=== PATIENT | female | born 1940 | race Native Hawaiian/Other Pacific Islander ===

== ENCOUNTER 2016-08-19 14:01 | Emergency (ER) | payer MEDICARE ==
[2016-08-19 14:02] VITALS: BMI 19.8
[2016-08-19 14:42] VITALS: TEMP 97.8; O2SAT 96
--- NOTE | 2016-08-19 14:57 | ED PDOC ---
Arrival/HPI - General Chief Complaint: Trauma Time Seen by Provider: 08/19/16 14:10 Historian: Patient - History of Present Illness Narrative History of Present Illness (Text): 08/19/16 14:50 Michelle Myles is a 75 year old female who presents to the emergency department complaining of possible head injury and injury to left wrist and right ankle s/ p fall yesterday morning. Patient miscalculated location of bed before laying down and fell, hitting her head and using her arms and legs to break fall. Patient denies any loss of consciousness from fall, however experiences dizziness presently. Patient indicates pain to bilateral wrists, knees and ankles. Patient waited to go to Urgent Care center until this morning, and was directed to emergency department out of concern for possible injury from trauma to the head, for a Head CT, and further evaluation. Patient took Aspirin for her pain to little relief. Patient denies any fever, chills, chest pain, shortness of breath, nausea, vomiting, diarrhea, urinary symptoms, or any other complaints. Time/Duration: < week Symptom Onset: Sudden Symptom Course: Unchanged Activities at Onset: Rest Modifying Factors (Text): Pain worsens with movement Context: Home Past Medical History - Provider Review Nursing Documentation Reviewed: Yes - Infectious Disease Hx of Infectious Diseases: None - Tetanus Immunization Tetanus Immunization: Allergy to Tetanus Vaccine - Reproductive Menopause: Yes - Cardiac Hx Pacemaker: Yes - Pulmonary Hx Chronic Obstructive Pulmonary Disease (COPD): Yes Hx Pneumonia: Yes - Neurological Hx Paralysis: No - HEENT Hx HEENT Disorder: Yes Other/Comment: LEFT EYE CATARACT SURGERY 06/2015 - Renal Hx Renal Disorder: No - Endocrine/Metabolic Hx Hypothyroidism: Yes - Hematological/Oncological Hx Blood Transfusions: No Hx Blood Transfusion Reaction: No - Integumentary Hx Dermatological Disorder: No - Musculoskeletal/Rheumatological Hx Musculoskeletal Disorders: Yes (PINCHED NERVES UPPER & LOWER SPINE) - Gastrointestinal Hx Gastrointestinal Disorders: No - Genitourinary/Gynecological Hx Genitourinary Disorders: No - Psychiatric Hx Emotional Abuse: No Hx Physical Abuse: No Hx Substance Use: No - Surgical History Hx Tonsillectomy: Yes - Anesthesia Hx Anesthesia: Yes Hx Anesthesia Reactions: No Hx Malignant Hyperthermia: No - Suicidal Assessment Feels Threatened In Home Enviroment: No Family/Social History - Physician Review Nursing Documentation Reviewed: Yes Family/Social History: No Known Family HX Smoking Status: Heavy Smoker > 10 Cigarettes Daily Hx Alcohol Use: No Hx Substance Use: No Allergies/Home Meds Allergies/Adverse Reactions: Allergies Sulfa (Sulfonamide Antibiotics) Allergy (Verified 08/19/16 14:42) ANAPHYLAXIS Tetanus Vaccines and Toxoid [Tetanus Vaccines & Toxoid] Allergy (Verified 14:42) RASH tetracycline Allergy (Verified 08/19/16 14:42) RASH Home Medications: Home Meds Medication Instructions Recorded Confirmed Dexlansoprazole [Dexilant] 60 mg PO DAILY 08/16/15 02/03/16 Gabapentin 300 mg PO BID 08/16/15 02/03/16 MetFORMIN [glucoPHAGE] 1,000 mg PO BID 08/16/15 02/03/16 Metoprolol Succinate 50 mg PO QPM 08/16/15 02/03/16 Valsartan [Diovan] 160 mg PO QAM 08/16/15 02/03/16 Glimepiride 1 mg PO DAILY PRN 02/01/16 02/03/16 Latanoprost 0.005% Opht [XALATAN 1 drp EACHEYE HS 02/01/16 02/03/16 2.5 Ml] Levothyroxine [Synthroid] 75 mcg PO DAILY 02/01/16 02/03/16 Meclizine [Meclizine*] 25 mg PO TID PRN 02/01/16 02/03/16 Review of Systems - Physician Review All systems were reviewed & negative as marked: Yes - Review of Systems Constitutional: absent: Fevers, Night Sweats Eyes: absent: Vision Changes ENT: absent: Hearing Changes Respiratory: absent: SOB Cardiovascular: absent: Chest Pain Gastrointestinal: absent: Abdominal Pain Genitourinary Female: absent: Urine Output Changes Musculoskeletal: Other (injury to left wrist and right ankle) Skin: absent: Rash Neurological: Dizziness (hit head s/p fall) Endocrine: absent: Diaphoresis Hemo/Lymphatic: absent: Adenopathy Psychiatric: absent: Depression Physical Exam Vital Signs Reviewed: Yes Vital Signs Temp Pulse Resp BP Pulse Ox 08/19/16 14:42 97.8 F 79 19 135/84 96 08/19/16 14:37 97.8 F 79 19 135/84 96 Temperature: Afebrile Blood Pressure: Normal Pulse: Regular Respiratory Rate: Normal Appearance: Positive for: Well-Appearing, Non-Toxic, Comfortable Pain Distress: None Mental Status: Positive for: Alert and Oriented X 3 - Systems Exam Head: Present: Atraumatic, Normocephalic. No: Tenderness, Contusion, Swelling Pupils: Present: PERRL Extroacular Muscles: Present: EOMI Conjunctiva: Present: Normal Mouth: Present: Moist Mucous Membranes Nose (External): Present: Atraumatic Nose (Internal): Present: Normal Inspection. No: No Active Bleeding, Epistaxis Neck: Present: Normal Range of Motion. No: MIDLINE TENDERNESS Respiratory/Chest: Present: Clear to Auscultation, Good Air Exchange. No: Respiratory Distress, Accessory Muscle Use Cardiovascular: Present: Regular Rate and Rhythm, Normal S1, S2. No: Murmurs Abdomen: Present: Normal Bowel Sounds. No: Tenderness, Distention, Peritoneal Signs Back: Present: Normal Inspection. No: Midline Tenderness Upper Extremity: Present: Tenderness (to left lateral wrist) Lower Extremity: Present: Tenderness (to right medial ankle with some swelling) Neurological: Present: GCS=15, CN II-XII Intact, Speech Normal, Motor Func Grossly Intact, Normal Sensory Function, Normal Cerebellar Funct, Gait Normal, Normal 2Pt Descrimination Skin: Present: Warm, Dry, Normal Color. No: Rashes Psychiatric: Present: Alert, Oriented x 3, Normal Insight, Normal Concentration Medical Decision Making ED Course and Treatment: 08/19/16 14:56 Impression: 75 year old female complaining of possible head injurt and injury to left wrist and right ankle s/p fall yesterday morning. Differential Diagnosis included but are not limited to: Head injury r/o ICH; Wrist and Ankle Contusion r/o Fracture Plan: -- Head CT w/o contrast -- Right Ankle X-ray -- Left Wrist X-ray -- Tylenol -- Reassess and disposition Prior Visits: Notes and results from previous visits were reviewed. Patient last seen in the ED on 10/30/15 for productive cough with yellow phlegn for 3 days. Patient was discharged home. Progress Notes: 08/19/16 16:58 I discussed this case with Dr. Dietz, Radiologist, who states that the old infarct is an incidental finding and recommends an MRI in the future but not urgent. I discussed this with family and they will make sure to follow up with their primary care doctor in 1-2 days. - RAD Interpretation Radiology Orders: 08/19/16 14:53 HEAD W/O CONTRAST [CT] Stat ANKLE RIGHT 3 VIEWS ROUTINE [RAD] Stat WRIST, LEFT 3 VIEWS [RAD] Stat Exam Date : 08/19/2016 16:14:28 ( Approved ) Study Comment : Sex / Age : F / 75Y Creator : KAREN DIETZ MD Dictator : KAREN DIETZ MD Campus Supervisor : [employer] : KAREN DIETZ MD Approver2 : Report Date : 08/19/2016 16:28:28 My Comment : PROCEDURE: CT HEAD WITHOUT CONTRAST. IMPRESSION: No acute intracranial abnormality. 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 WRIST and ANKLE Xray negative for fx. 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 No Sleep Is patient sleeping during reassessment? No Presence of Pain Presence of Pain Yes Pain Scale Used Pain Scale Used Numeric - Scribe Statement The provider has reviewed the documentation as recorded by the Scribe Letty Tobin Provider Scribe Attestation: All medical record entries made by the Scribe were at my direction and personally dictated by me. I have reviewed the chart and agree that the record accurately reflects my personal performance of the history, physical exam, medical decision making, and the department course for this patient. I have also personally directed, reviewed, and agree with the discharge instructions and disposition. Disposition/Present on Arrival - Present on Arrival Any Indicators Present on Arrival: No History of DVT/PE: No History of Uncontrolled Diabetes: No Urinary Catheter: No History of Decub. Ulcer: No History Surgical Site Infection Following: None - Disposition Have Diagnosis and Disposition been Completed?: Yes Diagnosis: Fall, Wrist contusion, Ankle contusion Disposition: HOME/ ROUTINE Disposition Time: 16:58 Patient Plan: Discharge Patient Problems: Current Active Problems Problem Status Diagnosed Ankle contusion Acute Fall Acute Wrist contusion Acute Condition: IMPROVED Discharge Instructions (ExitCare): Ankle Sprain (ED), Concussion (ED), Wrist Sprain (ED), Ischemic Stroke (DC) Additional Instructions: Ms Myles, thank you for letting us take care of you today. Your provider was Dr. Guerrero. You were treated for Head Injury, Left Wrist Injury, Right Ankle sprain. The emergency medical care you received today was directed at your acute symptoms. If you were prescribed any medication, please fill it and take as directed. It may take several days for your symptoms to resolve. Return to the Emergency Department if your symptoms worsen, do not improve, or if you have any other problems. Please contact your doctor or call one of the physicians/clinics you have been referred to that are listed on the Patient Visit Information form that is included in your discharge packet. Bring any paperwork you were given at discharge with you along with any medications you are taking to your follow up visit. Our treatment cannot replace ongoing medical care by a primary care provider (PCP) outside of the emergency department. Thank you for allowing the [facility] team to be part of your care today. If you had an X-Ray or CT scan: A Radiologist will review the ED reading if any change in treatment is needed we will contact you. If you had a blood, urine, or wound culture: It will take several days for the results, if any change in treatment is needed we will contact you. If you had an STI test: It will take 48 hours for the results. Please call after 1 week if you have not heard back. Referrals: Ronaldo Mukherjee MD [Primary Care Provider] - Follow up with primary
--- NOTE | 2016-08-19 16:30 | CT ---
PROCEDURE: CT HEAD WITHOUT CONTRAST. HISTORY: Head injury r/o ICH COMPARISON: None available. TECHNIQUE: Axial computed tomography images were obtained through the head/brain without intravenous contrast. Radiation dose: Total exam DLP = 774.23 mGy-cm. FINDINGS: HEMORRHAGE: No intracranial hemorrhage. BRAIN: There is a focal low-attenuation area in the right anterior hirsch radiata. There are mild chronic microangiopathic changes. There is no mass, mass effect or abnormal extra-axial fluid collection. VENTRICLES: There is mild age-related global parenchymal volume loss and proportionate enlargement of the ventricles and cortical sulci. CALVARIUM: There is no calvarial fracture or extracranial soft tissue swelling. PARANASAL SINUSES: Predominantly clear. MASTOID AIR CELLS: Predominantly clear. OTHER FINDINGS: None. IMPRESSION: No acute intracranial abnormality. 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
--- NOTE | 2016-08-19 16:55 | RAD ---
PROCEDURE: Right Ankle Radiographs. HISTORY: fall r/o fx COMPARISON: None FINDINGS: BONES: Bone alignment and mineralization are normal. There is no acute fracture, dislocation or bone destruction. JOINTS: Normal. No osteoarthritis. Ankle mortise maintained. Talar dome intact SOFT TISSUES: Normal. OTHER FINDINGS: None. IMPRESSION: No acute fracture or dislocation.
--- NOTE | 2016-08-19 16:55 | RAD ---
PROCEDURE: Left Wrist Radiographs. R vaginal bio Yo falx on Femara HISTORY: fall r/o fx COMPARISON: None. FINDINGS: BONES: The proximal and distal carpal rows are maintained. There is no acute fracture or bone destruction. JOINTS: The joint spaces are preserved. SOFT TISSUES: Normal. OTHER FINDINGS: None. IMPRESSION: No acute fracture or dislocation.
[2016-08-19 17:21] VITALS: BP 134/98; PULSE 80; RESP 16
== END 2016-08-19 18:10 | disposition home or self-care (01) ==
LOC: ED 14:01
DX: S60.212A Contusion of left wrist, initial encounter (principal); S90.01XA Contusion of right ankle, initial encounter; W18.39XA Other fall on same level, initial encounter; Y93.89 Activity, other specified; Y92.003 Bedroom of unspecified non-institutional (private) residence as the place of occurrence of the external cause

== ENCOUNTER 2016-08-30 07:52 | Emergency (ER) | payer MEDICARE ==
[2016-08-30 07:53] VITALS: BMI 19.8
[2016-08-30] MEDS ORDERED: Sodium Chloride 0.9% 500 ML IV STA (08:31)
--- NOTE | 2016-08-30 09:24 | ED PDOC ---
Arrival/HPI - General Chief Complaint: Dizziness/Lightheaded Time Seen by Provider: 08/30/16 08:18 Historian: Patient - History of Present Illness Narrative History of Present Illness (Text): 08/30/16 09:13 Michelle Canales is a 76 year old female, with a history of diabetes, bursitis and hypertension, presents to the emergency department for evaluation of lightheadedness associated with mild nausea which began today morning while she was waiting for an [place] study [place] [facility] [place] was sent to emergency department from further evaluation. Patient currently complains of mild lightheadedness which is worsened while standing up. She states that she is due for Valsartan and Metformin today morning, but has not taken it. Notes she ate crackers, but has not eaten breakfast yet. Patient also complains of left should pain, chronic due to bursitis. Denies any fever, chills, headache, chest pain, shortness of breath, vomiting, urinary symptoms, or any other complaints at this time. Time/Duration: 1/2 hour Symptom Onset: Gradual Symptom Course: Unchanged Severity Level: Mild Activities at Onset: Light Past Medical History - Provider Review Nursing Documentation Reviewed: Yes - Infectious Disease Hx of Infectious Diseases: None - Tetanus Immunization Tetanus Immunization: Allergy to Tetanus Vaccine - Cardiac Hx Hypertension: Yes - Pulmonary Hx Chronic Obstructive Pulmonary Disease (COPD): Yes Hx Pneumonia: Yes - Neurological Hx Paralysis: No - HEENT Hx HEENT Disorder: Yes Other/Comment: LEFT EYE CATARACT SURGERY 06/2015 - Renal Hx Renal Disorder: No - Endocrine/Metabolic Hx Diabetes Mellitus Type 2: Yes Hx Hypothyroidism: Yes - Hematological/Oncological Hx Blood Transfusions: No Hx Blood Transfusion Reaction: No - Integumentary Hx Dermatological Disorder: No - Musculoskeletal/Rheumatological Hx Musculoskeletal Disorders: Yes (PINCHED NERVES UPPER & LOWER SPINE) - Gastrointestinal Hx Gastrointestinal Disorders: No - Genitourinary/Gynecological Hx Genitourinary Disorders: No - Psychiatric Hx Emotional Abuse: No Hx Physical Abuse: No Hx Substance Use: No - Surgical History Hx Section: Yes (x4) Hx Hysterectomy: Yes Hx Musculoskeletal Surgery: Yes (Hand, Toes) Hx Tonsillectomy: Yes - Anesthesia Hx Anesthesia: Yes Hx Anesthesia Reactions: No Hx Malignant Hyperthermia: No - Suicidal Assessment Feels Threatened In Home Enviroment: No Family/Social History - Physician Review Nursing Documentation Reviewed: Yes Family/Social History: No Known Family HX Smoking Status: Heavy Smoker > 10 Cigarettes Daily Hx Alcohol Use: No Hx Substance Use: No Allergies/Home Meds Allergies/Adverse Reactions: Allergies Sulfa (Sulfonamide Antibiotics) Allergy (Verified 08/30/16 08:05) ANAPHYLAXIS Tetanus Vaccines and Toxoid [Tetanus Vaccines & Toxoid] Allergy (Verified 08:05) RASH tetracycline Allergy (Verified 08/30/16 08:05) RASH Home Medications: Home Meds Medication Instructions Recorded Confirmed Dexlansoprazole [Dexilant] 60 mg PO DAILY 08/16/15 02/03/16 Gabapentin 300 mg PO BID 08/16/15 02/03/16 MetFORMIN [glucoPHAGE] 1,000 mg PO BID 08/16/15 02/03/16 Metoprolol Succinate 50 mg PO QPM 08/16/15 02/03/16 Valsartan [Diovan] 160 mg PO QAM 08/16/15 02/03/16 Glimepiride 1 mg PO DAILY PRN 02/01/16 02/03/16 Latanoprost 0.005% Opht [XALATAN 1 drp EACHEYE HS 02/01/16 02/03/16 2.5 Ml] Levothyroxine [Synthroid] 75 mcg PO DAILY 02/01/16 02/03/16 Meclizine [Meclizine*] 25 mg PO TID PRN 02/01/16 02/03/16 Review of Systems - Physician Review All systems were reviewed & negative as marked: Yes - Review of Systems Constitutional: Normal. absent: Fatigue, Fevers Respiratory: absent: SOB, Cough Cardiovascular: absent: Chest Pain Gastrointestinal: Nausea. absent: Vomiting Genitourinary Female: Normal. absent: Dysuria, Frequency Musculoskeletal: Other (left shoulder pain ) Neurological: Dizziness (lightheadedness ) Psychiatric: Normal Physical Exam Vital Signs Reviewed: Yes Vital Signs Temp Pulse Resp BP Pulse Ox 08/30/16 12:25 98 F 78 16 165/95 H 99 08/30/16 10:40 72 16 136/91 H 98 08/30/16 07:59 98.4 F 90 18 137/85 95 Temperature: Afebrile Blood Pressure: Normal Pulse: Regular Respiratory Rate: Normal Appearance: Positive for: Well-Appearing, Non-Toxic, Comfortable Pain Distress: None Mental Status: Positive for: Alert and Oriented X 3 - Systems Exam Head: Present: Atraumatic, Normocephalic Pupils: Present: PERRL Extroacular Muscles: Present: EOMI Conjunctiva: Present: Normal Mouth: Present: Moist Mucous Membranes Pharnyx: Present: Normal. No: ERYTHEMA, EXUDATE Neck: Present: Normal Range of Motion. No: Paraspinal Tenderness, Bruit Respiratory/Chest: Present: Clear to Auscultation, Good Air Exchange. No: Respiratory Distress, Accessory Muscle Use Cardiovascular: Present: Regular Rate and Rhythm, Normal S1, S2. No: Murmurs Abdomen: Present: Normal Bowel Sounds. No: Tenderness, Distention, Peritoneal Signs Upper Extremity: Present: Normal Inspection, Normal ROM, NORMAL PULSES, Neurovascularly Intact. No: Cyanosis, Edema Lower Extremity: Present: Normal Inspection. No: Edema Neurological: Present: GCS=15, CN II-XII Intact, Speech Normal, Motor Func Grossly Intact, Normal Sensory Function, Other (good head shipper strenth. ) Skin: Present: Warm, Dry, Normal Color. No: Rashes Psychiatric: Present: Alert, Oriented x 3, Normal Insight, Normal Concentration Medical Decision Making ED Course and Treatment: 08/30/16 09:26 Impression: A 76 year old female who presents to the emergency department complaining of lightheadedness and nausea since earlier today morning. DDx: Near Syncope/Lightheadedness secondary decreased food and hydration this AM and not taking her medication; will consider cardiac and neuro causes. Plan: -- EKG -- Labs, cardiac enzymes -- Chest X-ray -- MRI brain -- MRA head -- MRA neck -- IV fluids -- Urinalysis -- Reassess and disposition Progress Notes: 08/30/16 09:27 EKG interpreted by me: NSR @ 84 bpm. Normal axis. Normal interval. No ST elevations. 08/30/16 12:19 Patient blood work was negative including cardiac enzymes. Her EKG was normal. CXR was normal. She also had scheduled MRI/MRA studies she was supposed to get today as per Dr. Rocha. We were able to complete those studies today and they were all negative. Patient states that she feels much better now and is in no acute distress. She no longer feels ligtheaded. She was able to stand up without dizziness or ataxia or lightheadedness. No headache. Neuro exam repeated and she has no neuro deficits. CN2-12 intact. Will discharge patient home and advised to f/u with Dr. Rocha. - Lab Interpretations Lab Results: 08/30/16 09:00 08/30/16 09:00 Lab Results 08/30/16 09:00: WBC 10.9, RBC 5.16, Hgb 14.9, Hct 43.0, MCV 83.3, MCH 28.9, MCHC 34.7, RDW 12.6, Plt Count 252, MPV 11.9 H, Gran % 71.2 H, Lymph % (Auto) 22.3, Bethel % (Auto) 4.4, Eos % (Auto) 1.7, Baso % (Auto) 0.4, Gran # 7.75 H, Lymph # 2.4, Bethel # 0.5, Eos # 0.2, Baso # 0.04, PT 10.7, INR 0.99, APTT 27.7, Sodium 137, Potassium 4.0, Chloride 101, Carbon Dioxide 25, Anion Gap 15, BUN 12 , Creatinine 0.7, Est GFR ( Amer) > 60, Est GFR (Non-Af Amer) > 60, Random Glucose 232 H, Calcium 9.2, Magnesium 1.6 L, Total Bilirubin 0.6, AST 30 , ALT 36, Alkaline Phosphatase 70, Lactate Dehydrogenase 397, Total Creatine Kinase 55, Troponin I < 0.01, Total Protein 7.2, Albumin 4.2, Globulin 3.0, Albumin/Globulin Ratio 1.4, Urine Color Yellow, Urine Appearance Clear, Urine pH 6.0, Ur Specific Hodgen 1.025, Urine Protein Trace H, Urine Glucose (UA) Negative, Urine Ketones Negative, Urine Blood Negative, Urine Nitrate Negative, Urine Bilirubin Negative, Urine Urobilinogen 0.2, Ur Leukocyte Esterase Negative , Urine RBC Negative, Urine WBC Negative 08/30/16 08:15: POC Glucose (mg/dL) 170 H I have reviewed the lab results: Yes Interpretation: Abnormal lab values (hyperglycemia and pt took her DM meds in ED.) - RAD Interpretation Narrative RAD Interpretations (Text): PROCEDURE: MR Angiography of the neck without contrast FINDINGS: RIGHT CAROTID ARTERIES: Common Carotid Artery: Normal. Carotid Bifurcation: Normal. Internal Carotid Artery:Normal. External Carotid Artery (proximal branches): Normal. LEFT CAROTID ARTERIES: Common Carotid Artery: Normal. Carotid Bifurcation: Normal. Internal Carotid Artery:Normal. External Carotid Artery (proximal branches): Normal. VERTEBRAL ARTERIES: Right Vertebral Artery: Normal. Left Vertebral Artery: Normal. OTHER FINDINGS: None. IMPRESSION: Normal MR Angiography of the neck. PROCEDURE: Magnetic Resonance Angiography Brain FINDINGS: INTERNAL CEREBRAL ARTERIES: Unremarkable. The skull base, petrous, cavernous and supraclinoid segments are bilaterally widely patient. ANTERIOR CEREBRAL ARTERIES: Unremarkable. A1 and A2 segments are widely patent. Smaller distal branches unremarkable, as visualized. MIDDLE CEREBRAL ARTERIES: Unremarkable. M1 and M2 segments are widely patent. Perisylvian branches grossly symmetric. POSTERIOR CIRCULATION: Basilar Artery: Unremarkable. Distal Vertebral Arteries: Unremarkable. Posterior Cerebral Arteries: Unremarkable. Posterior Inferior Cerebellar Arteries: Unremarkable. ANEURYSM/ VASCULAR MALFORMATIONS: None. OTHER FINDINGS: None. IMPRESSION: Unremarkable MR angiography of the brain. PROCEDURE: MRI BRAIN WITHOUT CONTRAST FINDINGS: HEMORRHAGE: None DWI: No evidence of an acute or early subacute infarction. BRAIN PARENCHYMA: No mass effect or edema. Chronic microvascular changes are seen in the periventricular white matter right greater than left. There is a small discrete white matter infarct that is chronic. VENTRICLES: Unremarkable. No hydrocephalus. CRANIUM: Unremarkable. ORBITS: Grossly unremarkable. PARANASAL SINUSES/MASTOIDS: Clear VASCULAR SYSTEM: Skull base flow voids intact. OTHER FINDINGS: None. IMPRESSION: Chronic microvascular changes. No acute findings. Normal medial temporal lobes. 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 - EKG Interpretation Interpreted by ED Physician: Yes Type: 12 lead EKG - Medication Orders Current Medication Orders: Discontinued Medications Sodium Chloride (Sodium Chloride 0.9%) 500 mls @ 999 mls/hr IV .Q31M STA Stop: 08/30/16 09:01 Last Admin: 08/30/16 09:16 Dose: 999 MLS/HR eMAR Start Stop Document 08/30/16 09:16 SS (Rec: 08/30/16 09:16 SS [id number]) Intravenous Solution Start Date 08/30/16 Start Time 09:16 End Date 08/30/16 End time 09:48 Total Infusion Time 32 - Scribe Statement The provider has reviewed the documentation as recorded by the Mattie Barrientos Provider Attestation: All medical record entries made by the Mattie were at my direction and personally dictated by me. I have reviewed the chart and agree that the record accurately reflects my personal performance of the history, physical exam, medical decision making, and the department course for this patient. I have also personally directed, reviewed, and agree with the discharge instructions and disposition. Disposition/Present on Arrival - Present on Arrival Any Indicators Present on Arrival: No History of DVT/PE: No History of Uncontrolled Diabetes: No Urinary Catheter: No History of Decub. Ulcer: No History Surgical Site Infection Following: None - Disposition Have Diagnosis and Disposition been Completed?: Yes Diagnosis: Near syncope Disposition: HOME/ ROUTINE Disposition Time: 12:30 Patient Plan: Discharge Condition: IMPROVED Discharge Instructions (ExitCare): Near Syncope (ED) Additional Instructions: Ms Myles, thank you for letting us take care of you today. Your provider was Dr. Guerrero. You were treated for Near Syncope. The emergency medical care you received today was directed at your acute symptoms. If you were prescribed any medication, please fill it and take as directed. It may take several days for your symptoms to resolve. Return to the Emergency Department if your symptoms worsen, do not improve, or if you have any other problems. Please contact your doctor or call one of the physicians/clinics you have been referred to that are listed on the Patient Visit Information form that is included in your discharge packet. Bring any paperwork you were given at discharge with you along with any medications you are taking to your follow up visit. Our treatment cannot replace ongoing medical care by a primary care provider (PCP) outside of the emergency department. Thank you for allowing the [facility] team to be part of your care today. If you had an X-Ray or CT scan: A Radiologist will review the ED reading if any change in treatment is needed we will contact you. If you had a blood, urine, or wound culture: It will take several days for the results, if any change in treatment is needed we will contact you. If you had an STI test: It will take 48 hours for the results. Please call after 1 week if you have not heard back. Referrals: Ronaldo Mukherjee MD [Primary Care Provider] - Follow up with primary Forms: WORK NOTE
[2016-08-30 09:26] LABS: ADD MANUAL DIFF? NO
[2016-08-30 09:29] LABS: URINE BILIRUBIN NEGATIVE (NEGATIVE); URINE BLOOD NEGATIVE (NEGATIVE); URINE GLUCOSE (UA) NEGATIVE (NEGATIVE); URINE KETONE NEGATIVE (NEGATIVE); URINE LEUKOCYTE ESTERASE NEGATIVE Leu/uL (NEGATIVE); URINE PROTEIN TRACE mg/dL (<30 mg/dL); URINE UROBILINOGEN 0.2 E.U./dL (<1 E.U./dL)
[2016-08-30 09:30] LABS: BASO # 0.04 K/mm3 (0.0-2.0); BASO % 0.4 % (0.0-3.0); EOS # 0.2 (0.0-0.7); EOS % 1.7 % (1.5-5.0); GRAN # 7.75 (1.4-6.5); GRAN % 71.2 % (50.0-68.0); LYMPH # 2.4 (1.2-3.4); LYMPH % 22.3 % (22.0-35.0); MEAN CELL VOLUME 83.3 fL (80.0-105.0); MEAN CORPUSCULAR HEMOGLOBIN 28.9 pg (25.0-35.0); MEAN CORPUSCULAR HGB CONC 34.7 g/dl (31.0-37.0); MEAN PLATELET VOLUME 11.9 fl (7.0-11.0); MONO # 0.5 (0.1-0.6); MONO % 4.4 % (1.0-6.0); PLATELET COUNT 252 10^3/uL (120.0-450.0); RED CELL DISTRIBUTION WIDTH 12.6 % (11.5-14.5); URINE APPEARANCE CLEAR (CLEAR); URINE COLOR YELLOW (YELLOW); WHITE BLOOD COUNT 10.9 10^3/ul (4.5-11.0)
[2016-08-30 09:37] LABS: URINE RBC NEGATIVE /hpf (0-2); URINE WBC NEGATIVE /hpf (0-6)
[2016-08-30 09:42] LABS: ALB/GLOB RATIO 1.4 (1.1-1.8); ALKALINE PHOSPHATASE 70 U/L (38-133); ALT/SGPT 36 U/L (7-56); AST/SGOT 30 U/L (15-39); BILIRUBIN,TOTAL 0.6 mg/dL (0.2-1.3); BLOOD UREA NITROGEN 12 mg/dL (7-21); CALCIUM 9.2 mg/dL (8.4-10.5); CARBON DIOXIDE 25 mmol/L (21-33); CHLORIDE 101 mmol/L (98-107); GFR AFRICAN-AMERICAN > 60; GLUCOSE,RANDOM 232 mg/dL (70-110); INR 0.99 (0.93-1.08); MAGNESIUM 1.6 mg/dL (1.7-2.2); PARTIAL THROMBOPLASTIN TIME 27.7 Seconds (23.7-30.8); SODIUM 137 mmol/L (132-148); TOTAL PROTEIN 7.2 g/dL (5.8-8.3)
[2016-08-30 09:53] LABS: TROPONIN I < 0.01 ng/mL
--- NOTE | 2016-08-30 10:02 | RAD ---
HISTORY: near syncope COMPARISON: 05/11/2015 chest x-ray PA and lateral FINDINGS: LUNGS: No consolidation. Minimal right infrahilar peribronchial thickening is suggested probably a chronic finding . Prior studies obtained in more shallow inspiration. PLEURA: No significant pleural effusion identified, no pneumothorax apparent. CARDIOVASCULAR: Normal. Atherosclerotic vascular calcification -aortic knob OSSEOUS STRUCTURES: Scoliosis as before. Bilateral acromioclavicular joint arthrosis. Generalized osteopenia VISUALIZED UPPER ABDOMEN: Normal. OTHER FINDINGS: None. IMPRESSION: No active disease.
[2016-08-30 10:41] VITALS: RESP 16
--- NOTE | 2016-08-30 11:27 | MRI ---
PROCEDURE: MRI BRAIN WITHOUT CONTRAST HISTORY: with temporal lobe cuts COMPARISON: None. TECHNIQUE: Multiplanar, multisequence MR images of the brain were obtained without intravenous contrast enhancement. Additional thin section imaging was performed through the temporal lobes. FINDINGS: HEMORRHAGE: None DWI: No evidence of an acute or early subacute infarction. BRAIN PARENCHYMA: No mass effect or edema. Chronic microvascular changes are seen in the periventricular white matter right greater than left. There is a small discrete white matter infarct that is chronic. VENTRICLES: Unremarkable. No hydrocephalus. CRANIUM: Unremarkable. ORBITS: Grossly unremarkable. PARANASAL SINUSES/MASTOIDS: Clear VASCULAR SYSTEM: Skull base flow voids intact. OTHER FINDINGS: None. IMPRESSION: Chronic microvascular changes. No acute findings. Normal medial temporal lobes.
--- NOTE | 2016-08-30 11:30 | MRI ---
PROCEDURE: Magnetic Resonance Angiography Brain HISTORY: pt with focal attenuation, near syncope COMPARISON: None available. TECHNIQUE: 3D time of flight MR angiography of the intracranial arteries was performed. Rotating maximum intensity projection images were generated. FINDINGS: INTERNAL CEREBRAL ARTERIES: Unremarkable. The skull base, petrous, cavernous and supraclinoid segments are bilaterally widely patient. ANTERIOR CEREBRAL ARTERIES: Unremarkable. A1 and A2 segments are widely patent. Smaller distal branches unremarkable, as visualized. MIDDLE CEREBRAL ARTERIES: Unremarkable. M1 and M2 segments are widely patent. Perisylvian branches grossly symmetric. POSTERIOR CIRCULATION: Basilar Artery: Unremarkable. Distal Vertebral Arteries: Unremarkable. Posterior Cerebral Arteries: Unremarkable. Posterior Inferior Cerebellar Arteries: Unremarkable. ANEURYSM/ VASCULAR MALFORMATIONS: None. OTHER FINDINGS: None. IMPRESSION: Unremarkable MR angiography of the brain.
--- NOTE | 2016-08-30 11:31 | MRI ---
PROCEDURE: MR Angiography of the neck without contrast HISTORY: pt with focal attenuation, near syncope COMPARISON: None available. TECHNIQUE: 3D [id number] angiography of the neck was performed. Rotating maximum intensity projection images of the cervical carotid and vertebral arteries were generated. The origins of the common carotid arteries were not visualized, which is a limitation inherent to the non-contrast time of flight technique. FINDINGS: RIGHT CAROTID ARTERIES: Common Carotid Artery: Normal. Carotid Bifurcation: Normal. Internal Carotid Artery:Normal. External Carotid Artery (proximal branches): Normal. LEFT CAROTID ARTERIES: Common Carotid Artery: Normal. Carotid Bifurcation: Normal. Internal Carotid Artery:Normal. External Carotid Artery (proximal branches): Normal. VERTEBRAL ARTERIES: Right Vertebral Artery: Normal. Left Vertebral Artery: Normal. OTHER FINDINGS: None. IMPRESSION: Normal MR Angiography of the neck.
[2016-08-30 12:39] VITALS: BP 165/95; PULSE 78; TEMP 98; O2SAT 99
--- NOTE | 2016-08-30 16:46 | CARD ---
APPROVED REPORT EKG Measurement Heart [id number] <Conclusion> Normal sinus rhythm Normal ECG
== END 2016-08-30 12:30 | disposition home or self-care (01) ==
LOC: ED 07:52
DX: R55 Syncope and collapse (principal); F17.210 Nicotine dependence, cigarettes, uncomplicated; E03.9 Hypothyroidism, unspecified; E11.9 Type 2 diabetes mellitus without complications; I10 Essential (primary) hypertension
CPT/HCPCS: 70544; 70547; 70551; 71010; 80053; 81001; 82550; 82948; 83615; 83735; 84484; 85025; 85610; 85730; 93005; 96360; 99285; J7040

== ENCOUNTER 2016-12-25 22:03 | Observation (INO) | payer MEDICARE ==
[2016-12-25 22:07] VITALS: BMI 20.9
--- NOTE | 2016-12-25 22:30 | ED PDOC ---
Arrival/HPI - General Time Seen by Provider: 12/25/16 22:08 Historian: Patient - History of Present Illness Narrative History of Present Illness (Text): 12/25/16 22:27 Michelle Myles is a 76 year old female, whose past medical history includes hypertension, diabetes and TIA, presents to the emergency department complaining of dizziness and near-syncope. Patient states she felt like she was "going to pass out." Reports that she took an extra hypertension medication tablet today evening because her systolic pressure is the 200s. Denies any chest pain, shortness of breath, focal weakness, slurred speech, vision changes , headache, nausea, vomiting, diarrhea, back pain, urinary symptoms, or any other complaints at this time. Time/Duration: 1-3 hours Symptom Onset: Gradual Severity Level: Mild Activities at Onset: Light Context: Home Past Medical History - Provider Review Nursing Documentation Reviewed: Yes - Infectious Disease Hx of Infectious Diseases: None - Tetanus Immunization Tetanus Immunization: Allergy to Tetanus Vaccine - Cardiac Hx Hypertension: Yes - Pulmonary Hx Chronic Obstructive Pulmonary Disease (COPD): Yes Hx Pneumonia: Yes - Neurological Hx Paralysis: No - HEENT Hx HEENT Disorder: Yes Other/Comment: LEFT EYE CATARACT SURGERY 06/2015 - Renal Hx Renal Disorder: No - Endocrine/Metabolic Hx Diabetes Mellitus Type 2: Yes Hx Hypothyroidism: Yes - Hematological/Oncological Hx Blood Transfusions: No Hx Blood Transfusion Reaction: No - Integumentary Hx Dermatological Disorder: No - Musculoskeletal/Rheumatological Hx Musculoskeletal Disorders: Yes (PINCHED NERVES UPPER & LOWER SPINE) - Gastrointestinal Hx Gastrointestinal Disorders: No - Genitourinary/Gynecological Hx Genitourinary Disorders: No - Psychiatric Hx Emotional Abuse: No Hx Physical Abuse: No Hx Substance Use: No - Surgical History Hx Section: Yes (x4) Hx Hysterectomy: Yes Hx Musculoskeletal Surgery: Yes (Hand, Toes) Hx Tonsillectomy: Yes - Anesthesia Hx Anesthesia: Yes Hx Anesthesia Reactions: No Hx Malignant Hyperthermia: No - Suicidal Assessment Feels Threatened In Home Enviroment: No Family/Social History - Physician Review Nursing Documentation Reviewed: Yes Family/Social History: No Known Family HX Smoking Status: Heavy Smoker > 10 Cigarettes Daily Hx Alcohol Use: No Hx Substance Use: No Allergies/Home Meds Allergies/Adverse Reactions: Allergies Sulfa (Sulfonamide Antibiotics) Allergy (Verified 08/30/16 08:05) ANAPHYLAXIS Tetanus Vaccines and Toxoid [Tetanus Vaccines & Toxoid] Allergy (Verified 08:05) RASH tetracycline Allergy (Verified 08/30/16 08:05) RASH Home Medications: Home Meds Medication Instructions Recorded Confirmed Dexlansoprazole [Dexilant] 60 mg PO DAILY 08/16/15 12/26/16 Gabapentin 300 mg PO BID 08/16/15 12/26/16 MetFORMIN [glucoPHAGE] 1,000 mg PO BID 08/16/15 12/26/16 Metoprolol Succinate 50 mg PO QPM 08/16/15 12/26/16 Valsartan [Diovan] 160 mg PO QAM 08/16/15 12/26/16 Glimepiride 1 mg PO DAILY PRN 02/01/16 12/26/16 Latanoprost 0.005% Opht [XALATAN 1 drp EACHEYE HS 02/01/16 12/26/16 2.5 Ml] Levothyroxine [Synthroid] 75 mcg PO DAILY 02/01/16 12/26/16 Meclizine [Meclizine*] 25 mg PO TID PRN 02/01/16 12/26/16 Review of Systems - Physician Review All systems were reviewed & negative as marked: Yes - Review of Systems Constitutional: Normal. absent: Fatigue, Fevers Respiratory: Normal. absent: SOB, Cough, Sputum Cardiovascular: Normal. absent: Chest Pain, Palpitations Gastrointestinal: Normal. absent: Diarrhea, Nausea, Vomiting Genitourinary Female: Normal. absent: Dysuria Neurological: Dizziness, Other (near syncope ). absent: Headache, Focal Weakness, Speech Changes, Facial Droop Psychiatric: Normal Physical Exam Vital Signs Reviewed: Yes Vital Signs Temp Pulse Resp BP Pulse Ox 12/26/16 01:04 80 16 159/93 H 99 12/25/16 22:36 98.3 F 88 24 172/104 H 98 Temperature: Afebrile Blood Pressure: Hypertensive Pulse: Regular Respiratory Rate: Normal Appearance: Positive for: Well-Appearing, Non-Toxic, Comfortable Pain Distress: None Mental Status: Positive for: Alert and Oriented X 3 - Systems Exam Head: Present: Atraumatic, Normocephalic Pupils: Present: PERRL Extroacular Muscles: Present: EOMI Conjunctiva: Present: Normal Mouth: Present: Moist Mucous Membranes Neck: Present: Normal Range of Motion. No: MIDLINE TENDERNESS, Paraspinal Tenderness Respiratory/Chest: Present: Clear to Auscultation, Good Air Exchange. No: Respiratory Distress, Accessory Muscle Use Cardiovascular: Present: Regular Rate and Rhythm, Normal S1, S2. No: Murmurs Abdomen: Present: Normal Bowel Sounds. No: Tenderness, Distention, Peritoneal Signs, Rebound, Guarding Upper Extremity: Present: Normal Inspection. No: Cyanosis, Edema Lower Extremity: Present: Normal Inspection. No: Edema Neurological: Present: GCS=15, CN II-XII Intact, Speech Normal, Motor Func Grossly Intact, Normal Sensory Function Skin: Present: Warm, Dry, Normal Color. No: Rashes Psychiatric: Present: Alert, Oriented x 3, Normal Insight, Normal Concentration Medical Decision Making ED Course and Treatment: 12/25/16 22:31 Impression: A 76 year old female who presents to the emergency department complaining of dizziness and near syncope. Plan: -- CT Head -- EKG -- Labs, cardiac enzymes -- Chest X-ray -- Reassess and disposition Progress Notes: 12/26/16 00:37 CT Head reviewed: IMPRESSION: 1. No acute intracranial hemorrhage or acute territorial type infarct. 2. There are scattered foci of hypodensity within the cerebral white matter, likely representing small vessel ischemic disease in a patient this age. Hypodense foci are visualized within the right basal ganglia, similar in etiology. 3. There is a hypodense stable chronic lacunar infarct within the right frontal white matter. 4. Stable atrophy. 5. If further evaluation is clinically indicated, an MRI of the brain is recommended. 12/26/16 02:30 Chest X-ray reviewed: IMPRESSION: 1. The cardiac silhouette appears enlarged. 2. Patch opacification is visualized within the right lower lung zone, suggestive of atelectatic change or infiltrate. This is new compared to the prior study. 3. Within the lateral aspect of the right lower lung zone, there is a 1.3 cm nodule. A nonemergent chest CT is recommended. 12/26/16 02:42 Case discussed with who is aware and agrees with the plan to observe patient at telemetry for near-syncope. Accepts patient under his service. - Lab Interpretations Lab Results: 12/25/16 22:55 12/25/16 22:55 Lab Results 12/26/16 02:00: Urine Color Yellow, Urine Appearance Clear, Urine pH 6.5, Ur Specific [place] 1.010, Urine Protein Negative, Urine Glucose (UA) Negative, Urine Ketones Negative, Urine Blood Negative, Urine Nitrate Negative, Urine Bilirubin Negative, Urine Urobilinogen 0.2, Ur Leukocyte Esterase Negative 12/25/16 22:55: WBC 10.5, RBC 4.70, Hgb 13.1, Hct 39.2, MCV 83.4, MCH 27.9, MCHC 33.4, RDW 12.7, Plt Count 210, MPV 11.9 H 12/25/16 22:55: Sodium 140, Potassium 3.7, Chloride 100, Carbon Dioxide 25, Anion Gap 19, BUN 12, Creatinine 0.7, Est GFR ( Amer) > 60, Est GFR (Non- Af Amer) > 60, Random Glucose 198 H, Calcium 9.0, Total Bilirubin 0.3, AST 22, ALT 27, Alkaline Phosphatase 87, Lactate Dehydrogenase 397, Total Creatine Kinase 67, Troponin I < 0.01, Total Protein 6.5, Albumin 3.8, Globulin 2.7, Albumin/Globulin Ratio 1.4 12/25/16 22:55: PT 10.4, INR 0.96, APTT 27.9 I have reviewed the lab results: Yes - RAD Interpretation Narrative RAD Interpretations (Text): EXAM: CT Head Without Intravenous Contrast COMPARISON: CT - HEAD W/O CONTRAST 08/19/2016 4:14:28 PM FINDINGS: Brain: There are scattered foci of hypodensity within the cerebral white matter , likely representing small vessel ischemic disease in a patient this age. Hypodense foci are visualized within the right basal ganglia, similar in etiology. There is a hypodense stable chronic lacunar infarct within the right frontal white matter. The acuity of the white matter disease is indeterminate. The white-hair differentiation is preserved demonstrating no acute territorial type infarct. There is stable prominence of the ventricles and sulci, compatible with atrophy. No acute intracranial hemorrhage is seen. Midline shift: There is no midline shift. Ventricles: See above. Bones/joints: The calvarium demonstrates no evidence for a depressed fracture. Soft tissues: No acute abnormality. Vasculature: There is atherosclerotic calcification of the cavernous internal carotid arteries. Sinuses: Unremarkable as visualized. No acute sinusitis. Mastoid air cells: No mastoid effusion. IMPRESSION: 1. No acute intracranial hemorrhage or acute territorial type infarct. 2. There are scattered foci of hypodensity within the cerebral white matter, likely representing small vessel ischemic disease in a patient this age. Hypodense foci are visualized within the right basal ganglia, similar in etiology. 3. There is a hypodense stable chronic lacunar infarct within the right frontal white matter. 4. Stable atrophy. 5. If further evaluation is clinically indicated, an MRI of the brain is recommended. Dictated and Authenticated by: Benjamin Adan MD 12/26/16 02:29 EXAM: XR Chest, 1 View Dictated and Authenticated by: Benjamin Adan MD FINDINGS: Lungs: Patch opacification is visualized within the right lower lung zone, suggestive of atelectatic change or infiltrate. This is new compared to the prior study. Within the lateral aspect of the right lower lung zone, there is a 1.3 cm nodule. Pleural space: No pleural effusions. No pneumothorax. Heart: The cardiac silhouette appears enlarged. Mediastinum: There is atherosclerotic calcification of the aortic arch. Bones/joints: There is mild dextroscoliosis of the thoracic spine. Osteopenia. Hypertrophic degenerative changes are noted within the spine. There is mild right acromioclavicular arthropathy. Degenerative spurring is visualized of the right greater tuberosity. Upper abdomen: There is elevation of the right hemidiaphragm. IMPRESSION: 1. The cardiac silhouette appears enlarged. 2. Patch opacification is visualized within the right lower lung zone, suggestive of atelectatic change or infiltrate. This is new compared to the prior study. 3. Within the lateral aspect of the right lower lung zone, there is a 1.3 cm nodule. A nonemergent chest CT is recommended. Radiology Orders: 12/25/16 22:26 HEAD W/O CONTRAST [CT] Stat CHEST PORTABLE [RAD] Stat Instrument Repair Specialist: Radiologist - Medication Orders Current Medication Orders: Ceftriaxone Sodium (Rocephin 1 Gram Ivpb) 1 gm in 100 mls @ 200 mls/hr IV ONCE STA PRN Reason: Protocol Stop: 12/26/16 02:59 Azithromycin (Zithromax 500mg In Ns) 500 mg in 250 mls @ 166.667 mls/hr IV STAT STA PRN Reason: Protocol Stop: 12/26/16 03:59 - Scribe Statement The provider has reviewed the documentation as recorded by the Scribe Elsa Barrientos Provider Attestation: Provider Scribe Attestation: All medical record entries made by the Scribe were at my direction and personally dictated by me. I have reviewed the chart and agree that the record accurately reflects my personal performance of the history, physical exam, medical decision making, and the department course for this patient. I have also personally directed, reviewed, and agree with the discharge instructions and disposition. Disposition/Present on Arrival - Present on Arrival Any Indicators Present on Arrival: No History of DVT/PE: No History of Uncontrolled Diabetes: No Urinary Catheter: No History Surgical Site Infection Following: None - Disposition Have Diagnosis and Disposition been Completed?: Yes Diagnosis: Community acquired pneumonia, Near syncope Disposition: HOSPITALIZED Disposition Time: 02:40 Patient Problems: Current Active Problems Problem Status Onset Community acquired pneumonia Acute Near syncope Acute Condition: STABLE Referrals: Ronaldo Mukherjee MD [Primary Care Provider] - Follow up with primary
[2016-12-25 23:13] LABS: ALB/GLOB RATIO 1.4 (1.1-1.8); ALBUMIN 3.8 g/dL (3.0-4.8); ALT/SGPT 27 U/L (7-56); AST/SGOT 22 U/L (15-39); BLOOD UREA NITROGEN 12 mg/dL (7-21); GFR AFRICAN-AMERICAN > 60; GFR NON-AFRICAN AMERICAN > 60
[2016-12-25 23:20] LABS: INR 0.96 (0.93-1.08); PARTIAL THROMBOPLASTIN TIME 27.9 Seconds (23.7-30.8); PROTHROMBIN TIME 10.4 Seconds (9.9-11.8)
[2016-12-25 23:22] LABS: HEMOGLOBIN 13.1 gm/dL (12.0-16.0); MEAN CELL VOLUME 83.4 fL (80.0-105.0); MEAN CORPUSCULAR HEMOGLOBIN 27.9 pg (25.0-35.0); MEAN CORPUSCULAR HGB CONC 33.4 g/dl (31.0-37.0); MEAN PLATELET VOLUME 11.9 fl (7.0-11.0); RBC 4.7 10^6/uL (3.5-6.1); RED CELL DISTRIBUTION WIDTH 12.7 % (11.5-14.5); WHITE BLOOD COUNT 10.5 10^3/ul (4.5-11.0)
[2016-12-25 23:26] LABS: TROPONIN I < 0.01 ng/mL
--- NOTE | 2016-12-26 00:34 | CT ---
EXAM: CT Head Without Intravenous Contrast CLINICAL HISTORY: The patient age is 76 years old and is female; Signs and symptoms; Syncope and collapse; Additional info: Near syncope Facility exam id and description: Ct heads head w/o contrast TECHNIQUE: Axial computed tomography images of the head/brain without intravenous contrast. This CT exam was performed using one or more of the following dose reduction techniques: automated exposure control, adjustment of the mA and/or kV according to patient size, and/or use of iterative reconstruction technique. EXAM DATE/TIME: 12/25/2016 10:26 PM COMPARISON: CT - HEAD W/O CONTRAST 08/19/2016 4:14:28 PM FINDINGS: Brain: There are scattered foci of hypodensity within the cerebral white matter, likely representing small vessel ischemic disease in a patient this age. Hypodense foci are visualized within the right basal ganglia, similar in etiology. There is a hypodense stable chronic lacunar infarct within the right frontal white matter. The acuity of the white matter disease is indeterminate. The white-hair differentiation is preserved demonstrating no acute territorial type infarct. There is stable prominence of the ventricles and sulci, compatible with atrophy. No acute intracranial hemorrhage is seen. Midline shift: There is no midline shift. Ventricles: See above. Bones/joints: The calvarium demonstrates no evidence for a depressed fracture. Soft tissues: No acute abnormality. Vasculature: There is atherosclerotic calcification of the cavernous internal carotid arteries. Sinuses: Unremarkable as visualized. No acute sinusitis. Mastoid air cells: No mastoid effusion. IMPRESSION: 1. No acute intracranial hemorrhage or acute territorial type infarct. 2. There are scattered foci of hypodensity within the cerebral white matter, likely representing small vessel ischemic disease in a patient this age. Hypodense foci are visualized within the right basal ganglia, similar in etiology. 3. There is a hypodense stable chronic lacunar infarct within the right frontal white matter. 4. Stable atrophy. 5. If further evaluation is clinically indicated, an MRI of the brain is recommended.
--- NOTE | 2016-12-26 02:28 | RAD ---
EXAM: XR Chest, 1 View CLINICAL HISTORY: The patient age is 76 years old and is female; Signs and symptoms; Other: Syncope; Additional info: Near syncope Facility exam id and description: Rad chest p chest portable TECHNIQUE: Frontal view of the chest. EXAM DATE/TIME: 12/25/2016 10:26 PM COMPARISON: CR - CHEST PORTABLE 08/30/2016 8:43:43 AM FINDINGS: Lungs: Patch opacification is visualized within the right lower lung zone, suggestive of atelectatic change or infiltrate. This is new compared to the prior study. Within the lateral aspect of the right lower lung zone, there is a 1.3 cm nodule. Pleural space: No pleural effusions. No pneumothorax. Heart: The cardiac silhouette appears enlarged. Mediastinum: There is atherosclerotic calcification of the aortic arch. Bones/joints: There is mild dextroscoliosis of the thoracic spine. Osteopenia. Hypertrophic degenerative changes are noted within the spine. There is mild right acromioclavicular arthropathy. Degenerative spurring is visualized of the right greater tuberosity. Upper abdomen: There is elevation of the right hemidiaphragm. IMPRESSION: 1. The cardiac silhouette appears enlarged. 2. Patch opacification is visualized within the right lower lung zone, suggestive of atelectatic change or infiltrate. This is new compared to the prior study. 3. Within the lateral aspect of the right lower lung zone, there is a 1.3 cm nodule. A nonemergent chest CT is recommended.
[2016-12-26] MEDS ORDERED: Azithromycin 500MG/NS 250ml 500 MG/250 ML BAG IV STA (02:30)
[2016-12-26] MEDS ORDERED: cefTRIAXone 1 gm 1 GM/100 ML BAG IV STA (02:30)
[2016-12-26 02:31] LABS: PH,URINE 6.5 (4.7-8.0); URINE BILIRUBIN NEGATIVE (NEGATIVE); URINE BLOOD NEGATIVE (NEGATIVE); URINE GLUCOSE (UA) NEGATIVE (NEGATIVE); URINE LEUKOCYTE ESTERASE NEGATIVE Leu/uL (NEGATIVE); URINE NITRATE NEGATIVE (NEGATIVE); URINE PROTEIN NEGATIVE mg/dL (<30 mg/dL); URINE UROBILINOGEN 0.2 E.U./dL (<1 E.U./dL)
[2016-12-26 02:37] LABS: URINE APPEARANCE CLEAR (CLEAR); URINE COLOR YELLOW (YELLOW)
--- NOTE | 2016-12-26 04:13 | CP.PCM.HP ---
History of Present Illness - History of Present Illness History of Present Illness: Internal Medicine H&P for Dr. Mariscal's Service CC: Dizziness, Near Syncope, Cough HPI: This is a 76 yo F with PMH of HTN, DM, hypothyroidism on Synthroid, prior Vertigo, prior TIA, COPD, and active tobacco abuse who presented to the ED with complaint of dizziness to the point that she felt like she was going to pass out. Patient reports that she didn't actually pass out, and she never has previously, but despite having similar episodes in the past, it was never as bad as this most recent episode. She also reports having a non-productive cough x5-6 days. Patient reports recent course of antibiotics for ~10 days for UTI, claims to have finished her antibiotic course, but cannot remember when she finished the course. Denies chest pain, acute shortness of breath, focal weakness, dysuria/hematuria, emesis, diarrhea/constipation, acute vision changes. Very anxious during exam. All remaining ROS in 12-point system review negative. PMH: As above PSH: thyroidectomy (1992), x4, hysterectomy, unspecified hand and toe surgeries, laser surgery for glaucoma, cataract surgery SHx: active tobacco user (~1ppd), denies EtOH, denies illicits PMD: Dr. Jim Mukherjee Present on Admission - Present on Admission Any Indicators Present on Admission: No History of DVT/PE: No History of Uncontrolled Diabetes: No Urinary Catheter: No Review of Systems - Review of Systems All systems: reviewed and no additional remarkable complaints except (as in HPI) Past Patient History - Infectious Disease Hx of Infectious Diseases: None - Tetanus Immunizations Tetanus Immunization: Allergy to Tetanus Vaccine - Past Medical History & Family History Past Medical History?: Yes - Past Social History Smoking Status: Heavy Smoker > 10 Cigarettes Daily - CARDIAC Hx Hypertension: Yes - PULMONARY Hx Chronic Obstructive Pulmonary Disease (COPD): Yes Hx Pneumonia: Yes - NEUROLOGICAL Hx Paralysis: No - HEENT Hx HEENT Problems: Yes Other/Comment: LEFT EYE CATARACT SURGERY 06/2015 - RENAL Hx Chronic Kidney Disease: No - ENDOCRINE/METABOLIC Hx Diabetes Mellitus Type 2: Yes Hx Hypothyroidism: Yes - HEMATOLOGICAL/ONCOLOGICAL Hx Blood Transfusions: No Hx Blood Transfusion Reaction: No - INTEGUMENTARY Hx Dermatological Problems: No - MUSCULOSKELETAL/RHEUMATOLOGICAL Hx Musculoskeletal Disorders: Yes (PINCHED NERVES UPPER & LOWER SPINE) - GASTROINTESTINAL Hx Gastrointestinal Disorders: No - GENITOURINARY/GYNECOLOGICAL Hx Genitourinary Disorders: No - PSYCHIATRIC Hx Emotional Abuse: No Hx Physical Abuse: No Hx Substance Use: No - SURGICAL HISTORY Hx Section: Yes (x4) Hx Hysterectomy: Yes Hx Musculoskeletal Surgery: Yes (Hand, Toes) Hx Tonsillectomy: Yes - ANESTHESIA Hx Anesthesia: Yes Hx Anesthesia Reactions: No Hx Malignant Hyperthermia: No Meds Allergies/Adverse Reactions: Allergies Allergy/AdvReac Type Severity Reaction Status Date / Time Sulfa (Sulfonamide Allergy ANAPHYLAXIS Verified 08/30/16 08:05 Antibiotics) Tetanus Vaccines and Toxoid Allergy RASH Verified 08/30/16 08:05 [Tetanus Vaccines & Toxoid] tetracycline Allergy RASH Verified 08/30/16 08:05 Physical Exam - Constitutional Appears: Non-toxic, No Acute Distress, Other (Sleeping comfortably in bed) - Head Exam Head Exam: ATRAUMATIC, NORMAL INSPECTION, NORMOCEPHALIC - Eye Exam Eye Exam: EOMI, Normal appearance, PERRL. absent: Conjunctival injection, Scleral icterus Pupil Exam: NORMAL ACCOMODATION, PERRL. absent: Fixed, Irregular, Unequal Additional comments: no dizziness or nystagmus elicited by EOMI testing - ENT Exam ENT Exam: Mucous Membranes Moist. absent: Mucous Membranes Dry - Neck Exam Neck exam: Negative for: Lymphadenopathy, Thyromegaly Additional comments: No palpable thyroid - Respiratory Exam Respiratory Exam: Decreased Breath Sounds (diffusely decreased in all taveras), Rales (faint rales in R base), NORMAL BREATHING PATTERN. absent: Accessory Muscle Use, Chest Wall Tenderness, Clear to Auscultation Bilateral, Wheezes, Respiratory Distress - Cardiovascular Exam Cardiovascular Exam: REGULAR RHYTHM, RRR, +S1, +S2. absent: Bradycardia, Tachycardia, Irregular Rhythm, +S4 - GI/Abdominal Exam GI & Abdominal Exam: Normal Bowel Sounds, Soft. absent: Diminished Bowel Sounds , Hyperactive Bowel Sounds, Hypoactive Bowel Sounds, Tenderness - Extremities Exam Extremities exam: Positive for: normal capillary refill, pedal pulses present. Negative for: calf tenderness, pedal edema, tenderness - Back Exam Back exam: absent: CVA tenderness (L), CVA tenderness (R) - Neurological Exam Neurological exam: Alert, Oriented x3 - Psychiatric Exam Psychiatric exam: Anxious, Normal Affect - Skin Skin Exam: Dry, Intact, Normal Color, Warm Results - Vital Signs Recent Vital Signs: Last Vital Signs Temp 97.9 F 12/26/16 03:00 Pulse 80 12/26/16 03:00 Resp 16 12/26/16 03:00 BP 154/90 H 12/26/16 03:00 Pulse Ox 97 12/26/16 03:00 - Labs Result Diagrams: 12/25/16 22:55 12/25/16 22:55 Assessment & Plan - Assessment and Plan (Free Text) Assessment: This is a 76 yo F with PMH of HTN, DM, hypothyroidism on Synthroid, prior Vertigo, prior TIA, COPD, and active tobacco abuse who presented to the ED with complaint of dizziness to the point that she felt like she was going to pass out. She is being worked up for cardiogenic vs neurogenic near-syncope and hypertensive urgency. Plan: 1) Dizziness with near-syncope -HTN urgency vs TIA vs CVA vs Hypoglcemia vs 2/2 Pneumonia vs hyperthyroid -Reports SBPs 180's - 200's at home, 150's-170's in ED without receiving any anti-hypertensives -anxious throughout exam -Cardio and neuro consulted, appreciate their recs -Blood glucose 200 in ED, sliding scale insulin, hold oral hypoglycemics -MRI brain with contrast, MRA head without contrast, B/L carotid duplex -Trop x1 negative, trending 2 more q8 -AM EKG ordered, f/u -Echo ordered -CXR in ED suspicious for RLL infiltrate vs atelectasis; covering with Rocephin and Zithromax, Chest CT ordered -PT consulted -TSH/T4/Free T4 ordered -PRN Xanax for anxiety -Lovenox for DVT ppx 2) DM -Lispro Med-ISS -Fingersticks ACHS -A1c ordered, f/u -Continue home gabapentin for neuropathy 3) HTN -Continue home Losartan -clonidine 0.1mg q4 prn for SBP > 170 -Cardio consulted, appreciate their input 4) COPD -stable on room air -Nebs q6 -smoking cessation strongly encouraged Dispo: Telemetry obs, pending Neuro and Cardio input, pending diagnostic scans FEN: Heart-healthy consistent carb Access: Peripheral IV Consults: Cardio, Neuro Ppx: Protonix for GI, Lovenox for DVT Patient discussed and reviewed with attending, Dr. Mariscal. - Date & Time Date: 12/26/16 Time: 03:00 Decision To Admit - Pt Status Changed To: Hospital Disposition Of: Observation - . Bed Request Type: Telemetry
[2016-12-26] MEDS: Pantoprazole 40 mg EC Tab PO SCH (05:09)
[2016-12-26 07:16] LABS: BASO # 0.03 K/mm3 (0.0-2.0); BASO % 0.3 % (0.0-3.0); EOS # 0.3 (0.0-0.7); EOS % 2.9 % (1.5-5.0); GRAN # 7.41 (1.4-6.5); GRAN % 71.6 % (50.0-68.0); HEMOGLOBIN 12.7 gm/dL (12.0-16.0); LYMPH % 18.9 % (22.0-35.0); MEAN CELL VOLUME 82.2 fL (80.0-105.0); MEAN CORPUSCULAR HEMOGLOBIN 27.9 pg (25.0-35.0); MEAN CORPUSCULAR HGB CONC 33.9 g/dl (31.0-37.0); MEAN PLATELET VOLUME 11.7 fl (7.0-11.0); MONO # 0.7 (0.1-0.6); MONO % 6.3 % (1.0-6.0); PLATELET COUNT 205 10^3/uL (120.0-450.0); RBC 4.56 10^6/uL (3.5-6.1); RED CELL DISTRIBUTION WIDTH 12.7 % (11.5-14.5); WHITE BLOOD COUNT 10.3 10^3/ul (4.5-11.0)
[2016-12-26] MEDS: Insulin Lispro (humaLOG) MEDIUM Coverage SC SCH ×4 (07:32→21:59)
[2016-12-26 08:01] LABS: ALB/GLOB RATIO 1.5 (1.1-1.8); ALBUMIN 3.5 g/dL (3.0-4.8); ALT/SGPT 21 U/L (7-56); AST/SGOT 21 U/L (15-39); BLOOD UREA NITROGEN 11 mg/dL (7-21); CALCIUM 8.5 mg/dL (8.4-10.5); GFR AFRICAN-AMERICAN > 60; GFR NON-AFRICAN AMERICAN > 60; HDL CHOLESTEROL 37 mg/dL (29-60); LDL CHOLESTEROL 97 mg/dL (0-129); MAGNESIUM 1.3 mg/dL (1.7-2.2)
[2016-12-26] MEDS: Potassium Chloride 40 mEq/30 ml LIQ UD PO SCH ×2 (08:41→12:21)
[2016-12-26] MEDS: Magnesium Sulfate 2 GM in Sodium Chloride 0.9% 100 ML IVPB SCH ×2 (08:52→12:23)
[2016-12-26] MEDS: Enoxaparin 40 mg Syringe SC SCH (09:01)
[2016-12-26] MEDS: Levothyroxine 75 MCG TAB PO SCH (09:02)
--- NOTE | 2016-12-26 09:22 | CT ---
PROCEDURE: CT Chest without contrast HISTORY: cough, pneumonia COMPARISON: None. TECHNIQUE: Contiguous axial images were obtained through the chest without intravenous contrast enhancement. Sagittal and coronal reconstructions were performed. Radiation dose (DLP): 209 mGy-cm. This CT exam was performed using one or more of the following dose reduction techniques: Automated exposure control, adjustment of the mA and/or kV according to patient size, and/or use of iterative reconstruction technique. FINDINGS: LUNGS: Clear lungs. Visualized airway clear. MEDIASTINUM: Unremarkable thoracic aorta. No aneurysm. Normal sized heart. Main pulmonary artery unremarkable. No vascular congestion. No lymphadenopathy. PLEURA: No pleural fluid. No pneumothorax. BONES: No fracture. No destructive lesion. UPPER ABDOMEN: Grossly unremarkable. OTHER FINDINGS: None. IMPRESSION: No evidence of pneumonia. No acute finding
[2016-12-26 09:24] LABS: FREE T4 1.51 ng/dL (0.78-2.19)
[2016-12-26 09:59] LABS: T4 10.3 ug/dL (5.5-11.0)
[2016-12-26] MEDS ORDERED: cefTRIAXone 1 gm 1 GM/100 ML BAG IVPB SCH (10:00)
--- NOTE | 2016-12-26 10:03 | CARD ---
APPROVED REPORT EKG Measurement Heart [id number] <Conclusion> Normal sinus rhythm Mildly prolonged QTc No change
--- NOTE | 2016-12-26 10:13 | CARD ---
APPROVED REPORT EKG Measurement Heart [id number] <Conclusion> Sinus rhythm with 1st degree AV block LVH by voltage Prolonged QTC No change
--- NOTE | 2016-12-26 10:36 | CP.PCM.PN ---
Subjective - Date & Time of Evaluation Date of Evaluation: 12/26/16 Time of Evaluation: 10:33 - Subjective Subjective: Medicine Progress Note for Dr. Mariscal Patient seen and examined at bedside. There were no acute events. Patient reports feeling light headed. She denies having any spinning sensation and does not know what makes it better or worse. She denies CP, SOB, n/v/d, numbness/ tingling. She does have a chronic cough and admits to recently completing a course of antibiotics yesterday for UTI for 1 week. Objective - Vital Signs/Intake and Output Vital Signs (last 24 hours): Temp Pulse Resp BP Pulse Ox 98.1 F 79 18 146/86 98 12/26/16 05:34 12/26/16 05:34 12/26/16 05:34 12/26/16 06:50 12/26/16 05:38 - Medications Medications: Current Medications Albuterol/Ipratropium (Duoneb 3 Mg/0.5 Mg (3 Ml) Ud) 3 ml IH [id number] MATEO Alprazolam (Xanax) 0.25 mg PO TID PRN; Protocol PRN Reason: Anxiety Atorvastatin Calcium (Lipitor) 40 mg PO DIN MATEO Clonidine HCl (Catapres) 0.1 mg PO Q4 PRN PRN Reason: SBP > 170 Last Admin: 12/26/16 05:09 Dose: 0.1 mg Enoxaparin Sodium (Lovenox) 40 mg SC DAILY MATEO PRN Reason: Protocol Last Admin: 12/26/16 09:01 Dose: 40 mg Gabapentin (Neurontin) 300 mg PO BID MATEO PRN Reason: Protocol Last Admin: 12/26/16 09:02 Dose: 300 mg Magnesium Sulfate 2 gm/ Sodium (Chloride) 104 mls @ 102 mls/hr IVPB Q3H MATEO Stop: 12/26/16 12:17 Last Admin: 12/26/16 08:52 Dose: 102 mls/hr Insulin Human Lispro (Humalog Med) 0 units SC ACHS MATEO PRN Reason: Protocol Last Admin: 12/26/16 07:32 Dose: Not Given Latanoprost (Xalatan Opht) 0 ml OU HS MATEO Levothyroxine Sodium (Synthroid) 75 mcg PO DAILY MATEO Last Admin: 12/26/16 09:02 Dose: 75 mcg Losartan Potassium (Cozaar) 100 mg PO QAM [facility] Last Admin: 12/26/16 09:03 Dose: 100 mg Meclizine HCl (Antivert) 25 mg PO TID [facility] Last Admin: 12/26/16 08:41 Dose: 25 mg Metoprolol Succinate (Toprol Xl) 50 mg PO QPM [facility] Nicotine (Nicoderm Cq) 1 patch TD DAILY [facility] Pantoprazole Sodium (Protonix Ec Tab) 40 mg PO 0600 [facility] Last Admin: 12/26/16 05:09 Dose: 40 mg - Labs Labs: 12/26/16 06:00 12/26/16 06:00 PT 10.4 Seconds (9.9-11.8) 12/25/16 22:55 INR 0.96 (0.93-1.08) 12/25/16 22:55 APTT 27.9 Seconds (23.7-30.8) 12/25/16 22:55 - Constitutional Appears: No Acute Distress - Head Exam Head Exam: ATRAUMATIC, NORMAL INSPECTION, NORMOCEPHALIC - Eye Exam Eye Exam: Normal appearance, PERRL Pupil Exam: NORMAL ACCOMODATION, PERRL - ENT Exam ENT Exam: Mucous Membranes Moist - Neck Exam Neck Exam: Full ROM - Respiratory Exam Respiratory Exam: Rhonchi, NORMAL BREATHING PATTERN. absent: Clear to Ausculation Bilateral, Rales, Wheezes, Respiratory Distress, Stridor - Cardiovascular Exam Cardiovascular Exam: REGULAR RHYTHM, +S1, +S2. absent: Gallop, Rubs, Murmur - GI/Abdominal Exam GI & Abdominal Exam: Soft, Normal Bowel Sounds. absent: Rigid, Tenderness, Mass , Rebound - Extremities Exam Extremities Exam: Full ROM, Normal Inspection. absent: Calf Tenderness, Pedal Edema - Neurological Exam Neurological Exam: Alert, Awake, CN II-XII Intact, Oriented x3. absent: Normal Gait - Psychiatric Exam Psychiatric exam: Normal Affect, Normal Mood - Skin Skin Exam: Dry, Intact, Normal Color, Warm Assessment and Plan - Assessment and Plan (Free Text) Assessment: This is a 76Y F with PMH HTN, NIDDM, hypothryoid, vertigo, TIA, COPD ( active smoker) admitted for pre-syncope with hypertensive urgency. 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 Plan: 1) Pre-Syncope - r/o Cardiac etiology, Hx of vertigo - EKG showed SR with 1st degree AV block - Cardio consulted as well as EP consulted - Neuro consulted - Troponin neg x 2 - Echo pending - Carotid doppler, MRI brain, MRA head pending - Thyroid panel normal - EEG ordered - U/A negative - Continue meclizine 2. Possible Pneumonia seen on CXR - Chest CT Neg - Afebrile, no leukocytosis - D/C anitbiotics 3. HTN - Continue Losartan and Toprol - Clonidine prn - Cardio consulted 4. Dyslipidemia - Continue Lipitor - Tri, Chol: 147, LDL: 97, HDL: 37 5. NIDDM with peripheral neuropathy - Continue BGM ACHS - HgbA1c pending - Continue ISS - Gabapentin 6. COPD - Continue Duoneb 7. Current tobacco use - Nicotine patch - Counseled on smoking cessation 8. Hx of Hypothyroidism - Continue Synthroid 9. Hypokalemia and Hypomagnesia - Replaced K and Mg - Will recheck in AM 10. Anxiety - Xanax prn GI ppx: Protonix DVT ppx: Lovenox Dispo: Will await Cardio, EP and neuro recommendations as well as physical therapy. Patient seen, discussed and reviewed with Dr. Mariscal. Umer Valladares PGY2
[2016-12-26 12:30] LABS: TROPONIN I < 0.01 ng/mL
[2016-12-26] MEDS: Albuterol-Ipratrop 3 mg / 0.5 (3 ml) UD IH SCH (14:09)
--- NOTE | 2016-12-26 14:47 | CON ---
NEUROLOGY CONSULTATION DATE: 12/26/2016 REASON FOR CONSULTATION: Episode of almost passing out and dizziness. HISTORY OF PRESENTING ILLNESS: The patient is a 76-year-old female who has been asked for evaluation of episode of dizziness and almost passing out. The patient is experiencing dizziness yesterday and felt like she was going to pass out. She had episodes of dizziness in the past, but never had a feeling that she was going to pass out. The patient has been complaining of cough for the last 5 to 6 days and has also had antibiotics over the last 10 days for urinary tract infection. She denied any focal weakness or numbness in the arms or legs, however, felt weak all over. Denies any chest pain or palpitation prior to feeling that she was going to pass out. REVIEW OF SYSTEMS: Denies any headache. Positive for dizziness. Denies any chest pain or shortness of breath. Positive of cough, but denies any sputum production. Denies any abdominal pain, constipation, diarrhea, dysuria, hallucination, or skin rash. PAST MEDICAL HISTORY: Includes hypertension, diabetes mellitus, hypothyroidism, TIA, and COPD. PAST SURGICAL HISTORY: Thyroidectomy, section, and hysterectomy. MEDICATIONS: At home included Diovan, metoprolol, metformin, meclizine, levothyroxine, glimepiride, gabapentin and Dexilant. ALLERGIES: SULFA, TETANUS VACCINE AND TETRACYCLINE. SOCIAL HISTORY: She does smoke cigarettes about 1 pack per day. Denies use of alcohol or illicit drugs. FAMILY HISTORY: Reviewed and noncontributory to the case. PHYSICAL EXAMINATION GENERAL: The patient is an elderly pleasant female, lying on the bed in no acute distress. VITAL SIGNS: Her blood pressure is 146/86, heart rate is 79 per minute, breathing at the rate of 16 per minute, and temperature is 98.1 degree Fahrenheit. HEENT: Head is normocephalic and atraumatic. NECK: Supple. There are no carotid bruits.. LUNGS: Clear. CARDIOPULMONARY SYSTEM: S1 and S2 audible. No murmurs. ABDOMEN: Soft and nontender. Bowel sounds are present. NEUROLOGIC: Mental Status: The patient is awake, alert and oriented to time, place, and person. Speech is fluent. Naming normal. Memory and cognition are intact. Cranial nerve exam: Pupils are 3 mm, minimally reactive to light. Visual taveras are full. Extraocular movements are intact. There is no facial asymmetry. Palate is upgoing bilaterally and tongue is midline. Motor examination: Tone is normal. Power is 5/5 bilaterally in all extremities. Reflexes are +1 and symmetrical with absent ankles and knee jerk. Plantar is downgoing bilaterally. Cerebellar examination: Finger to nose shows no dysmetria. Gait is deferred at the moment. Sensory examination: There is decreased and feet. LABORATORY DATA: Reviewed and shows WBC of 10.3, hemoglobin of 12.7, hematocrit of 37.5, and platelet of 205. Sodium is 140, potassium is 3.5, chloride is 103, carbon dioxide is 28, BUN is 11, creatinine is 0.6 and glucose of 127. She had a CT scan of the head done, which shows no acute intracranial pathology. IMPRESSION: 1. New syncopal episode with dizziness. 2. Diabetic neuropathy. RECOMMENDATIONS: 1. The patient to have cardiac monitoring to rule out any cardiac arrhythmias responsible for the patient's episode of near syncope. 2. The patient also to have an electroencephalogram. 3. I agree with the MRI of the brain without contrast. 4. The patient had carotid Doppler study done, we will follow up the results. 5. The patient to be continued on Neurontin for underlying diabetic neuropathy. 6. Please continue other treatment and supportive care. Thank you for the opportunity to participate in the care of this patient. Guillermina Jarrett MD
--- NOTE | 2016-12-26 14:55 | HP ---
HISTORY OF PRESENT ILLNESS: The patient is a 76-year-old [place]ien female presented to the emergency room. According to the triage note, the patient came to the emergency room as a walk-in, complaining of passing out since 07:45 p.m., complaining of heaviness in the head. The patient's ER physician evaluation note also mentioned that the patient came to the emergency room complaining of dizziness and near syncope. The patient stated that she felt like going to pass out. The patient took an extra blood pressure medicine because of her systolic blood pressure was in 200s. REVIEW OF SYSTEMS: Thirteen-system review was done, pertinent positives and negatives dictated above. The patient does have a history of syncope. The patient is also complaining of some nonproductive cough. The patient is an active smoker. The patient recently was treated for a UTI by her primary care physician, possibly Macrodantin. CODE STATUS: FULL CODE. HEIGHT: Height is 5 feet 1. WEIGHT: Weight is 111. BMI: 21. ALLERGIES: SULFA, TETANUS, TOXOID AND TETRACYCLINE. HOME MEDICATIONS: 1. Diovan 160 mg daily. 2. Metoprolol 50 mg daily. 3. Metformin 1000 mg twice day. 4. Meclizine 25 mg 3 times a day. 5. Synthroid 75 mcg. 6. Xalatan eye drops. 7. Glimepiride 1 mg as needed. 8. Neurontin 300 mg twice a day. 9. Dexilant 60 mg daily. SOCIAL HISTORY: Positive for active smoker for 50 years. Denies alcohol. Denies communicable transmissible disease. MENSTRUAL HISTORY: Postmenopausal. OCCUPATIONAL HISTORY: Patient is a retired female. Occupational history not available at present. PSYCHIATRIC HISTORY: Negative. 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 The patient's past medical history is significant for non-insulin requiring diabetes mellitus, history of dyslipidemia, history of microalbuminuria. The patient's past medical history is significant for history of questionable syncope, near syncope with couple at hospitalizations to [facility]. 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 Past medical history is significant for ultrasound-guided left thyroid nodule biopsy. The patient's past medical history is significant for BI-RADS 1 mammogram with dense breast, history of cervical spine disc disease, history of active nicotine dependence. The patient's past medical history is significant for history of solid left thyroid lobe nodule. Past medical history is also significant for osteopenia, osteoporosis, history of endoscopy done in 02/[address] Solano showing gastritis, history of colonoscopy done in 02/2015 showing tubular adenoma of the descending colon polyps, history of thyroid biopsy done in 01/2016 showing benign follicular adenomatoid nodule of the left thyroid. Past medical history is also significant for history of near syncope, history of vertigo. Past medical history is also significant for history of pneumonia, history of chronic obstructive pulmonary disease, history of hypothyroidism. Past medical history is also significant for history of community-required pneumonia. Past medical history is also significant for history of vertigo, history of chronic obstructive pulmonary disease, history of osteoporosis. PHYSICAL EXAMINATION GENERAL: The patient is seen in room 269, bed 1 with medical manager. The patient is seen lying and sitting up in the bed. VITAL SIGNS: T-max 98.3. Telemetry shows sinus rhythm, heart rate in 70s and 80s, blood pressure initially in the emergency room 172/104, 159/93, 154/90, 174/103, 146/86, respirations 18, O2 sat 98%. HEAD: Normocephalic and atraumatic. HEENT: Shows pink conjunctivae, anicteric sclerae. No oropharyngeal lesion. No neck rigidity. CHEST: Kyphosis. LUNGS: Shows no rales, crackles, or wheezing. Occasional rhonchi. CARDIOVASCULAR: S1 and S2, regular rhythm. No audible, murmur, gallop, or rub. ABDOMEN: Soft. Positive bowel sounds. GENITALIA: Female. RECTAL: Deferred. EXTREMITIES: Shows no pitting edema, no calf tenderness and no Homans' sign. MUSCULOSKELETAL: Shows a body mass index of 21. VASCULAR: Palpable pulses, questionable positive Romberg sign noted. The patient has difficulty performing heel-toe gait. PSYCHIATRIC: Negative. LABORATORY DATA: CBC reviewed from 12/25 and 12/26, granulocytes 71. PT and PTT normal. D-Dimer 0.26. Chemistry significant for potassium 3.5, glucose 198 and 127, magnesium 1.3, troponin first set negative. Cholesterol 147, LDL is elevated at 97, HDL is low normal at 37, triglycerides 189, TSH is 1.0, T4 is 10.3. Urinalysis is negative. The patient had a chest x-ray done in the emergency room, which shows right lower lobe opacification, atelectasis versus pneumonia, new compared to the prior study with right lower lobe 1.3 cm nodule. Osteopenia noted. Dextroscoliosis noted. Hypertrophic degenerative joints of the spine noted and degenerative spurring noted of the right greater tuberosity. Elevated right hemidiaphragm noted on the chest x-ray. The patient had a CAT scan of the head done. CT head was done by ER physician, which shows small vessel ischemic disease of the brain with hyperdense focus of the right basal ganglia and chronic lacunar infarct of the right frontal white matter noted. Severe cortical atrophy noted. The patient also had a CAT scan of the chest done for abnormal chest x-ray for pneumonia and pulmonary nodule, which shows clear taveras. No evidence of pneumonia. No acute finding. EKG done in the emergency room shows sinus rhythm, questionable first degree AV block. Repeat EKG done from today show sinus rhythm, first degree AV block, left ventricular hypertrophy. The patient was seen and evaluated in the emergency room by the ER physician and by the medical manager. IMPRESSION AND PLAN: 1. Questionable syncope versus near syncope, etiology undetermined with second or third episode. 2. Uncontrolled accelerated systolic and diastolic hypertension. 3. Active nicotine addiction and dependence. 4. Chronic obstructive pulmonary disease. 5. Mild granulocytosis. 6. Hypokalemia. 7. Hypomagnesemia. 8. Dyslipidemia with hypercholesteremia, hypertriglyceridemia. 9. Diabetes mellitus with hyperglycemia. 10. Abnormal chest x-ray with right lower lobe atelectasis versus pneumonia and right lower lobe 1.3 cm nodule on chest x-ray with negative CAT scan of the chest. 11. Dextroscoliosis of the thoracic spine. 12. Osteopenia. 13. Hypertrophic degenerative joint disease of the spine with right acromioclavicular arthropathy. 14. Elevated right hemidiaphragm with degenerative spurring of the right greater tuberosity. 15. Small vessel ischemic disease of the brain with hyperdense focus in the right basal ganglia. 16. Right frontal white matter hyperdense stable chronic lacunar infarct. 17. Cerebral cortical atrophy with questionable ventriculomegaly. 18. Hypertensive cardiovascular disease with left ventricular hypertrophy and questionable first degree atrioventricular block and mildly prolonged QTC. PLAN: At this time, the patient has been placed on telemetry. The patient has been ordered serial cardiac enzymes, repeat lab works. The patient has been requested electrophysiology, neurology, cardiology consultation. The patient is resumed on meclizine 25 mg three times a day, clonidine 0.1 q. 4 hours p.r.n., Cozaar 100 mg daily, DuoNeb nebulizer every 6 hours around the clock. The patient is also started on sliding scale insulin coverage, Lipitor 40 mg daily, Lovenox 40 mg subQ daily for DVT prophylaxis. The patient is given magnesium sulphate rider, Neurontin 300 twice a day, nicotine patch 40 mg daily, Protonix 40 mg daily has been ordered. The patient was started initially in the emergency room. Rocephin and Zithromax, which will be discontinued if the CT of the chest is negative. The patient was started on GI prophylaxis with Protonix daily, Synthroid 75 mcg daily, Toprol XL 50 mg daily, Xalatan eye drops. The patient is also ordered Xanax 0.25 mg t.i.d. The patient's carotid Doppler, MRI and MRA of the brain is pending. Echo with Doppler EEG pending. The patient is on heart healthy diet. The patient has been ordered out bed. Physical therapy and occupational therapy ordered. At present, the patient was seen with the medical manager. The patient has been advised about need for further diagnostic therapeutic interventions and once the patient is cleared by all subspecialty and if the patient's all the diagnostic therapeutic interventions are negative, the patient will be considered for discharge. All of the above was explained to the patient in layman's language, all questions and concerns answered. Dictated and electronically signed, not read. Signing off. Magdaleno Mariscal MD
[2016-12-26] MEDS ORDERED: Azithromycin 500MG/NS 250ml 500 MG/250 ML BAG IVPB SCH (16:00)
[2016-12-26] MEDS ORDERED: Gadodiamide 287 MG/ML VIAL (15ML) IV ONE (17:09)
[2016-12-26] MEDS ORDERED: Metoprolol Succinate 50 mg XL Tab PO SCH (18:00)
--- NOTE | 2016-12-26 18:34 | US ---
PROCEDURE: Bilateral carotid artery duplex ultrasound HISTORY: Carotid stenosis syncope PHYSICIAN(S): Jitendra Jonas MD. TECHNIQUE: Duplex sonography and color-flow Doppler were used to evaluate the carotid bifurcations and limited segments of the vertebral arteries bilaterally. The exam is somewhat limited by tortuous vessels. FINDINGS: There is mild smooth hypo echoic plaque noted at the carotid bifurcations bilaterally. The peak systolic velocity in the proximal right internal carotid artery is 71 cm/sec. This corresponds to a 20 to 39% proximal right ICA stenosis. Normal systolic velocities are noted in the proximal right external carotid artery. There is antegrade flow in the right vertebral artery. The peak systolic velocity in the proximal left internal carotid artery is 73 cm/sec. This corresponds to a 20 to 39% proximal left ICA stenosis. Normal systolic velocities are noted in the proximal left external carotid artery. There is antegrade flow in the left vertebral artery. IMPRESSION: 1. Bilateral 20-39% proximal ICA stenoses. 2. Antegrade flow in both vertebral arteries.
--- NOTE | 2016-12-26 20:11 | CON ---
DATE: 12/26/2016 HISTORY: The patient is a 76-year-old woman who presents with a near syncopal episode. The patient has had recurrent symptoms like this in the past. The patient's past medical history is notable for diabetes mellitus, hypertension, and COPD. The patient is an active smoker. No previous cardiac history. Her last stress test which was several years ago by Dr. Mukherjee was said to be unremarkable. SOCIAL HISTORY: Still an active smoker. REVIEW OF SYSTEMS: Reviewed. The patient has intermittent chest pain. Negative dyspnea. Negative edema in lower extremities. She does have recurrent syncopal episodes. PHYSICAL EXAMINATION: VITAL SIGNS: Blood pressure 146/86, heart rate in the 70s. NECK: Negative JVD. LUNGS: Without rales. HEART: With S1 and S2. EXTREMITIES: Without edema. LABORATORY DATA: The hemoglobin is 12.7. Chemistries: Glucose is 127. Troponins are negative x2. IMPRESSION 1. Syncope. 2. Diabetes mellitus. 3. Hypertension. 4. Hypercholesterolemia. 5. Chronic obstructive pulmonary disease. PLAN: Given these findings, I will order an echocardiogram to evaluate LV outflow obstruction. Her previous MRA of the carotid arteries show normal carotid angiogram. We will monitor on telemetry for 24 hours. Jitendra Chavez MD
[2016-12-26] MEDS ORDERED: Latanoprost 2.5 ml Opht Soln OU SCH (22:00)
[2016-12-27] MEDS: Pantoprazole 40 mg EC Tab PO SCH (04:59)
[2016-12-27 05:42] VITALS: O2SAT 97
[2016-12-27 07:04] LABS: BASO # 0.05 K/mm3 (0.0-2.0); BASO % 0.5 % (0.0-3.0); EOS # 0.3 (0.0-0.7); EOS % 3.4 % (1.5-5.0); GRAN # 6.75 (1.4-6.5); GRAN % 66.7 % (50.0-68.0); HEMOGLOBIN 13.1 gm/dL (12.0-16.0); LYMPH # 2.3 (1.2-3.4); LYMPH % 22.4 % (22.0-35.0); MEAN CELL VOLUME 83.1 fL (80.0-105.0); MEAN CORPUSCULAR HGB CONC 33.7 g/dl (31.0-37.0); MEAN PLATELET VOLUME 11.8 fl (7.0-11.0); MONO # 0.7 (0.1-0.6); PLATELET COUNT 200 10^3/uL (120.0-450.0); RBC 4.68 10^6/uL (3.5-6.1); RED CELL DISTRIBUTION WIDTH 12.8 % (11.5-14.5); WHITE BLOOD COUNT 10.1 10^3/ul (4.5-11.0)
[2016-12-27 07:06] LABS: ALB/GLOB RATIO 1.3 (1.1-1.8); ALBUMIN 3.6 g/dL (3.0-4.8); ALT/SGPT 26 U/L (7-56); AST/SGOT 20 U/L (15-39); BLOOD UREA NITROGEN 10 mg/dL (7-21); CALCIUM 8.8 mg/dL (8.4-10.5); GFR AFRICAN-AMERICAN > 60; GFR NON-AFRICAN AMERICAN > 60
[2016-12-27] MEDS: Insulin Lispro (humaLOG) MEDIUM Coverage SC SCH ×2 (08:16→12:07)
--- NOTE | 2016-12-27 09:04 | MRI ---
PROCEDURE: MRI BRAIN WITH AND WITHOUT CONTRAST HISTORY: dizziness/near-syncope, htn urgency COMPARISON: None. TECHNIQUE: Multiplanar, multisequence MR images of the brain were obtained with and without intravenous contrast enhancement. 15 cc of Omniscan FINDINGS: HEMORRHAGE: None DWI: No evidence of an acute or early subacute infarction. BRAIN PARENCHYMA: No mass,mass effect or edema. Chronic microvascular changes are seen in the periventricular white matter. There is a discrete chronic white matter infarct on the right. There are no acute findings ENHANCEMENT: No abnormal intracranial enhancement. VENTRICLES: Unremarkable. No hydrocephalus. CRANIUM: Unremarkable. ORBITS: Grossly unremarkable. PARANASAL SINUSES/MASTOIDS: Clear VASCULAR SYSTEM: Skull base flow voids intact. OTHER FINDINGS: None . IMPRESSION: No acute intracranial findings
--- NOTE | 2016-12-27 09:10 | MRI ---
PROCEDURE: Magnetic Resonance Angiography Brain HISTORY: dizziness/near-syncope, htn urgency COMPARISON: 08/30/2016 TECHNIQUE: 3D time of flight MR angiography of the intracranial arteries was performed. Rotating maximum intensity projection images were generated. FINDINGS: INTERNAL CEREBRAL ARTERIES: Unremarkable. The skull base, petrous, cavernous and supraclinoid segments are bilaterally widely patient. ANTERIOR CEREBRAL ARTERIES: Unremarkable. A1 and A2 segments are widely patent. Smaller distal branches unremarkable, as visualized. MIDDLE CEREBRAL ARTERIES: Unremarkable. M1 and M2 segments are widely patent. Perisylvian branches grossly symmetric. POSTERIOR CIRCULATION: Basilar Artery: Unremarkable. Distal Vertebral Arteries: Unremarkable. Posterior Cerebral Arteries: Unremarkable. Posterior Inferior Cerebellar Arteries: Unremarkable. ANEURYSM/ VASCULAR MALFORMATIONS: None. OTHER FINDINGS: None. IMPRESSION: Unremarkable MR angiography of the brain.
[2016-12-27] MEDS: Enoxaparin 40 mg Syringe SC SCH (09:12)
[2016-12-27] MEDS: Levothyroxine 75 MCG TAB PO SCH (09:12)
--- NOTE | 2016-12-27 09:38 | CP.PCM.PN ---
Subjective - Date & Time of Evaluation Date of Evaluation: 12/27/16 Time of Evaluation: 09:31 - Subjective Subjective: Medicine Progress Note for Dr. Mariscal Patient seen and examined at bedside. There were no acute overnight events. Patient reports having an episode of the "room spinning" yesterday, but only lasted a few minutes and resolved on its own. She denies having any dizziness/ lightheadedness now, CP, SOB, n/v/d, numbness/tingling. Objective - Vital Signs/Intake and Output Vital Signs (last 24 hours): Temp Pulse Resp BP Pulse Ox 98.2 F 60 18 153/91 H 97 12/27/16 05:42 12/27/16 05:42 12/27/16 05:42 12/27/16 05:42 12/27/16 05:42 Intake and Output: 12/27/16 12/27/16 06:59 18:59 Intake Total 300 Output Total 301 Balance -1 - Medications Medications: Current Medications Alprazolam (Xanax) 0.25 mg PO TID PRN; Protocol PRN Reason: Anxiety Atorvastatin Calcium (Lipitor) 40 mg PO DIN [facility] Last Admin: 12/26/16 17:56 Dose: 40 mg Clonidine HCl (Catapres) 0.1 mg PO Q4 PRN PRN Reason: SBP > 170 Last Admin: 12/26/16 23:07 Dose: 0.1 mg Enoxaparin Sodium (Lovenox) 40 mg SC DAILY [facility] PRN Reason: Protocol Last Admin: 12/27/16 09:12 Dose: 40 mg Gabapentin (Neurontin) 300 mg PO BID [facility] PRN Reason: Protocol Last Admin: 12/27/16 09:12 Dose: 300 mg Insulin Human Lispro (Humalog Med) 0 units SC ACHS [facility] PRN Reason: Protocol Last Admin: 12/27/16 08:16 Dose: Not Given Latanoprost (Xalatan Opht) 0 ml OU HS [facility] Last Admin: 12/26/16 21:59 Dose: 2.5 ml Levothyroxine Sodium (Synthroid) 75 mcg PO DAILY [facility] Last Admin: 12/27/16 09:12 Dose: 75 mcg Losartan Potassium (Cozaar) 100 mg PO QAM [facility] Last Admin: 12/27/16 09:12 Dose: 100 mg Meclizine HCl (Antivert) 25 mg PO TID [facility] Last Admin: 12/27/16 09:12 Dose: 25 mg Metoprolol Succinate (Toprol Xl) 50 mg PO QPM [facility] Last Admin: 12/26/16 17:57 Dose: 50 mg Nicotine (Nicoderm Cq) 1 patch TD DAILY [facility] Last Admin: 12/27/16 09:14 Dose: Not Given Pantoprazole Sodium (Protonix Ec Tab) 40 mg PO 0600 [facility] Last Admin: 12/27/16 04:59 Dose: 40 mg - Labs Labs: 12/27/16 05:50 12/27/16 05:50 PT 10.4 Seconds (9.9-11.8) 12/25/16 22:55 INR 0.96 (0.93-1.08) 12/25/16 22:55 APTT 27.9 Seconds (23.7-30.8) 12/25/16 22:55 - Constitutional Appears: No Acute Distress - Head Exam Head Exam: ATRAUMATIC, NORMAL INSPECTION, NORMOCEPHALIC - Eye Exam Eye Exam: Normal appearance, PERRL Pupil Exam: NORMAL ACCOMODATION, PERRL - ENT Exam ENT Exam: Mucous Membranes Moist - Neck Exam Neck Exam: Full ROM - Respiratory Exam Respiratory Exam: Clear to Ausculation Bilateral, NORMAL BREATHING PATTERN. absent: Rales, Rhonchi, Wheezes - Cardiovascular Exam Cardiovascular Exam: REGULAR RHYTHM, +S1, +S2. absent: Gallop, Rubs, Murmur - GI/Abdominal Exam GI & Abdominal Exam: Soft, Normal Bowel Sounds. absent: Rigid, Tenderness, Mass , Rebound - Extremities Exam Extremities Exam: Normal Inspection. absent: Calf Tenderness, Pedal Edema - Neurological Exam Neurological Exam: Alert, Awake, CN II-XII Intact, Oriented x3 - Psychiatric Exam Psychiatric exam: Normal Affect, Normal Mood - Skin Skin Exam: Dry, Intact, Normal Color, Warm Assessment and Plan - Assessment and Plan (Free Text) Assessment: This is a 76Y F with PMH HTN, NIDDM, hypothryoid, vertigo, TIA, COPD ( active smoker) admitted for pre-syncope with hypertensive urgency. Pt does have a sas architect, Dr. Johnson who she sees regularly. Plan: 1. Pre-Syncope - r/o Cardiac etiology, Hx of vertigo - EKG showed SR with 1st degree AV block - Troponin neg x 3 - Cardio consulted - recs appreciated - EP consulted - Neuro consulted- recs appreciated - EEG pending - MRI brain and MRA head were unremarkable - Carotid Doppler showed 20-39% stenosis bilaterally - Echo final read pending - Continue meclizine 2. HTN - Continue Losartan and Toprol - Clonidine prn - Cardio consulted - recs appreciated 3. Dyslipidemia - Continue Lipitor 4. NIDDM with peripheral neuropathy - HgbA1c 7.4 - Continue ISS, BGM - Gabapentin 5. COPD - Continue Duoneb 6. Current tobacco use - Continue Nicotine patch - Counseled on smoking cessation 7. Hx of Hypothyroidism - Continue Synthroid 8. Anxiety - Xanax prn GI ppx: Protonix DVT ppx: Lovenox Dispo: PT recommended home with services. Patient seen, discussed and reviewed with Dr. Mariscal. Umer Valladares PGY2
[2016-12-27 12:12] VITALS: BP 164/92; PULSE 61; RESP 19; TEMP 97.5
--- NOTE | 2016-12-27 12:13 | PN ---
DATE OF FOLLOWUP: 12/27/2016. SUBJECTIVE: The patient's dizzy episodes are much improved. She does still complain of symptoms consistent with vertigo. PHYSICAL EXAMINATION: VITAL SIGNS: Blood pressure is 153/91 and heart rate in the 60s. NECK: Negative JVD. LUNGS: Without rales. HEART: Reveals S1 and S2. EXTREMITIES: Without edema. site monitor shows no arrhythmias. LABORATORY DATA: Hemoglobin is 13.1. Chemistries; glucose is 144. DIAGNOSTIC DATA: Preliminary echocardiogram reveals good LV function with no LV outflow obstruction. IMPRESSION 1. Vertigo. 2. Syncope likely due to dizziness episode. 3. Diabetes mellitus. 4. Hypertension. PLAN: Given these findings, there is no cardiac causes of her syncope. No dizziness noted. We will DC telemetry today. Because of her cardiac risk factors, we will arrange for an outpatient stress test. Jitendra Chavez MD
--- NOTE | 2016-12-27 12:47 | CP.PCM.DIS ---
Provider - Provider Date of Admission: 12/26/16 02:37 Attending physician: Magdaleno Mariscal MD Primary care physician: Ronaldo Mukherjee MD Consults: Cardiology: Dr. Chavez EP: Dr. Crane Neuro: Dr. Kel Jarrett Time Spent in preparation of Discharge (in minutes): 35 Hospital Course - Lab Results Lab Results: Micro Results 12/26/16 03:25 Blood Blood Culture - Preliminary NO GROWTH AFTER 24 HOURS 12/26/16 02:55 Blood Blood Culture - Preliminary NO GROWTH AFTER 24 HOURS Most Recent Lab Values WBC 10.1 10^3/ul (4.5-11.0) 12/27/16 05:50 RBC 4.68 10^6/uL (3.5-6.1) 12/27/16 05:50 Hgb 13.1 gm/dL (12.0-16.0) 12/27/16 05:50 Hct 38.9 % (36.0-48.0) 12/27/16 05:50 MCV 83.1 fL (80.0-105.0) 12/27/16 05:50 MCH 28.0 pg (25.0-35.0) 12/27/16 05:50 MCHC 33.7 g/dl (31.0-37.0) 12/27/16 05:50 RDW 12.8 % (11.5-14.5) 12/27/16 05:50 Plt Count 200 10^3/uL (120.0-450.0) 12/27/16 05:50 MPV 11.8 fl (7.0-11.0) H 12/27/16 05:50 Gran % 66.7 % (50.0-68.0) 12/27/16 05:50 Lymph % (Auto) 22.4 % (22.0-35.0) 12/27/16 05:50 Angelina % (Auto) 7.0 % (1.0-6.0) H 12/27/16 05:50 Eos % (Auto) 3.4 % (1.5-5.0) 12/27/16 05:50 Baso % (Auto) 0.5 % (0.0-3.0) 12/27/16 05:50 Gran # 6.75 (1.4-6.5) H 12/27/16 05:50 Lymph # 2.3 (1.2-3.4) 12/27/16 05:50 Angelina # 0.7 (0.1-0.6) H 12/27/16 05:50 Eos # 0.3 (0.0-0.7) 12/27/16 05:50 Baso # 0.05 K/mm3 (0.0-2.0) 12/27/16 05:50 PT 10.4 Seconds (9.9-11.8) 12/25/16 22:55 INR 0.96 (0.93-1.08) 12/25/16 22:55 APTT 27.9 Seconds (23.7-30.8) 12/25/16 22:55 D-Dimer, Quantitative 0.26 mg/L FEU (0-0.50) 12/26/16 08:30 Sodium 137 mmol/L (132-148) 12/27/16 05:50 Potassium 4.5 mmol/L (3.6-5.0) 12/27/16 05:50 Chloride 103 mmol/L (98-107) 12/27/16 05:50 Carbon Dioxide 25 mmol/L (21-33) 12/27/16 05:50 Anion Gap 14 (10-20) 12/27/16 05:50 BUN 10 mg/dL (7-21) 12/27/16 05:50 Creatinine 0.6 mg/dL (0.5-1.4) 12/27/16 05:50 Est GFR ( Amer) > 60 12/27/16 05:50 Est GFR (Non-Af Amer) > 60 12/27/16 05:50 POC Glucose (mg/dL) 128 mg/dL (65-110) H 12/27/16 11:28 Random Glucose 144 mg/dL (70-110) H 12/27/16 05:50 Hemoglobin A1c 7.4 % (4.2-6.5) H 12/26/16 06:00 Calcium 8.8 mg/dL (8.4-10.5) 12/27/16 05:50 Phosphorus 3.6 mg/dL (2.5-4.5) 12/27/16 05:50 Magnesium 2.0 mg/dL (1.7-2.2) 12/27/16 05:50 Total Bilirubin 0.5 mg/dL (0.2-1.3) 12/27/16 05:50 AST 20 U/L (15-39) 12/27/16 05:50 ALT 26 U/L (7-56) 12/27/16 05:50 Alkaline Phosphatase 76 U/L (38-133) 12/27/16 05:50 Lactate Dehydrogenase 397 U/L (333-699) 12/25/16 22:55 Total Creatine Kinase 62 U/L (35-230) 12/26/16 06:00 Troponin I < 0.01 ng/mL 12/26/16 06:00 Total Protein 6.4 g/dL (5.8-8.3) 12/27/16 05:50 Albumin 3.6 g/dL (3.0-4.8) 12/27/16 05:50 Globulin 2.8 gm/dL 12/27/16 05:50 Albumin/Globulin Ratio 1.3 (1.1-1.8) 12/27/16 05:50 Triglycerides 189 mg/dL (35-160) H 12/26/16 06:00 Cholesterol 147 mg/dL (130-200) 12/26/16 06:00 LDL Cholesterol Direct 97 mg/dL (0-129) 12/26/16 06:00 HDL Cholesterol 37 mg/dL (29-60) 12/26/16 06:00 Free T4 1.51 ng/dL (0.78-2.19) 12/26/16 06:00 Thyroxine (T4) 10.3 ug/dL (5.5-11.0) 12/26/16 06:00 TSH 3rd Generation 1.0 MIU/ml (0.46-4.68) 12/26/16 06:00 Urine Color Yellow (YELLOW) 12/26/16 02:00 Urine Appearance Clear (CLEAR) 12/26/16 02:00 Urine pH 6.5 (4.7-8.0) 12/26/16 02:00 Ur Specific [place] 1.010 (1.005-1.035) 12/26/16 02:00 Urine Protein Negative mg/dL (<30 mg/dL) 12/26/16 02:00 Urine Glucose (UA) Negative mg/dL (NEGATIVE) 12/26/16 02:00 Urine Ketones Negative mg/dL (NEGATIVE) 12/26/16 02:00 Urine Blood Negative (NEGATIVE) 12/26/16 02:00 Urine Nitrate Negative (NEGATIVE) 12/26/16 02:00 Urine Bilirubin Negative (NEGATIVE) 12/26/16 02:00 Urine Urobilinogen 0.2 E.U./dL (<1 E.U./dL) 12/26/16 02:00 Ur Leukocyte Esterase Negative Jax/uL (NEGATIVE) 12/26/16 02:00 - Hospital Course Hospital Course: This is a 76Y F with PMH HTN, NIDDM, hypothryoidism, vertigo, TIA, COPD ( active smoker) admitted for pre-syncope. Patient found to be lightheaded, but did not fall or hit head. CXR was done which showed possible pneumonia. CT chest was done which showed no evidence of pneumonia. Infectious etiology of pre -syncope was ruled out at this time. She was also noted to recently finish a course of abx for a UTI one day prior to admission. Head CT was negative. Showed chronic microvascular changes. MRI brain and MRA of head were ordered which were unremarkable. Carotid U/S showed 20-39% stenosis bilaterally. Echo was done which showed preliminary EF of 55%. Cardiology was consulted and reports patient is ok to be d.c. She will have an outpatient stress test on Jan 04 2017. She does follow up with Dr. Mukherjee, vocational services specialist regularly as well. Neurology was consulted who reports patient is stable to be discharged home. She was also seen by EP, Dr. Crane who reports patient is able to be discharged. She does not need a tilt table test at this time. She will continue the same medications at home. In addition to those medications, she will take lipitor 40mg PO daily and ASA 81mg daily. It is also recommended that she follow up with ENT as outpatient for vertigo. Discussed plan with patient, she agrees with plan. - Date & Time of H&P Date of H&P: 12/26/16 Time of H&P: 04:40 Discharge Exam - Head Exam Head Exam: ATRAUMATIC, NORMAL INSPECTION, NORMOCEPHALIC - Eye Exam Eye Exam: EOMI, Normal appearance, PERRL Pupil Exam: NORMAL ACCOMODATION, PERRL - ENT Exam ENT Exam: Mucous Membranes Moist - Respiratory Exam Respiratory Exam: Clear to PA & Lateral, NORMAL BREATHING PATTERN, UNREMARKABLE. absent: Rales, Rhonchi, Wheezes - Cardiovascular Exam Cardiovascular Exam: REGULAR RHYTHM, +S1, +S2. absent: Gallop, Rubs, Systolic Murmur - GI/Abdominal Exam GI & Abdominal Exam: Normal Bowel Sounds, Soft, Unremarkable. absent: Mass, Rebound, Rigid, Tenderness - Extremities Exam Extremities exam: normal inspection - Neurological Exam Neurological exam: Alert, CN II-XII Intact, Oriented x3 - Psychiatric Exam Psychiatric exam: Normal Affect, Normal Mood - Skin Skin Exam: Dry, Intact, Normal Color, Warm Discharge Plan - Discharge Medications Prescriptions: Aspirin [Ecotrin] 81 mg PO DAILY #30 tabec Atorvastatin [Lipitor] 40 mg PO DIN #30 tab Dexlansoprazole [Dexilant] 60 mg PO DAILY #30 Gabapentin [Neurontin] 300 mg PO BID #60 cap Glimepiride 1 mg PO DAILY PRN #30 PRN Reason: Serum Glucose Levothyroxine [Synthroid] 75 mcg PO DAILY #30 Meclizine [Meclizine*] 25 mg PO TID PRN #90 PRN Reason: Dizziness MetFORMIN [glucoPHAGE] 1,000 mg PO BID #60 Metoprolol Succinate 50 mg PO QPM #30 Nicotine 14 mg/24 hr [Nicoderm CQ] 1 patch TD DAILY #30 patch Valsartan [Diovan] 160 mg PO QAM #30 - Follow Up Plan Condition: STABLE Disposition: HOME/ ROUTINE Additional Instructions: DISCHARGE HOME FOLLOW UP PMD WITHIN 1 WEEK PATIENT TO RELEASE ALL RECORDS FORM THIS ADMISSION TO PMD. NO ALCOHOL, NO SMOKING DISCHARGE MEDS PER UPDATED AMBULATORY FOLLOW UP CARDIOLOGY FOR OUTPATIENT STRESS TEST FOLLOW UP OUTPATIENT WITH ENT Referrals: Ronaldo Mukherjee MD [Primary Care Provider] - 1 Week (DISCHARGE HOME FOLLOW UP PMD WITHIN 1 WEEK PATIENT TO RELEASE ALL RECORDS FORM THIS ADMISSION TO PMD. NO ALCOHOL, NO SMOKING DISCHARGE MEDS PER UPDATED AMBULATORY FOLLOW UP CARDIOLOGY FOR OUTPATIENT STRESS TEST FOLLOW UP OUTPATIENT WITH ENT )
--- NOTE | 2016-12-27 14:00 | CON ---
DATE: 12/27/2016 REASON FOR EVALUATION: 1. Presyncope. 2. Chest pain. 3. Hypertension. HISTORY OF PRESENT ILLNESS: Ms. Michelle Myles is a very 76-year-old [place] female with past medical history significant for hypertension, chronic vertigo, hypothyroidism, diabetes with secondary neuropathy who presents to [facility] with near syncopal episode. The patient has refractory hypertension and has been taking medications for the treatment of blood pressure. At times, the patient does double up her angiotensin receptor william. In addition, the patient complains of worsening cough, which she attributes to pneumonia with a worsening cough, progressive weakness, decrease appetite, and again nearly passing out. She denies any complete syncope or bodily harm. She does have intermittent left-sided check pain, which is not clearly exertional described as a heaviness that comes and goes sometimes varies with respiration. From an activity standpoint, she is able to walk around her house climb stairs and is able to ambulate on a limited basis, is reduced to some degree secondary to arthritic changes. She lives with her family who does restrict some of her activities as well. 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 Prior MRIs does show microvascular ischemic changes. 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 REVIEW OF SYSTEMS: On 12-point review of systems pertinent positives as mentioned in the history of present illness. She does have a history of presyncope. In the electronic medical records, there is some note of syncope, which she denies at this point. As mentioned previously, does have a nonproductive cough, is an active smoker and had been recently diagnosed and treated for urinary tract infection. MEDICATIONS: At the time of admission include Diovan 160 mg p.o. daily, metoprolol 50 mg XL once daily, metformin 100 mg p.o. b.i.d., meclizine 25 mg p.o. daily, Synthroid 75 mg p.o. daily, Xalatan drops, glimepiride 1 mg as needed, Neurontin 300 mg twice a day, Dexilant 60 mg once a day. PHYSICAL EXAMINATION: GENERAL: She is a very pleasant soft spoken [place] female in no acute distress, able to speak in complete sentences. HEENT: Head is normocephalic atraumatic. There is no ocular dysmetria. There is evidence of mild arcus senilis. Mucous membranes appear moist. NECK: Supple. No jugular venous distention. No carotid bruit. CHEST: Clear to auscultation bilaterally in the upper zones, occasional coarse breath sounds in the lower zones. CARDIOVASCULAR: Regular rate and rhythm. S1 and S2. No S3 or S4. ABDOMEN: Soft, nontender, nondistended. Positive for bowel sounds. EXTREMITIES: No cyanosis, clubbing, or edema. Peripheral pulses are 2+ and symmetric in bilateral in upper and lower extremities. LABORATORY DATA: On review of prior cardiac workup, the patient has had nuclear stress test, there had been some years since she has had stress test. An echocardiogram is pending to rule out outflow obstruction. Outpatient nuclear stress test has also been suggested and written for. Echocardiogram has used to be read. Electrocardiogram, which is dated 12/26/2016 shows normal sinus rhythm, normal P wave morphology. There is a first-degree AV block. Normal axis across the . There is normal R wave progress, nonspecific ST-T wave changes. Of note, telemetry has been discontinued, available strip showed normal sinus rhythm without any significant tachy or bradyarrhythmia. On review of relevant lab work, the patient has a white count of 10.3, H&H showed 12.7 and 37.5, platelets of 205. D-dimer was negative at 0.26, potassium is 3.5, BUN and creatinine is within normal limits 11 and 0.6. Hemoglobin A1c is 7.4, ALT and AST is within normal limits. Initial troponin was also negative. Triglycerides are elevated at 189. LDL cholesterol is 97. TSH is 1.0, free T4 at 1.51, thyroxine and T4 is 10.3. ASSESSMENT AND PLAN: 1. Presyncopal episode in the setting of possible upper respiratory tract infection versus urinary tract infection. At this point, the patient appears to be stable from a cardiovascular standpoint. Telemetry is unremarkable. Blood pressure does not reveal any degree of hypotension as fact is hypertension. The patient does occasionally change her medications under the direction of either her family or herself, increasing Diovan dosage from 161 today to 160 twice a day. The patient may have transient hypotension resulting in some of her symptoms. At this point, we will continue neurologic workup and medical workup. The patient is scheduled for an ischemic workup in the form of a nuclear stress test. Echocardiogram has also to be read to rule out any significant obstruction. At this point, certainly if she has issues with coronary artery disease or obstruction, these will have to be addressed as the clinical case develops. In addition, the patient also has history of vertigo and does take meclizine chronically and therefore this may cloud her situation. She may be a candidate for an outpatient tilt table test once she returns to baseline, she also may benefit from long-term outpatient monitoring as well. The patient is to follow up with Dr. Chavez and follow up as needed from electrophysiologic standpoint. 2. Chest pain, again undergoing outpatient nuclear stress test. Chest pain is atypical, but the patient has significant risk factors for coronary artery disease. 3. Hypertension, which is in the process of being treated. 4. First degree AV block,which is present on her EKG. No signs of heart block when the patient was on telemetry. Thank you for allowing me to participate in the case of this patient. Please do not hesitate to call for any questions in regards to her care. Rashaad Nails MD cc: Magdaleno Mariscal MD and Jitendra Chavez MD.
--- NOTE | 2016-12-27 14:32 | PN ---
NEUROLOGY PROGRESS NOTE SUBJECTIVE: The patient is lying on the bed, in no acute distress. Denies having any headache. Her dizziness is lot better. PHYSICAL EXAMINATION VITAL SIGNS: Blood pressure is 153/91, heart rate is 60 per minute, breathing at a rate of 16 per minute, and temperature is 98.2 degrees Fahrenheit. HEENT: Head is normocephalic and atraumatic. NECK: Supple. There are no carotid bruits. LUNGS: Clear. CARDIOVASCULAR SYSTEM: S1 and S2 audible. No murmurs. ABDOMEN: Soft and nontender with bowel sounds present. NEUROLOGICAL: Mental status. The patient is awake, alert and oriented to time, place, and person. Speech is fluent. Naming normal. Memory and cognition are intact. Cranial nerve exam; pupils are 3 mm bilaterally, reactive to light. Visual taveras are full. Extraocular movements are intact. There is no facial asymmetry. Palate is upgoing bilaterally and tongue is midline. Motor examination; tone is normal. Power is 5/5 bilaterally in all extremities. Reflexes are +1 and symmetrical with absent ankle jerk and knee jerk. Gait is deferred at the movement. The patient usually walks with a help of a cane. LABORATORY DATA: Reviewed. MRI of the brain, no abnormal intracranial enhancement. The patient had MRA of the brain, which is unremarkable. The patient also had carotid Doppler study, which shows 20% to 39% proximal ICA stenosis. The patient also had an electroencephalogram, which is normal. IMPRESSION: 1. Status post near syncope with dizziness. 2. Diabetic neuropathy. RECOMMENDATIONS: 1. The patient's neurologic workup did not reveal any significant abnormality responsible for near syncopal episode. 2. The patient had cardiac monitoring was done that did not reveal any significant cardiac arrhythmias. 3. The patient had an electroencephalogram, which is normal. 4. The patient is neurologically stable for discharge on meclizine. 5. The patient to be followup with her neurologist as an outpatient. Thank you for the opportunity to participate in the care of this patient. Guillermina Jarrett MD
--- NOTE | 2016-12-28 08:49 | EEG ---
DATE: 12/26/2016 INTRODUCTION: This is a digitally recorded EEG monitoring using standard EEG montages. BACKGROUND RHYTHM: The EEG shows a background activity of 8 to 9 Hertz alpha activity in parieto-occipital region. The EEG activity is bilaterally symmetrical and synchronous. There is attenuation of the background activity on eye opening. No sleep recording was noted. ABNORMAL POTENTIALS: No spike, sharp waves or focal slowing was seen. Photic stimulation and hyperventilation. Photic stimulation did not reveal any abnormality. Hyperventilation was not performed. IMPRESSION: Normal EEG. No epileptiform activity seen in this EEG recording. Guillermina Jarrett MD
--- NOTE | 2016-12-28 10:44 | DS ---
SUBJECTIVE: The patient is seen in Room 269, Bed 1. The patient is sitting about to bed to chair. The patient is alert, awake, responsive. No adverse event documented by the nurses. PHYSICAL EXAMINATION: VITAL SIGNS: T-max is 98.2, heart rate is 61 to 65 to 73, telemetry shows sinus rhythm, blood pressure 164/92, 153/91, 163/89, 174/84, 134/79, respirations 19, and O2 saturation 97%. GENERAL: Bilaterally unchanged. The patient denies any syncope or near syncope. The patient is seen by cardiology and neurology. DIAGNOSTIC: On 12/27/2016, WBC 10.1, hemoglobin/hematocrit 13.1 and 38.9, platelets 200. Sodium 137, potassium 4.5, chloride 103, CO2 of 25, anion gap 14, BUN 10, creatinine 0.6, GFR greater than 60, glucose 128, 119, 144, 224, 195, 139, calcium 8.8, phosphorous 3.6, magnesium 2.0. LFTs are normal. Urinalysis is negative. Blood and urine cultures were done through the emergency room which is negative. CT chest, MRI/MRA brain, carotid ultrasound all reviewed. Echo official report pending. FINAL IMPRESSION, PLAN, AND DISCHARGE DIAGNOSES: 1. Questionable syncope versus near syncope with vertigo and dizziness. 2. Diabetic neuropathy. 3. Transient uncontrolled hypertension. 4. Granulocytosis. 5. Non-insulin requiring diabetes mellitus. 6. Non-type 2 diabetes mellitus with hyperglycemia and hemoglobin A1c is 7.4. 7. Hypokalemia. 8. Hypertriglyceridemia and hypercholesteremia with elevated low-density lipoprotein. 9. Positional vertigo. 10. 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 11. Hypertensive cardiovascular disease. PLAN: At present, the patient is also seen by electrophysiology who has cleared the patient for discharge. The patient was seen by cardiology and neurology. Electroencephalogram was reported to be negative as per neurology. The patient is to be discharged home. The patient's echocardiogram result official report pending. The patient is cleared by cardiology and neurology for discharge. The patient is scheduled outpatient stress test with Dr. Chavez. DISCHARGE MEDICATIONS: 1. The patient's Diovan will be increased to 320 mg from 160 mg. 2. Aspirin 81 mg daily. 3. Lipitor 40 mg daily. 4. Dexilant 60 mg daily. 5. Neurontin 300 mg twice a day. 6. Amaryl. 7. Glimepiride 1 mg. 8. Xalatan eye drops. 9. Synthroid 75 mcg daily. 10. Meclizine 25 mg 3 times a day. 11. Metformin 1000 mg twice day. 12. Metoprolol succinate 50 mg with night. 13. Nicotine patch 14 mg daily. 14. Diovan increased to 320 mg daily. The patient is discharged home with discharge followup with Ronaldo Mukherjee. The patient is advised to follow up with Dr. Mukherjee within one week. The patient is advised to release all records from this admission to rehab. The patient was counseled about cessation of smoking and alcohol. The patient was advised to follow up with cardiology for outpatient stress test. The patient was advised outpatient ENT followup. During this hospitalization, the patient was extensively explained about the details of her medical condition, diagnostic test results and the recommendations by all physicians involved in the care of the patient, which she acknowledged. Time spent in the entire discharge process and talking about patient's management and discussing the case and discharge planning with the sub-speciality, more than 45 minutes. Dictated and electronically signed, not read. Signing off Magdaleno Mariscal MD Magdaleno Mariscal MD
== END 2016-12-27 14:58 | disposition home or self-care (01) ==
LOC: ED 22:03 → ERH 12-26 02:37 → 2RNO 12-26 04:14
PROVIDERS: ADMIT Internal Medicine; ATTEND Internal Medicine
DX: R55 Syncope and collapse (principal); R42 Dizziness and giddiness; E11.65 Type 2 diabetes mellitus with hyperglycemia; Z79.4 Long term (current) use of insulin; E87.6 Hypokalemia; E78.1 Pure hyperglyceridemia; E11.42 Type 2 diabetes mellitus with diabetic polyneuropathy; E78.00 Pure hypercholesterolemia, unspecified; I11.9 Hypertensive heart disease without heart failure; E89.0 Postprocedural hypothyroidism; J44.9 Chronic obstructive pulmonary disease, unspecified; M41.9 Scoliosis, unspecified; M81.0 Age-related osteoporosis without current pathological fracture; F17.210 Nicotine dependence, cigarettes, uncomplicated; E83.42 Hypomagnesemia; E78.5 Hyperlipidemia, unspecified; M47.9 Spondylosis, unspecified; I44.0 Atrioventricular block, first degree; F41.9 Anxiety disorder, unspecified; Z86.73 Personal history of transient ischemic attack (TIA), and cerebral infarction without residual deficits; Z87.01 Personal history of pneumonia (recurrent); Z90.710 Acquired absence of both cervix and uterus
CPT/HCPCS: 36415; 70450; 70544; 70553; 71010; 71250; 80053; 80061; 81003; 82550; 82948; 83036; 83615; 83735; 84100; 84439; 84443; 84484; 85025; 85027; 85378; 85610; 85730; 87040; 87086; 93005; 93306; 93880; 94640; 95812; 96360; 97116; 97161; 99285; A9579; G0378; G8978; G8979; G8980; J0456; J0696; J1650; J3475; J3480

== ENCOUNTER 2017-02-15 11:52 | Inpatient (IN) | payer MEDICARE, OTHER ==
[2017-02-15 11:58] VITALS: BMI 19.5
--- NOTE | 2017-02-15 12:24 | ED PDOC ---
Arrival/HPI - General Chief Complaint: Abdominal Pain Time Seen by Provider: 02/15/17 12:20 - History of Present Illness Narrative History of Present Illness (Text): 02/15/17 12:36 76yo female with 5-6 day duration diffuse abd pain, lack of appetite, generalized weakness. No relieving or exacerbating factors. Denies cp/sob/llamas. States she has body aches which are chronic, for which she takes neurontin, and reports this is not the reason for her visit today. Past Medical History - Provider Review Nursing Documentation Reviewed: Yes - Infectious Disease Hx of Infectious Diseases: None - Tetanus Immunization Tetanus Immunization: Allergy to Tetanus Vaccine - Cardiac Hx Hypertension: Yes - Pulmonary Hx Chronic Obstructive Pulmonary Disease (COPD): Yes - Neurological Hx Paralysis: No Hx Transient Ischemic Attacks (TIA): Yes - HEENT Hx HEENT Disorder: Yes Other/Comment: LEFT EYE CATARACT SURGERY 06/2015 - Renal Hx Renal Disorder: No - Endocrine/Metabolic Hx Diabetes Mellitus Type 2: Yes Hx Hypothyroidism: Yes - Hematological/Oncological Hx Blood Transfusions: No Hx Blood Transfusion Reaction: No - Integumentary Hx Dermatological Disorder: No - Musculoskeletal/Rheumatological Hx Musculoskeletal Disorders: Yes (PINCHED NERVES UPPER & LOWER SPINE) - Gastrointestinal Hx Gastrointestinal Disorders: No - Genitourinary/Gynecological Hx Genitourinary Disorders: No - Psychiatric Hx Emotional Abuse: No Hx Physical Abuse: No Hx Substance Use: No - Surgical History Hx Section: Yes (x4) Hx Hysterectomy: Yes Hx Musculoskeletal Surgery: Yes (Hand, Toes) Hx Tonsillectomy: Yes - Anesthesia Hx Anesthesia: Yes Hx Anesthesia Reactions: No Hx Malignant Hyperthermia: No - Suicidal Assessment Feels Threatened In Home Enviroment: No Family/Social History Family/Social History: Unknown Family HX Smoking Status: Heavy Smoker > 10 Cigarettes Daily Hx Alcohol Use: No Hx Substance Use: No Allergies/Home Meds Allergies/Adverse Reactions: Allergies Sulfa (Sulfonamide Antibiotics) Allergy (Verified 08/30/16 08:05) ANAPHYLAXIS Tetanus Vaccines and Toxoid [Tetanus Vaccines & Toxoid] Allergy (Verified 08:05) RASH tetracycline Allergy (Verified 08/30/16 08:05) RASH Home Medications: Home Meds Medication Instructions Recorded Confirmed Gabapentin 300 mg PO BID 08/16/15 02/15/17 Latanoprost 0.005% Opht [Xalatan 1 drp EACHEYE HS 02/01/16 02/15/17 Opht] Physical Exam - Physical Exam Narrative Physical Exam (Text): 02/15/17 12:39 - Review of Systems Constitutional: weakness. absent: Weight Change, Fevers Eyes: Normal ENT: denies sore throat, denies tristhmus Respiratory: Normal. absent: SOB, Cough, Sputum Cardiovascular: absent: Chest Pain, Palpitations, Syncope Gastrointestinal: abd pain, decreased appetite. absent: Diarrhea, Nausea, Vomiting Genitourinary: Normal. absent: Dysuria, Frequency, Hematuria, vaginal bleeding Musculoskeletal: chronic body aches. absent: Back Pain, Neck Pain Skin: no rashes, no erythema Neurological: absent: Focal Weakness Endocrine: Normal Hemo/Lymphatic: Normal Psychiatric: No suicidal or homicidal ideations Physical exam Patient appears age appropriate in no distress, speaking full sentences without difficulty - Systems Exam Head: Present: Atraumatic, Normocephalic Pupils: Present: PERRL Extroacular Muscles: Present: EOMI Conjunctiva: Present: Normal Mouth: Present: Moist Mucous Membranes Neck: Present: Normal Range of Motion. No: MIDLINE TENDERNESS, Paraspinal Tenderness Respiratory/Chest: Present: Clear to Auscultation, Good Air Exchange. No: Respiratory Distress, Accessory Muscle Use, Tachypneic Cardiovascular: Present: Regular Rate and Rhythm, Normal S1, S2, Peripheal Pulses Present. No: Murmurs Abdomen: Present: Normal Bowel Sounds. No: Tenderness, Distention, Peritoneal Signs, Rebound, Guarding Back: Present: Normal Inspection. No: Midline Tenderness, Paraspinal Tenderness Upper Extremity: Present: Normal Inspection. No: Cyanosis, Edema Lower Extremity: Present: Normal Inspection. No: Edema Neurological: Present: GCS=15, Speech Normal, cranial nerves II through XII fully intact with no cerebellar abnormality, neurosensory fully intact. No focal neurological deficits. Skin: Present: Warm, Dry, Normal Color. No: Rashes Lymphatic: Present: OX3, NI, NC Psychiatric: Present: Alert, Oriented x 3, Normal Insight, Normal Concentration Vital Signs Reviewed: Yes Vital Signs Temp Pulse Resp BP Pulse Ox 02/15/17 16:43 101.3 F H 94 H 18 117/65 98 02/15/17 15:53 99 H 18 119/63 98 02/15/17 14:19 79 18 113/69 98 02/15/17 13:28 88 18 115/75 98 02/15/17 12:03 98.8 F 90 18 117/78 98 Temperature: Afebrile Blood Pressure: Normal Pulse: Regular Respiratory Rate: Normal Appearance: Positive for: Well-Appearing Pain Distress: None Mental Status: Positive for: Alert and Oriented X 3 Medical Decision Making ED Course and Treatment: Elderly female with lack of appetite and abd pain. No acute findings on physical examination. Previous records reviewed, patient was admitted on 12/26/16 for a syncopal/near syncopal episode. Patient's CAT scan of the head was negative. Patient's MRI and MRA of brain/head unremarkable. Carotid ultrasound showed 20-39% bilateral stenosis. Patient's echo showed ejection fraction of 55%. Differential includes but not limited to: infection, dehydration labs, imaging, fluids ordered EKG shows NSR at 88 BPM with no intervals, no ST-elevations with no prior for comparison. Interpreted by me. 02/15/2017 13:[address] IMPRESSION: No acute intracranial hemorrhage. Mild-moderate chronic white matter and basal nuclei ischemic changes. Moderate generalized volume loss. Dictator: Ac Deal DO 02/15/2017 14:10 Abd/Pelvis CT IMPRESSION: 1. No radiodense urolithiasis or obstructive uropathy is identified bilaterally. 2. Diffuse fatty infiltration liver suggested. 3. Lack of contrast agents limits full evaluation of the abdominal and pelvic viscera with no definitive additional pathological finidings appreciated this time. 4. Prior hysterectomy suggested. 5. Reveresed S-shape scoliosis of the visulaized thorcolumbar spine. Dictator: Ronaldo Kiser MD 02/15/17 16:46 CXR IMPRESSION: Dr. Deal Findings suggest mild central pulmonary vascular congestive changes with mild on early confluent alveolar-type infiltrates in the mid to lower lung taveras. Cardiomegaly. Blood cultures and abx ordered Dr. Loida bro for admission 02/15/17 17:[address] Mariscal in detail, accepted admission to his service pt and family aware of and agree with plan - Lab Interpretations Lab Results: 02/15/17 13:03 02/15/17 13:03 Lab Results 02/15/17 13:03: Free T4 1.61, TSH 3rd Generation 0.88 02/15/17 13:03: Sodium 136, Potassium 3.7, Chloride 97 L, Carbon Dioxide 27, Anion Gap 16, BUN 18, Creatinine 0.7, Est GFR ( Amer) > 60, Est GFR (Non- Af Amer) > 60, Random Glucose 167 H, Calcium 9.0, Total Bilirubin 0.6, AST 72 H , ALT 90 H, Alkaline Phosphatase 82, Lactate Dehydrogenase 902 H, Total Creatine Kinase 80, Troponin I < 0.01, Total Protein 7.3, Albumin 4.2, Globulin 3.1, Albumin/Globulin Ratio 1.4, Lipase 99 02/15/17 13:03: PT 10.8, INR 1.00, APTT 26.1 02/15/17 13:03: WBC 7.7 D, RBC 5.25, Hgb 15.2, Hct 43.3, MCV 82.5, MCH 29.0, MCHC 35.1, RDW 12.7, Plt Count 170, MPV 12.0 H, Gran % 79.0 H, Lymph % (Auto) 12.2 L, [place] % (Auto) 7.3 H, Eos % (Auto) 1.2 L, Baso % (Auto) 0.3, Gran # 6.11 , Lymph # 0.9 L, [place] # 0.6, Eos # 0.1, Baso # 0.02 02/15/17 12:40: Urine Color Yellow, Urine Appearance Clear, Urine pH 6.0, Ur Specific [place] >= 1.030, Urine Protein 100 H, Urine Glucose (UA) 500 H, Urine Ketones Negative, Urine Blood Trace-intact H, Urine Nitrate Negative, Urine Bilirubin Negative, Urine Urobilinogen 0.2, Ur Leukocyte Esterase Negative, Urine RBC 0 - 2, Urine WBC 0 - 2 - RAD Interpretation Radiology Orders: 02/15/17 12:33 ABD & PELVIS W/O PO OR IV CONT [CT] Stat HEAD W/O CONTRAST [CT] Stat 02/15/17 12:34 CHEST PORTABLE [RAD] Stat - Medication Orders Current Medication Orders: Aspirin (Ecotrin) 81 mg PO DAILY MATEO Atorvastatin Calcium (Lipitor) 40 mg PO DIN MATEO Gabapentin (Neurontin) 300 mg PO BID MATEO PRN Reason: Protocol Azithromycin (Zithromax 500mg In Ns) 500 mg in 250 mls @ 166.667 mls/hr IV STAT STA PRN Reason: Protocol Stop: 02/15/17 18:12 Levothyroxine Sodium (Synthroid) 75 mcg PO ACB MATEO Meclizine HCl (Antivert) 25 mg PO TID PRN PRN Reason: Dizziness Metoprolol Succinate (Toprol Xl) 50 mg PO QPM MATEO Valsartan (Diovan) 320 mg PO DAILY MATEO Discontinued Medications Acetaminophen (Tylenol 325mg Tab) 975 mg PO STAT STA Stop: 02/15/17 16:44 Sodium Chloride (Sodium Chloride 0.9%) 1,000 mls @ 1,000 mls/hr IV .Q1H STA Stop: 02/15/17 13:34 Last Admin: 02/15/17 12:56 Dose: 1,000 mls/hr eMAR Start Stop Document 02/15/17 12:56 SF (Rec: 02/15/17 12:56 SF [id number]) Intravenous Solution Start Date 02/15/17 Start Time 12:56 End Date 02/15/17 End time 13:56 Total Infusion Time 60 Ceftriaxone Sodium (Rocephin 1 Gram Ivpb) 1 gm in 100 mls @ 200 mls/hr IV STAT STA PRN Reason: Protocol Stop: 02/15/17 17:12 Disposition/Present on Arrival - Present on Arrival Any Indicators Present on Arrival: No History of DVT/PE: No History of Uncontrolled Diabetes: No Urinary Catheter: No History of Decub. Ulcer: No History Surgical Site Infection Following: None - Disposition Have Diagnosis and Disposition been Completed?: Yes Diagnosis: Community acquired pneumonia, Abdominal pain Disposition: HOSPITALIZED Disposition Time: 17:21 Patient Plan: Admission Condition: FAIR Referrals: Ronaldo Mukherjee MD [Primary Care Provider] - Follow up with primary Forms: [email or web address] ([place])
[2017-02-15] MEDS ORDERED: Sodium Chloride 0.9% 1,000 ML IV STA (12:35)
[2017-02-15 12:54] LABS: URINE BILIRUBIN NEGATIVE (NEGATIVE); URINE BLOOD TRACE-INTACT (NEGATIVE); URINE GLUCOSE (UA) 500 mg/dL (NEGATIVE); URINE KETONE NEGATIVE (NEGATIVE); URINE LEUKOCYTE ESTERASE NEGATIVE Leu/uL (NEGATIVE); URINE PROTEIN 100 mg/dL (<30 mg/dL); URINE UROBILINOGEN 0.2 E.U./dL (<1 E.U./dL)
[2017-02-15 12:55] LABS: URINE APPEARANCE CLEAR (CLEAR); URINE COLOR YELLOW (YELLOW)
[2017-02-15 13:03] LABS: URINE RBC 0 - 2 /hpf (0-2); URINE WBC 0 - 2 /hpf (0-6)
[2017-02-15 13:10] LABS: BASO # 0.02 K/mm3 (0.0-2.0); BASO % 0.3 % (0.0-3.0); EOS # 0.1 (0.0-0.7); EOS % 1.2 % (1.5-5.0); GRAN # 6.11 (1.4-6.5); HEMATOCRIT 43.3 % (36.0-48.0); LYMPH # 0.9 (1.2-3.4); LYMPH % 12.2 % (22.0-35.0); MEAN CELL VOLUME 82.5 fl (80.0-105.0); MEAN CORPUSCULAR HGB CONC 35.1 g/dl (31.0-37.0); MONO # 0.6 (0.1-0.6); MONO % 7.3 % (1.0-6.0); RED CELL DISTRIBUTION WIDTH 12.7 % (11.5-14.5); WHITE BLOOD COUNT 7.7 10^3/ul (4.5-11.0)
[2017-02-15 13:20] LABS: PARTIAL THROMBOPLASTIN TIME 26.1 Seconds (23.7-30.8)
[2017-02-15 13:22] LABS: ALB/GLOB RATIO 1.4 (1.1-1.8); ALKALINE PHOSPHATASE 82 U/L (38-126); ALT/SGPT 90 U/L (7-56); AST/SGOT 72 U/L (14-36); BILIRUBIN,TOTAL 0.6 mg/dL (0.2-1.3); BLOOD UREA NITROGEN 18 mg/dL (7-21); CARBON DIOXIDE 27 mmol/L (21-33); CHLORIDE 97 mmol/L (98-107); GFR AFRICAN-AMERICAN > 60; GLUCOSE,RANDOM 167 mg/dL (70-110); LIPASE 99 U/L (23-300); SODIUM 136 mmol/L (132-148); TOTAL PROTEIN 7.3 g/dL (5.8-8.3)
[2017-02-15 13:23] LABS: POTASSIUM 3.7 mmol/L (3.6-5.0)
[2017-02-15 13:36] LABS: TROPONIN I < 0.01 ng/mL
[2017-02-15 13:38] LABS: FREE T4 1.61 ng/dL (0.78-2.19)
[2017-02-15 13:52] LABS: THYROID STIMULATING HORMONE 0.88 mIU/mL (0.46-4.68)
--- NOTE | 2017-02-15 13:59 | CT ---
PROCEDURE: CT scan brain dated 02/15/2017 HISTORY: Weakness. COMPARISON: Comparison made with prior MRI brain dated 12/26/2016 TECHNIQUE: Axial computed tomography images were obtained through the head/brain without intravenous contrast. Radiation dose: Total exam DLP = 712.70 mGy-cm. This CT exam was performed using one or more of the following dose reduction techniques: Automated exposure control, adjustment of the mA and/or kV according to patient size, and/or use of iterative reconstruction technique. FINDINGS: HEMORRHAGE: No acute parenchymal, subarachnoid nor extra-axial hemorrhage. BRAIN: Mild -moderate chronic periventricular white matter ischemic changes seen extending peripherally into the deep and subcortical white matter both cerebral hemispheres. There is also some extension of these changes into the white matter tract of right basal nuclei and another slightly more superiorly located in the hirsch radiata. Multiple more discrete chronic appearing lacunar type infarcts scattered about the deep and subcortical white matter as well. . Moderate generalized volume loss. Minor vascular calcifications. VENTRICLES: Unremarkable. No hydrocephalus. CALVARIUM: No acute calvarial fractures. PARANASAL SINUSES: Minimal mucosal thickening seen within a few ethmoid air cells MASTOID AIR CELLS: Unremarkable as visualized. No inflammatory changes. OTHER FINDINGS: Changes of bilateral cataract surgery. IMPRESSION: No acute intracranial hemorrhage. Mild -moderate chronic white matter and basal nuclei ischemic changes. Moderate generalized volume loss.
--- NOTE | 2017-02-15 14:12 | CT ---
PROCEDURE: CT Abdomen and Pelvis without intravenous contrast HISTORY: abd pain COMPARISON: None. TECHNIQUE: Helical CT of the abdomen pelvis was performed without oral or intravenous contrast as requested. Physical history of abdominal pain. No prior abdomen pelvis CT available comparison. Contrast Dose: None Radiation dose: Total exam DLP = 29.64 mGy-cm. This CT exam was performed using one or more of the following dose reduction techniques: Automated exposure control, adjustment of the mA and/or kV according to patient size, and/or use of iterative reconstruction technique. FINDINGS: LOWER THORAX: Cardiomegaly is noted but there is no pleural or pericardial effusion. Respiratory motion degrades the visualized lung bases with limited bilateral basilar dependent atelectasis elite that evident. LIVER: Liver appears diffusely lucent which indicates diffuse fatty infiltration. No definitive mass is appreciated. GALLBLADDER AND BILE DUCTS: Unremarkable. PANCREAS: Unremarkable. No gross lesion or ductal dilatation. SPLEEN: Unremarkable. ADRENALS: Unremarkable. No mass. KIDNEYS AND URETERS: Unremarkable. No hydronephrosis or radiodense urolithiasis bilaterally. No suspicious parenchymal density changes. VASCULATURE: Unremarkable. No aortic aneurysm. BOWEL: Unremarkable. No obstruction. No gross mural thickening. APPENDIX: Unremarkable. Normal appendix. PERITONEUM: Unremarkable. No free fluid. No free air. LYMPH NODES: Unremarkable. No enlarged lymph nodes. BLADDER: Unremarkable. REPRODUCTIVE: Prior hysterectomy suggested. BONES: Reversed S-shaped scoliosis of the thoracolumbar spine is identified. OTHER FINDINGS: None. IMPRESSION: 1. No radiodense urolithiasis or obstructive uropathy is identified bilaterally. 2. Diffuse fatty infiltration liver suggested. 3. Lack of contrast agents limits full evaluation of the abdominal and pelvic viscera with no definitive additional pathological findings appreciated this time. 4. Prior hysterectomy suggested. 5. Reversed S-shaped scoliosis of the visualized thoracolumbar spine.
--- NOTE | 2017-02-15 15:51 | RAD ---
HISTORY: cough COMPARISON: Comparison made with prior chest radiograph 12/25/2016 FINDINGS: LUNGS: There appears to be mild central pulmonary vascular congestion of with more confluent alveolar-type infiltrates within the mid to lower lung taveras. PLEURA: Tiny effusions not completely excluded. No pneumothorax apparent. CARDIOVASCULAR: Heart appears enlarged. OSSEOUS STRUCTURES: No significant abnormalities. VISUALIZED UPPER ABDOMEN: Mild multilevel degenerative spondylosis of the thoracic spine. Degenerative changes both shoulder girdles. OTHER FINDINGS: None. IMPRESSION: Findings suggest mild central pulmonary vascular congestive changes with mild on early confluent alveolar-type infiltrates in the mid to lower lung taveras. Cardiomegaly.
[2017-02-15] MEDS ORDERED: cefTRIAXone 1 gm 1 GM/100 ML BAG IV STA (16:43)
[2017-02-15] MEDS ORDERED: Azithromycin 500MG/NS 250ml 500 MG/250 ML BAG IV STA (16:43)
[2017-02-15] MEDS: Sodium Chloride 0.9% 1,000 ML IV SCH (17:50)
[2017-02-15] MEDS: Levothyroxine 75 MCG TAB PO SCH (18:16)
--- NOTE | 2017-02-15 18:42 | CARD ---
APPROVED REPORT EKG Measurement Heart [id number] <Conclusion> Poor data quality, interpretation may be adversely affected Normal sinus rhythm Normal ECG
[2017-02-15 19:09] LABS: TROPONIN I < 0.01 ng/mL
[2017-02-15] MEDS ORDERED: Megestrol Acetate 40 mg/ml Cup PO ONE (19:45)
[2017-02-15] MEDS: Levalbuterol 0.63 MG/3 ML Inhal Soln UD IH SCH (20:15)
--- NOTE | 2017-02-15 21:31 | CT ---
EXAM: CT Chest Without Intravenous Contrast EXAM DATE/TIME: 02/15/2017 5:31 PM CLINICAL HISTORY: 76 years old, female; Signs and symptoms; Other: ? ? Pneumonia; Additional info: ? ? Pneumonia TECHNIQUE: Axial computed tomography images of the chest without intravenous contrast. All CT scans at this facility use one or more dose reduction techniques, viz.: automated exposure control; ma/kV adjustment per patient size (including targeted exams where dose is matched to indication; i.e. head); or iterative reconstruction technique. MIP reconstructed images were created and reviewed. Coronal and sagittal reformatted images were created and reviewed. COMPARISON: CT - CHEST W/O CONTRAST 12/26/2016 7:55:23 AM FINDINGS: Artifacts: Motion artifact degrades image quality. Lungs and pleural spaces: Trachea and main bronchi are patent. There is a small right upper lobe granuloma There is minimal atelectasis and scarring at the right base. There is mild interstitial and airspace disease at the left base. There is subsegmental left retrocardiac atelectasis. There are no effusions. Heart and vasculature: The heart is mildly enlarged. There are coronary artery calcifications. There is trace fluid in pericardial recesses. Aorta and main pulmonary artery are normal in caliber. There are vascular calcifications. Mediastinum: There are multiple small shotty mediastinal nodes.Maddy are not optimally evaluated without contrast material. The esophagus is unremarkable. 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 There is a calcification in the left lobe. Bones/joints: Bony structures are osteopenic.There are degenerative changes in the osseus structures. There is a mild convex right thoracic curve. Soft tissues: unremarkable Upper abdomen: There are no acute abnormalities in the visualized portion of the abdomen. IMPRESSION: Mild cardiomegaly and atherosclerotic disease; interstitial and airspace disease at the left base atelectasis and/or infiltrate; minimal atelectasis/scarring at the right base Additional findings as described above.
[2017-02-15] MEDS ORDERED: Cefepime 1gm in NS 100ml 1 GM/100 ML BAG IVPB SCH (22:00)
--- NOTE | 2017-02-15 23:11 | HP ---
HISTORY OF PRESENT ILLNESS: The patient is a 76-year-old [place] female who presented to the emergency room today for 4- to 5-day duration of complaints of diffuse abdominal pain, poor appetite, generalized weakness, diffuse body aches.. Unable to perform activities of daily living. According to the patient's daughter, Lacey, the patient was in her usual state of health until last Sunday, which was 02/10/2017, and the patient after returning from [facility] on Sunday evening, the patient developed symptoms of generalized weakness, poor appetite, abdominal pain, and also difficulty walking. The patient's 13-system review was done, pertinent positive/negative dictated above. The patient denies chest pain. Denies any nausea or diarrhea. Denies constipation. Denies hemoptysis, hematemesis, or melena. Denies hematochezia. The patient's code status is FULL CODE. Living will advance directive none. ALLERGIES: SULFA, TETANUS VACCINE TOXOID, AND TETRACYCLINE. Height is 5 feet 3 inches. Weight is 110 pounds, BMI is 19. MEDICATIONS: The patient's home medications are valsartan/Diovan 320 mg daily, metoprolol succinate 50 mg in the evening, metformin 1000 mg twice a day, meclizine 25 mg three times a day p.r.n., Synthroid 75 mcg daily, Xalatan eye drops, Amaryl or glimepiride 1 mg p.r.n., Neurontin 300 mg twice a day, Dexilant 60 mg daily, Lipitor 40 mg daily, and aspirin 81 mg daily. FAMILY HISTORY: Positive for diabetes and hypertension. SOCIAL HISTORY: Positive for active smoker for more than 50 years. Denies alcohol. Denies communicable or transmissible disease. MENSTRUAL HISTORY: Postmenopausal. The patient. OCCUPATIONAL HISTORY: Retired female. PSYCHIATRIC HISTORY: Negative. The patient was admitted in 12/2016 for passing out or syncopal episode and heaviness in the head, and the patient states that her blood pressure was elevated, so she took extra dose of her blood pressure medicine. A 13-system review was also positive for some cough because of active smoking. PAST MEDICAL AND SURGICAL HISTORY: History of hypertension, history of diabetes mellitus, history of diabetic neuropathy, history of nicotine addiction, history of possible emphysema, history of questionable syncope versus near syncope, history of diabetic neuropathy, history of transient uncontrolled hypertension, history of granulocytosis, history of type 2 [id number] diabetes mellitus with hemoglobin A1c of 7.4. History of hypokalemia, history of hypertriglyceridemia, dyslipidemia, history of positional vertigo, history of chronic microvascular ischemic disease of the brain, history of hypertensive cardiovascular disease, history of questionable syncope, history of uncontrolled accelerated systolic/diastolic hypertension, history of active nicotine addiction and dependence, history of granulocytosis, history of abnormal chest x-ray with right lower lobe atelectasis versus pneumonia, history of right lower lobe pulmonary nodule with negative CT scan of the chest, history of dextroscoliosis, history of osteopenia, 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 The patient's past medical history is significant for active smoking, history of hypertension, history of diabetic neuropathy, history of questionable syncope, history of partial thyroidectomy, history of glaucoma, history of cataract, history of tonsillectomy, history of degenerative joint disease, history of lumbar spine degenerative joint disease, history of osteoporosis, history of questionable transient ischemic infarct, history of active smoker, history of , history of questionable COPD, history of non-insulin requiring diabetes mellitus, history of microalbuminuria, history of near syncope, admitted to [facility], history of thyroid biopsy, history of follicular adenomatoid benign thyroid nodule, history of microvascular ischemic disease of the brain, history of osteopenia, history of acromioclavicular joint arthrosis, history of chronic ischemic microangiopathic disease of the brain, history of left thyroid nodule biopsy, history of dense breast, history of cervical spine disk disease, history of solid thyroid nodule, history of osteopenia and osteoporosis, history of gastritis, history of tubular adenoma of the descending colon, history of community-acquired pneumonia, and history of vertigo. PHYSICAL EXAMINATION: GENERAL: The patient was seen on stretcher #17 in the emergency room with the patient's , Jarrett; the patient's daughter, Lacey; and the family at bedside. The patient was examined in stretcher #17. VITAL SIGNS: T-max is 101.3, heart rate is 79-94, respiration 18, blood pressure ranging from 117/65 to 119/63. The patient's initial vital signs were 98.8. Later on, while the patient was in the ER, the patient felt warm and the temperature was rechecked and the patient was found to be 101.3 and the patient's O2 sat stayed within normal limits at 98. The patient is seen lying in the stretcher. HEENT: Head examination normocephalic, atraumatic. HEENT examination shows pinkish pale conjunctivae. Dry oral mucosa. No neck rigidity. Flat jugular veins. CHEST: Examination shows kyphosis. LUNGS: Examination shows questionable rhonchi at bases, right more than the left. CARDIOVASCULAR: S1, S2; regular rhythm. No audible murmur, gallop or rub. ABDOMEN: Soft. Positive bowel sounds. No real abdominal tenderness or rebound tenderness or costovertebral angle tenderness was elicited. GENITALIA: Female. RECTAL: Examination is deferred. EXTREMITIES: Show no swelling, no edema, no calf tenderness, no America's signs. No clubbing, no cyanosis. MUSCULOSKELETAL: Examination shows a body mass index of 19.5, which is low. VASCULAR: Palpable pulses. NEUROLOGIC: The patient is awake, responsive but appears lethargic and tired. The patient is able to move upper and lower extremities without assistance, but the patient appears to be very weak, though the patient is awake and responsive. PSYCHIATRIC: Examination was negative. Gait examination could not be tested. As mentioned, the patient spiked a fever of 101.3 in the emergency room. DIAGNOSTICS: The patient's CBC shows WBC of 7.7, hemoglobin/hematocrit 15.2 and 43.3, platelet 170. Granulocytes, 79% segs. PT/PTT 10.8/26.1. Sodium 136, potassium 3.7, chloride 97, CO2 of 27, anion gap 16, BUN 18, creatinine 0.7, GFR greater than 60, glucose 167. AST 72, ALT 90, LDH 908 which is high, CPK 80. Troponin negative at 0.1. TSH 0.88, T4 of 1.61. Urinalysis; pH 6.0, specific gravity greater than , urine protein 100, glucose 500, negative bacteria, negative leukocyte. EKG shows sinus rhythm of baseline artifact. No ST elevation noted. Chest x-ray was done which shows some questionable increased vascular marking and degenerative joint disease of the thoracic spine and both shoulder girdles. Chest x-ray also suggested that there may be an early alveolar infiltrate in bilateral lung taveras with cardiomegaly. The patient had a CT scan of the head done without contrast, which shows chronic periventricular white matter ischemic changes of the brain, extending periphery into the deep and subcortical white matter of both cerebral hemispheres and extending into the right basal nuclei with chronic-appearing lacunar infarcts noted and cerebral cortical atrophy noted. The patient also had a CT scan of the abdomen and pelvis done without p.o. or IV contrast for evaluation of abdominal pain and poor appetite, which shows cardiomegaly. CT scan also shows fatty infiltration of the liver. The patient also showed hysterectomy and scoliosis of the thoracolumbar spine. The patient was seen in the emergency room by . The patient was started on IV fluid hydration. Due to the fever spike, the patient was cultured. The patient was given IV antibiotic, Rocephin. The patient was given Tylenol for the fever. At that point, a decision was made that the patient will be admitted for management of the patient's condition. IMPRESSION: A 76-year-old female with history of hypertension, diabetes, and chronic lacunar infarct, came in with 4- to 5-day complaints of weakness, poor appetite, difficulty walking, recurrent falls, and nonspecific abdominal pain. 1. Questionable sepsis with bibasilar bilateral community-acquired pneumonia. 2. High-grade fever. 3. Abdominal pain, etiology undetermined. 4. Anorexia. 5. Generalized weakness and fatigue. 6. My allergy and diffuse body aches, etiology undetermined. 7. Gait dysfunction. 8. Recurrent fall. 9. Hypovolemia with dehydration. 10. Granulocytosis. 11. Hyperglycemia. 12. Transaminitis. 13. Proteinuria, glycosuria and microscopic hematuria. 14. Bilateral multilobar alveolar-type pneumonia. 15. Cardiomegaly. 16. Multilevel degenerative spondylosis of the thoracic spine and degenerative joint disease of the shoulder girdles. 17. Chronic periventricular white matter ischemic disease of the brain extending into the deep and subcortical white matter of both cerebral hemispheres with extension of the small vessel ischemic disease of the brain changes into the right basal nuclei and in the hirsch radiata with multiple discrete chronic lacunar infarcts, scattered in both deep and subcortical white matter. 18. Generalized cerebral cortical atrophy of the brain. 19. Status post bilateral cataract surgery. 20. Hepatic steatosis with fatty hepatic infiltration. 21. Status post hysterectomy. 22. Thoracolumbar spine reversed scoliosis. 23. Diffuse fatty infiltration. 24. Deconditioning. 25. Gait dysfunction. PLAN: At this time, the patient will be admitted to the hospital. The patient's antihypertensive will be held at this time because of hypotension. The patient has been started on IV fluid hydration. The patient had blood and urine cultures done. The patient will be ordered repeat labs for the morning. The patient has been ordered lactic acid, procalcitonin level. Blood cultures, urine cultures ordered. The patient is started on IV fluid 0.9 at 100 mL an hour. The patient has been started on both GI and DVT prophylaxis. The patient has been started on Zofran 4 IV q.4. The patient is started on cefepime 1 g IV q.8-12 hours. The patient is started on doxycycline 100 mg IV q.12. The patient is also started on Xopenex nebulizer treatment 0.63 mg every 6 hours. The patient is started on fingerstick blood sugar a.c. and at bedtime sliding scale with Humalog, low dose. The patient's oral hypoglycemic will be held at this time. The patient's Synthroid will be resumed at 75 mcg. The patient will be resumed on her Neurontin 300 twice a day. The patient will be resumed on her aspirin 81 daily. The patient's Lipitor will be held at this time because of myalgias. The patient has been ordered ultrasound of the abdomen for evaluation of transaminitis. CAT scan of the chest has been ordered for evaluation of bilateral pneumonia. The patient has been ordered procalcitonin and lactic acid level. The patient has been ordered GI prophylaxis. At present, she is also consulted with infectious disease, neurology and gastroenterology. The above consultation and subspecialty are personally requested by the patient's daughter, to request the above consults with Dr. Rocha for neurology and Dr. Solano for gastroenterology, which has been ordered. The patient has been ordered repeat labs for the morning. The patient has been started on consistent carbohydrate diet.. At present, the patient was seen in the emergency room, bed #17. At present, the patient's further management will be dependent upon the patient's clinical condition, hemodynamic status and as per the patient's clinical condition and the patient's response with diagnostic therapeutic intervention and as per recommendation by infectious disease, gastroenterology and neurology. The patient's condition, diagnosis, need for hospitalization, need for further diagnostic therapeutic intervention, need for further evaluation by all subspecialty was discussed and explained to the patient and the patient's daughter, Lacey, who was present in the emergency room and all questions and concerned answered to their satisfaction. Dictated and electronically signed, not read. Signing off; Magdaleno Mariscal MD
[2017-02-16] MEDS: Insulin Lispro (humaLOG) LOW Coverage SC SCH ×5 (01:02→22:50)
[2017-02-16] MEDS: Vancomycin 1gm in NS 250ml 1 GM/250 ML BAG IVPB SCH ×2 (01:05→10:53)
[2017-02-16] MEDS: Levalbuterol 0.63 MG/3 ML Inhal Soln UD IH SCH ×4 (01:06→19:20)
[2017-02-16] MEDS: Cefepime IV 2 gm in NS 2 GM/100 ML BAG IVPB SCH ×3 (06:07→22:58)
[2017-02-16 07:46] LABS: EOS # 0.1 (0.0-0.7); EOS % 1.2 % (1.5-5.0); GRAN # 5.75 (1.4-6.5); GRAN % 86.8 % (50.0-68.0); HEMATOCRIT 36.8 % (36.0-48.0); LYMPH # 0.6 (1.2-3.4); MEAN CELL VOLUME 80.7 fl (80.0-105.0); MEAN CORPUSCULAR HEMOGLOBIN 27.4 pg (25.0-35.0); MEAN PLATELET VOLUME 11.8 fl (7.0-11.0); MONO # 0.2 (0.1-0.6); RED CELL DISTRIBUTION WIDTH 12.5 % (11.5-14.5); WHITE BLOOD COUNT 6.6 10^3/ul (4.5-11.0)
[2017-02-16] MEDS: Sodium Chloride 0.9% 1,000 ML IV SCH (08:13)
--- NOTE | 2017-02-16 08:13 | US ---
HISTORY: TRANSAMINITIS COMPARISON: None. TECHNIQUE: Sonographic evaluation of the abdomen. FINDINGS: LIVER: Measures 14.4 cm. Hepatopedal blood flow. Fatty infiltration manifest ultrasonographically as increased echogenicity of the liver parenchyma. No mass. No intrahepatic bile duct dilatation. GALLBLADDER: Unremarkable. No gallstones. COMMON BILE DUCT: Measures 2.1 mm. No stones. No dilatation. PANCREAS: Unremarkable as visualized. No mass. No ductal dilatation. RIGHT KIDNEY: Measures 3.6 x 10.0cm. Normal echogenicity. No calculus, mass, or hydronephrosis. LEFT KIDNEY: Measures 4.7 x 11.4cm. Normal echogenicity. No calculus, mass, or hydronephrosis. SPLEEN: Normal in size and contour. No mass. AORTA: No aneurysmal dilatation. IVC: Unremarkable. OTHER FINDINGS: None. IMPRESSION: Hepatic steatosis. No focal masses. No intrahepatic bile duct dilatation or perihepatic ascites. No mass lesions identified.
[2017-02-16 08:19] LABS: ALB/GLOB RATIO 1.2 (1.1-1.8); ALKALINE PHOSPHATASE 70 U/L (38-126); ALT/SGPT 66 U/L (7-56); AST/SGOT 61 U/L (14-36); BILIRUBIN,DIRECT 0.3 mg/dL (0.0-0.4); BILIRUBIN,TOTAL 0.4 mg/dL (0.2-1.3); BLOOD UREA NITROGEN 10 mg/dL (7-21); CALCIUM 7.8 mg/dL (8.4-10.5); CARBON DIOXIDE 24 mmol/L (21-33); CHLORIDE 102 mmol/L (98-107); GFR AFRICAN-AMERICAN > 60; GLUCOSE,RANDOM 122 mg/dL (70-110); MAGNESIUM 1.3 mg/dL (1.7-2.2); SODIUM 136 mmol/L (132-148); TOTAL PROTEIN 5.8 g/dL (5.8-8.3)
[2017-02-16] MEDS: Levothyroxine 75 MCG TAB PO SCH (08:19)
[2017-02-16 08:30] LABS: POTASSIUM 2.9 mmol/L (3.6-5.0)
[2017-02-16 08:32] LABS: TROPONIN I < 0.01 ng/mL
[2017-02-16] MEDS ORDERED: Magnesium Sulfate 1 gm in D5W 1 GM/100 ML BAG IVPB ONE (08:36)
--- NOTE | 2017-02-16 08:44 | CP.PCM.PN ---
Subjective - Date & Time of Evaluation Date of Evaluation: 02/16/17 Time of Evaluation: 07:45 - Subjective Subjective: (covering for Dr. Mariscal) Patient is seen this morning. She is confused. She complains of abdominal pain in the lower abdomen. She says she has not had a bowel movement since Sunday. Objective - Vital Signs/Intake and Output Vital Signs (last 24 hours): Temp Pulse Resp BP Pulse Ox 100.4 F H 89 20 165/90 H 100 02/16/17 07:30 02/16/17 07:30 02/16/17 07:30 02/16/17 07:30 02/16/17 07:30 Intake and Output: 02/16/17 02/16/17 06:59 18:59 Intake Total 0 Output Total 150 Balance 0 -150 - Medications Medications: Current Medications Acetaminophen (Tylenol 325 Mg Supp) 325 mg RC Q6H PRN PRN Reason: TEMP>=99.5F Acetaminophen (Tylenol 325mg Tab) 650 mg PO Q6H PRN PRN Reason: TEMP>=99.5F Last Admin: 02/16/17 06:25 Dose: 650 mg Aspirin (Ecotrin) 81 mg PO DAILY [facility] Last Admin: 02/15/17 18:16 Dose: 81 mg Gabapentin (Neurontin) 300 mg PO BID [facility] PRN Reason: Protocol Last Admin: 02/15/17 22:34 Dose: 300 mg Heparin Sodium (Porcine) (Heparin) 5,000 units SC Q8H [facility] PRN Reason: Protocol Last Admin: 02/16/17 06:08 Dose: 5,000 units Doxycycline Hyclate 100 mg/ (Sodium Chloride) 100 mls @ 100 mls/hr IVPB Q12 [facility] PRN Reason: Protocol Last Admin: 02/15/17 22:15 Dose: 100 mls/hr Sodium Chloride (Sodium Chloride 0.9%) 1,000 mls @ 100 mls/hr IV .Q10H [facility] Stop: 02/19/17 21:29 Last Admin: 02/16/17 08:13 Dose: 100 mls/hr Cefepime HCl (Maxipime 2gm) 2 gm in 100 mls @ 100 mls/hr IVPB Q8 [facility] PRN Reason: Protocol Stop: 02/21/17 06:01 Last Admin: 02/16/17 06:07 Dose: 100 mls/hr Vancomycin HCl (Vancomycin 1gm) 1 gm in 250 mls @ 167 mls/hr IVPB Q12H [facility] PRN Reason: Protocol Last Admin: 02/16/17 01:05 Dose: 167 mls/hr Magnesium Sulfate/Dextrose (Magnesium Sulfate 1 Gm/100 Ml D5w) 1 gm in 100 mls @ 100 mls/hr IVPB ONCE ONE Stop: 02/16/17 09:35 Potassium Chloride (Potassium Chloride 20 Meq/100 Ml) 20 meq in 100 mls @ 50 mls/hr IVPB Q2H [facility] Stop: 02/16/17 12:44 Insulin Human Lispro (Humalog Low) 0 units SC ACHS [facility] PRN Reason: Protocol Last Admin: 02/16/17 08:12 Dose: Not Given Levalbuterol HCl (Xopenex) 0.63 mg IH [id number] [facility] Last Admin: 02/16/17 08:28 Dose: 0.63 mg Levothyroxine Sodium (Synthroid) 75 mcg PO ACB [facility] Last Admin: 02/16/17 08:19 Dose: 75 mcg Meclizine HCl (Antivert) 25 mg PO TID PRN PRN Reason: Dizziness Megestrol Acetate (Megace) 400 mg PO DAILY [facility] Metoprolol Succinate (Toprol Xl) 50 mg PO QPM [facility] Ondansetron HCl (Zofran Inj) 4 mg IVP Q4H PRN PRN Reason: Nausea/Vomiting Pantoprazole Sodium (Protonix Inj) 40 mg IVP Q12H [facility] Last Admin: 02/15/17 18:16 Dose: 40 mg Valsartan (Diovan) 320 mg PO DAILY [facility] - Labs Labs: 02/16/17 07:39 02/16/17 07:39 PT 10.8 Seconds (9.9-11.8) 02/15/17 13:03 INR 1.00 (0.93-1.08) 02/15/17 13:03 APTT 26.1 Seconds (23.7-30.8) 02/15/17 13:03 - Constitutional Appears: No Acute Distress - Head Exam Head Exam: ATRAUMATIC, NORMOCEPHALIC - Respiratory Exam Respiratory Exam: Clear to Ausculation Bilateral, NORMAL BREATHING PATTERN - Cardiovascular Exam Cardiovascular Exam: +S1, +S2 - GI/Abdominal Exam GI & Abdominal Exam: Soft, Tenderness. absent: Rebound Additional comments: mild tenderness lower quadrants - Neurological Exam Neurological Exam: Alert, Awake Assessment and Plan - Assessment and Plan (Free Text) Assessment: Abdominal pain Pneumonia?? HTN DMII Hyperlipidemia Fever Hypokalemia Hypomagnesemia Plan: Potassium and magnesium riders have been ordered for low potassium and magnesium. Patient complains of abdominal pain. Awaiting Gastroenterology evaluation. Blood pressure elevated this morning. Will re- start Valsartan 320 mg daily. continue Metoprolol. continue IV antibiotics as per infectious disease for possible sepsis, pneumonia.
[2017-02-16] MEDS: POLYETHYLENE GLYCOL 3350 17 GM/Dose PACKET PO SCH (09:07)
[2017-02-16] MEDS ORDERED: Potassium Chloride 40 mEq/30 ml LIQ UD PO ONE (09:33)
[2017-02-16] MEDS: Megestrol Acetate 40 mg/ml Cup PO SCH (10:05)
[2017-02-16] MEDS ORDERED: Magnesium Sulfate 2 GM in Sodium Chloride 0.9% 100 ML IVPB ONE (10:30)
--- NOTE | 2017-02-16 13:31 | CP.PCM.CON ---
History of Present Illness - History of Present Illness History of Present Illness: 76 year old female with PMH of COPD, history of TIA, S/P left eye cataract surgery, DM, hypothyroidism, S/P , S/P hysterectomy, S/P tonsillectomy , HTN, significant smoking history came in complaining of abdominal pain associated with anorexia and generalized weakness for the past 5 days. She states that she has cough which is mostly dry in nature. She denies sore throat , has some chills, has chronic body aches which has not changed, no diarrhea, no dysuria, no nausea or vomiting, no headache or dizziness. [place] [facility] for near syncope and possible pneumonia. In the ED, she was noted to have fever of 101.3 F. Infectious diseases consult is requested to further evaluate and manage. Review of Systems - Review of Systems All systems: reviewed and no additional remarkable complaints except (as per HPI ) Past Patient History - Infectious Disease Hx of Infectious Diseases: None - Tetanus Immunizations Tetanus Immunization: Allergy to Tetanus Vaccine - Past Medical History & Family History Past Medical History?: Yes - Past Social History Smoking Status: Heavy Smoker > 10 Cigarettes Daily - CARDIAC Hx Hypertension: Yes - PULMONARY Hx Chronic Obstructive Pulmonary Disease (COPD): Yes - NEUROLOGICAL Hx Paralysis: No Hx Transient Ischemic Attacks (TIA): Yes - HEENT Hx HEENT Problems: Yes Other/Comment: LEFT EYE CATARACT SURGERY 06/2015 - RENAL Hx Chronic Kidney Disease: No - ENDOCRINE/METABOLIC Hx Diabetes Mellitus Type 2: Yes Hx Hypothyroidism: Yes - HEMATOLOGICAL/ONCOLOGICAL Hx Blood Transfusions: No Hx Blood Transfusion Reaction: No - INTEGUMENTARY Hx Dermatological Problems: No - MUSCULOSKELETAL/RHEUMATOLOGICAL Hx Musculoskeletal Disorders: Yes (PINCHED NERVES UPPER & LOWER SPINE) - GASTROINTESTINAL Hx Gastrointestinal Disorders: No - GENITOURINARY/GYNECOLOGICAL Hx Genitourinary Disorders: No - PSYCHIATRIC Hx Emotional Abuse: No Hx Physical Abuse: No Hx Substance Use: No - SURGICAL HISTORY Hx Section: Yes (x4) Hx Hysterectomy: Yes Hx Musculoskeletal Surgery: Yes (Hand, Toes) Hx Tonsillectomy: Yes - ANESTHESIA Hx Anesthesia: Yes Hx Anesthesia Reactions: No Hx Malignant Hyperthermia: No Meds Allergies/Adverse Reactions: Allergies Allergy/AdvReac Type Severity Reaction Status Date / Time Sulfa (Sulfonamide Allergy ANAPHYLAXIS Verified 08/30/16 08:05 Antibiotics) Tetanus Vaccines and Toxoid Allergy RASH Verified 08/30/16 08:05 [Tetanus Vaccines & Toxoid] tetracycline Allergy RASH Verified 08/30/16 08:05 - Medications Medications: Current Medications Acetaminophen (Tylenol 325 Mg Supp) 325 mg RC Q6H PRN PRN Reason: TEMP>=99.5F Acetaminophen (Tylenol 325mg Tab) 650 mg PO Q6H PRN PRN Reason: TEMP>=99.5F Aspirin (Ecotrin) 81 mg PO DAILY [facility] Last Admin: 02/15/17 18:16 Dose: 81 mg Gabapentin (Neurontin) 300 mg PO BID [facility] PRN Reason: Protocol Heparin Sodium (Porcine) (Heparin) 5,000 units SC Q8H [facility] PRN Reason: Protocol Doxycycline Hyclate 100 mg/ (Sodium Chloride) 100 mls @ 100 mls/hr IVPB Q12 [facility] PRN Reason: Protocol Cefepime HCl (Maxipime 1gm) 1 gm in 100 mls @ 100 mls/hr IVPB Q12 [facility] PRN Reason: Protocol Last Admin: 02/15/17 21:09 Dose: 100 mls/hr Sodium Chloride (Sodium Chloride 0.9%) 1,000 mls @ 100 mls/hr IV .Q10H [facility] Stop: 02/19/17 21:29 Last Admin: 02/15/17 17:50 Dose: 100 mls/hr Insulin Human Lispro (Humalog Low) 0 units SC ACHS [facility] PRN Reason: Protocol Levalbuterol HCl (Xopenex) 0.63 mg IH [id number] [facility] Last Admin: 02/15/17 20:15 Dose: 0.63 mg Levothyroxine Sodium (Synthroid) 75 mcg PO ACB [facility] Last Admin: 02/15/17 18:16 Dose: 75 mcg Meclizine HCl (Antivert) 25 mg PO TID PRN PRN Reason: Dizziness Megestrol Acetate (Megace) 400 mg PO DAILY [facility] Metoprolol Succinate (Toprol Xl) 50 mg PO QPM [facility] Ondansetron HCl (Zofran Inj) 4 mg IVP Q4H PRN PRN Reason: Nausea/Vomiting Pantoprazole Sodium (Protonix Inj) 40 mg IVP Q12H [facility] Last Admin: 02/15/17 18:16 Dose: 40 mg Physical Exam - Constitutional Appears: Non-toxic, No Acute Distress - Head Exam Head Exam: NORMAL INSPECTION - ENT Exam ENT Exam: Mucous Membranes Moist - Neck Exam Neck exam: Negative for: Lymphadenopathy, Meningismus - Respiratory Exam Respiratory Exam: Decreased Breath Sounds - Cardiovascular Exam Cardiovascular Exam: +S1, +S2 - GI/Abdominal Exam GI & Abdominal Exam: Soft. absent: Tenderness Results - Vital Signs Recent Vital Signs: Last Vital Signs Temp 101.3 F H 02/15/17 16:43 Pulse 94 H 02/15/17 16:43 Resp 18 02/15/17 16:43 BP 117/65 02/15/17 16:43 Pulse Ox 98 02/15/17 16:43 - Labs Result Diagrams: 02/16/17 07:39 02/16/17 07:39 Labs: Laboratory Results - last 24 hr 02/15/17 02/15/17 18:43 18:43 Lactic Acid 1.4 Total Creatine Kinase 87 Troponin I < 0.01 Assessment & Plan - Assessment and Plan (Free Text) Plan: Assessment Systemic Inflammatory Response Syndrome, R/O sepsis due to left lower lobe healthcare-associated pneumonia (R/O atelectasis) COPD history of TIA S/P left eye cataract surgery DM hypothyroidism S/P S/P hysterectomy S/P tonsillectomy HTN significant smoking history Plan Started patient on Vancomycin, Cefepime and Zithromax pending blood, sputum cx, urine Legionella Ag, PCT; reviewed CT chest which showed left lower lobe atelectasis or infiltrate will repeat CXR tomorrow will trend fever curve and monitor clinically
--- NOTE | 2017-02-16 17:44 | CP.PCM.CON ---
<Karlee Sun - Last Filed: 02/16/17 17:58> History of Present Illness - History of Present Illness History of Present Illness: GI CONSULT NOTE FOR DR. HUNTER (covering for Dr. Solano) 76yo F with PMHx of COPD, DM, HTN, TIA who presented to the ED with diffuse abdominal pain, loss of appetite, generalized weakness for the past 5 or 6 days. The pain was worse in the epigastric area. She denies CP, SOB but did have mild dry cough. No diarrhea, no nausea or vomiting. No headache or dizziness. She was found to be febrile in the ED with a temp of 101.3. She was admitted for pneumonia, SIRS, and abdominal pain. ID was consulted and she was started on vancomycin, cefepime, zithromax. Blood, sputum, and urine cx were done as well as Legionella. Currently, patient reports that her appetite has improved, she is hungry and ate most of her breakfast. She was previously admitted on 12/26/16 for syncope or near syncope. CT head was negative. Carotid US showed 20-39% bilateral stenosis and her ECHO showed EF of 55%. PMHx: HTN, COPD, TIA, DM, hypothyroidism Surgeries: left eye cataract surgery, C section x 4, hysterectomy, tonsillectomy , hand & toe surgery Social history: smokes tobacco for 50 years Allergies: sulfa, tetanus vaccine, tetracycline Review of Systems - Review of Systems All systems: reviewed and no additional remarkable complaints except (as per HPI ) Past Patient History - Infectious Disease Hx of Infectious Diseases: None - Tetanus Immunizations Tetanus Immunization: Allergy to Tetanus Vaccine - Past Medical History & Family History Past Medical History?: Yes - Past Social History Smoking Status: Current Some Days Smoker - CARDIAC Hx Hypertension: Yes - PULMONARY Hx Chronic Obstructive Pulmonary Disease (COPD): Yes - NEUROLOGICAL Hx Paralysis: No Hx Transient Ischemic Attacks (TIA): Yes - HEENT Hx HEENT Problems: Yes Other/Comment: LEFT EYE CATARACT SURGERY 06/2015 - RENAL Hx Chronic Kidney Disease: No - ENDOCRINE/METABOLIC Hx Diabetes Mellitus Type 2: Yes Hx Hypothyroidism: Yes - HEMATOLOGICAL/ONCOLOGICAL Hx Blood Transfusions: No Hx Blood Transfusion Reaction: No - INTEGUMENTARY Hx Dermatological Problems: No - MUSCULOSKELETAL/RHEUMATOLOGICAL Hx Musculoskeletal Disorders: Yes (PINCHED NERVES UPPER & LOWER SPINE) - GASTROINTESTINAL Hx Gastrointestinal Disorders: No - GENITOURINARY/GYNECOLOGICAL Hx Genitourinary Disorders: No - PSYCHIATRIC Hx Emotional Abuse: No Hx Physical Abuse: No Hx Substance Use: No - SURGICAL HISTORY Hx Section: Yes (x4) Hx Hysterectomy: Yes Hx Musculoskeletal Surgery: Yes (Hand, Toes) Hx Tonsillectomy: Yes - ANESTHESIA Hx Anesthesia: Yes Hx Anesthesia Reactions: No Hx Malignant Hyperthermia: No Meds Allergies/Adverse Reactions: Allergies Allergy/AdvReac Type Severity Reaction Status Date / Time Sulfa (Sulfonamide Allergy ANAPHYLAXIS Verified 08/30/16 08:05 Antibiotics) Tetanus Vaccines and Toxoid Allergy RASH Verified 08/30/16 08:05 [Tetanus Vaccines & Toxoid] tetracycline Allergy RASH Verified 08/30/16 08:05 - Medications Medications: Current Medications Acetaminophen (Tylenol 325 Mg Supp) 325 mg RC Q6H PRN PRN Reason: TEMP>=99.5F Acetaminophen (Tylenol 325mg Tab) 650 mg PO Q6H PRN PRN Reason: TEMP>=99.5F Last Admin: 02/16/17 06:25 Dose: 650 mg Aspirin (Ecotrin) 81 mg PO DAILY [facility] Last Admin: 02/16/17 09:06 Dose: 81 mg Docusate Sodium (Colace) 100 mg PO BID [facility] Last Admin: 02/16/17 09:06 Dose: 100 mg Gabapentin (Neurontin) 300 mg PO BID [facility] PRN Reason: Protocol Last Admin: 02/16/17 09:07 Dose: 300 mg Heparin Sodium (Porcine) (Heparin) 5,000 units SC Q8H [facility] PRN Reason: Protocol Last Admin: 02/16/17 10:05 Dose: 5,000 units Cefepime HCl (Maxipime 2gm) 2 gm in 100 mls @ 100 mls/hr IVPB Q8 [facility] PRN Reason: Protocol Stop: 02/21/17 06:01 Last Admin: 02/16/17 13:37 Dose: 100 mls/hr Vancomycin HCl (Vancomycin 1gm) 1 gm in 250 mls @ 167 mls/hr IVPB Q12H [facility] PRN Reason: Protocol Last Admin: 02/16/17 10:53 Dose: 167 mls/hr Azithromycin 250 mg/ Sodium (Chloride) 250 mls @ 167 mls/hr IVPB DAILY [facility] PRN Reason: Protocol Insulin Human Lispro (Humalog Low) 0 units SC ACHS [facility] PRN Reason: Protocol Last Admin: 02/16/17 12:49 Dose: Not Given Levalbuterol HCl (Xopenex) 0.63 mg IH [id number] [facility] Last Admin: 02/16/17 13:54 Dose: 0.63 mg Levothyroxine Sodium (Synthroid) 75 mcg PO ACB [facility] Last Admin: 02/16/17 08:19 Dose: 75 mcg Meclizine HCl (Antivert) 25 mg PO TID PRN PRN Reason: Dizziness Megestrol Acetate (Megace) 400 mg PO DAILY [facility] Last Admin: 02/16/17 10:05 Dose: 400 mg Metoprolol Succinate (Toprol Xl) 50 mg PO QPM [facility] Nicotine (Nicoderm Cq) 1 patch TD DAILY [facility] Last Admin: 02/16/17 14:45 Dose: Not Given Ondansetron HCl (Zofran Inj) 4 mg IVP Q4H PRN PRN Reason: Nausea/Vomiting Pantoprazole Sodium (Protonix Inj) 40 mg IVP Q12H [facility] Last Admin: 02/15/17 18:16 Dose: 40 mg Polyethylene Glycol (Miralax) 17 gm PO DAILY [facility] Last Admin: 02/16/17 09:07 Dose: 17 gm Valsartan (Diovan) 320 mg PO DAILY [facility] Last Admin: 02/16/17 09:06 Dose: 320 mg Physical Exam - Constitutional Appears: Non-toxic, No Acute Distress - Head Exam Head Exam: ATRAUMATIC, NORMAL INSPECTION - Eye Exam Eye Exam: EOMI, Normal appearance - Respiratory Exam Respiratory Exam: NORMAL BREATHING PATTERN. absent: Respiratory Distress - Cardiovascular Exam Cardiovascular Exam: +S1, +S2 - GI/Abdominal Exam GI & Abdominal Exam: Soft, Tenderness (mild epigastric tenderness). absent: Distended, Firm, Guarding, Rigid - Neurological Exam Neurological exam: Alert, CN II-XII Intact - Psychiatric Exam Psychiatric exam: Normal Affect, Normal Mood - Skin Skin Exam: Dry, Normal Color Results - Vital Signs Recent Vital Signs: Last Vital Signs Temp 98.2 F 02/16/17 16:17 Pulse 96 H 02/16/17 16:17 Resp 20 02/16/17 16:17 BP 132/86 02/16/17 16:17 Pulse Ox 97 02/16/17 16:17 - Labs Result Diagrams: 02/16/17 07:39 02/16/17 07:39 Labs: Laboratory Results - last 24 hr 02/15/17 02/15/17 02/15/17 18:43 18:43 21:22 WBC RBC Hgb Hct MCV MCH MCHC RDW Plt Count MPV Gran % Lymph % (Auto) Chambers % (Auto) Eos % (Auto) Baso % (Auto) Gran # Lymph # Chambers # Eos # Baso # Sodium Potassium Chloride Carbon Dioxide Anion Gap BUN Creatinine Est GFR ( Amer) Est GFR (Non-Af Amer) POC Glucose (mg/dL) 125 H Random Glucose Lactic Acid 1.4 Calcium Magnesium Total Bilirubin Direct Bilirubin AST ALT Alkaline Phosphatase Total Creatine Kinase 87 Troponin I < 0.01 Total Protein Albumin Globulin Albumin/Globulin Ratio Procalcitonin 02/15/17 02/15/17 02/16/17 23:15 23:15 07:25 WBC RBC Hgb Hct MCV MCH MCHC RDW Plt Count MPV Gran % Lymph % (Auto) Chambers % (Auto) Eos % (Auto) Baso % (Auto) Gran # Lymph # Chambers # Eos # Baso # Sodium Potassium Chloride Carbon Dioxide Anion Gap BUN Creatinine Est GFR ( Amer) Est GFR (Non-Af Amer) POC Glucose (mg/dL) 139 H Random Glucose Lactic Acid Calcium Magnesium Total Bilirubin Direct Bilirubin AST ALT Alkaline Phosphatase Total Creatine Kinase Troponin I < 0.01 Total Protein Albumin Globulin Albumin/Globulin Ratio Procalcitonin 0.27 02/16/17 02/16/17 02/16/17 07:39 07:39 11:18 WBC 6.6 RBC 4.56 Hgb 12.5 D Hct 36.8 MCV 80.7 MCH 27.4 MCHC 34.0 RDW 12.5 Plt Count 144 MPV 11.8 H Gran % 86.8 H Lymph % (Auto) 9.0 L Chambers % (Auto) 3.0 Eos % (Auto) 1.2 L Baso % (Auto) 0.0 Gran # 5.75 Lymph # 0.6 L Chambers # 0.2 Eos # 0.1 Baso # 0.00 Sodium 136 Potassium 2.9 L* D Chloride 102 Carbon Dioxide 24 Anion Gap 13 BUN 10 Creatinine 0.6 Est GFR ( Amer) > 60 Est GFR (Non-Af Amer) > 60 POC Glucose (mg/dL) 206 H Random Glucose 122 H Lactic Acid Calcium 7.8 L Magnesium 1.3 L Total Bilirubin 0.4 Direct Bilirubin 0.3 AST 61 H ALT 66 H Alkaline Phosphatase 70 Total Creatine Kinase 73 Troponin I < 0.01 Total Protein 5.8 Albumin 3.2 Globulin 2.7 Albumin/Globulin Ratio 1.2 Procalcitonin 02/16/17 16:00 WBC RBC Hgb Hct MCV MCH MCHC RDW Plt Count MPV Gran % Lymph % (Auto) Chambers % (Auto) Eos % (Auto) Baso % (Auto) Gran # Lymph # Chambers # Eos # Baso # Sodium Potassium Chloride Carbon Dioxide Anion Gap BUN Creatinine Est GFR ( Amer) Est GFR (Non-Af Amer) POC Glucose (mg/dL) 221 H Random Glucose Lactic Acid Calcium Magnesium Total Bilirubin Direct Bilirubin AST ALT Alkaline Phosphatase Total Creatine Kinase Troponin I Total Protein Albumin Globulin Albumin/Globulin Ratio Procalcitonin Assessment & Plan - Assessment and Plan (Free Text) Assessment: 76yo F with PMHx of COPD, DM, HTN, TIA who presented with diffuse abdominal pain , loss of appetite, generalized weakness and was admitted for fever, pneumonia and nonspecific abdominal pain, differential diagnoses include: PUD vs gastroparesis - Febrile, tmax 101.3, Tylenol PRN - No leukocytosis - Hypokalemia and hypomagnesia - being replaced - CT head: no hemorrhage, mild-moderate chronic white matter and basal nuclei ischemic changes - CT chest: mild cardiomegaly & atherosclerotic disease; interstitial & airspace disease at left base atelectasis and/or infiltrate; minimal atelectasis /scarring at right base - CT Abd/Pelvis w/o contrast: diffuse fatty liver, no kidney stones - Abd US: heptatic steatosis, no focal masses, no bile duct dilation - LFTs mildly elevated, Bilirubin WNL - Fever likely due to pneumonia and GI source unlikely - Abdominal pain with differential diagnoses including peptic ulcer disease or gastroparesis - Continue protonix - Continue Abx - Will follow - Discussed plan with Dr. Elsa Sun PGY-3 <Zainab Hunter V - Last Filed: 02/16/17 23:01> Meds - Medications Medications: Current Medications Acetaminophen (Tylenol 325 Mg Supp) 325 mg RC Q6H PRN PRN Reason: TEMP>=99.5F Acetaminophen (Tylenol 325mg Tab) 650 mg PO Q6H PRN PRN Reason: TEMP>=99.5F Last Admin: 02/16/17 06:25 Dose: 650 mg Aspirin (Ecotrin) 81 mg PO DAILY [facility] Last Admin: 02/16/17 09:06 Dose: 81 mg Docusate Sodium (Colace) 100 mg PO BID [facility] Last Admin: 02/16/17 18:28 Dose: 100 mg Gabapentin (Neurontin) 300 mg PO BID [facility] PRN Reason: Protocol Last Admin: 02/16/17 18:29 Dose: 300 mg Heparin Sodium (Porcine) (Heparin) 5,000 units SC Q8H [facility] PRN Reason: Protocol Last Admin: 02/16/17 18:29 Dose: 5,000 units Cefepime HCl (Maxipime 2gm) 2 gm in 100 mls @ 100 mls/hr IVPB Q8 [facility] PRN Reason: Protocol Stop: 02/21/17 06:01 Last Admin: 02/16/17 13:37 Dose: 100 mls/hr Vancomycin HCl (Vancomycin 1gm) 1 gm in 250 mls @ 167 mls/hr IVPB Q12H [facility] PRN Reason: Protocol Last Admin: 02/16/17 10:53 Dose: 167 mls/hr Azithromycin 250 mg/ Sodium (Chloride) 250 mls @ 167 mls/hr IVPB DAILY [facility] PRN Reason: Protocol Insulin Human Lispro (Humalog Low) 0 units SC ACHS [facility] PRN Reason: Protocol Last Admin: 02/16/17 22:50 Dose: Not Given Levalbuterol HCl (Xopenex) 0.63 mg IH O2LQNHS [facility] Last Admin: 02/16/17 19:20 Dose: 0.63 mg Levothyroxine Sodium (Synthroid) 75 mcg PO ACB [facility] Last Admin: 02/16/17 08:19 Dose: 75 mcg Meclizine HCl (Antivert) 25 mg PO TID PRN PRN Reason: Dizziness Megestrol Acetate (Megace) 400 mg PO DAILY [facility] Last Admin: 02/16/17 10:05 Dose: 400 mg Metoprolol Succinate (Toprol Xl) 50 mg PO QPM [facility] Last Admin: 02/16/17 18:29 Dose: 50 mg Nicotine (Nicoderm Cq) 1 patch TD DAILY [facility] Last Admin: 02/16/17 14:45 Dose: Not Given Ondansetron HCl (Zofran Inj) 4 mg IVP Q4H PRN PRN Reason: Nausea/Vomiting Pantoprazole Sodium (Protonix Inj) 40 mg IVP Q12H [facility] Last Admin: 02/16/17 18:30 Dose: 40 mg Polyethylene Glycol (Miralax) 17 gm PO DAILY [facility] Last Admin: 02/16/17 09:07 Dose: 17 gm Valsartan (Diovan) 320 mg PO DAILY [facility] Last Admin: 02/16/17 09:06 Dose: 320 mg Results - Vital Signs Recent Vital Signs: Last Vital Signs Temp 98.2 F 02/16/17 16:17 Pulse 96 H 02/16/17 18:29 Resp 20 02/16/17 16:17 BP 132/86 02/16/17 18:29 Pulse Ox 97 02/16/17 16:17 - Labs Result Diagrams: 02/16/17 07:39 02/16/17 07:39 Labs: Laboratory Results - last 24 hr 02/15/17 02/15/17 02/15/17 21:22 23:15 23:15 WBC RBC Hgb Hct MCV MCH MCHC RDW Plt Count MPV Gran % Lymph % (Auto) Chambers % (Auto) Eos % (Auto) Baso % (Auto) Gran # Lymph # Chambers # Eos # Baso # Sodium Potassium Chloride Carbon Dioxide Anion Gap BUN Creatinine Est GFR ( Amer) Est GFR (Non-Af Amer) POC Glucose (mg/dL) 125 H Random Glucose Calcium Magnesium Total Bilirubin Direct Bilirubin AST ALT Alkaline Phosphatase Total Creatine Kinase Troponin I < 0.01 Total Protein Albumin Globulin Albumin/Globulin Ratio Procalcitonin 0.27 Influenza Typ A,B (EIA) 02/16/17 02/16/17 02/16/17 07:25 07:39 07:39 WBC 6.6 RBC 4.56 Hgb 12.5 D Hct 36.8 MCV 80.7 MCH 27.4 MCHC 34.0 RDW 12.5 Plt Count 144 MPV 11.8 H Gran % 86.8 H Lymph % (Auto) 9.0 L Chambers % (Auto) 3.0 Eos % (Auto) 1.2 L Baso % (Auto) 0.0 Gran # 5.75 Lymph # 0.6 L Chambers # 0.2 Eos # 0.1 Baso # 0.00 Sodium 136 Potassium 2.9 L* D Chloride 102 Carbon Dioxide 24 Anion Gap 13 BUN 10 Creatinine 0.6 Est GFR ( Amer) > 60 Est GFR (Non-Af Amer) > 60 POC Glucose (mg/dL) 139 H Random Glucose 122 H Calcium 7.8 L Magnesium 1.3 L Total Bilirubin 0.4 Direct Bilirubin 0.3 AST 61 H ALT 66 H Alkaline Phosphatase 70 Total Creatine Kinase 73 Troponin I < 0.01 Total Protein 5.8 Albumin 3.2 Globulin 2.7 Albumin/Globulin Ratio 1.2 Procalcitonin Influenza Typ A,B (EIA) 02/16/17 02/16/17 02/16/17 11:18 16:00 20:30 WBC RBC Hgb Hct MCV MCH MCHC RDW Plt Count MPV Gran % Lymph % (Auto) Chambers % (Auto) Eos % (Auto) Baso % (Auto) Gran # Lymph # Chambers # Eos # Baso # Sodium Potassium Chloride Carbon Dioxide Anion Gap BUN Creatinine Est GFR ( Amer) Est GFR (Non-Af Amer) POC Glucose (mg/dL) 206 H 221 H Random Glucose Calcium Magnesium Total Bilirubin Direct Bilirubin AST ALT Alkaline Phosphatase Total Creatine Kinase Troponin I Total Protein Albumin Globulin Albumin/Globulin Ratio Procalcitonin Influenza Typ A,B (EIA) Negative for flu a/b 02/16/17 21:27 WBC RBC Hgb Hct MCV MCH MCHC RDW Plt Count MPV Gran % Lymph % (Auto) Chambers % (Auto) Eos % (Auto) Baso % (Auto) Gran # Lymph # Chambers # Eos # Baso # Sodium Potassium Chloride Carbon Dioxide Anion Gap BUN Creatinine Est GFR ( Amer) Est GFR (Non-Af Amer) POC Glucose (mg/dL) 186 H Random Glucose Calcium Magnesium Total Bilirubin Direct Bilirubin AST ALT Alkaline Phosphatase Total Creatine Kinase Troponin I Total Protein Albumin Globulin Albumin/Globulin Ratio Procalcitonin Influenza Typ A,B (EIA) Attending/Attestation - Attestation I have fully participated in the care of the patient.: Yes I have reviewed all pertinent clinical information: Yes Notes (Text): This is an addendum to GI progress report dictated by Cheryl Johnson APN.The patient was seen and examined earlier. Medical records, lab studies, imagings were reviewed. Last 24 hours events reviewed. Agreed with the above treatment plan as outlined in Cheryl Johnson,CORRECTIONAL MAINTENANCE TECHNICIAN's notes the with the addition of the following patient is tolerating the diet now .. On examination has some minimal tenderness in the epigastric area and deep palpation otherwise unremarkable Discussed with the patient's daughter at length CT reviewed Possible pneumonia On IV antibiotics. Dr. Linder covering for Dr. Car Solano 02/16/17 17:59
[2017-02-16] MEDS: Metoprolol Succinate 50 mg XL Tab PO SCH (18:29)
[2017-02-17] MEDS: Levalbuterol 0.63 MG/3 ML Inhal Soln UD IH SCH ×4 (01:48→19:25)
[2017-02-17] MEDS: Cefepime IV 2 gm in NS 2 GM/100 ML BAG IVPB SCH (05:42)
[2017-02-17] MEDS: Levothyroxine 75 MCG TAB PO SCH (06:30)
[2017-02-17 07:14] LABS: BASO # 0.01 K/mm3 (0.0-2.0); BASO % 0.1 % (0.0-3.0); EOS # 0.2 (0.0-0.7); EOS % 1.9 % (1.5-5.0); GRAN # 6.87 (1.4-6.5); GRAN % 78.7 % (50.0-68.0); HEMATOCRIT 37.9 % (36.0-48.0); LYMPH # 1.3 (1.2-3.4); LYMPH % 14.5 % (22.0-35.0); MEAN CORPUSCULAR HEMOGLOBIN 27.2 pg (25.0-35.0); MEAN PLATELET VOLUME 11.9 fl (7.0-11.0); MONO # 0.4 (0.1-0.6); MONO % 4.8 % (1.0-6.0); RED CELL DISTRIBUTION WIDTH 12.5 % (11.5-14.5); WHITE BLOOD COUNT 8.7 10^3/ul (4.5-11.0)
[2017-02-17 07:43] LABS: ALB/GLOB RATIO 1.2 (1.1-1.8); ALKALINE PHOSPHATASE 72 U/L (38-126); ALT/SGPT 66 U/L (7-56); AST/SGOT 54 U/L (14-36); BILIRUBIN,DIRECT 0.3 mg/dL (0.0-0.4); BILIRUBIN,TOTAL 0.4 mg/dL (0.2-1.3); BLOOD UREA NITROGEN 9 mg/dL (7-21); CARBON DIOXIDE 22 mmol/L (21-33); CHLORIDE 103 mmol/L (98-107); GFR AFRICAN-AMERICAN > 60; GLUCOSE,RANDOM 96 mg/dL (70-110); MAGNESIUM 1.9 mg/dL (1.7-2.2); POTASSIUM 3.1 mmol/L (3.6-5.0); SODIUM 137 mmol/L (132-148); TOTAL PROTEIN 5.8 g/dL (5.8-8.3)
--- NOTE | 2017-02-17 08:49 | RAD ---
HISTORY: rule out left sided pneumonia COMPARISON: 09/15/2016 FINDINGS: LUNGS: The lungs are well inflated. There is improved aeration in the left lower lobe. No focal consolidation. There is pulmonary venous congestion and atelectasis/ scarring in the lower lobes. PLEURA: No significant pleural effusion identified, no pneumothorax apparent. CARDIOVASCULAR: The heart is normal in size. Atherosclerotic aortic arch calcifications are present. OSSEOUS STRUCTURES: No significant abnormalities. VISUALIZED UPPER ABDOMEN: Normal. OTHER FINDINGS: None. IMPRESSION: No acute findings.
[2017-02-17] MEDS: Insulin Lispro (humaLOG) LOW Coverage SC SCH ×4 (08:55→21:23)
[2017-02-17] MEDS ORDERED: Azithromycin 250 MG in Sodium Chloride 0.9% 250 ML IVPB SCH (10:00)
[2017-02-17] MEDS: Megestrol Acetate 40 mg/ml Cup PO SCH (10:21)
[2017-02-17] MEDS: POLYETHYLENE GLYCOL 3350 17 GM/Dose PACKET PO SCH (10:22)
[2017-02-17] MEDS: Vancomycin 1gm in NS 250ml 1 GM/250 ML BAG IVPB SCH ×3 (10:23→22:04)
--- NOTE | 2017-02-17 11:36 | PN ---
DATE: 02/17/2017 SUBJECTIVE: The patient is seen earlier today in 567. The patient did have low-grade fevers yesterday. No chills. No abdominal pain. PHYSICAL EXAMINATION: VITAL SIGNS: Temperature is 99.7, T-max is 100, blood pressure is 140/90, respiratory rate of 18. HEENT: Unremarkable. NECK: Supple. LUNGS: Decreased breath sounds. HEART: Normal S1 and S2. ABDOMEN: Soft and nontender. LABORATORY DATA: Reveals the patient to have white count of 8.7, hemoglobin of 12, and platelets of 149. Chemistry reveals a BUN of 9 and creatinine of 0.5. Urinalysis is noted and serology is noted. Chest x-ray, the lungs are well inflated. ASSESSMENT AND PLAN: This is a 76-year-old female with chronic obstructive lung disease, history of transient ischemic attack, history of left eye cataract surgery, diabetes, hypothyroidism, hysterectomy, tonsillectomy, hypertension, and smoking, who was admitted with systemic inflammatory response syndrome with influenza negative and procalcitonin of 0.27. Negative blood cultures, negative urine cultures, and a CAT scan of the chest with interstitial airspace disease, left base atelectasis and/or infiltrate and healthcare-associated left lower lobe, healthcare-associated pneumonia with chronic obstructive pulmonary disease, history of transient ischemic attack on vancomycin, cefepime, and Zithromax. Workup in progress. We will follow the fever curve, which appears to be on a downward trend. Narayan Perez MD
[2017-02-17] MEDS: Meropenem 1g/NS 100mL IVPB 1 GM/100 ML PIGGYBACK IVPB SCH ×3 (13:22→22:04)
--- NOTE | 2017-02-17 13:33 | PN ---
DATE: SUBJECTIVE: The patient is in the [facility] in [place], room 567, bed 1. The patient was admitted through the emergency room with abdominal pain, lethargy, weakness of sudden onset. The patient had one day illness. Her daughter brought to the emergency room. She was admitted for further management evaluation. The patient has history of ALLERGY TO SULFA, TETANUS VACCINE and the patient has history of ALLERGY TO TETRACYCLINE. The patient had poor appetite at the time of presentation. The patient also had fever. PAST MEDICAL HISTORY: Significant that she had history of cerebrovascular disease, hypertension, hypothyroidism, chronic lung disease due to longstanding smoking for more than 50 years. The patient has history of nicotine dependence, chronic lung disease as mentioned. The patient also has history of abdominal pain in the past, but no history of any past surgical treatment. PHYSICAL EXAMINATION: GENERAL: On examination, the patient is seen this morning. She seem to be withdrawn, apparently answers questions very minimally, so she states she is feeling better, but not well enough. VITAL SIGNS: The pulse is 82, blood pressure 120/68, the patient's temperature is 98.2, and O2 sat is 97% on room air. HEAD: The head is normocephalic. NECK: The thyroid is not clinically enlarged. No lymphadenopathy in the neck. LUNGS: Trachea is central. Breath sounds are vesicular. The rhonchi heard bilaterally. HEART: Normal sinus rhythm. S1 and S2 present. The patient has no murmurs. No pericardial rub. ABDOMEN: Soft. Diffuse tenderness. No localizing signs. CENTRAL NERVOUS SYSTEM: The patient is conscious, rational, and oriented. The patient has general weakness, inability to get moving, but she is able to move all four limbs while lying in bed and answer all questions. LABORATORY DATA: The patient's blood work shows hemoglobin of 12.9, white count 8700. There is a shift to the left consistent with infection. Chest x-ray shows an infiltrate in the right side of the lung. The patient's EKG shows chronic ischemic changes consistent with hypertension. The patient had examination of the chest, abdomen by CAT scan. MEDICATIONS: She is being treating currently with Maxipime, vancomycin, and Zithromax. The patient is also getting medications for blood pressure, Diovan 320 mg daily. The patient gets aspirin 81 mg daily. The patient is on nicotine patch for nicotine withdrawal. The patient is on Neurontin 300 mg b.i.d. 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 The patient is on Synthroid 75 mcg daily, pantoprazole 40 mg daily, and metoprolol 50 mg once a day. The patient is on vancomycin, which is 1 g q.12 hours. Respiratory treatment with *------* for bronchodilatation. The patient's condition seems to be clinically stable. Right now, she will continue current management and we will follow up. Hayden Johnson MD
--- NOTE | 2017-02-17 15:15 | CON ---
DATE: 02/17/2017 GASTROENTEROLOGY CONSULTATION REQUESTING PHYSICIAN: Dr. Mariscal. REASON FOR CONSULTATION: I have been asked to see this 76-year-old female who was admitted to the hospital with several weeks of abdominal pain associated with generalized weakness, poor appetite. She denies any fevers, chills, nausea, vomiting, rectal bleeding or melena. She did have an upper endoscopy and colonoscopy back in February 2015, which revealed a Schatzki ring, hiatal hernia, gastroparesis and a benign colon polyp. She also complains of generalized weakness and a dry, nonproductive cough. In the emergency room, she was noted to have a fever of 101. PAST MEDICAL HISTORY: Notable for COPD, TIA, diabetes mellitus type 2, hypothyroidism. PAST SURGICAL HISTORY: Notable for cataract surgery, , hand surgery, hysterectomy, tonsillectomy. SOCIAL HISTORY: The patient has smoked half a pack of cigarettes per day for many years. She denies alcohol use. FAMILY HISTORY: Noncontributory. REVIEW OF SYSTEMS: A 14-point review of systems is notable for abdominal pain, nonproductive cough, generalized weakness, lack of appetite and abdominal pain. PHYSICAL EXAMINATION: GENERAL: Thin female lying in bed, in no acute distress. VITAL SIGNS: Reveal temperature of 99.7, blood pressure 145/95, heart rate of 88. HEENT: Reveal sclerae to be white. Conjunctivae pink. NECK: Supple. CHEST: Reveals lungs to be clear. HEART: Exam reveals regular rate and rhythm. ABDOMEN: Soft. Mild, diffuse tenderness. No rebound. No guarding. EXTREMITIES: Show no edema. LABORATORY DATA: Revealed white blood cell count 8.7; hemoglobin 12.9; platelet count of 149,000. Potassium 3.1, AST 54, ALT 66. Influenza serology is negative. Blood cultures are negative. CT of the abdomen and pelvis shows fatty liver without any masses or fluid collections. Ultrasound of the liver also shows a fatty liver. IMPRESSION: A 76-year-old female with several weeks of abdominal pain, lack of appetite, generalized weakness and now, fever for the last several days. Etiology of the abdominal pain is unclear as the ultrasound and CT scan did not reveal any acute findings. She did have an upper endoscopy less than years ago, which revealed gastroparesis. Cultures are negative. RECOMMENDATIONS: 1: Continue IV antibiotics as per infectious disease. 2. No invasive GI workup is planned at this time. 3. Continue PPI. Car Solano MD
[2017-02-17] MEDS: Metoprolol Succinate 50 mg XL Tab PO SCH (17:28)
[2017-02-18] MEDS: Levalbuterol 0.63 MG/3 ML Inhal Soln UD IH SCH ×4 (01:21→20:08)
[2017-02-18] MEDS: Meropenem 1g/NS 100mL IVPB 1 GM/100 ML PIGGYBACK IVPB SCH ×2 (05:45→20:11)
[2017-02-18 06:31] LABS: EOS # 0.2 (0.0-0.7); EOS % 2.2 % (1.5-5.0); GRAN # 5.52 (1.4-6.5); GRAN % 82.1 % (50.0-68.0); HEMATOCRIT 35.6 % (36.0-48.0); LYMPH # 0.8 (1.2-3.4); LYMPH % 11.1 % (22.0-35.0); MEAN CELL VOLUME 79.3 fl (80.0-105.0); MEAN CORPUSCULAR HEMOGLOBIN 27.4 pg (25.0-35.0); MEAN CORPUSCULAR HGB CONC 34.6 g/dl (31.0-37.0); MEAN PLATELET VOLUME 11.8 fl (7.0-11.0); MONO # 0.3 (0.1-0.6); MONO % 4.6 % (1.0-6.0); RED CELL DISTRIBUTION WIDTH 12.6 % (11.5-14.5); WHITE BLOOD COUNT 6.7 10^3/ul (4.5-11.0)
[2017-02-18 06:36] LABS: ALB/GLOB RATIO 1.2 (1.1-1.8); ALKALINE PHOSPHATASE 72 U/L (38-126); ALT/SGPT 69 U/L (7-56); AST/SGOT 86 U/L (14-36); BILIRUBIN,DIRECT 0.3 mg/dL (0.0-0.4); BILIRUBIN,TOTAL 0.4 mg/dL (0.2-1.3); BLOOD UREA NITROGEN 11 mg/dL (7-21); CALCIUM 8.2 mg/dL (8.4-10.5); CARBON DIOXIDE 23 mmol/L (21-33); CHLORIDE 103 mmol/L (98-107); GFR AFRICAN-AMERICAN > 60; GLUCOSE,RANDOM 125 mg/dL (70-110); MAGNESIUM 1.8 mg/dL (1.7-2.2); SODIUM 136 mmol/L (132-148); TOTAL PROTEIN 5.6 g/dL (5.8-8.3)
[2017-02-18 06:49] LABS: POTASSIUM 2.8 mmol/L (3.6-5.0)
[2017-02-18] MEDS: Insulin Lispro (humaLOG) LOW Coverage SC SCH ×4 (08:27→22:48)
[2017-02-18] MEDS: Levothyroxine 75 MCG TAB PO SCH (08:46)
[2017-02-18] MEDS: Potassium Chloride 20 mEq ER Tab PO SCH ×3 (09:51→17:40)
[2017-02-18] MEDS: Megestrol Acetate 40 mg/ml Cup PO SCH (09:51)
[2017-02-18] MEDS: POLYETHYLENE GLYCOL 3350 17 GM/Dose PACKET PO SCH (09:52)
--- NOTE | 2017-02-18 11:08 | PN ---
DATE: 02/15/2017 SUBJECTIVE: The patient is feeling better with less abdominal pain. She is tolerating solid food. She denies any nausea or vomiting. She denies any cough. PHYSICAL EXAMINATION: VITAL SIGNS: Reveal temperature of 98.7, blood pressure of 115/69, and heart rate of 83. HEENT: Reveals sclerae to be white. Conjunctivae pink. NECK: Supple. CHEST: Reveal lungs to have scattered rhonchi at the left base. HEART: Exam reveals regular rate and rhythm. ABDOMEN: Soft. Minimal upper abdominal tenderness without any rebound or guarding. EXTREMITIES: Show no edema. LABORATORY DATA: Revealed white blood cell count of 6.7, hemoglobin of 12.3, and potassium of 2.8. AST and ALT are 86 and 69. IMPRESSION: This is a 76-year-old female with left lower lobe pneumonia and abdominal pain. Her abdominal pain has improved, I suspect that it may be related to her left lower lobe pneumonia. RECOMMENDATIONS: Continue IV antibiotics. I have discussed this case with Dr. Perez. She is currently on meropenem and azithromycin which will be continued. Car Solano MD
--- NOTE | 2017-02-18 15:38 | CP.PCM.PN ---
Subjective - Date & Time of Evaluation Date of Evaluation: 02/18/17 Time of Evaluation: 11:35 - Subjective Subjective: Patient was seen and examined at bedside. The patient reports pain in the mid epigastrium of her abdomen. She describes the pain as mild and denies any radiation. She also reports a productive cough today as well. She reports a decrease in appetite today. She denies shortness of breath, nausea, vomiting, changes in vision, headache, dizziness, syncope, dysuria or any other complaints. Objective - Vital Signs/Intake and Output Vital Signs (last 24 hours): Temp Pulse Resp BP Pulse Ox 98.7 F 83 20 115/69 97 02/18/17 07:00 02/18/17 07:00 02/18/17 07:00 02/18/17 07:00 02/18/17 07:00 Intake and Output: 02/18/17 02/18/17 06:59 18:59 Intake Total 540 120 Balance 540 120 - Medications Medications: Current Medications Acetaminophen (Tylenol 325 Mg Supp) 325 mg RC Q6H PRN PRN Reason: TEMP>=99.5F Acetaminophen (Tylenol 325mg Tab) 650 mg PO Q6H PRN PRN Reason: TEMP>=99.5F Last Admin: 02/18/17 03:40 Dose: 650 mg Aspirin (Ecotrin) 81 mg PO DAILY [facility] Last Admin: 02/18/17 09:52 Dose: 81 mg Azithromycin (Zithromax) 500 mg PO DAILY [facility] PRN Reason: Protocol Stop: 02/25/17 10:01 Last Admin: 02/18/17 09:51 Dose: 500 mg Docusate Sodium (Colace) 100 mg PO BID [facility] Last Admin: 02/18/17 09:51 Dose: 100 mg Gabapentin (Neurontin) 300 mg PO BID [facility] PRN Reason: Protocol Last Admin: 02/18/17 09:53 Dose: 300 mg Heparin Sodium (Porcine) (Heparin) 5,000 units SC Q8H [facility] PRN Reason: Protocol Last Admin: 02/18/17 05:44 Dose: 5,000 units Meropenem 1g/NS 100mL IVPB (Meropenem 1g/Ns 100ml Ivpb) 1 gm in 100 mls @ 100 mls/hr IVPB Q8 [facility] PRN Reason: Protocol Stop: 02/26/17 12:46 Last Admin: 02/18/17 05:45 Dose: 100 mls/hr Potassium Chloride (Potassium Chloride 10 Meq/100 Ml) 10 meq in 100 mls @ 100 mls/hr IVPB Q2H [facility] Stop: 02/18/17 16:29 Last Admin: 02/18/17 14:47 Dose: 100 mls/hr Insulin Human Lispro (Humalog Low) 0 units SC ACHS [facility] PRN Reason: Protocol Last Admin: 02/18/17 11:41 Dose: 2 units Levalbuterol HCl (Xopenex) 0.63 mg IH [id number] [facility] Last Admin: 02/18/17 13:20 Dose: 0.63 mg Levothyroxine Sodium (Synthroid) 75 mcg PO ACB [facility] Last Admin: 02/18/17 08:46 Dose: 75 mcg Meclizine HCl (Antivert) 25 mg PO TID PRN PRN Reason: Dizziness Megestrol Acetate (Megace) 400 mg PO DAILY [facility] Last Admin: 02/18/17 09:51 Dose: 400 mg Metoprolol Succinate (Toprol Xl) 50 mg PO QPM [facility] Last Admin: 02/17/17 17:28 Dose: 50 mg Mupirocin (Bactroban Ointment) 0 gm TOP TID [facility] Nicotine (Nicoderm Cq) 1 patch TD DAILY [facility] Last Admin: 02/18/17 09:52 Dose: 1 patch Ondansetron HCl (Zofran Inj) 4 mg IVP Q4H PRN PRN Reason: Nausea/Vomiting Pantoprazole Sodium (Protonix Inj) 40 mg IVP BID [facility] Last Admin: 02/18/17 05:45 Dose: 40 mg Polyethylene Glycol (Miralax) 17 gm PO DAILY [facility] Last Admin: 02/18/17 09:52 Dose: 17 gm Potassium Chloride (K-Dur 20 Meq Er Tab) 20 meq PO TID [facility] Last Admin: 02/18/17 09:51 Dose: 20 meq Valsartan (Diovan) 320 mg PO DAILY [facility] Last Admin: 02/18/17 09:57 Dose: 320 mg - Labs Labs: 02/18/17 06:00 02/18/17 06:00 PT 10.8 Seconds (9.9-11.8) 02/15/17 13:03 INR 1.00 (0.93-1.08) 02/15/17 13:03 APTT 26.1 Seconds (23.7-30.8) 02/15/17 13:03 - Head Exam Head Exam: ATRAUMATIC, NORMAL INSPECTION, NORMOCEPHALIC - Eye Exam Eye Exam: EOMI, Normal appearance, PERRL. absent: Periorbital tenderness Pupil Exam: NORMAL ACCOMODATION, PERRL. absent: Irregular, Unequal - ENT Exam ENT Exam: Mucous Membranes Moist - Neck Exam Neck Exam: Normal Inspection. absent: Lymphadenopathy, Thyromegaly - Respiratory Exam Respiratory Exam: Clear to Ausculation Bilateral, Rhonchi, NORMAL BREATHING PATTERN. absent: Accessory Muscle Use, Chest Wall Tenderness, Respiratory Distress - Cardiovascular Exam Cardiovascular Exam: REGULAR RHYTHM, RRR, +S1, +S2. absent: Gallop, Rubs - GI/Abdominal Exam GI & Abdominal Exam: Soft, Normal Bowel Sounds. absent: Guarding, Rigid, Tenderness - Extremities Exam Extremities Exam: absent: Joint Swelling, Tenderness - Back Exam Back Exam: NORMAL INSPECTION. absent: paraspinal tenderness - Neurological Exam Neurological Exam: Alert, Awake, CN II-XII Intact - Psychiatric Exam Psychiatric exam: Normal Affect, Normal Mood - Skin Skin Exam: Dry, Intact Assessment and Plan - Assessment and Plan (Free Text) Assessment: This is a 76 year old female with past medical history of hypertension, DM, Diabetic neuropathy, nicotine addiction, Emphysema, and syncope who was admitted for diffuse abdominal pain and altered mental status 2/2 to pneumonia. Plan: 1.Pneumonia -Patient examined at bedside clinically improving. Patient remains afebrile with no signs of leukocytosis. - CT chest: mild cardiomegaly & atherosclerotic disease; interstitial & airspace disease at left base atelectasis and/or infiltrate; minimal atelectasis /scarring at right base -Cultures are negative so far. ID rec's appreciated. -Continue Merropenem and Azithromycin. -Will closely monitor. 2.Abdominal pain -Patient had some discomfort in the midepigastrium area. PE: Slightly tender in ruq. - CT Abd/Pelvis w/o contrast: diffuse fatty liver, no kidney stones - Abd US: heptatic steatosis, no focal masses, no bile duct dilation -Mild transaminitis present. Etiology unclear at this time. -GI consult. Will f/u with rec's tomorrow. 3.Hypokalemia -K 2.8 today. Magnesium was normal. -Will replete as necessary. Consider Magnesium and Phosphorous on next cmp. -Will monitor with serial cmp's. 4. Altered mental status -Likely 2/2 to Pneumonia infection. -Patient returning to baseline per granddaughter. - CT head: no hemorrhage, mild-moderate chronic white matter and basal nuclei ischemic changes. -Neuro rec's appreciated. 5. Hypothyrodism -Continue home meds. 6. Hypertension -BP stable 115/69. -Continue home meds. 7.Type 2 Diabetes Mellitus -Started on ISS-Low. Will monitor with accu-checks Q6H. GI PPX -Continue Protonix DVT ppx -Continue Heparin. -
[2017-02-18] MEDS ORDERED: Potassium Chloride 20 mEq ER Tab PO ONE (16:08)
--- NOTE | 2017-02-18 17:50 | PN ---
DATE: 02/18/2017 SUBJECTIVE: The patient seen earlier today in 567, bed 1. The patient's daughter is at the bedside. The patient's is at the bedside. They state the patient's mental status is back to normal. She is back to baseline. She did have a fever earlier this morning of 102, her IV had infiltrated in the left arm, and the IV was removed, and her temperature has improved. She no longer has abdominal pain. She states she wants to go home. PHYSICAL EXAMINATION: VITAL SIGNS: Temperature is 98, blood pressure is 115/60, respiratory rate of 20, heart rate of 83. HEENT: Unremarkable. NECK: Supple. LUNGS: Decreased breath sounds. HEART: Normal S1 and S2. ABDOMINAL: Soft, nontender. No rebound or guarding. EXTREMITIES: Examination of left arm, AID side appears to have resolved. LABORATORY EXAMINATION: Reveals a white count of 6.7; hemoglobin of 12, MCV is 79, and platelets of 158. BUN of 11, creatinine of 0.6. Mild LFT elevation is noted. Urinalysis is noted. The patient's procalcitonin is 0.2. Urinalysis is unremarkable. Blood cultures from are negative. Urine culture from are negative. The patient had a chest x-ray done yesterday, which revealed no focal consolidation. Dr. Solano's consultation is reviewed. ASSESSMENT AND PLAN: This is a 74-year-old female with chronic obstructive lung disease, who continues to smoke according to the daughter with a history of transient ischemic attack, history of left cataract surgery, diabetes, hypothyroidism, hysterectomy, tonsillectomy, hypertension, who is a long-time smoker, admitted with what appears to be systemic inflammatory response syndrome with CAT finding with pneumonia, with sepsis and health-care associated pneumonia since the patient was recently hospitalized. The discontinuity of IV Zithromax may have been a contributory factor to the IV infiltration of the left arm. *------* vancomycin, treat with p.o. Zithromax and IV meropenem, would treat 4 to 7 days for sepsis, healthcare-associated pneumonia. We will repeat procalcitonin. We will repeat pancultures because of the new fever. The patient's last travel outside the [place] was in 2005. She was in [place]. She is encouraged to stop smoking. The daughter's questions have been answered in detail as well as the patient's questions. Case reviewed in detail with Dr. Car Solano and the patient's daughter. All questions have been ordered. We will follow closely with you. The patient is allergic to sulfa and tetracyclines. Narayan Perez MD
[2017-02-18 19:49] LABS: ALB/GLOB RATIO 1.1 (1.1-1.8); ALKALINE PHOSPHATASE 84 U/L (38-126); ALT/SGPT 87 U/L (7-56); AST/SGOT 110 U/L (14-36); BILIRUBIN,TOTAL 0.5 mg/dL (0.2-1.3); BLOOD UREA NITROGEN 12 mg/dL (7-21); CALCIUM 8.2 mg/dL (8.4-10.5); CARBON DIOXIDE 24 mmol/L (21-33); CHLORIDE 101 mmol/L (98-107); GFR AFRICAN-AMERICAN > 60; GLUCOSE,RANDOM 125 mg/dL (70-110); POTASSIUM 3.4 mmol/L (3.6-5.0); SODIUM 134 mmol/L (132-148); TOTAL PROTEIN 5.7 g/dL (5.8-8.3)
[2017-02-18] MEDS: Metoprolol Succinate 50 mg XL Tab PO SCH (20:00)
[2017-02-19] MEDS: Levalbuterol 0.63 MG/3 ML Inhal Soln UD IH SCH ×4 (01:51→19:43)
[2017-02-19] MEDS: Meropenem 1g/NS 100mL IVPB 1 GM/100 ML PIGGYBACK IVPB SCH ×4 (01:51→21:33)
[2017-02-19 06:53] LABS: BASO # 0.01 K/mm3 (0.0-2.0); BASO % 0.1 % (0.0-3.0); EOS # 0.2 (0.0-0.7); EOS % 3.1 % (1.5-5.0); GRAN # 5.94 (1.4-6.5); GRAN % 80.1 % (50.0-68.0); HEMATOCRIT 36.7 % (36.0-48.0); LYMPH # 0.8 (1.2-3.4); LYMPH % 10.9 % (22.0-35.0); MEAN CELL VOLUME 79.6 fl (80.0-105.0); MEAN CORPUSCULAR HEMOGLOBIN 27.1 pg (25.0-35.0); MEAN CORPUSCULAR HGB CONC 34.1 g/dl (31.0-37.0); MEAN PLATELET VOLUME 11.7 fl (7.0-11.0); MONO # 0.4 (0.1-0.6); MONO % 5.8 % (1.0-6.0); RED CELL DISTRIBUTION WIDTH 12.9 % (11.5-14.5); WHITE BLOOD COUNT 7.4 10^3/ul (4.5-11.0)
[2017-02-19 07:08] LABS: ALB/GLOB RATIO 1.2 (1.1-1.8); ALKALINE PHOSPHATASE 86 U/L (38-126); ALT/SGPT 98 U/L (7-56); AST/SGOT 120 U/L (14-36); BILIRUBIN,DIRECT 0.4 mg/dL (0.0-0.4); BILIRUBIN,TOTAL 0.5 mg/dL (0.2-1.3); BLOOD UREA NITROGEN 9 mg/dL (7-21); CALCIUM 8.4 mg/dL (8.4-10.5); CARBON DIOXIDE 28 mmol/L (21-33); CHLORIDE 102 mmol/L (98-107); GFR AFRICAN-AMERICAN > 60; GLUCOSE,RANDOM 97 mg/dL (70-110); MAGNESIUM 1.7 mg/dL (1.7-2.2); POTASSIUM 3.5 mmol/L (3.6-5.0); SODIUM 139 mmol/L (132-148); TOTAL PROTEIN 5.7 g/dL (5.8-8.3)
[2017-02-19 07:25] LABS: URINE BILIRUBIN NEGATIVE (NEGATIVE); URINE BLOOD NEGATIVE (NEGATIVE); URINE GLUCOSE (UA) NEGATIVE (NEGATIVE); URINE KETONE 15 mg/dL (NEGATIVE); URINE LEUKOCYTE ESTERASE NEGATIVE Leu/uL (NEGATIVE); URINE PROTEIN 30 mg/dL (<30 mg/dL); URINE UROBILINOGEN 0.2 E.U./dL (<1 E.U./dL)
[2017-02-19 07:27] LABS: URINE APPEARANCE SL CLOUDY (CLEAR); URINE COLOR YELLOW (YELLOW)
[2017-02-19 07:30] LABS: URINE RBC NEGATIVE /hpf (0-2)
[2017-02-19 07:31] LABS: URINE WBC NEGATIVE /hpf (0-6)
[2017-02-19] MEDS: Insulin Lispro (humaLOG) LOW Coverage SC SCH ×4 (08:10→21:23)
[2017-02-19] MEDS: Levothyroxine 75 MCG TAB PO SCH (08:12)
[2017-02-19] MEDS ORDERED: Potassium Chloride 20 mEq ER Tab PO ONE (08:45)
--- NOTE | 2017-02-19 09:16 | PN ---
DATE: 02/18/2017 SUBJECTIVE: The patient was admitted on 02/15/2017. The patient was seen on coverage from 02/16/2017 and 02/17/[address] Johnson. The patient was also seen by infectious disease and gastroenterology and the patient was also seen on consult of gastroenterology, infectious disease, and the patient also requested consult with neurology. When I came to visit the patient today on 567, bed 1 after I was discussing the patient's condition with the patient and the patient's daughter and the and the other family member, I noticed that the patient's granddaughter has started the video recording of my conversation with the patient and the examination with the patient. At that time, I have advised the patient's family to stop the video recording as it is against the policy of the hospital and it is a pure HIPAA violation and as the patient and the patient's family has not obtained prior consents and have not followed proper procedures regarding video recording or audio recording of the patient's care and management with the presence of physician and the nurses. During this interaction, the patient's nurseRachel was present during discussion. The patient's daughter and the patient's was advised due to the situation, which is discussed above, I will have to transfer the patient care to the hospital service, which they are agreeable too, but in addition, I have discussed and explained to the patient's family about the recommendation and preliminary present diagnosis of the patient. IMPRESSION: 1. High-grade fever. 2. Possible community-acquired pneumonia. 3. Questionable sepsis with bibasilar bilateral community-acquired pneumonia. 4. Abdominal pain. 5. History of hypertension and diabetes. 6. Hypokalemia. 7. Hyperglycemia. 8. Transaminitis, etiology undetermined. 9. Proteinuria, glycosuria, and microscopic hematuria. 10. Cardiomegaly. 11. Hepatic steatosis. 12. Thoracolumbar scoliosis. 13. Status post hysterectomy. 14. Chronic microvascular ischemic disease of the brain with extension into the deep and subcortical white matter of both cerebral hemisphere with extension into the white matter cracked of the right basal nuclei and hirsch radiata with chronic lacunar infarct scattered into the deep and subcortical white matter. 15. Cerebral cortical atrophy of the brain. 16. Status post bilateral cataract surgery. 17. Right lower lobe granuloma with right basilar atelectasis and left lower lobe pneumonia with interstitial airspace disease and subsegmental atelectasis. 18. Multiple small shotty mediastinal lymphadenopathy. 19. Osteopenia. 20. Transient anorexia. 21. Abdominal pain with weakness and anorexia (resolved and resolving). 22. Generalized weakness and fatigue, etiology undetermined. 23. History of diabetic gastroparesis. 24. History of chronic obstructive pulmonary disease. 25. Systemic inflammatory response syndrome. PLAN: At this time, the patient will be transferred over to the hospital service for further management and care. The patient's entire case discussed and explained with Dr. Stanton. The patient transferred and accepted to the hospital service. Dictated and electronically signed, not read. Magdaleno Mariscal MD
[2017-02-19] MEDS: POLYETHYLENE GLYCOL 3350 17 GM/Dose PACKET PO SCH (09:28)
[2017-02-19] MEDS: Potassium Chloride 20 mEq ER Tab PO SCH ×3 (09:29→17:10)
[2017-02-19] MEDS: Megestrol Acetate 40 mg/ml Cup PO SCH (09:30)
--- NOTE | 2017-02-19 14:40 | CP.PCM.PN ---
<JohnPrescott - Last Filed: 02/19/17 16:08> Subjective - Date & Time of Evaluation Date of Evaluation: 02/19/17 Time of Evaluation: 10:36 - Subjective Subjective: Patient was seen and examined at bedside. The patient reports feeling better today. The patient does report feeling wobbly when walking to the restroom. The patient reports having one bowel movement today that was normal and denies any blood being present. The patient denies any shortness of breath, chest pain , nausea, vomiting, headache or any other complaints. Objective - Vital Signs/Intake and Output Vital Signs (last 24 hours): Temp Pulse Resp BP Pulse Ox 100.1 F H 95 H 20 160/93 H 96 02/19/17 07:30 02/19/17 07:30 02/19/17 07:30 02/19/17 07:30 02/19/17 07:30 Intake and Output: 02/19/17 02/19/17 06:59 18:59 Intake Total 220 620 Balance 220 620 - Medications Medications: Current Medications Acetaminophen (Tylenol 325 Mg Supp) 325 mg RC Q6H PRN PRN Reason: TEMP>=99.5F Acetaminophen (Tylenol 325mg Tab) 650 mg PO Q6H PRN PRN Reason: TEMP>=99.5F Last Admin: 02/19/17 06:19 Dose: 650 mg Aspirin (Ecotrin) 81 mg PO DAILY [facility] Last Admin: 02/19/17 09:30 Dose: 81 mg Azithromycin (Zithromax) 500 mg PO DAILY [facility] PRN Reason: Protocol Stop: 02/25/17 10:01 Last Admin: 02/19/17 09:29 Dose: 500 mg Docusate Sodium (Colace) 100 mg PO BID [facility] Last Admin: 02/19/17 09:29 Dose: 100 mg Gabapentin (Neurontin) 300 mg PO BID [facility] PRN Reason: Protocol Last Admin: 02/19/17 09:29 Dose: 300 mg Heparin Sodium (Porcine) (Heparin) 5,000 units SC Q8H [facility] PRN Reason: Protocol Last Admin: 02/19/17 13:19 Dose: 5,000 units Meropenem 1g/NS 100mL IVPB (Meropenem 1g/Ns 100ml Ivpb) 1 gm in 100 mls @ 100 mls/hr IVPB Q8 [facility] PRN Reason: Protocol Stop: 02/26/17 12:46 Last Admin: 02/19/17 13:19 Dose: 100 mls/hr Insulin Human Lispro (Humalog Low) 0 units SC ACHS [facility] PRN Reason: Protocol Last Admin: 02/19/17 12:03 Dose: Not Given Levalbuterol HCl (Xopenex) 0.63 mg IH [id number] [facility] Last Admin: 02/19/17 13:36 Dose: 0.63 mg Levothyroxine Sodium (Synthroid) 75 mcg PO ACB [facility] Last Admin: 02/19/17 08:12 Dose: 75 mcg Meclizine HCl (Antivert) 25 mg PO TID PRN PRN Reason: Dizziness Megestrol Acetate (Megace) 400 mg PO DAILY [facility] Last Admin: 02/19/17 09:30 Dose: 400 mg Metoprolol Succinate (Toprol Xl) 50 mg PO QPM [facility] Last Admin: 02/18/17 20:00 Dose: 50 mg Mupirocin (Bactroban Ointment) 0 gm TOP TID [facility] Last Admin: 02/19/17 13:19 Dose: 1 applic Nicotine (Nicoderm Cq) 1 patch TD DAILY [facility] Last Admin: 02/19/17 09:45 Dose: Not Given Ondansetron HCl (Zofran Inj) 4 mg IVP Q4H PRN PRN Reason: Nausea/Vomiting Pantoprazole Sodium (Protonix Inj) 40 mg IVP BID [facility] Last Admin: 02/19/17 09:28 Dose: 40 mg Polyethylene Glycol (Miralax) 17 gm PO DAILY [facility] Last Admin: 02/19/17 09:28 Dose: 17 gm Potassium Chloride (K-Dur 20 Meq Er Tab) 20 meq PO TID [facility] Last Admin: 02/19/17 13:19 Dose: 20 meq Valsartan (Diovan) 320 mg PO DAILY [facility] Last Admin: 02/19/17 09:29 Dose: 320 mg - Labs Labs: 02/19/17 06:39 02/19/17 06:39 PT 10.8 Seconds (9.9-11.8) 02/15/17 13:03 INR 1.00 (0.93-1.08) 02/15/17 13:03 APTT 26.1 Seconds (23.7-30.8) 02/15/17 13:03 - Head Exam Head Exam: ATRAUMATIC, NORMAL INSPECTION, NORMOCEPHALIC - Eye Exam Eye Exam: EOMI, Normal appearance, PERRL. absent: Scleral icterus Pupil Exam: NORMAL ACCOMODATION, PERRL - ENT Exam ENT Exam: Mucous Membranes Moist, Normal Exam - Neck Exam Neck Exam: Normal Inspection. absent: Tenderness - Respiratory Exam Respiratory Exam: Rhonchi, NORMAL BREATHING PATTERN. absent: Accessory Muscle Use Additional comments: Crackles in posterior basilar lung taveras. - Cardiovascular Exam Cardiovascular Exam: REGULAR RHYTHM, RRR, +S1, +S2. absent: Clicks, Gallop - GI/Abdominal Exam GI & Abdominal Exam: Soft, Normal Bowel Sounds. absent: Tenderness, Mass - Extremities Exam Extremities Exam: Full ROM - Back Exam Back Exam: NORMAL INSPECTION. absent: CVA tenderness (R), paraspinal tenderness - Neurological Exam Neurological Exam: Alert, Awake, CN II-XII Intact - Psychiatric Exam Psychiatric exam: Normal Mood - Skin Skin Exam: Dry, Intact Assessment and Plan - Assessment and Plan (Free Text) Assessment: This is a 76 year old female with past medical history of hypertension, DM, Diabetic neuropathy, nicotine addiction, Emphysema, and syncope who was admitted for diffuse abdominal pain and altered mental status 2/2 to pneumonia. Plan: 1.Pneumonia -Patient examined at bedside clinically improving. Patient remains afebrile with no signs of leukocytosis. - CT chest: mild cardiomegaly & atherosclerotic disease; interstitial & airspace disease at left base atelectasis and/or infiltrate; minimal atelectasis /scarring at right base -Cultures are negative so far. ID rec's appreciated. -Continue Merropenem and Azithromycin. -Will closely monitor. Patient accepted to TCU. Will monitor clinical status for another 24 hours before moving her to TCU. 2.Abdominal pain -Patient had some discomfort in the midepigastrium area. PE: Slightly tender in ruq. - CT Abd/Pelvis w/o contrast: diffuse fatty liver, no kidney stones - Abd US: heptatic steatosis, no focal masses, no bile duct dilation -Mild transaminitis present. Etiology unclear at this time. -GI consult. Will f/u with rec's tomorrow. 3.Hypokalemia -K 3.5 today. Will replete. Magnesium was normal. -Will replete as necessary. Consider Magnesium and Phosphorous on next cmp. -Will monitor with serial cmp's. 4. Altered mental status -Likely 2/2 to Pneumonia infection. -Patient returning to baseline per granddaughter. - CT head: no hemorrhage, mild-moderate chronic white matter and basal nuclei ischemic changes. -Neuro rec's appreciated. 5. Hypothyrodism -Continue home meds. 6. Hypertension -BP stable 148/90. Continue to monitor closely. -Continue home meds. 7.Type 2 Diabetes Mellitus -Started on ISS-Low. Will monitor with accu-checks Q6H. GI PPX -Continue Protonix DVT ppx -Continue Heparin. <Efra Figueroa - Last Filed: 02/20/17 07:30> Objective - Vital Signs/Intake and Output Vital Signs (last 24 hours): Temp Pulse Resp BP Pulse Ox 98.9 F 98 H 20 125/72 96 02/19/17 19:57 02/19/17 16:00 02/19/17 16:00 02/19/17 16:00 02/19/17 16:00 Intake and Output: 02/20/17 02/20/17 06:59 18:59 Intake Total 540 Balance 540 - Medications Medications: Current Medications Acetaminophen (Tylenol 325 Mg Supp) 325 mg RC Q6H PRN PRN Reason: TEMP>=99.5F Acetaminophen (Tylenol 325mg Tab) 650 mg PO Q6H PRN PRN Reason: TEMP>=99.5F Last Admin: 02/19/17 18:57 Dose: 650 mg Aspirin (Ecotrin) 81 mg PO DAILY [facility] Last Admin: 02/19/17 09:30 Dose: 81 mg Azithromycin (Zithromax) 500 mg PO DAILY [facility] PRN Reason: Protocol Stop: 02/25/17 10:01 Last Admin: 02/19/17 09:29 Dose: 500 mg Docusate Sodium (Colace) 100 mg PO BID [facility] Last Admin: 02/19/17 17:09 Dose: Not Given Gabapentin (Neurontin) 300 mg PO BID [facility] PRN Reason: Protocol Last Admin: 02/19/17 17:10 Dose: Not Given Heparin Sodium (Porcine) (Heparin) 5,000 units SC Q8H [facility] PRN Reason: Protocol Last Admin: 02/20/17 05:57 Dose: 5,000 units Meropenem 1g/NS 100mL IVPB (Meropenem 1g/Ns 100ml Ivpb) 1 gm in 100 mls @ 100 mls/hr IVPB Q8 [facility] PRN Reason: Protocol Stop: 02/26/17 12:46 Last Admin: 02/20/17 05:56 Dose: 100 mls/hr Insulin Human Lispro (Humalog Low) 0 units SC ACHS [facility] PRN Reason: Protocol Last Admin: 02/19/17 21:23 Dose: Not Given Levalbuterol HCl (Xopenex) 0.63 mg IH [id number] [facility] Last Admin: 02/20/17 02:47 Dose: 0.63 mg Levothyroxine Sodium (Synthroid) 75 mcg PO ACB [facility] Last Admin: 02/19/17 08:12 Dose: 75 mcg Meclizine HCl (Antivert) 25 mg PO TID PRN PRN Reason: Dizziness Megestrol Acetate (Megace) 400 mg PO DAILY [facility] Last Admin: 02/19/17 09:30 Dose: 400 mg Metoprolol Succinate (Toprol Xl) 50 mg PO QPM [facility] Last Admin: 02/19/17 17:11 Dose: Not Given Mupirocin (Bactroban Ointment) 0 gm TOP TID [facility] Last Admin: 02/19/17 17:09 Dose: 1 applic Nicotine (Nicoderm Cq) 1 patch TD DAILY [facility] Last Admin: 02/19/17 09:45 Dose: Not Given Ondansetron HCl (Zofran Inj) 4 mg IVP Q4H PRN PRN Reason: Nausea/Vomiting Pantoprazole Sodium (Protonix Inj) 40 mg IVP BID [facility] Last Admin: 02/19/17 17:10 Dose: 40 mg Polyethylene Glycol (Miralax) 17 gm PO DAILY [facility] Last Admin: 02/19/17 09:28 Dose: 17 gm Potassium Chloride (K-Dur 20 Meq Er Tab) 20 meq PO TID [facility] Last Admin: 02/19/17 17:10 Dose: Not Given Valsartan (Diovan) 320 mg PO DAILY [facility] Last Admin: 02/19/17 09:29 Dose: 320 mg - Labs Labs: 02/20/17 06:51 02/19/17 06:39 PT 10.8 Seconds (9.9-11.8) 02/15/17 13:03 INR 1.00 (0.93-1.08) 02/15/17 13:03 APTT 26.1 Seconds (23.7-30.8) 02/15/17 13:03 Attending/Attestation - Attestation I have personally seen and examined this patient.: Yes I have fully participated in the care of the patient.: Yes I have reviewed all pertinent clinical information, including history, physical exam and plan: Yes Notes (Text): 02/19/17 76 year old female with past medical history of hypertension and diabetes who presented with altered mental status and abdominal pain. She was started on iv antibiotics for pneumonia. ID is following. CT chest and CXRs were reviewed. She also has some elevation of LFTs and mild abdominal pain for which GI is following. Will follow up with recommendations. Her mental status has improved to baseline. CT head was reviewed as above. Continue with physical therapy; currently recommending TCU. Will discuss with CMx/Sw and family. Efra Figueroa MD Hospitalist.
--- NOTE | 2017-02-19 16:07 | CP.PCM.PN ---
Subjective - Date & Time of Evaluation Date of Evaluation: 02/19/17 Time of Evaluation: 12:10 - Subjective Subjective: Comfortable, not in distress, afebrile but with low grade temperatures, still feels weak but is a little better. Objective - Vital Signs/Intake and Output Vital Signs (last 24 hours): Temp Pulse Resp BP Pulse Ox 100.1 F H 95 H 20 160/93 H 96 02/19/17 07:30 02/19/17 07:30 02/19/17 07:30 02/19/17 07:30 02/19/17 07:30 Intake and Output: 02/19/17 02/19/17 06:59 18:59 Intake Total 220 Balance 220 - Medications Medications: Current Medications Acetaminophen (Tylenol 325 Mg Supp) 325 mg RC Q6H PRN PRN Reason: TEMP>=99.5F Acetaminophen (Tylenol 325mg Tab) 650 mg PO Q6H PRN PRN Reason: TEMP>=99.5F Last Admin: 02/19/17 06:19 Dose: 650 mg Aspirin (Ecotrin) 81 mg PO DAILY [facility] Last Admin: 02/19/17 09:30 Dose: 81 mg Azithromycin (Zithromax) 500 mg PO DAILY [facility] PRN Reason: Protocol Stop: 02/25/17 10:01 Last Admin: 02/19/17 09:29 Dose: 500 mg Docusate Sodium (Colace) 100 mg PO BID [facility] Last Admin: 02/19/17 09:29 Dose: 100 mg Gabapentin (Neurontin) 300 mg PO BID [facility] PRN Reason: Protocol Last Admin: 02/19/17 09:29 Dose: 300 mg Heparin Sodium (Porcine) (Heparin) 5,000 units SC Q8H [facility] PRN Reason: Protocol Last Admin: 02/19/17 07:47 Dose: 5,000 units Meropenem 1g/NS 100mL IVPB (Meropenem 1g/Ns 100ml Ivpb) 1 gm in 100 mls @ 100 mls/hr IVPB Q8 [facility] PRN Reason: Protocol Stop: 02/26/17 12:46 Last Admin: 02/19/17 07:47 Dose: 100 mls/hr Insulin Human Lispro (Humalog Low) 0 units SC ACHS [facility] PRN Reason: Protocol Last Admin: 02/19/17 08:10 Dose: Not Given Levalbuterol HCl (Xopenex) 0.63 mg IH [id number] [facility] Last Admin: 02/19/17 08:43 Dose: 0.63 mg Levothyroxine Sodium (Synthroid) 75 mcg PO ACB [facility] Last Admin: 02/19/17 08:12 Dose: 75 mcg Meclizine HCl (Antivert) 25 mg PO TID PRN PRN Reason: Dizziness Megestrol Acetate (Megace) 400 mg PO DAILY [facility] Last Admin: 02/19/17 09:30 Dose: 400 mg Metoprolol Succinate (Toprol Xl) 50 mg PO QPM [facility] Last Admin: 02/18/17 20:00 Dose: 50 mg Mupirocin (Bactroban Ointment) 0 gm TOP TID [facility] Last Admin: 02/18/17 17:45 Dose: 1 oin Nicotine (Nicoderm Cq) 1 patch TD DAILY [facility] Last Admin: 02/19/17 09:45 Dose: Not Given Ondansetron HCl (Zofran Inj) 4 mg IVP Q4H PRN PRN Reason: Nausea/Vomiting Pantoprazole Sodium (Protonix Inj) 40 mg IVP BID [facility] Last Admin: 02/19/17 09:28 Dose: 40 mg Polyethylene Glycol (Miralax) 17 gm PO DAILY [facility] Last Admin: 02/19/17 09:28 Dose: 17 gm Potassium Chloride (K-Dur 20 Meq Er Tab) 20 meq PO TID [facility] Last Admin: 02/19/17 09:29 Dose: 20 meq Valsartan (Diovan) 320 mg PO DAILY [facility] Last Admin: 02/19/17 09:29 Dose: 320 mg - Labs Labs: 02/19/17 06:39 02/19/17 06:39 PT 10.8 Seconds (9.9-11.8) 02/15/17 13:03 INR 1.00 (0.93-1.08) 02/15/17 13:03 APTT 26.1 Seconds (23.7-30.8) 02/15/17 13:03 - Constitutional Appears: Non-toxic, No Acute Distress - Head Exam Head Exam: NORMAL INSPECTION - ENT Exam ENT Exam: Mucous Membranes Moist - Neck Exam Neck Exam: absent: Lymphadenopathy, Meningismus - Respiratory Exam Respiratory Exam: Decreased Breath Sounds - Cardiovascular Exam Cardiovascular Exam: +S1, +S2 - GI/Abdominal Exam GI & Abdominal Exam: Soft. absent: Tenderness Assessment and Plan - Assessment and Plan (Free Text) Plan: Assessment R/O sepsis due to left lower lobe healthcare-associated pneumonia COPD history of TIA S/P left eye cataract surgery DM hypothyroidism S/P S/P hysterectomy S/P tonsillectomy HTN significant smoking history Plan continue Zithromax and Merrem (Day 4), to complete 4-7 days of therapy; reviewed CT chest which showed left lower lobe atelectasis or infiltrate will continue to trend fever curve and monitor clinically
[2017-02-19] MEDS: Metoprolol Succinate 50 mg XL Tab PO SCH (17:11)
--- NOTE | 2017-02-19 21:10 | PN ---
DATE: 02/19/2017 SUBJECTIVE: The patient is lying in bed, comfortable. She denies any further abdominal pain. She is tolerating solid foods. PHYSICAL EXAMINATION: VITAL SIGNS: Reveal temperature of 100.1, blood pressure 160/93 and heart rate 95. ABDOMEN: Soft and nontender. LABORATORY DATA: Reveal white blood cell count 7.4 and hemoglobin 12.5. Chemistries reveal potassium 3.5, blood sugar 184, AST 120 and ALT 98. IMPRESSION: A 76-year-old female with left lower lobe pneumonia, abdominal pain, which has resolved. She continues to have low-grade temperatures. RECOMMENDATIONS: Continue Zithromax and meropenem as per infectious disease. Continue PPI. Car Solano MD
[2017-02-20] MEDS: Levalbuterol 0.63 MG/3 ML Inhal Soln UD IH SCH ×3 (02:47→13:33)
[2017-02-20] MEDS: Meropenem 1g/NS 100mL IVPB 1 GM/100 ML PIGGYBACK IVPB SCH (05:56)
[2017-02-20 07:08] LABS: BASO # 0.01 K/mm3 (0.0-2.0); BASO % 0.1 % (0.0-3.0); EOS # 0.2 (0.0-0.7); GRAN # 6.34 (1.4-6.5); GRAN % 83.1 % (50.0-68.0); HEMATOCRIT 35.5 % (36.0-48.0); LYMPH # 0.6 (1.2-3.4); LYMPH % 8.3 % (22.0-35.0); MEAN CELL VOLUME 79.4 fl (80.0-105.0); MEAN CORPUSCULAR HEMOGLOBIN 27.3 pg (25.0-35.0); MEAN CORPUSCULAR HGB CONC 34.4 g/dl (31.0-37.0); MEAN PLATELET VOLUME 11.5 fl (7.0-11.0); MONO # 0.4 (0.1-0.6); MONO % 5.5 % (1.0-6.0); RED CELL DISTRIBUTION WIDTH 12.9 % (11.5-14.5); WHITE BLOOD COUNT 7.6 10^3/ul (4.5-11.0)
[2017-02-20 07:36] LABS: ALB/GLOB RATIO 1.2 (1.1-1.8); ALKALINE PHOSPHATASE 120 U/L (38-126); ALT/SGPT 119 U/L (7-56); AST/SGOT 134 U/L (14-36); BILIRUBIN,DIRECT 0.4 mg/dL (0.0-0.4); BILIRUBIN,TOTAL 0.5 mg/dL (0.2-1.3); BLOOD UREA NITROGEN 11 mg/dL (7-21); CALCIUM 8.4 mg/dL (8.4-10.5); CARBON DIOXIDE 26 mmol/L (21-33); CHLORIDE 102 mmol/L (98-107); GFR AFRICAN-AMERICAN > 60; GLUCOSE,RANDOM 110 mg/dL (70-110); MAGNESIUM 1.8 mg/dL (1.7-2.2); POTASSIUM 3.1 mmol/L (3.6-5.0); SODIUM 138 mmol/L (132-148); TOTAL PROTEIN 5.9 g/dL (5.8-8.3)
[2017-02-20 07:44] VITALS: BP 170/99; PULSE 108; RESP 22; TEMP 99.8; O2SAT 95
[2017-02-20] MEDS: Insulin Lispro (humaLOG) LOW Coverage SC SCH ×2 (08:33→12:52)
[2017-02-20] MEDS: Levothyroxine 75 MCG TAB PO SCH (08:42)
[2017-02-20] MEDS: POLYETHYLENE GLYCOL 3350 17 GM/Dose PACKET PO SCH (10:11)
[2017-02-20] MEDS: Potassium Chloride 20 mEq ER Tab PO SCH ×2 (10:23→13:06)
[2017-02-20] MEDS: Megestrol Acetate 40 mg/ml Cup PO SCH (10:25)
--- NOTE | 2017-02-20 12:37 | CP.PCM.PN ---
Subjective - Date & Time of Evaluation Date of Evaluation: 02/20/17 Time of Evaluation: 10:55 - Subjective Subjective: Comfortable, not in distress, no fevers. Objective - Vital Signs/Intake and Output Vital Signs (last 24 hours): Temp Pulse Resp BP Pulse Ox 99.8 F H 108 H 22 170/99 H 95 02/20/17 07:43 02/20/17 07:43 02/20/17 07:43 02/20/17 07:43 02/20/17 07:43 Intake and Output: 02/20/17 02/20/17 06:59 18:59 Intake Total 540 Balance 540 - Medications Medications: Current Medications Acetaminophen (Tylenol 325 Mg Supp) 325 mg RC Q6H PRN PRN Reason: TEMP>=99.5F Acetaminophen (Tylenol 325mg Tab) 650 mg PO Q6H PRN PRN Reason: TEMP>=99.5F Last Admin: 02/19/17 18:57 Dose: 650 mg Aspirin (Ecotrin) 81 mg PO DAILY [facility] Last Admin: 02/19/17 09:30 Dose: 81 mg Azithromycin (Zithromax) 500 mg PO DAILY [facility] PRN Reason: Protocol Stop: 02/25/17 10:01 Last Admin: 02/19/17 09:29 Dose: 500 mg Docusate Sodium (Colace) 100 mg PO BID [facility] Last Admin: 02/19/17 17:09 Dose: Not Given Gabapentin (Neurontin) 300 mg PO BID [facility] PRN Reason: Protocol Last Admin: 02/19/17 17:10 Dose: Not Given Heparin Sodium (Porcine) (Heparin) 5,000 units SC Q8H [facility] PRN Reason: Protocol Last Admin: 02/20/17 05:57 Dose: 5,000 units Meropenem 1g/NS 100mL IVPB (Meropenem 1g/Ns 100ml Ivpb) 1 gm in 100 mls @ 100 mls/hr IVPB Q8 [facility] PRN Reason: Protocol Stop: 02/26/17 12:46 Last Admin: 02/20/17 05:56 Dose: 100 mls/hr Potassium Chloride (Potassium Chloride 20 Meq/100 Ml) 20 meq in 100 mls @ 50 mls/hr IVPB ONCE ONE Stop: 02/20/17 10:52 Insulin Human Lispro (Humalog Low) 0 units SC ACHS [facility] PRN Reason: Protocol Last Admin: 02/20/17 08:33 Dose: Not Given Levalbuterol HCl (Xopenex) 0.63 mg IH [id number] [facility] Last Admin: 02/20/17 07:25 Dose: 0.63 mg Levothyroxine Sodium (Synthroid) 75 mcg PO ACB [facility] Last Admin: 02/20/17 08:42 Dose: 75 mcg Meclizine HCl (Antivert) 25 mg PO TID PRN PRN Reason: Dizziness Megestrol Acetate (Megace) 400 mg PO DAILY [facility] Last Admin: 02/19/17 09:30 Dose: 400 mg Metoprolol Succinate (Toprol Xl) 50 mg PO QPM [facility] Last Admin: 02/19/17 17:11 Dose: Not Given Mupirocin (Bactroban Ointment) 0 gm TOP TID [facility] Last Admin: 02/19/17 17:09 Dose: 1 applic Nicotine (Nicoderm Cq) 1 patch TD DAILY [facility] Last Admin: 02/19/17 09:45 Dose: Not Given Ondansetron HCl (Zofran Inj) 4 mg IVP Q4H PRN PRN Reason: Nausea/Vomiting Pantoprazole Sodium (Protonix Inj) 40 mg IVP BID [facility] Last Admin: 02/19/17 17:10 Dose: 40 mg Polyethylene Glycol (Miralax) 17 gm PO DAILY [facility] Last Admin: 02/19/17 09:28 Dose: 17 gm Potassium Chloride (K-Dur 20 Meq Er Tab) 20 meq PO TID [facility] Last Admin: 02/19/17 17:10 Dose: Not Given Valsartan (Diovan) 320 mg PO DAILY [facility] Last Admin: 02/19/17 09:29 Dose: 320 mg - Labs Labs: 02/20/17 06:51 02/20/17 06:51 PT 10.8 Seconds (9.9-11.8) 02/15/17 13:03 INR 1.00 (0.93-1.08) 02/15/17 13:03 APTT 26.1 Seconds (23.7-30.8) 02/15/17 13:03 - Constitutional Appears: Non-toxic, No Acute Distress - Head Exam Head Exam: NORMAL INSPECTION - Neck Exam Neck Exam: absent: Meningismus - Respiratory Exam Respiratory Exam: Decreased Breath Sounds - Cardiovascular Exam Cardiovascular Exam: +S1, +S2 - GI/Abdominal Exam GI & Abdominal Exam: Soft. absent: Tenderness Assessment and Plan - Assessment and Plan (Free Text) Plan: Assessment R/O sepsis due to left lower lobe healthcare-associated pneumonia COPD history of TIA S/P left eye cataract surgery DM hypothyroidism S/P S/P hysterectomy S/P tonsillectomy HTN significant smoking history Plan continue Zithromax and Merrem (Day 5), to complete 4-7 days of therapy; reviewed CT chest which showed left lower lobe atelectasis or infiltrate will continue to trend fever curve and monitor clinically
--- NOTE | 2017-02-20 16:54 | PN ---
DATE: 02/20/2017 SUBJECTIVE: The patient was seen in TCU. The patient is sitting in chair, comfortable. She is tolerating solid food. She denies any cough or shortness of breath. She feels stronger. She denies any abdominal pain, nausea or vomiting. PHYSICAL EXAMINATION: VITAL SIGNS: Reveal temperature of 99.8, blood pressure 170/99, heart rate of 108. ABDOMEN: Soft and nontender. LABORATORY DATA: Reveal white blood cell count 7.6, hemoglobin 12.2. Chemistries reveal potassium of 3.1. AST 134, ALT 119. IMPRESSION: A 76-year-old female who admitted to the hospital with left lower lobe pneumonia, abdominal pain, nausea and vomiting. Her abdominal pain has improved with treatment of her pneumonia. She was transferred to TCU for deconditioning. The patient has slowly increasing liver enzymes which may be due to meropenem. RECOMMENDATIONS: 1. Continue current treatment. 2. If liver enzymes continue to increase we may need to switch meropenem to a different antibiotic. Car Solano MD
--- NOTE | 2017-02-20 21:13 | CP.PCM.DIS ---
<Dez Lopez - Last Filed: 02/23/17 08:48> Provider - Provider Date of Admission: 02/20/17 13:52 Attending physician: Efra Figueroa MD Primary care physician: Ronaldo Mukherjee MD Time Spent in preparation of Discharge (in minutes): 40 Hospital Course - Lab Results Lab Results: Most Recent Lab Values POC Glucose (mg/dL) 218 mg/dL (65-110) H 02/20/17 16:34 - Hospital Course Hospital Course: This is a 76 year old female with a past medical history of hypertension, type 2 diabetes mellitus, hypothyroid, hyperlipidemia, and vertigo who comes in with complaints of abdominal pain, generalized weakness, and diffuse body aches. The patient's daughter, Lacey says her mother was at her baseline up until Sunday02/10/17 when she returned from the park that she had signs of abdominal pain, generalized weakness and confusion. The patient was admitted with suspected dehydration. The patient had an abdominal/pelvis ct that showed scoliosis and and diffuse fatty infiltration liver. Head ct was done that showed no acute findings. Abdominal ultrasound showed some hepatic steatosis. A chest ct showed mild cardiomegaly and atherosclerotic disease, interstitial airspace disease at the left base atelectasis and/r infiltrate, minimal atelectasis at the right base and chest xray was negative. Patient was seen by Infectious disease, GI, and Neurology while in the hospital. The patient had repeat episodes of hypokalemia that were repleted. The patient was put on Vancomycin and Doxycycline. Patient was a-febrile for 24 hours and no leukocytosis. Patient was approved for TCU and transferred. Discharge Exam - Head Exam Head Exam: ATRAUMATIC, NORMAL INSPECTION, NORMOCEPHALIC - Eye Exam Eye Exam: EOMI, Normal appearance, PERRL. absent: Periorbital swelling Pupil Exam: NORMAL ACCOMODATION, PERRL. absent: Miosis - ENT Exam ENT Exam: Mucous Membranes Moist, Normal Oropharynx - Neck Exam Neck exam: Normal Inspection - Respiratory Exam Respiratory Exam: Clear to PA & Lateral, NORMAL BREATHING PATTERN, UNREMARKABLE. absent: Rhonchi, Wheezes - Cardiovascular Exam Cardiovascular Exam: REGULAR RHYTHM, RRR, +S1, +S2. absent: JVD, Rubs - GI/Abdominal Exam GI & Abdominal Exam: Normal Bowel Sounds, Soft, Unremarkable. absent: Tenderness - Back Exam Back exam: NORMAL INSPECTION. absent: CVA tenderness (L), CVA tenderness (R), tenderness - Neurological Exam Neurological exam: Alert, CN II-XII Intact, Oriented x3 - Psychiatric Exam Psychiatric exam: Normal Affect, Normal Mood - Skin Skin Exam: Dry, Normal Color Discharge Plan - Follow Up Plan Condition: FAIR Disposition: TRANSF TO SNF Instructions: Heart Healthy Diet (DC), Diabetes Mellitus Type 2 in Adults (DC) , COPD (Chronic Obstructive Pulmonary Disease) (DC), Basic Carbohydrate Counting (DC), Chronic Hypertension (DC), Fall Prevention (DC), Pneumonia (DC) Additional Instructions: Discharge patient to TR today. Referrals: Ronaldo Mukherjee MD [Primary Care Provider] - <Efra Figueroa - Last Filed: 02/23/17 09:06> Provider - Provider Date of Admission: 02/20/17 13:52 Attending physician: Efra Figueroa MD Primary care physician: Ronaldo Mukherjee MD Hospital Course - Lab Results Lab Results: Most Recent Lab Values WBC 8.2 10^3/ul (4.5-11.0) 02/21/17 05:30 RBC 4.16 10^6/uL (3.5-6.1) 02/21/17 05:30 Hgb 11.6 g/dL (12.0-16.0) L 02/21/17 05:30 Hct 33.2 % (36.0-48.0) L 02/21/17 05:30 MCV 79.8 fl (80.0-105.0) L 02/21/17 05:30 MCH 27.9 pg (25.0-35.0) 02/21/17 05:30 MCHC 34.9 g/dl (31.0-37.0) 02/21/17 05:30 RDW 12.9 % (11.5-14.5) 02/21/17 05:30 Plt Count 220 10^3/uL (120.0-450.0) 02/21/17 05:30 MPV 10.9 fl (7.0-11.0) 02/21/17 05:30 Gran % 76.6 % (50.0-68.0) H 02/21/17 05:30 Lymph % (Auto) 14.2 % (22.0-35.0) L 02/21/17 05:30 [place] % (Auto) 5.2 % (1.0-6.0) 02/21/17 05:30 Eos % (Auto) 3.9 % (1.5-5.0) 02/21/17 05:30 Baso % (Auto) 0.1 % (0.0-3.0) 02/21/17 05:30 Gran # 6.24 (1.4-6.5) 02/21/17 05:30 Lymph # 1.2 (1.2-3.4) 02/21/17 05:30 [place] # 0.4 (0.1-0.6) 02/21/17 05:30 Eos # 0.3 (0.0-0.7) 02/21/17 05:30 Baso # 0.01 K/mm3 (0.0-2.0) 02/21/17 05:30 Sodium 138 mmol/L (132-148) 02/21/17 05:30 Potassium 3.1 mmol/L (3.6-5.0) L 02/21/17 05:30 Chloride 102 mmol/L (95-110) 02/21/17 05:30 Carbon Dioxide 27 mmol/L (21-33) 02/21/17 05:30 Anion Gap 12 (10-20) 02/21/17 05:30 BUN 11 mg/dL (7-21) 02/21/17 05:30 Creatinine 0.6 mg/dL (0.5-1.4) 02/21/17 05:30 Est GFR ( Amer) > 60 02/21/17 05:30 Est GFR (Non-Af Amer) > 60 02/21/17 05:30 POC Glucose (mg/dL) 124 mg/dL (65-110) H 02/21/17 05:06 Random Glucose 115 mg/dL (70-110) H 02/21/17 05:30 Calcium 8.5 mg/dL (8.4-10.5) 02/21/17 05:30 Total Bilirubin 0.5 mg/dL (0.2-1.3) 02/21/17 05:30 AST 92 U/L (14-36) H D 02/21/17 05:30 ALT 112 U/L (7-56) H 02/21/17 05:30 Alkaline Phosphatase 129 U/L (38-126) H 02/21/17 05:30 Total Protein 5.7 g/dL (5.8-8.3) L 02/21/17 05:30 Albumin 2.8 g/dL (3.0-4.8) L 02/21/17 05:30 Globulin 2.9 gm/dL 02/21/17 05:30 Albumin/Globulin Ratio 1.0 (1.1-1.8) L 02/21/17 05:30 Attending/Attestation - Attestation I have personally seen and examined this patient.: Yes I have fully participated in the care of the patient.: Yes I have reviewed all pertinent clinical information, including history, physical exam and plan: Yes Notes (Text): 02/20/17 76 year old female with past medical history of hypertension and diabetes who presented with altered mental status and abdominal pain. She was started on iv antibiotics for pneumonia. Her symptoms have improved. She will be transferred to TCU. She also has some elevation of LFTs and mild abdominal pain for which GI was following. If LFTs continue to increase will discuss with ID regarding possibly changing meropenem. Efra Figueroa MD Hospitalist.
== END 2017-02-20 13:53 | DRG 190 ==
LOC: ED 11:52 → ERH 17:21 → 5RNO 19:53
PROVIDERS: ADMIT Internal Medicine; ATTEND Internal Medicine
DX: J44.0 Chronic obstructive pulmonary disease with (acute) lower respiratory infection (principal); J18.9 Pneumonia, unspecified organism; J98.11 Atelectasis; E11.43 Type 2 diabetes mellitus with diabetic autonomic (poly)neuropathy; K31.84 Gastroparesis; E11.42 Type 2 diabetes mellitus with diabetic polyneuropathy; E83.42 Hypomagnesemia; I11.9 Hypertensive heart disease without heart failure; E11.65 Type 2 diabetes mellitus with hyperglycemia; M41.35 Thoracogenic scoliosis, thoracolumbar region; E87.6 Hypokalemia; E03.9 Hypothyroidism, unspecified; M85.80 Other specified disorders of bone density and structure, unspecified site; K76.0 Fatty (change of) liver, not elsewhere classified; M47.814 Spondylosis without myelopathy or radiculopathy, thoracic region; M19.019 Primary osteoarthritis, unspecified shoulder; F17.200 Nicotine dependence, unspecified, uncomplicated; E78.5 Hyperlipidemia, unspecified; Z86.73 Personal history of transient ischemic attack (TIA), and cerebral infarction without residual deficits; Z88.1 Allergy status to other antibiotic agents; Z79.84 Long term (current) use of oral hypoglycemic drugs; Z88.2 Allergy status to sulfonamides

== ENCOUNTER 2017-02-20 13:52 | Inpatient (IN) | payer MEDICARE, OTHER ==
[2017-02-20] MEDS ORDERED: Pneumococcal 23-Valent Vaccine IM ONE (16:11)
[2017-02-20] MEDS: Potassium Chloride 20 mEq ER Tab PO SCH (17:52)
[2017-02-20] MEDS: Metoprolol Succinate 50 mg XL Tab PO SCH (17:55)
[2017-02-20] MEDS: Insulin Lispro (humaLOG) LOW Coverage SC SCH ×2 (17:56→22:17)
[2017-02-20] MEDS: Meropenem 1g/NS 100mL IVPB 1 GM/100 ML PIGGYBACK IVPB SCH (22:04)
[2017-02-21] MEDS: Levalbuterol 0.63 MG/3 ML Inhal Soln UD IH SCH ×4 (03:00→21:10)
[2017-02-21] MEDS: Pantoprazole 40 mg EC Tab PO SCH (05:40)
[2017-02-21] MEDS: Levothyroxine 75 MCG TAB PO SCH (05:40)
[2017-02-21] MEDS: Megestrol Acetate 40 mg/ml Cup PO SCH (05:40)
[2017-02-21] MEDS: Meropenem 1g/NS 100mL IVPB 1 GM/100 ML PIGGYBACK IVPB SCH ×3 (05:43→21:53)
[2017-02-21 05:56] LABS: BASO # 0.01 K/mm3 (0.0-2.0); BASO % 0.1 % (0.0-3.0); EOS # 0.3 (0.0-0.7); EOS % 3.9 % (1.5-5.0); GRAN # 6.24 (1.4-6.5); GRAN % 76.6 % (50.0-68.0); HEMATOCRIT 33.2 % (36.0-48.0); LYMPH # 1.2 (1.2-3.4); LYMPH % 14.2 % (22.0-35.0); MEAN CELL VOLUME 79.8 fl (80.0-105.0); MEAN CORPUSCULAR HEMOGLOBIN 27.9 pg (25.0-35.0); MEAN CORPUSCULAR HGB CONC 34.9 g/dl (31.0-37.0); MEAN PLATELET VOLUME 10.9 fl (7.0-11.0); MONO # 0.4 (0.1-0.6); MONO % 5.2 % (1.0-6.0); RED CELL DISTRIBUTION WIDTH 12.9 % (11.5-14.5); WHITE BLOOD COUNT 8.2 10^3/ul (4.5-11.0)
[2017-02-21 06:38] LABS: ALKALINE PHOSPHATASE 129 U/L (38-126); ALT/SGPT 112 U/L (7-56); AST/SGOT 92 U/L (14-36); BILIRUBIN,TOTAL 0.5 mg/dL (0.2-1.3); BLOOD UREA NITROGEN 11 mg/dL (7-21); CALCIUM 8.5 mg/dL (8.4-10.5); CARBON DIOXIDE 27 mmol/L (21-33); CHLORIDE 102 mmol/L (95-110); GFR AFRICAN-AMERICAN > 60; GLUCOSE,RANDOM 115 mg/dL (70-110); POTASSIUM 3.1 mmol/L (3.6-5.0); SODIUM 138 mmol/L (132-148); TOTAL PROTEIN 5.7 g/dL (5.8-8.3)
[2017-02-21] MEDS: Insulin Lispro (humaLOG) LOW Coverage SC SCH ×4 (06:59→21:54)
[2017-02-21] MEDS: Potassium Chloride 20 mEq ER Tab PO SCH ×3 (08:06→18:07)
--- NOTE | 2017-02-21 10:01 | RAD ---
HISTORY: rule out pneumonia COMPARISON: Portable chest 02/17/2017. FINDINGS: LUNGS: No active pulmonary disease. PLEURA: No significant pleural effusion identified, no pneumothorax apparent. CARDIOVASCULAR: Prominent cardiac silhouette is again appreciated, appearing stable. No pulmonary vascular derangement identified. OSSEOUS STRUCTURES: No significant abnormalities. VISUALIZED UPPER ABDOMEN: Normal. OTHER FINDINGS: None. IMPRESSION: No acute infiltrate or pleural effusion identified. Prominent cardiac silhouette appears stable.
--- NOTE | 2017-02-21 10:17 | CP.PCM.CON ---
History of Present Illness - History of Present Illness History of Present Illness: 76 year old female with PMH of COPD, history of TIA, S/P left eye cataract surgery, DM, hypothyroidism, S/P , S/P hysterectomy, S/P tonsillectomy , HTN, significant smoking history was initially admitted in [facility] because of probable left sided healthcare-associated pneumonia. She had been doing well and is now transferred to [facility] for continued medical therapy and physical rehab. Infectious Diseases consult is requested to continue her antibiotic therapy. She developed fevers this morning but had no chills, her cough is improving, her breathing has improved, she more energy today, no diarrhea, no nausea or vomiting, no abdominal pain, no chest pain, no rhinorrhea , no dysphagia. Review of Systems - Review of Systems All systems: reviewed and no additional remarkable complaints except (as per HPI ) Past Patient History - Infectious Disease Hx of Infectious Diseases: None - Tetanus Immunizations Tetanus Immunization: Allergy to Tetanus Vaccine - Past Medical History & Family History Past Medical History?: Yes - Past Social History Smoking Status: Current Some Days Smoker - CARDIAC Hx Hypertension: Yes - PULMONARY Hx Chronic Obstructive Pulmonary Disease (COPD): Yes - NEUROLOGICAL Hx Paralysis: No Hx Transient Ischemic Attacks (TIA): Yes - HEENT Hx HEENT Problems: Yes Other/Comment: LEFT EYE CATARACT SURGERY 06/2015 - RENAL Hx Chronic Kidney Disease: No - ENDOCRINE/METABOLIC Hx Diabetes Mellitus Type 2: Yes (Diabetic Neuropathy) - HEMATOLOGICAL/ONCOLOGICAL Hx Blood Transfusions: No Hx Blood Transfusion Reaction: No - INTEGUMENTARY Hx Dermatological Problems: No - MUSCULOSKELETAL/RHEUMATOLOGICAL Hx Falls: Yes - GASTROINTESTINAL Hx Gastrointestinal Disorders: Yes (GERD,CONSTIPATION,HIATAL HERNIA, GASTROPARESIS, POOR APPETITE) - GENITOURINARY/GYNECOLOGICAL Hx Genitourinary Disorders: No (URGENCY,FREQUENCY) Hx Reproductive Disorders: No (H/O 4 C SECTIONS,HYSTERECTOMY) - PSYCHIATRIC Hx Emotional Abuse: No Hx Physical Abuse: No Hx Substance Use: No - SURGICAL HISTORY Hx Section: Yes (x4) Hx Hysterectomy: Yes Hx Musculoskeletal Surgery: Yes (Hand, Toes) Hx Tonsillectomy: Yes - ANESTHESIA Hx Anesthesia: Yes Hx Anesthesia Reactions: No Hx Malignant Hyperthermia: No Meds Allergies/Adverse Reactions: Allergies Allergy/AdvReac Type Severity Reaction Status Date / Time Sulfa (Sulfonamide Allergy ANAPHYLAXIS Verified 02/20/17 15:11 Antibiotics) Tetanus Vaccines and Toxoid Allergy RASH Verified 02/20/17 15:11 [Tetanus Vaccines & Toxoid] tetracycline Allergy RASH Verified 02/20/17 15:11 - Medications Medications: Current Medications Aspirin (Ecotrin) 81 mg PO 0800 [facility] PRN Reason: Protocol Azithromycin (Zithromax) 500 mg PO DAILY [facility] PRN Reason: Protocol Docusate Sodium (Colace) 100 mg PO BID [facility] PRN Reason: Protocol Last Admin: 02/20/17 17:52 Dose: 100 mg Gabapentin (Neurontin) 300 mg PO BID [facility] PRN Reason: Protocol Last Admin: 02/20/17 17:54 Dose: 300 mg Heparin Sodium (Porcine) (Heparin) 5,000 units SC Q8 [facility] PRN Reason: Protocol Last Admin: 02/20/17 15:34 Dose: 5,000 units Meropenem 1g/NS 100mL IVPB (Meropenem 1g/Ns 100ml Ivpb) 1 gm in 100 mls @ 100 mls/hr IVPB Q8 [facility] PRN Reason: Protocol Stop: 02/23/17 06:59 Insulin Human Lispro (Humalog Low) 0 units SC ACHS [facility] PRN Reason: Protocol Last Admin: 02/20/17 17:56 Dose: 2 units Levalbuterol HCl (Xopenex) 0.63 mg IH [id number] [facility] PRN Reason: Protocol Levothyroxine Sodium (Synthroid) 75 mcg PO 0630 [facility] PRN Reason: Protocol Meclizine HCl (Antivert) 25 mg PO TID PRN; Protocol PRN Reason: Dizziness Megestrol Acetate (Megace) 400 mg PO 0630 [facility] PRN Reason: Protocol Metoprolol Succinate (Toprol Xl) 50 mg PO 1800 [facility] PRN Reason: Protocol Last Admin: 02/20/17 17:55 Dose: 50 mg Mupirocin (Bactroban Ointment) 0 gm TOP TID [facility] PRN Reason: Protocol Last Admin: 02/20/17 17:53 Dose: Not Given Nicotine (Nicoderm Cq) 1 patch TD DAILY [facility] PRN Reason: Protocol Ondansetron HCl (Zofran Inj) 4 mg IVP Q4H PRN; Protocol PRN Reason: Nausea/Vomiting Pantoprazole Sodium (Protonix Ec Tab) 40 mg PO 0600 [facility] Polyethylene Glycol (Miralax) 17 gm PO DAILY [facility] PRN Reason: Protocol Potassium Chloride (K-Dur 20 Meq Er Tab) 20 meq PO 0800,1200,1800 [facility] PRN Reason: Protocol Last Admin: 02/20/17 17:52 Dose: 20 meq Valsartan (Diovan) 320 mg PO DAILY [facility] PRN Reason: Protocol Physical Exam - Constitutional Appears: Non-toxic, No Acute Distress - Head Exam Head Exam: NORMAL INSPECTION - ENT Exam ENT Exam: Mucous Membranes Moist - Neck Exam Neck exam: Negative for: Lymphadenopathy, Meningismus - Respiratory Exam Respiratory Exam: Decreased Breath Sounds - Cardiovascular Exam Cardiovascular Exam: +S1, +S2 - GI/Abdominal Exam GI & Abdominal Exam: Soft. absent: Tenderness Results - Vital Signs Recent Vital Signs: Last Vital Signs Temp 98.6 F 02/20/17 16:22 Pulse 90 02/20/17 17:55 Resp 12 02/20/17 16:22 BP 115/65 02/20/17 17:55 Pulse Ox 99 02/20/17 16:22 - Labs Result Diagrams: 02/21/17 05:30 02/21/17 05:30 Labs: Laboratory Results - last 24 hr 02/20/17 16:34 POC Glucose (mg/dL) 218 H Assessment & Plan - Assessment and Plan (Free Text) Plan: Assessment R/O sepsis due to left lower lobe healthcare-associated pneumonia; patient with new onset fever need to rule out new onset sepsis COPD history of TIA S/P left eye cataract surgery DM hypothyroidism S/P S/P hysterectomy S/P tonsillectomy HTN significant smoking history Plan continue Zithromax and Merrem (Day 6 - will repeat blood cx, urine cx, PCT, CXR will monitor and trend fever curve
[2017-02-21] MEDS: POLYETHYLENE GLYCOL 3350 17 GM/Dose PACKET PO SCH (10:28)
--- NOTE | 2017-02-21 15:27 | CP.PCM.HP ---
<Dez Lopez - Last Filed: 02/21/17 15:33> History of Present Illness - History of Present Illness History of Present Illness: This is a 76 year old female with a past medical history of hypertension, type 2 diabetes mellitus, hypothyroid, hyperlipidemia, and vertigo who comes in with complaints of abdominal pain, generalized weakness, and diffuse body aches. The patient's daughter, Lacey says her mother was at her baseline up until Sunday02/10/17 when she returned from the park that she had signs of abdominal pain, generalized weakness and confusion. The patient recently was hospitalized in the hospital for left sided hospital acquired pneumonia. The patient was discharged to TCU for further IV antibiotics and physical therapy. The patient reports feeling better. The patient does report a non-productive cough this morning. The patient denies fever, chills, abdominal pain, chest pain, shortness of breath, lightheadedness, dizziness, sore throat or any other complaints. Present on Admission - Present on Admission Any Indicators Present on Admission: No Review of Systems - Constitutional Constitutional: As Per HPI - EENT Eyes: As Per HPI Ears: As Per HPI Nose/Mouth/Throat: As Per HPI - Breasts Breasts: absent: As Per HPI - Cardiovascular Cardiovascular: As Per HPI - Respiratory Respiratory: As Per HPI - Gastrointestinal Gastrointestinal: As Per HPI - Genitourinary Genitourinary: As Per HPI - Musculoskeletal Musculoskeletal: As Per HPI - Integumentary Integumentary: As Per HPI - Neurological Neurological: As Per HPI - Psychiatric Psychiatric: As Per HPI - Endocrine Endocrine: As Per HPI - Hematologic/Lymphatic Hematologic: As Per HPI Past Patient History - Infectious Disease Hx of Infectious Diseases: None - Tetanus Immunizations Tetanus Immunization: Allergy to Tetanus Vaccine - Past Medical History & Family History Past Medical History?: Yes - Past Social History Smoking Status: Current Some Days Smoker - CARDIAC Hx Hypertension: Yes - PULMONARY Hx Chronic Obstructive Pulmonary Disease (COPD): Yes - NEUROLOGICAL Hx Paralysis: No Hx Transient Ischemic Attacks (TIA): Yes - HEENT Hx HEENT Problems: Yes Other/Comment: LEFT EYE CATARACT SURGERY 06/2015 - RENAL Hx Chronic Kidney Disease: No - ENDOCRINE/METABOLIC Hx Diabetes Mellitus Type 2: Yes (Diabetic Neuropathy) - HEMATOLOGICAL/ONCOLOGICAL Hx Blood Transfusions: No Hx Blood Transfusion Reaction: No - INTEGUMENTARY Hx Dermatological Problems: No - MUSCULOSKELETAL/RHEUMATOLOGICAL Hx Falls: Yes - GASTROINTESTINAL Hx Gastrointestinal Disorders: Yes (GERD,CONSTIPATION,HIATAL HERNIA, GASTROPARESIS, POOR APPETITE) - GENITOURINARY/GYNECOLOGICAL Hx Genitourinary Disorders: No (URGENCY,FREQUENCY) Hx Reproductive Disorders: No (H/O 4 C SECTIONS,HYSTERECTOMY) - PSYCHIATRIC Hx Emotional Abuse: No Hx Physical Abuse: No Hx Substance Use: No - SURGICAL HISTORY Hx Section: Yes (x4) Hx Hysterectomy: Yes Hx Musculoskeletal Surgery: Yes (Hand, Toes) Hx Tonsillectomy: Yes - ANESTHESIA Hx Anesthesia: Yes Hx Anesthesia Reactions: No Hx Malignant Hyperthermia: No Meds Allergies/Adverse Reactions: Allergies Allergy/AdvReac Type Severity Reaction Status Date / Time Sulfa (Sulfonamide Allergy ANAPHYLAXIS Verified 02/20/17 15:11 Antibiotics) Tetanus Vaccines and Toxoid Allergy RASH Verified 02/20/17 15:11 [Tetanus Vaccines & Toxoid] tetracycline Allergy RASH Verified 02/20/17 15:11 Physical Exam - Head Exam Head Exam: ATRAUMATIC, NORMAL INSPECTION, NORMOCEPHALIC - Eye Exam Eye Exam: EOMI, Normal appearance, PERRL. absent: Conjunctival injection, Periorbital tenderness Pupil Exam: NORMAL ACCOMODATION, PERRL. absent: Irregular - ENT Exam ENT Exam: Mucous Membranes Moist, Normal Exam. absent: Normal Oropharynx - Neck Exam Neck exam: Positive for: Normal Inspection. Negative for: Lymphadenopathy, Thyromegaly - Respiratory Exam Respiratory Exam: Clear to Auscultation Bilateral, NORMAL BREATHING PATTERN. absent: Accessory Muscle Use, Chest Wall Tenderness, Respiratory Distress - Cardiovascular Exam Cardiovascular Exam: REGULAR RHYTHM, RRR, +S1, +S2. absent: Gallop, Rubs - GI/Abdominal Exam GI & Abdominal Exam: Normal Bowel Sounds. absent: Firm, Guarding, Hernia, Pulsatile Mass - Back Exam Back exam: NORMAL INSPECTION. absent: CVA tenderness (L), CVA tenderness (R), paraspinal tenderness - Neurological Exam Neurological exam: Alert, CN II-XII Intact, Oriented x3, Reflexes Normal - Psychiatric Exam Psychiatric exam: Normal Affect, Normal Mood - Skin Skin Exam: Dry, Intact Results - Vital Signs Recent Vital Signs: Last Vital Signs Temp 98.7 F 02/21/17 13:43 Pulse 81 02/21/17 13:43 Resp 18 02/21/17 13:43 BP 119/76 02/21/17 13:43 Pulse Ox 95 02/21/17 13:43 - Labs Result Diagrams: 02/21/17 05:30 02/21/17 05:30 Labs: Laboratory Results - last 24 hr 02/20/17 02/20/17 02/21/17 16:34 21:06 05:06 WBC RBC Hgb Hct MCV MCH MCHC RDW Plt Count MPV Gran % Lymph % (Auto) [place] % (Auto) Eos % (Auto) Baso % (Auto) Gran # Lymph # [place] # Eos # Baso # D-Dimer, Quantitative Sodium Potassium Chloride Carbon Dioxide Anion Gap BUN Creatinine Est GFR ( Amer) Est GFR (Non-Af Amer) POC Glucose (mg/dL) 218 H 202 H 124 H Random Glucose Calcium Total Bilirubin AST ALT Alkaline Phosphatase Total Protein Albumin Globulin Albumin/Globulin Ratio Procalcitonin 02/21/17 02/21/17 02/21/17 05:30 05:30 08:27 WBC 8.2 RBC 4.16 Hgb 11.6 L Hct 33.2 L MCV 79.8 L MCH 27.9 MCHC 34.9 RDW 12.9 Plt Count 220 MPV 10.9 Gran % 76.6 H Lymph % (Auto) 14.2 L [place] % (Auto) 5.2 Eos % (Auto) 3.9 Baso % (Auto) 0.1 Gran # 6.24 Lymph # 1.2 [place] # 0.4 Eos # 0.3 Baso # 0.01 D-Dimer, Quantitative Sodium 138 Potassium 3.1 L Chloride 102 Carbon Dioxide 27 Anion Gap 12 BUN 11 Creatinine 0.6 Est GFR ( Amer) > 60 Est GFR (Non-Af Amer) > 60 POC Glucose (mg/dL) Random Glucose 115 H Calcium 8.5 Total Bilirubin 0.5 AST 92 H D ALT 112 H Alkaline Phosphatase 129 H Total Protein 5.7 L Albumin 2.8 L Globulin 2.9 Albumin/Globulin Ratio 1.0 L Procalcitonin 0.50 H 02/21/17 02/21/17 08:50 11:26 WBC RBC Hgb Hct MCV MCH MCHC RDW Plt Count MPV Gran % Lymph % (Auto) [place] % (Auto) Eos % (Auto) Baso % (Auto) Gran # Lymph # [place] # Eos # Baso # D-Dimer, Quantitative 2.28 H Sodium Potassium Chloride Carbon Dioxide Anion Gap BUN Creatinine Est GFR ( Amer) Est GFR (Non-Af Amer) POC Glucose (mg/dL) 238 H Random Glucose Calcium Total Bilirubin AST ALT Alkaline Phosphatase Total Protein Albumin Globulin Albumin/Globulin Ratio Procalcitonin Assessment & Plan - Assessment and Plan (Free Text) Assessment: This is a 76 year old female with a past medical history of vertigo, hypertension, Type 2 Diabetes mellitus, hypothyroid, vertigo, hyperlipidemia, glaucoma who was admitted for suspected hospital acquired pneumonia and then discharged to TCU for further IV antibiotics and Physical Therapy. <Efra Figueroa A - Last Filed: 02/24/17 07:38> Results - Vital Signs Recent Vital Signs: Last Vital Signs Temp 98.4 F 02/24/17 06:00 Pulse 84 02/24/17 06:00 Resp 20 02/24/17 06:00 BP 137/91 H 02/24/17 06:00 Pulse Ox 96 02/24/17 06:00 - Labs Result Diagrams: 02/22/17 08:00 02/22/17 08:00 Labs: Laboratory Results - last 24 hr 02/22/17 02/22/17 02/22/17 05:37 11:37 17:18 POC Glucose (mg/dL) 105 141 H 202 H 02/22/17 02/23/17 02/23/17 22:25 11:24 17:12 POC Glucose (mg/dL) 210 H 140 H 138 H 02/23/17 21:51 POC Glucose (mg/dL) 158 H Attending/Attestation - Attestation I have personally seen and examined this patient.: Yes I have fully participated in the care of the patient.: Yes I have reviewed all pertinent clinical information: Yes Notes (Text): 02/23/17 76 year old female with past medical history of diabetes and hypertension who presented with altered mental status (resolved) secondary to pneumonia. She was transferred to TCU for physical therapy and iv antibiotics. Continue with iv antibiotics as per ID. D-dimer was elevated however LE dopplers were negative and VQ scan showed low probability for PE. Her abdominal pain has improved. Continue with monitor LFTs closely which were elevated but stable. Efra Figueroa MD Hospitalist.
[2017-02-21] MEDS: Metoprolol Succinate 50 mg XL Tab PO SCH (18:08)
--- NOTE | 2017-02-21 18:41 | US ---
HISTORY: Leg pain and swelling. Evaluate for DVT PHYSICIAN(S): Jitendra Jonas MD. TECHNIQUE: Duplex sonography and color-flow Doppler with graded compression were used to evaluate the deep venous systems of both lower extremities. FINDINGS: The visualized deep venous systems of both lower extremities are sonographically normal and compressible. Normal wave forms and augmentation are seen. There is no sonographic evidence for deep venous thrombosis in the visualized segments of both lower extremities. IMPRESSION: No sonographic evidence for deep venous thrombosis in the visualized segments of both lower extremities.
[2017-02-22] MEDS: Levalbuterol 0.63 MG/3 ML Inhal Soln UD IH SCH ×4 (03:00→19:31)
[2017-02-22] MEDS: Meropenem 1g/NS 100mL IVPB 1 GM/100 ML PIGGYBACK IVPB SCH ×3 (05:36→21:42)
[2017-02-22] MEDS: Megestrol Acetate 40 mg/ml Cup PO SCH (05:38)
[2017-02-22] MEDS: Pantoprazole 40 mg EC Tab PO SCH (05:38)
[2017-02-22] MEDS: Levothyroxine 75 MCG TAB PO SCH (05:39)
[2017-02-22] MEDS: Insulin Lispro (humaLOG) LOW Coverage SC SCH ×4 (06:45→22:46)
[2017-02-22 08:25] LABS: BASO # 0.01 K/mm3 (0.0-2.0); BASO % 0.1 % (0.0-3.0); EOS # 0.4 (0.0-0.7); EOS % 4.4 % (1.5-5.0); GRAN # 6.62 (1.4-6.5); GRAN % 74.4 % (50.0-68.0); HEMATOCRIT 34.7 % (36.0-48.0); LYMPH # 1.5 (1.2-3.4); LYMPH % 16.4 % (22.0-35.0); MEAN CELL VOLUME 80.1 fl (80.0-105.0); MEAN CORPUSCULAR HEMOGLOBIN 27.5 pg (25.0-35.0); MEAN CORPUSCULAR HGB CONC 34.3 g/dl (31.0-37.0); MEAN PLATELET VOLUME 11.3 fl (7.0-11.0); MONO # 0.4 (0.1-0.6); MONO % 4.7 % (1.0-6.0); RED CELL DISTRIBUTION WIDTH 12.8 % (11.5-14.5); WHITE BLOOD COUNT 8.9 10^3/ul (4.5-11.0)
[2017-02-22 08:33] LABS: ALB/GLOB RATIO 1.1 (1.1-1.8); ALKALINE PHOSPHATASE 138 U/L (38-126); ALT/SGPT 91 U/L (7-56); AST/SGOT 57 U/L (14-36); BILIRUBIN,TOTAL 0.5 mg/dL (0.2-1.3); BLOOD UREA NITROGEN 11 mg/dL (7-21); CALCIUM 8.6 mg/dL (8.4-10.5); CARBON DIOXIDE 27 mmol/L (21-33); CHLORIDE 104 mmol/L (98-107); GFR AFRICAN-AMERICAN > 60; GLUCOSE,RANDOM 117 mg/dL (70-110); POTASSIUM 3.9 mmol/L (3.6-5.0); SODIUM 140 mmol/L (132-148); TOTAL PROTEIN 5.9 g/dL (5.8-8.3)
[2017-02-22] MEDS: Potassium Chloride 20 mEq ER Tab PO SCH ×3 (09:37→17:47)
[2017-02-22] MEDS: POLYETHYLENE GLYCOL 3350 17 GM/Dose PACKET PO SCH (11:15)
--- NOTE | 2017-02-22 13:12 | CP.PCM.PN ---
Subjective - Date & Time of Evaluation Date of Evaluation: 02/22/17 Time of Evaluation: 11:10 - Subjective Subjective: Comfortable, not in distress, afebrile, breathing better, still with some weakness, but getting a little more energy. Objective - Vital Signs/Intake and Output Vital Signs (last 24 hours): Temp Pulse Resp BP Pulse Ox 97.8 F 81 18 126/77 96 02/21/17 17:40 02/21/17 18:08 02/21/17 17:40 02/21/17 18:08 02/21/17 17:40 - Medications Medications: Current Medications Aspirin (Ecotrin) 81 mg PO 0800 MATEO PRN Reason: Protocol Last Admin: 02/21/17 08:05 Dose: 81 mg Azithromycin (Zithromax) 500 mg PO DAILY MATEO PRN Reason: Protocol Last Admin: 02/21/17 10:29 Dose: 500 mg Docusate Sodium (Colace) 100 mg PO BID MATEO PRN Reason: Protocol Last Admin: 02/21/17 18:04 Dose: Not Given Gabapentin (Neurontin) 300 mg PO BID MATEO PRN Reason: Protocol Last Admin: 02/21/17 18:08 Dose: 300 mg Heparin Sodium (Porcine) (Heparin) 5,000 units SC Q8 MATEO PRN Reason: Protocol Last Admin: 02/22/17 05:37 Dose: 5,000 units Meropenem 1g/NS 100mL IVPB (Meropenem 1g/Ns 100ml Ivpb) 1 gm in 100 mls @ 100 mls/hr IVPB Q8 MATEO PRN Reason: Protocol Stop: 02/23/17 22:01 Last Admin: 02/22/17 05:36 Dose: 100 mls/hr Ibuprofen (Motrin Tab) 400 mg PO Q6H PRN; Protocol PRN Reason: Fever >100.4 F Last Admin: 02/22/17 03:50 Dose: 400 mg Insulin Human Lispro (Humalog Low) 0 units SC ACHS MATEO PRN Reason: Protocol Last Admin: 02/22/17 06:45 Dose: Not Given Levalbuterol HCl (Xopenex) 0.63 mg IH [id number] MATEO PRN Reason: Protocol Last Admin: 02/22/17 03:00 Dose: Not Given Levothyroxine Sodium (Synthroid) 75 mcg PO 0630 MATEO PRN Reason: Protocol Last Admin: 02/22/17 05:39 Dose: 75 mcg Meclizine HCl (Antivert) 25 mg PO TID PRN; Protocol PRN Reason: Dizziness Megestrol Acetate (Megace) 400 mg PO 0630 MATEO PRN Reason: Protocol Last Admin: 02/22/17 05:38 Dose: 400 mg Metoprolol Succinate (Toprol Xl) 50 mg PO 1800 MATEO PRN Reason: Protocol Last Admin: 02/21/17 18:08 Dose: 50 mg Mupirocin (Bactroban Ointment) 0 gm TOP TID MATEO PRN Reason: Protocol Last Admin: 02/21/17 18:03 Dose: Not Given Nicotine (Nicoderm Cq) 1 patch TD DAILY MATEO PRN Reason: Protocol Last Admin: 02/21/17 10:29 Dose: 1 patch Ondansetron HCl (Zofran Inj) 4 mg IVP Q4H PRN; Protocol PRN Reason: Nausea/Vomiting Pantoprazole Sodium (Protonix Ec Tab) 40 mg PO 0600 [facility] Last Admin: 02/22/17 05:38 Dose: 40 mg Polyethylene Glycol (Miralax) 17 gm PO DAILY MATEO PRN Reason: Protocol Last Admin: 02/21/17 10:28 Dose: Not Given Potassium Chloride (K-Dur 20 Meq Er Tab) 20 meq PO 0800,1200,1800 MATEO PRN Reason: Protocol Last Admin: 02/21/17 18:07 Dose: 20 meq Valsartan (Diovan) 320 mg PO DAILY MATEO PRN Reason: Protocol Last Admin: 02/21/17 10:27 Dose: 320 mg - Labs Labs: 02/21/17 05:30 02/21/17 05:30 - Constitutional Appears: Non-toxic, No Acute Distress - Head Exam Head Exam: NORMAL INSPECTION - ENT Exam ENT Exam: Mucous Membranes Moist - Neck Exam Neck Exam: absent: Meningismus - Respiratory Exam Respiratory Exam: Decreased Breath Sounds - Cardiovascular Exam Cardiovascular Exam: +S1, +S2 - GI/Abdominal Exam GI & Abdominal Exam: Soft. absent: Tenderness Assessment and Plan - Assessment and Plan (Free Text) Plan: Assessment R/O sepsis due to left lower lobe healthcare-associated pneumonia; patient with new onset fever so far repeat septic work up is negative COPD history of TIA S/P left eye cataract surgery DM hypothyroidism S/P S/P hysterectomy S/P tonsillectomy HTN significant smoking history Plan continue Zithromax and Merrem (Day 7) - repeat blood cx negative PCT is only 0.5 , CXR is unchanged for V/Q scan to rule out P.E. since her D-dimer is elevated will continue to monitor clinically and trend fever curve
[2017-02-22] MEDS: Metoprolol Succinate 50 mg XL Tab PO SCH (17:46)
[2017-02-23] MEDS: Levalbuterol 0.63 MG/3 ML Inhal Soln UD IH SCH ×4 (01:47→20:05)
[2017-02-23] MEDS: Meropenem 1g/NS 100mL IVPB 1 GM/100 ML PIGGYBACK IVPB SCH ×3 (05:07→21:43)
[2017-02-23] MEDS: Pantoprazole 40 mg EC Tab PO SCH (05:09)
[2017-02-23] MEDS: Levothyroxine 75 MCG TAB PO SCH (05:43)
[2017-02-23] MEDS: Megestrol Acetate 40 mg/ml Cup PO SCH (05:43)
[2017-02-23] MEDS: Insulin Lispro (humaLOG) LOW Coverage SC SCH ×4 (06:38→22:06)
[2017-02-23] MEDS: Potassium Chloride 20 mEq ER Tab PO SCH ×3 (08:34→17:59)
[2017-02-23] MEDS: POLYETHYLENE GLYCOL 3350 17 GM/Dose PACKET PO SCH (11:00)
--- NOTE | 2017-02-23 11:22 | CP.PCM.PN ---
Subjective - Date & Time of Evaluation Date of Evaluation: 02/23/17 Time of Evaluation: 10:05 - Subjective Subjective: Comfortable, no fevers, breathing better, has little more energy. Objective - Vital Signs/Intake and Output Vital Signs (last 24 hours): Temp Pulse Resp BP Pulse Ox 97.7 F 82 15 119/76 97 02/22/17 16:45 02/22/17 17:46 02/22/17 16:45 02/22/17 17:46 02/22/17 16:45 - Medications Medications: Current Medications Aspirin (Ecotrin) 81 mg PO 0800 MATEO PRN Reason: Protocol Last Admin: 02/22/17 09:37 Dose: 81 mg Azithromycin (Zithromax) 500 mg PO DAILY MATEO PRN Reason: Protocol Last Admin: 02/22/17 11:14 Dose: 500 mg Docusate Sodium (Colace) 100 mg PO BID MATEO PRN Reason: Protocol Last Admin: 02/22/17 17:45 Dose: 100 mg Gabapentin (Neurontin) 300 mg PO BID MATEO PRN Reason: Protocol Last Admin: 02/22/17 17:47 Dose: 300 mg Heparin Sodium (Porcine) (Heparin) 5,000 units SC Q8 MATEO PRN Reason: Protocol Last Admin: 02/23/17 05:08 Dose: 5,000 units Meropenem 1g/NS 100mL IVPB (Meropenem 1g/Ns 100ml Ivpb) 1 gm in 100 mls @ 100 mls/hr IVPB Q8 MATEO PRN Reason: Protocol Stop: 02/23/17 22:01 Last Admin: 02/23/17 05:07 Dose: 100 mls/hr Ibuprofen (Motrin Tab) 400 mg PO Q6H PRN; Protocol PRN Reason: Fever >100.4 F Last Admin: 02/22/17 03:50 Dose: 400 mg Insulin Human Lispro (Humalog Low) 0 units SC ACHS MATEO PRN Reason: Protocol Last Admin: 02/22/17 22:46 Dose: Not Given Levalbuterol HCl (Xopenex) 0.63 mg IH [id number] MATEO PRN Reason: Protocol Last Admin: 02/23/17 01:47 Dose: Not Given Levothyroxine Sodium (Synthroid) 75 mcg PO 0630 [facility]ATEO PRN Reason: Protocol Last Admin: 02/23/17 05:43 Dose: 75 mcg Meclizine HCl (Antivert) 25 mg PO TID PRN; Protocol PRN Reason: Dizziness Megestrol Acetate (Megace) 400 mg PO 0630 [facility]ATEO PRN Reason: Protocol Last Admin: 02/23/17 05:43 Dose: Not Given Metoprolol Succinate (Toprol Xl) 50 mg PO 1800 MATEO PRN Reason: Protocol Last Admin: 02/22/17 17:46 Dose: 50 mg Mupirocin (Bactroban Ointment) 0 gm TOP TID MATEO PRN Reason: Protocol Last Admin: 02/22/17 17:48 Dose: Not Given Nicotine (Nicoderm Cq) 1 patch TD DAILY MATEO PRN Reason: Protocol Last Admin: 02/22/17 11:15 Dose: 1 patch Ondansetron HCl (Zofran Inj) 4 mg IVP Q4H PRN; Protocol PRN Reason: Nausea/Vomiting Pantoprazole Sodium (Protonix Ec Tab) 40 mg PO 0600 [facility] Last Admin: 02/23/17 05:09 Dose: 40 mg Polyethylene Glycol (Miralax) 17 gm PO DAILY MATEO PRN Reason: Protocol Last Admin: 02/22/17 11:15 Dose: 17 gm Potassium Chloride (K-Dur 20 Meq Er Tab) 20 meq PO 0800,1200,1800 MATEO PRN Reason: Protocol Last Admin: 02/22/17 17:47 Dose: 20 meq Valsartan (Diovan) 320 mg PO DAILY MATEO PRN Reason: Protocol Last Admin: 02/22/17 11:13 Dose: 320 mg - Labs Labs: 02/22/17 08:00 02/22/17 08:00 - Constitutional Appears: Non-toxic, No Acute Distress - Head Exam Head Exam: NORMAL INSPECTION - ENT Exam ENT Exam: Mucous Membranes Moist - Neck Exam Neck Exam: absent: Lymphadenopathy, Meningismus - Respiratory Exam Respiratory Exam: Decreased Breath Sounds - Cardiovascular Exam Cardiovascular Exam: +S1, +S2 - GI/Abdominal Exam GI & Abdominal Exam: Soft. absent: Tenderness Assessment and Plan - Assessment and Plan (Free Text) Plan: Assessment R/O sepsis due to left lower lobe healthcare-associated pneumonia, clinically improving COPD history of TIA S/P left eye cataract surgery DM hypothyroidism S/P S/P hysterectomy S/P tonsillectomy HTN significant smoking history Plan on Zithromax and Merrem (Day 7) - repeat blood cx negative PCT is only 0.5, CXR is unchanged - will d/c after today and observe for V/Q scan is negative for P.E. will continue to monitor clinically
[2017-02-23] MEDS: Metoprolol Succinate 50 mg XL Tab PO SCH (17:58)
[2017-02-24] MEDS: Levalbuterol 0.63 MG/3 ML Inhal Soln UD IH SCH ×3 (01:48→13:55)
[2017-02-24] MEDS: Megestrol Acetate 40 mg/ml Cup PO SCH (05:57)
[2017-02-24] MEDS: Levothyroxine 75 MCG TAB PO SCH (05:58)
[2017-02-24] MEDS: Pantoprazole 40 mg EC Tab PO SCH (05:58)
[2017-02-24] MEDS: Insulin Lispro (humaLOG) LOW Coverage SC SCH ×4 (06:45→22:19)
[2017-02-24] MEDS: Potassium Chloride 20 mEq ER Tab PO SCH ×3 (10:02→17:29)
[2017-02-24] MEDS: POLYETHYLENE GLYCOL 3350 17 GM/Dose PACKET PO SCH (10:10)
--- NOTE | 2017-02-24 14:15 | PN ---
DATE: 02/24/2017 SUBJECTIVE: The patient is in bed, in no acute distress, nontoxic. PHYSICAL EXAMINATION: VITAL SIGNS: Temperature is 97, blood pressure is 130/70, respiratory rate of 18, and heart rate of 86. HEENT: Unremarkable. NECK: Supple. LUNGS: Decreased breath sounds. HEART: Normal S1 and S2. ABDOMEN: Soft, nontender. LABORATORY DATA: Reveals a white count of 8.9, hemoglobin of 11, platelets of 297. Chemistries reveals a creatinine of 0.6. Microbiology reveals the blood cultures are negative. Urine cultures are negative. Review of orders reveals the patient to be off of antibiotics. ASSESSMENT AND PLAN: This is a 76-year-old female with left lower lobe healthcare-associated pneumonia, improving; chronic obstructive lung disease, history of transient ischemic attack, diabetes, hypothyroidism. Completed Zithromax and meropenem therapy. Currently off of antibiotics, afebrile and risk for developing nosocomial infections. Narayan Perez MD
[2017-02-24] MEDS: Metoprolol Succinate 50 mg XL Tab PO SCH (17:30)
[2017-02-25] MEDS: Levalbuterol 0.63 MG/3 ML Inhal Soln UD IH SCH ×4 (03:00→22:23)
[2017-02-25] MEDS: Levothyroxine 75 MCG TAB PO SCH (06:08)
[2017-02-25] MEDS: Pantoprazole 40 mg EC Tab PO SCH (06:08)
[2017-02-25] MEDS: Megestrol Acetate 40 mg/ml Cup PO SCH (06:09)
[2017-02-25] MEDS: Insulin Lispro (humaLOG) LOW Coverage SC SCH ×4 (07:14→22:05)
[2017-02-25 07:53] LABS: BASO # 0.03 K/mm3 (0.0-2.0); BASO % 0.3 % (0.0-3.0); EOS # 0.4 (0.0-0.7); GRAN # 8.63 (1.4-6.5); GRAN % 78.8 % (50.0-68.0); LYMPH # 1.4 (1.2-3.4); LYMPH % 12.3 % (22.0-35.0); MEAN CELL VOLUME 82.6 fl (80.0-105.0); MEAN CORPUSCULAR HEMOGLOBIN 27.3 pg (25.0-35.0); MEAN CORPUSCULAR HGB CONC 33.1 g/dl (31.0-37.0); MEAN PLATELET VOLUME 11.2 fl (7.0-11.0); MONO # 0.5 (0.1-0.6); MONO % 4.6 % (1.0-6.0); RED CELL DISTRIBUTION WIDTH 13.6 % (11.5-14.5)
[2017-02-25 08:04] LABS: ALB/GLOB RATIO 1.2 (1.1-1.8); ALKALINE PHOSPHATASE 170 U/L (38-126); ALT/SGPT 71 U/L (7-56); AST/SGOT 40 U/L (14-36); BILIRUBIN,TOTAL 0.4 mg/dL (0.2-1.3); BLOOD UREA NITROGEN 17 mg/dL (7-21); CALCIUM 9.5 mg/dL (8.4-10.5); CARBON DIOXIDE 21 mmol/L (21-33); CHLORIDE 101 mmol/L (98-107); GFR AFRICAN-AMERICAN > 60; GLUCOSE,RANDOM 225 mg/dL (70-110); POTASSIUM 4.6 mmol/L (3.6-5.0); SODIUM 134 mmol/L (132-148); TOTAL PROTEIN 6.4 g/dL (5.8-8.3)
[2017-02-25] MEDS: Potassium Chloride 20 mEq ER Tab PO SCH ×3 (08:08→17:54)
--- NOTE | 2017-02-25 09:24 | PN ---
DATE: 02/25/2017 SUBJECTIVE: The patient is in bed, in no acute distress, nontoxic. PHYSICAL EXAMINATION: VITAL SIGNS: Temperature is 97, blood pressure is 107/70, and respiratory rate of 18. HEENT: Unremarkable. NECK: Supple. LUNGS: Decreased breath sounds. HEART: Normal S1 and S2. ABDOMEN: Soft and nontender. LABORATORY DATA: Reveals a white count of 11,000, hemoglobin of 12, and platelets of 373. Elevated D-dimer. Chemistries reveals a BUN of 17, creatinine of 0.6, alkaline phosphatase is 170. Microbiology reveals a blood cultures are negative. Urine cultures are negative. Review of medications reveals the patient to be off of antibiotics. ASSESSMENT AND PLAN: This is a 76-year-old female with a left lower lobe healthcare-associated pneumonia, improving; chronic obstructive lung disease; history of transient ischemic attack; diabetes; hypothyroidism; had completed Zithromax and meropenem therapy. Currently off of antibiotics. We will follow closely with you. The patient is at risk for developing nosocomial infection. Narayan Perez MD
[2017-02-25] MEDS: POLYETHYLENE GLYCOL 3350 17 GM/Dose PACKET PO SCH (09:47)
--- NOTE | 2017-02-25 17:37 | CP.PCM.PN ---
<Geo Pitts - Last Filed: 02/25/17 17:31> Subjective - Date & Time of Evaluation Date of Evaluation: 02/25/17 Time of Evaluation: 10:00 - Subjective Subjective: Medicine Progress note. Dr. Figueroa Pt seen and examined at bedside. No acute events overnight. Patient denies any F /C. No CP/SOB. No headaches. No N/V/D. Does report some urinary incontinence however, patient reports that this has been ongoing prior to her hospital and rehab stay. Family discussion yesterday who stated conflicting reports that urinary incontinence is new since admission to the hospital. Patient states that she would like to be discharged as soon as possible. We have expressed that we would follow up with PT recs and discharge as soon as she is stable. Objective - Vital Signs/Intake and Output Vital Signs (last 24 hours): Temp Pulse Resp BP Pulse Ox 97.8 F 90 20 108/72 96 02/25/17 16:54 02/25/17 16:54 02/25/17 16:54 02/25/17 16:54 02/25/17 16:54 - Medications Medications: Current Medications Aspirin (Ecotrin) 81 mg PO 0800 MATEO PRN Reason: Protocol Last Admin: 02/25/17 08:08 Dose: 81 mg Docusate Sodium (Colace) 100 mg PO BID MATEO PRN Reason: Protocol Last Admin: 02/25/17 09:46 Dose: Not Given Gabapentin (Neurontin) 300 mg PO BID MATEO PRN Reason: Protocol Last Admin: 02/25/17 09:47 Dose: 300 mg Heparin Sodium (Porcine) (Heparin) 5,000 units SC Q8 MATEO PRN Reason: Protocol Last Admin: 02/25/17 14:02 Dose: 5,000 units Ibuprofen (Motrin Tab) 400 mg PO Q6H PRN; Protocol PRN Reason: Fever >100.4 F Last Admin: 02/22/17 03:50 Dose: 400 mg Insulin Human Lispro (Humalog Low) 0 units SC ACHS MATEO PRN Reason: Protocol Last Admin: 02/25/17 12:07 Dose: 1 units Latanoprost (Xalatan Opht) 0.05 ml OU HS MATEO Levalbuterol HCl (Xopenex) 0.63 mg IH [id number] MATEO PRN Reason: Protocol Last Admin: 02/25/17 13:33 Dose: 0.63 mg Levothyroxine Sodium (Synthroid) 75 mcg PO 0630 MATEO PRN Reason: Protocol Last Admin: 02/25/17 06:08 Dose: 75 mcg Meclizine HCl (Antivert) 25 mg PO TID PRN; Protocol PRN Reason: Dizziness Megestrol Acetate (Megace) 400 mg PO 0630 MATEO PRN Reason: Protocol Last Admin: 02/25/17 06:09 Dose: 400 mg Metoprolol Succinate (Toprol Xl) 50 mg PO 1800 MATEO PRN Reason: Protocol Last Admin: 02/24/17 17:30 Dose: 50 mg Mupirocin (Bactroban Ointment) 0 gm TOP TID MATOE PRN Reason: Protocol Last Admin: 02/25/17 14:01 Dose: Not Given Nicotine (Nicoderm Cq) 1 patch TD DAILY MATEO PRN Reason: Protocol Last Admin: 02/25/17 09:47 Dose: 1 patch Ondansetron HCl (Zofran Inj) 4 mg IVP Q4H PRN; Protocol PRN Reason: Nausea/Vomiting Pantoprazole Sodium (Protonix Ec Tab) 40 mg PO 0600 [facility] Last Admin: 02/25/17 06:08 Dose: 40 mg Polyethylene Glycol (Miralax) 17 gm PO DAILY MATEO PRN Reason: Protocol Last Admin: 02/25/17 09:47 Dose: Not Given Potassium Chloride (K-Dur 20 Meq Er Tab) 20 meq PO 0800,1200,1800 MATEO PRN Reason: Protocol Last Admin: 02/25/17 12:05 Dose: Not Given Valsartan (Diovan) 320 mg PO DAILY MATEO PRN Reason: Protocol Last Admin: 02/25/17 09:46 Dose: 320 mg - Labs Labs: 02/25/17 07:30 02/25/17 07:30 - Constitutional Appears: Well, No Acute Distress - Head Exam Head Exam: ATRAUMATIC, NORMAL INSPECTION, NORMOCEPHALIC - Eye Exam Eye Exam: EOMI, Normal appearance - ENT Exam ENT Exam: Mucous Membranes Moist - Neck Exam Neck Exam: Full ROM - Respiratory Exam Respiratory Exam: Clear to Ausculation Bilateral, NORMAL BREATHING PATTERN. absent: Decreased Breath Sounds, Rales, Rhonchi, Wheezes, Respiratory Distress - Cardiovascular Exam Cardiovascular Exam: RRR, +S1, +S2. absent: JVD - GI/Abdominal Exam GI & Abdominal Exam: Soft. absent: Distended, Firm, Guarding, Rigid, Tenderness , Rebound - Extremities Exam Extremities Exam: Normal Inspection. absent: Calf Tenderness, Pedal Edema - Neurological Exam Neurological Exam: Alert, Awake, Oriented x3 - Psychiatric Exam Psychiatric exam: Normal Affect, Normal Mood - Skin Skin Exam: Dry, Intact, Normal Color, Warm Assessment and Plan - Assessment and Plan (Free Text) Assessment: 76yo F with left lower lobe HCA pneumonia, COPD in rehab for deconditioning. She has completed her course of Abx. Awaiting PT clearance for discharge home with services. 1. HCA Pneumonia improved Completed course of ABX ID following Afebrile, no leukocytosis 2. Urinary incontinence Patient reports as stable prior to acute hospital and rehab Recent UA negative x2 Will repeat UA f/u as out-patient with her PMD 3. Deconditioning Continue PT treatment Will discharge home with services when stable Patient is to continue home meds Dispo: Home with services when stable from PT standpoint Discussed case with Dr. Henry Pitts PGY1 <Efra Figueroa - Last Filed: 02/25/17 18:47> Objective - Vital Signs/Intake and Output Vital Signs (last 24 hours): Temp Pulse Resp BP Pulse Ox 97.8 F 90 20 108/72 96 02/25/17 16:54 02/25/17 17:54 02/25/17 16:54 02/25/17 17:54 02/25/17 16:54 - Medications Medications: Current Medications Aspirin (Ecotrin) 81 mg PO 0800 MATEO PRN Reason: Protocol Last Admin: 02/25/17 08:08 Dose: 81 mg Docusate Sodium (Colace) 100 mg PO BID MATEO PRN Reason: Protocol Last Admin: 02/25/17 17:53 Dose: Not Given Gabapentin (Neurontin) 300 mg PO BID MATEO PRN Reason: Protocol Last Admin: 02/25/17 17:54 Dose: 300 mg Heparin Sodium (Porcine) (Heparin) 5,000 units SC Q8 MATEO PRN Reason: Protocol Last Admin: 02/25/17 14:02 Dose: 5,000 units Ibuprofen (Motrin Tab) 400 mg PO Q6H PRN; Protocol PRN Reason: Fever >100.4 F Last Admin: 02/22/17 03:50 Dose: 400 mg Insulin Human Lispro (Humalog Low) 0 units SC ACHS MATEO PRN Reason: Protocol Last Admin: 02/25/17 17:51 Dose: Not Given Latanoprost (Xalatan Opht) 0.05 ml OU HS MATEO Levalbuterol HCl (Xopenex) 0.63 mg IH [id number] MATEO PRN Reason: Protocol Last Admin: 02/25/17 13:33 Dose: 0.63 mg Levothyroxine Sodium (Synthroid) 75 mcg PO 0630 AMTEO PRN Reason: Protocol Last Admin: 02/25/17 06:08 Dose: 75 mcg Meclizine HCl (Antivert) 25 mg PO TID PRN; Protocol PRN Reason: Dizziness Megestrol Acetate (Megace) 400 mg PO 0630 MATEO PRN Reason: Protocol Last Admin: 02/25/17 06:09 Dose: 400 mg Metoprolol Succinate (Toprol Xl) 50 mg PO 1800 MATEO PRN Reason: Protocol Last Admin: 02/25/17 17:54 Dose: 50 mg Mupirocin (Bactroban Ointment) 0 gm TOP TID MATEO PRN Reason: Protocol Last Admin: 02/25/17 17:51 Dose: Not Given Nicotine (Nicoderm Cq) 1 patch TD DAILY MATEO PRN Reason: Protocol Last Admin: 02/25/17 09:47 Dose: 1 patch Ondansetron HCl (Zofran Inj) 4 mg IVP Q4H PRN; Protocol PRN Reason: Nausea/Vomiting Pantoprazole Sodium (Protonix Ec Tab) 40 mg PO 0600 [facility] Last Admin: 02/25/17 06:08 Dose: 40 mg Polyethylene Glycol (Miralax) 17 gm PO DAILY MATEO PRN Reason: Protocol Last Admin: 02/25/17 09:47 Dose: Not Given Potassium Chloride (K-Dur 20 Meq Er Tab) 20 meq PO 0800,1200,1800 [facility] PRN Reason: Protocol Last Admin: 02/25/17 17:54 Dose: 20 meq Valsartan (Diovan) 320 mg PO DAILY MATEO PRN Reason: Protocol Last Admin: 02/25/17 09:46 Dose: 320 mg - Labs Labs: 02/25/17 07:30 02/25/17 07:30 Attending/Attestation - Attestation I have personally seen and examined this patient.: Yes I have fully participated in the care of the patient.: Yes I have reviewed all pertinent clinical information, including history, physical exam and plan: Yes Notes (Text): 02/25/17 18:46 76 year old female with past medical history of diabetes and hypertension who presented with altered mental status (resolved) secondary to pneumonia. She was transferred to TCU for physical therapy and iv antibiotics. She has now completed her antibiotics. D-dimer was elevated however LE dopplers were negative and VQ scan showed low probability for PE. Her abdominal pain has improved. Continue with monitor LFTs closely which are trending down. Will discuss with adult protective caseworker and family regarding d/c planning. Efra Figueroa MD Hospitalist.
[2017-02-25] MEDS: Metoprolol Succinate 50 mg XL Tab PO SCH (17:54)
[2017-02-25 17:58] LABS: URINE BILIRUBIN NEGATIVE (NEGATIVE); URINE BLOOD NEGATIVE (NEGATIVE); URINE GLUCOSE (UA) NEGATIVE (NEGATIVE); URINE KETONE NEGATIVE (NEGATIVE); URINE LEUKOCYTE ESTERASE NEGATIVE Leu/uL (NEGATIVE); URINE PROTEIN TRACE mg/dL (<30 mg/dL)
[2017-02-25 18:05] LABS: URINE APPEARANCE CLEAR (CLEAR); URINE COLOR YELLOW (YELLOW)
[2017-02-25 19:33] LABS: URINE BACTERIA FEW (NEG); URINE RBC NEGATIVE /hpf (0-2)
[2017-02-25] MEDS: Latanoprost 2.5 ml Opht Soln OU SCH (21:56)
[2017-02-26] MEDS: Levalbuterol 0.63 MG/3 ML Inhal Soln UD IH SCH ×4 (02:26→21:20)
[2017-02-26] MEDS: Megestrol Acetate 40 mg/ml Cup PO SCH (05:36)
[2017-02-26] MEDS: Levothyroxine 75 MCG TAB PO SCH (05:37)
[2017-02-26] MEDS: Pantoprazole 40 mg EC Tab PO SCH (05:37)
[2017-02-26] MEDS: Insulin Lispro (humaLOG) LOW Coverage SC SCH ×4 (07:35→21:58)
[2017-02-26 07:41] LABS: BASO # 0.02 K/mm3 (0.0-2.0); BASO % 0.2 % (0.0-3.0); EOS # 0.5 (0.0-0.7); EOS % 4.7 % (1.5-5.0); GRAN # 8.47 (1.4-6.5); GRAN % 74.8 % (50.0-68.0); HEMATOCRIT 39.7 % (36.0-48.0); LYMPH # 1.7 (1.2-3.4); LYMPH % 15.4 % (22.0-35.0); MEAN CELL VOLUME 82.2 fl (80.0-105.0); MEAN CORPUSCULAR HEMOGLOBIN 27.3 pg (25.0-35.0); MEAN CORPUSCULAR HGB CONC 33.2 g/dl (31.0-37.0); MEAN PLATELET VOLUME 11.1 fl (7.0-11.0); MONO # 0.6 (0.1-0.6); MONO % 4.9 % (1.0-6.0); RED CELL DISTRIBUTION WIDTH 13.7 % (11.5-14.5); WHITE BLOOD COUNT 11.3 10^3/ul (4.5-11.0)
[2017-02-26 07:47] LABS: ALB/GLOB RATIO 1.3 (1.1-1.8); ALKALINE PHOSPHATASE 177 U/L (38-126); ALT/SGPT 69 U/L (7-56); AST/SGOT 46 U/L (14-36); BILIRUBIN,TOTAL 0.6 mg/dL (0.2-1.3); BLOOD UREA NITROGEN 15 mg/dL (7-21); CALCIUM 9.9 mg/dL (8.4-10.5); CARBON DIOXIDE 21 mmol/L (21-33); CHLORIDE 103 mmol/L (98-107); GFR AFRICAN-AMERICAN > 60; GLUCOSE,RANDOM 193 mg/dL (70-110); SODIUM 135 mmol/L (132-148); TOTAL PROTEIN 6.9 g/dL (5.8-8.3)
[2017-02-26] MEDS: Potassium Chloride 20 mEq ER Tab PO SCH ×3 (08:32→18:33)
[2017-02-26] MEDS: POLYETHYLENE GLYCOL 3350 17 GM/Dose PACKET PO SCH (12:15)
--- NOTE | 2017-02-26 13:43 | CP.PCM.PN ---
Subjective - Date & Time of Evaluation Date of Evaluation: 02/26/17 Time of Evaluation: 11:25 - Subjective Subjective: Comfortable, no fevers. Objective - Vital Signs/Intake and Output Vital Signs (last 24 hours): Temp Pulse Resp BP Pulse Ox 98.3 F 79 18 100/72 97 02/26/17 06:00 02/26/17 06:00 02/26/17 06:00 02/26/17 06:00 02/26/17 06:00 - Medications Medications: Current Medications Aspirin (Ecotrin) 81 mg PO 0800 MATEO PRN Reason: Protocol Last Admin: 02/26/17 08:31 Dose: 81 mg Docusate Sodium (Colace) 100 mg PO BID MATEO PRN Reason: Protocol Last Admin: 02/25/17 17:53 Dose: Not Given Gabapentin (Neurontin) 300 mg PO BID MATEO PRN Reason: Protocol Last Admin: 02/25/17 17:54 Dose: 300 mg Heparin Sodium (Porcine) (Heparin) 5,000 units SC Q8 MATEO PRN Reason: Protocol Last Admin: 02/26/17 05:35 Dose: 5,000 units Ibuprofen (Motrin Tab) 400 mg PO Q6H PRN; Protocol PRN Reason: Fever >100.4 F Last Admin: 02/22/17 03:50 Dose: 400 mg Insulin Human Lispro (Humalog Low) 0 units SC ACHS MATEO PRN Reason: Protocol Last Admin: 02/26/17 07:35 Dose: Not Given Latanoprost (Xalatan Opht) 0.05 ml OU HS [facility] Last Admin: 02/25/17 21:56 Dose: 0.05 ml Levalbuterol HCl (Xopenex) 0.63 mg IH [id number] MATEO PRN Reason: Protocol Last Admin: 02/26/17 07:38 Dose: 0.63 mg Levothyroxine Sodium (Synthroid) 75 mcg PO 0630 MATEO PRN Reason: Protocol Last Admin: 02/26/17 05:37 Dose: 75 mcg Meclizine HCl (Antivert) 25 mg PO TID PRN; Protocol PRN Reason: Dizziness Megestrol Acetate (Megace) 400 mg PO 0630 MATEO PRN Reason: Protocol Last Admin: 02/26/17 05:36 Dose: 400 mg Metoprolol Succinate (Toprol Xl) 50 mg PO 1800 MATEO PRN Reason: Protocol Last Admin: 02/25/17 17:54 Dose: 50 mg Mupirocin (Bactroban Ointment) 0 gm TOP TID MATEO PRN Reason: Protocol Last Admin: 02/25/17 17:51 Dose: Not Given Nicotine (Nicoderm Cq) 1 patch TD DAILY MATEO PRN Reason: Protocol Last Admin: 02/25/17 09:47 Dose: 1 patch Ondansetron HCl (Zofran Inj) 4 mg IVP Q4H PRN; Protocol PRN Reason: Nausea/Vomiting Pantoprazole Sodium (Protonix Ec Tab) 40 mg PO 0600 MATEO Last Admin: 02/26/17 05:37 Dose: 40 mg Polyethylene Glycol (Miralax) 17 gm PO DAILY MATEO PRN Reason: Protocol Last Admin: 02/25/17 09:47 Dose: Not Given Potassium Chloride (K-Dur 20 Meq Er Tab) 20 meq PO 0800,1200,1800 MATEO PRN Reason: Protocol Last Admin: 02/26/17 08:32 Dose: 20 meq Valsartan (Diovan) 320 mg PO DAILY MATEO PRN Reason: Protocol Last Admin: 02/25/17 09:46 Dose: 320 mg - Labs Labs: 02/26/17 07:33 02/26/17 07:33 - Constitutional Appears: Non-toxic, No Acute Distress - Head Exam Head Exam: NORMAL INSPECTION - ENT Exam ENT Exam: Mucous Membranes Moist - Neck Exam Neck Exam: absent: Meningismus - Respiratory Exam Respiratory Exam: Decreased Breath Sounds - Cardiovascular Exam Cardiovascular Exam: +S1, +S2 - GI/Abdominal Exam GI & Abdominal Exam: Soft. absent: Tenderness Assessment and Plan - Assessment and Plan (Free Text) Plan: Assessment R/O sepsis due to left lower lobe healthcare-associated pneumonia, clinically improved and S/P treatment COPD history of TIA S/P left eye cataract surgery DM hypothyroidism S/P S/P hysterectomy S/P tonsillectomy HTN significant smoking history Plan completed course of Zithromax and Merrem; repeat blood cx negative PCT is only 0.5, CXR is unchanged - continue to monitor off antibiotics since she is at risk for nosocomial infections V/Q scan is negative for P.E.
[2017-02-26] MEDS: Metoprolol Succinate 50 mg XL Tab PO SCH (18:33)
[2017-02-26] MEDS: Latanoprost 2.5 ml Opht Soln OU SCH (21:59)
[2017-02-27] MEDS: Levalbuterol 0.63 MG/3 ML Inhal Soln UD IH SCH ×3 (03:00→13:16)
[2017-02-27 06:13] VITALS: PULSE 76; RESP 20; TEMP 97.9; O2SAT 97
[2017-02-27] MEDS: Megestrol Acetate 40 mg/ml Cup PO SCH (06:28)
[2017-02-27] MEDS: Levothyroxine 75 MCG TAB PO SCH (06:28)
[2017-02-27] MEDS: Pantoprazole 40 mg EC Tab PO SCH (06:28)
[2017-02-27] MEDS: Insulin Lispro (humaLOG) LOW Coverage SC SCH ×3 (06:30→17:34)
[2017-02-27] MEDS: Potassium Chloride 20 mEq ER Tab PO SCH ×3 (08:12→17:40)
[2017-02-27] MEDS: POLYETHYLENE GLYCOL 3350 17 GM/Dose PACKET PO SCH (11:22)
--- NOTE | 2017-02-27 15:35 | CP.PCM.DIS ---
<JohnModesto - Last Filed: 02/27/17 15:36> Provider - Provider Date of Admission: 02/20/17 13:52 Attending physician: Felipe Marks MD Primary care physician: Ronaldo Mukherjee MD Time Spent in preparation of Discharge (in minutes): 45 Hospital Course - Lab Results Lab Results: Micro Results 02/21/17 08:56 Blood-Venous Blood Culture - Final NO GROWTH AFTER 5 DAYS 02/21/17 08:56 Blood-Venous Gram Stain - Final TEST NOT PERFORMED 02/21/17 08:32 Blood-Venous Blood Culture - Final NO GROWTH AFTER 5 DAYS 02/21/17 08:32 Blood-Venous Gram Stain - Final TEST NOT PERFORMED 02/21/17 23:14 Urine,Clean Catch Urine Culture - Final No Growth (<1,000 CFU/ML) Most Recent Lab Values WBC 11.3 10^3/ul (4.5-11.0) H 02/26/17 07:33 RBC 4.83 10^6/uL (3.5-6.1) 02/26/17 07:33 Hgb 13.2 g/dL (12.0-16.0) 02/26/17 07:33 Hct 39.7 % (36.0-48.0) 02/26/17 07:33 MCV 82.2 fl (80.0-105.0) 02/26/17 07:33 MCH 27.3 pg (25.0-35.0) 02/26/17 07:33 MCHC 33.2 g/dl (31.0-37.0) 02/26/17 07:33 RDW 13.7 % (11.5-14.5) 02/26/17 07:33 Plt Count 402 10^3/uL (120.0-450.0) 02/26/17 07:33 MPV 11.1 fl (7.0-11.0) H 02/26/17 07:33 Gran % 74.8 % (50.0-68.0) H 02/26/17 07:33 Lymph % (Auto) 15.4 % (22.0-35.0) L 02/26/17 07:33 [place] % (Auto) 4.9 % (1.0-6.0) 02/26/17 07:33 Eos % (Auto) 4.7 % (1.5-5.0) 02/26/17 07:33 Baso % (Auto) 0.2 % (0.0-3.0) 02/26/17 07:33 Gran # 8.47 (1.4-6.5) H 02/26/17 07:33 Lymph # 1.7 (1.2-3.4) 02/26/17 07:33 [place] # 0.6 (0.1-0.6) 02/26/17 07:33 Eos # 0.5 (0.0-0.7) 02/26/17 07:33 Baso # 0.02 K/mm3 (0.0-2.0) 02/26/17 07:33 D-Dimer, Quantitative 2.28 mg/L FEU (0-0.50) H 02/21/17 08:50 Sodium 135 mmol/L (132-148) 02/26/17 07:33 Potassium 5.0 mmol/L (3.6-5.0) 02/26/17 07:33 Chloride 103 mmol/L (98-107) 02/26/17 07:33 Carbon Dioxide 21 mmol/L (21-33) 02/26/17 07:33 Anion Gap 16 (10-20) 02/26/17 07:33 BUN 15 mg/dL (7-21) 02/26/17 07:33 Creatinine 0.6 mg/dL (0.5-1.4) 02/26/17 07:33 Est GFR ( Amer) > 60 02/26/17 07:33 Est GFR (Non-Af Amer) > 60 02/26/17 07:33 POC Glucose (mg/dL) 193 mg/dL (65-110) H 02/27/17 05:18 Random Glucose 193 mg/dL (70-110) H 02/26/17 07:33 Calcium 9.9 mg/dL (8.4-10.5) 02/26/17 07:33 Total Bilirubin 0.6 mg/dL (0.2-1.3) 02/26/17 07:33 AST 46 U/L (14-36) H 02/26/17 07:33 ALT 69 U/L (7-56) H 02/26/17 07:33 Alkaline Phosphatase 177 U/L (38-126) H 02/26/17 07:33 Total Protein 6.9 g/dL (5.8-8.3) 02/26/17 07:33 Albumin 3.9 g/dL (3.0-4.8) 02/26/17 07:33 Globulin 3.0 gm/dL 02/26/17 07:33 Albumin/Globulin Ratio 1.3 (1.1-1.8) 02/26/17 07:33 Procalcitonin 0.50 NG/ML (0.19-0.49) H 02/21/17 08:27 Urine Color Yellow (YELLOW) 02/25/17 15:40 Urine Appearance Clear (CLEAR) 02/25/17 15:40 Urine pH 6.0 (4.7-8.0) 02/25/17 15:40 Ur Specific [place] 1.020 (1.005-1.035) 02/25/17 15:40 Urine Protein Trace mg/dL (<30 mg/dL) H 02/25/17 15:40 Urine Glucose (UA) Negative mg/dL (NEGATIVE) 02/25/17 15:40 Urine Ketones Negative mg/dL (NEGATIVE) 02/25/17 15:40 Urine Blood Negative (NEGATIVE) 02/25/17 15:40 Urine Nitrate Negative (NEGATIVE) 02/25/17 15:40 Urine Bilirubin Negative (NEGATIVE) 02/25/17 15:40 Urine Urobilinogen 1.0 E.U./dL (<1 E.U./dL) H 02/25/17 15:40 Ur Leukocyte Esterase Negative Jax/uL (NEGATIVE) 02/25/17 15:40 Urine RBC Negative /hpf (0-2) 02/25/17 15:40 Urine WBC 2 - 5 /hpf (0-6) 02/25/17 15:40 Ur Epithelial Cells 3 - 4 /hpf (0-5) 02/25/17 15:40 Urine Bacteria Few (NEG) 02/25/17 15:40 - Hospital Course Hospital Course: This is a 76 year old female with a past medical history of hypertension, type 2 diabetes mellitus, hypothyroid, hyperlipidemia, and vertigo who comes in with complaints of abdominal pain, generalized weakness, and diffuse body aches. The patient's daughter, Lacey says her mother was at her baseline up until Sunday02/10/17 when she returned from the park that she had signs of abdominal pain, generalized weakness and confusion. The patient recently was hospitalized in the hospital for left sided hospital acquired pneumonia. The patient was discharged to TCU for further IV antibiotics and physical therapy. The patient received physical therapy and completed her IV antibiotic treatment while in recovery. The patient was seen today with no signs of distress. The patient was afebrile and no signs of leukocytosis. The patient was cleared medically home. The patient was strongly advised to follow up with PMD within one week of discharge. Discharge Exam - Head Exam Head Exam: NORMAL INSPECTION - Eye Exam Eye Exam: EOMI, Normal appearance, PERRL Pupil Exam: NORMAL ACCOMODATION, PERRL. absent: Irregular, Unequal - ENT Exam ENT Exam: Mucous Membranes Moist, Normal Oropharynx - Respiratory Exam Respiratory Exam: Clear to PA & Lateral, NORMAL BREATHING PATTERN, UNREMARKABLE. absent: Rhonchi, Wheezes, Stridor - Cardiovascular Exam Cardiovascular Exam: REGULAR RHYTHM, +S1, +S2. absent: RRR, Systolic Murmur - GI/Abdominal Exam GI & Abdominal Exam: Normal Bowel Sounds, Unremarkable. absent: Hypoactive Bowel Sounds, Pulsatile Mass - Back Exam Back exam: NORMAL INSPECTION. absent: CVA tenderness (L), CVA tenderness (R), paraspinal tenderness - Neurological Exam Neurological exam: Alert, CN II-XII Intact, Normal Gait, Oriented x3 - Psychiatric Exam Psychiatric exam: Normal Affect, Normal Mood - Skin Skin Exam: Dry, Normal Color, Warm Discharge Plan - Discharge Medications Prescriptions: Latanoprost 0.005% Opht [Xalatan Opht] 1 isra BARBOSA HS #1 bottle - Follow Up Plan Condition: GOOD Disposition: HOME/ ROUTINE Instructions: How to Stop Smoking (DC), How to Stop Smoking (GEN), Cigarette Smoking and Your Health (GEN), COPD (Chronic Obstructive Pulmonary Disease) (DC) , Acute Abdominal Pain (DC), Pneumonia (DC) Additional Instructions: Patient should have a repeat CBC w/differential within one week of discharge. Patient advised to f/u with PMD within one week of discharge. Patient advised to return to emergency department for any new or worsening symptoms. Referrals: Ronaldo Mukherjee MD [Primary Care Provider] - <Felipe Marks - Last Filed: 02/28/17 13:43> Provider - Provider Date of Admission: 02/20/17 13:52 Attending physician: Felipe Marks MD Primary care physician: Ronaldo Mukherjee MD Hospital Course - Lab Results Lab Results: Micro Results 02/21/17 08:56 Blood-Venous Blood Culture - Final NO GROWTH AFTER 5 DAYS 02/21/17 08:56 Blood-Venous Gram Stain - Final TEST NOT PERFORMED 02/21/17 08:32 Blood-Venous Blood Culture - Final NO GROWTH AFTER 5 DAYS 02/21/17 08:32 Blood-Venous Gram Stain - Final TEST NOT PERFORMED 02/21/17 23:14 Urine,Clean Catch Urine Culture - Final No Growth (<1,000 CFU/ML) Most Recent Lab Values WBC 11.3 10^3/ul (4.5-11.0) H 02/26/17 07:33 RBC 4.83 10^6/uL (3.5-6.1) 02/26/17 07:33 Hgb 13.2 g/dL (12.0-16.0) 02/26/17 07:33 Hct 39.7 % (36.0-48.0) 02/26/17 07:33 MCV 82.2 fl (80.0-105.0) 02/26/17 07:33 MCH 27.3 pg (25.0-35.0) 02/26/17 07:33 MCHC 33.2 g/dl (31.0-37.0) 02/26/17 07:33 RDW 13.7 % (11.5-14.5) 02/26/17 07:33 Plt Count 402 10^3/uL (120.0-450.0) 02/26/17 07:33 MPV 11.1 fl (7.0-11.0) H 02/26/17 07:33 Gran % 74.8 % (50.0-68.0) H 02/26/17 07:33 Lymph % (Auto) 15.4 % (22.0-35.0) L 02/26/17 07:33 [place] % (Auto) 4.9 % (1.0-6.0) 02/26/17 07:33 Eos % (Auto) 4.7 % (1.5-5.0) 02/26/17 07:33 Baso % (Auto) 0.2 % (0.0-3.0) 02/26/17 07:33 Gran # 8.47 (1.4-6.5) H 02/26/17 07:33 Lymph # 1.7 (1.2-3.4) 02/26/17 07:33 [place] # 0.6 (0.1-0.6) 02/26/17 07:33 Eos # 0.5 (0.0-0.7) 02/26/17 07:33 Baso # 0.02 K/mm3 (0.0-2.0) 02/26/17 07:33 D-Dimer, Quantitative 2.28 mg/L FEU (0-0.50) H 02/21/17 08:50 Sodium 135 mmol/L (132-148) 02/26/17 07:33 Potassium 5.0 mmol/L (3.6-5.0) 02/26/17 07:33 Chloride 103 mmol/L (98-107) 02/26/17 07:33 Carbon Dioxide 21 mmol/L (21-33) 02/26/17 07:33 Anion Gap 16 (10-20) 02/26/17 07:33 BUN 15 mg/dL (7-21) 02/26/17 07:33 Creatinine 0.6 mg/dL (0.5-1.4) 02/26/17 07:33 Est GFR ( Amer) > 60 02/26/17 07:33 Est GFR (Non-Af Amer) > 60 02/26/17 07:33 POC Glucose (mg/dL) 193 mg/dL (65-110) H 02/27/17 05:18 Random Glucose 193 mg/dL (70-110) H 02/26/17 07:33 Calcium 9.9 mg/dL (8.4-10.5) 02/26/17 07:33 Total Bilirubin 0.6 mg/dL (0.2-1.3) 02/26/17 07:33 AST 46 U/L (14-36) H 02/26/17 07:33 ALT 69 U/L (7-56) H 02/26/17 07:33 Alkaline Phosphatase 177 U/L (38-126) H 02/26/17 07:33 Total Protein 6.9 g/dL (5.8-8.3) 02/26/17 07:33 Albumin 3.9 g/dL (3.0-4.8) 02/26/17 07:33 Globulin 3.0 gm/dL 02/26/17 07:33 Albumin/Globulin Ratio 1.3 (1.1-1.8) 02/26/17 07:33 Procalcitonin 0.50 NG/ML (0.19-0.49) H 02/21/17 08:27 Urine Color Yellow (YELLOW) 02/25/17 15:40 Urine Appearance Clear (CLEAR) 02/25/17 15:40 Urine pH 6.0 (4.7-8.0) 02/25/17 15:40 Ur Specific [place] 1.020 (1.005-1.035) 02/25/17 15:40 Urine Protein Trace mg/dL (<30 mg/dL) H 02/25/17 15:40 Urine Glucose (UA) Negative mg/dL (NEGATIVE) 02/25/17 15:40 Urine Ketones Negative mg/dL (NEGATIVE) 02/25/17 15:40 Urine Blood Negative (NEGATIVE) 02/25/17 15:40 Urine Nitrate Negative (NEGATIVE) 02/25/17 15:40 Urine Bilirubin Negative (NEGATIVE) 02/25/17 15:40 Urine Urobilinogen 1.0 E.U./dL (<1 E.U./dL) H 02/25/17 15:40 Ur Leukocyte Esterase Negative Jax/uL (NEGATIVE) 02/25/17 15:40 Urine RBC Negative /hpf (0-2) 02/25/17 15:40 Urine WBC 2 - 5 /hpf (0-6) 02/25/17 15:40 Ur Epithelial Cells 3 - 4 /hpf (0-5) 02/25/17 15:40 Urine Bacteria Few (NEG) 02/25/17 15:40 Attending/Attestation - Attestation I have personally seen and examined this patient.: Yes I have fully participated in the care of the patient.: Yes I have reviewed all pertinent clinical information, including history, physical exam and plan: Yes Notes (Text): 02/28/17 13:41 Patient was seen and examined with medical videographer. Agreed with resident assessment and plan. 76 year old female with PMH of diabetes and hypertension was admitted with altered mental status (resolved) secondary to pneumonia. She was transferred to TCU for physical therapy and iv antibiotics. She has now completed her antibiotics. D-dimer was elevated however LE dopplers were negative and VQ scan showed low probability for PE. Her abdominal pain has improved. LFT are coming down.Patient is ambulatory. She will be discharged home and will follow up with PMD.She will need repeat LFT in one week. Management plan was discussed in detail with patient Education was provided.
[2017-02-27] MEDS: Metoprolol Succinate 50 mg XL Tab PO SCH (17:41)
[2017-02-27 17:48] VITALS: BP 117/67
== END 2017-02-27 20:04 | disposition home or self-care (01) | DRG 190 ==
LOC: TRCU 13:52
PROVIDERS: ADMIT Internal Medicine; ATTEND Internal Medicine
PROC: 3E03329 Introduction of Other Anti-infective into Peripheral Vein, Percutaneous Approach (ICD-10-PCS; 2017-02-20)
PROC: F07Z9FZ Gait Training/Functional Ambulation Treatment using Assistive, Adaptive, Supportive or Protective Equipment (ICD-10-PCS; principal; 2017-02-24)
PROC: F08Z2FZ Grooming/Personal Hygiene Treatment using Assistive, Adaptive, Supportive or Protective Equipment (ICD-10-PCS; 2017-02-24)
PROC: F07Z5FZ Bed Mobility Treatment using Assistive, Adaptive, Supportive or Protective Equipment (ICD-10-PCS; 2017-02-25)
PROC: F07Z8FZ Transfer Training Treatment using Assistive, Adaptive, Supportive or Protective Equipment (ICD-10-PCS; 2017-02-25)
PROC: F08Z1FZ Dressing Techniques Treatment using Assistive, Adaptive, Supportive or Protective Equipment (ICD-10-PCS; 2017-02-25)
PROC: F07L6ZZ Therapeutic Exercise Treatment of Musculoskeletal System - Lower Back / Lower Extremity (ICD-10-PCS; 2017-02-26)
DX: J44.0 Chronic obstructive pulmonary disease with (acute) lower respiratory infection (principal); J18.9 Pneumonia, unspecified organism; Z79.2 Long term (current) use of antibiotics; E11.43 Type 2 diabetes mellitus with diabetic autonomic (poly)neuropathy; K31.84 Gastroparesis; I10 Essential (primary) hypertension; H40.9 Unspecified glaucoma; E78.5 Hyperlipidemia, unspecified; E03.9 Hypothyroidism, unspecified; R42 Dizziness and giddiness; F17.200 Nicotine dependence, unspecified, uncomplicated; R32 Unspecified urinary incontinence; Y95 Nosocomial condition; Z79.4 Long term (current) use of insulin; Z86.73 Personal history of transient ischemic attack (TIA), and cerebral infarction without residual deficits; Z88.2 Allergy status to sulfonamides

== ENCOUNTER 2017-07-09 10:13 | Inpatient (IN) | payer MEDICARE, OTHER ==
[2017-07-09] MEDS ORDERED: Sodium Chloride 0.9% 500 ML IV STA (10:37)
[2017-07-09] MEDS ORDERED: Piperacillin/Tazobact 3.375 gm 100 ML IVPB STA (10:37)
[2017-07-09] MEDS ORDERED: Vancomycin 1gm in NS 250ml 1 GM/250 ML BAG IVPB STA (10:37)
--- NOTE | 2017-07-09 10:50 | ED PDOC ---
Arrival/HPI - General Chief Complaint: Altered Mental Status Time Seen by Provider: 07/09/17 10:31 Historian: Family (daughter) - History of Present Illness Narrative History of Present Illness (Text): 07/09/17 10:45 76 year old female, with past medical history of COPD, TIA and diabetes, presents to the Emergency department via EMS accompanied by family for altered mental status since last night. As per daughter, patient complains of cough for last 3 weeks, for which she was prescribed with z-dustin with no improvement to symptoms. Patient's symptoms worsened developing cough, fever and difficulty swallowing for past few days. Daughter states patient became increasingly confused from baseline last night and is currently symptomatic of altered mental status. Patient denies any nausea, vomiting, diarrhea, abdominal pain, chest pain, shortness of breath or any other complaints. Time/Duration: 24 hours Symptom Onset: Gradual Symptom Course: Worsening Activities at Onset: Light Context: Home Past Medical History - Provider Review Nursing Documentation Reviewed: Yes - Infectious Disease Hx of Infectious Diseases: None - Tetanus Immunization Tetanus Immunization: Allergy to Tetanus Vaccine - Cardiac Hx Hypertension: Yes - Pulmonary Hx Chronic Obstructive Pulmonary Disease (COPD): Yes Hx Pneumonia: Yes - Neurological Hx Paralysis: No Hx Transient Ischemic Attacks (TIA): Yes - HEENT Hx HEENT Disorder: Yes Other/Comment: LEFT EYE CATARACT SURGERY 06/2015 - Renal Hx Renal Disorder: No - Endocrine/Metabolic Hx Diabetes Mellitus Type 2: Yes (Diabetic Neuropathy) - Hematological/Oncological Hx Blood Transfusions: No Hx Blood Transfusion Reaction: No - Integumentary Hx Dermatological Disorder: No - Musculoskeletal/Rheumatological Hx Falls: Yes - Gastrointestinal Hx Gastrointestinal Disorders: Yes (GERD,CONSTIPATION,HIATAL HERNIA, GASTROPARESIS, POOR APPETITE) - Genitourinary/Gynecological Hx Genitourinary Disorders: No (URGENCY,FREQUENCY) Hx Reproductive Disorders: No (H/O 4 C SECTIONS,HYSTERECTOMY) - Psychiatric Hx Emotional Abuse: No Hx Physical Abuse: No Hx Substance Use: No - Surgical History Hx Section: Yes (x4) Hx Hysterectomy: Yes Hx Musculoskeletal Surgery: Yes (Hand, Toes) Hx Thyroidectomy: Yes Hx Tonsillectomy: Yes - Anesthesia Hx Anesthesia: Yes Hx Anesthesia Reactions: No Hx Malignant Hyperthermia: No - Suicidal Assessment Feels Threatened In Home Enviroment: No Family/Social History - Physician Review Nursing Documentation Reviewed: Yes Family/Social History: Unknown Family HX Smoking Status: Current Some Days Smoker Hx Alcohol Use: No Hx Substance Use: No Allergies/Home Meds Allergies/Adverse Reactions: Allergies Sulfa (Sulfonamide Antibiotics) Allergy (Verified 07/14/17 20:37) ANAPHYLAXIS Tetanus Vaccines and Toxoid [Tetanus Vaccines & Toxoid] Allergy (Verified 20:37) RASH tetracycline Allergy (Verified 07/14/17 20:37) RASH Home Medications: Home Meds Medication Instructions Recorded Confirmed Latanoprost 0.005% Opht [Xalatan 1 drp EACHEYE 02/01/16 07/14/17 Opht] Review of Systems - Physician Review All systems were reviewed & negative as marked: Yes - Review of Systems Constitutional: Fevers Eyes: Normal ENT: Normal, Other (difficulty swallowing) Respiratory: Cough. absent: SOB Cardiovascular: Normal. absent: Chest Pain Gastrointestinal: Normal. absent: Abdominal Pain, Diarrhea, Nausea, Vomiting Genitourinary Female: Normal Musculoskeletal: Normal Skin: Normal Neurological: Other (Altered mental status) Endocrine: Normal Hemo/Lymphatic: Normal Psychiatric: Normal Physical Exam Vital Signs Reviewed: Yes Vital Signs Temp Pulse Resp BP Pulse Ox 07/09/17 21:50 118 H 07/09/17 21:40 123 H 07/09/17 21:12 101.1 F H 102 H 18 114/87 07/09/17 21:00 99.8 F H 109 H 18 155/95 H 97 07/09/17 19:31 101.1 F H 07/09/17 14:14 98.9 F 100 H 18 152/92 H 98 07/09/17 12:13 100 F H 98 H 18 163/109 H 98 07/09/17 11:22 102.2 F H 07/09/17 10:33 197/111 H 07/09/17 10:21 102.2 F H 117 H 18 98 Temperature: Febrile Blood Pressure: Hypertensive Pulse: Tachycardic Respiratory Rate: Normal Appearance: Positive for: Well-Appearing, Non-Toxic, Comfortable Pain Distress: None Mental Status: Positive for: Confused - Systems Exam Head: Present: Atraumatic, Normocephalic Pupils: Present: PERRL Extroacular Muscles: Present: EOMI Conjunctiva: Present: Normal Mouth: Present: Moist Mucous Membranes Neck: Present: Normal Range of Motion Respiratory/Chest: Present: Other (Coarse breath sounds bilaterally). No: Respiratory Distress, Accessory Muscle Use Cardiovascular: Present: Normal S1, S2, Tachycardic. No: Murmurs Abdomen: Present: Normal Bowel Sounds. No: Tenderness, Distention, Peritoneal Signs Back: Present: Normal Inspection Upper Extremity: Present: Normal Inspection. No: Cyanosis, Edema Lower Extremity: Present: Normal Inspection. No: Edema Neurological: Present: GCS=15, CN II-XII Intact, Other (altered with confused responses. No focal deficits.) Skin: Present: Warm, Dry, Normal Color. No: Rashes Psychiatric: Present: Alert (altered with confused responses.) Medical Decision Making ED Course and Treatment: 07/09/17 10:57 Impression: 76 year old female presents to the Emergency department for altered mental status. Plan: -- VBG -- CT of Head -- EKG -- Labs -- Chest X-ray -- IV Fluids -- Tylenol -- Vancomycin -- Piperacillin -- Urine Culture -- Influenza -- Urinalysis -- Reassess and disposition Progress Notes: 07/09/17 12:03 EKG: Ordered, reviewed, and independently interpreted the EKG. Rate : 115 BPM Rhythm : Sinus Tachycardia Interpretation : No ST-segment elevations or depressions, no T-wave inversions, normal intervals. 07/09/17 12:48 CT of reviewed by radiologist, shows: No acute intracranial abnormality. 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 Mild chronic microangiopathic changes and mild age-related global parenchymal volume loss. 07/09/17 12:50 Chest X-ray reviewed by radiologist, shows no active pulmonary disease. - Lab Interpretations Microbiology Results: Microbiology Results 07/09/17 12:50 Urine Urine Culture - Final Klebsiella Pneumoniae Ssp Pneu Lab Results: 07/09/17 11:00 07/09/17 11:00 Lab Results 07/09/17 12:50: Urine Color Yellow, Urine Appearance Clear, Urine pH 7.0, Ur Specific Beatrice 1.010, Urine Protein Negative, Urine Glucose (UA) Negative, Urine Ketones Negative, Urine Blood Trace-lysed H, Urine Nitrate Negative, Urine Bilirubin Negative, Urine Urobilinogen 0.2, Ur Leukocyte Esterase Trace H , Urine RBC 2 - 5, Urine WBC 0 - 2, Ur Epithelial Cells 4 - 5, Amorphous Sediment Few, Urine Bacteria Mod 07/09/17 11:00: Sodium 137, Chloride 99, Potassium 3.7, Carbon Dioxide 24, Anion Gap 17, BUN 10, Creatinine 0.6 L, Est GFR ( Amer) > 60, Est GFR ( Non-Af Amer) > 60, Random Glucose 124 H, Calcium 9.2, Magnesium 1.5 L, Total Bilirubin 0.5, AST 39 H, ALT 37, Alkaline Phosphatase 74, Lactate Dehydrogenase 535, Total Creatine Kinase 57, Troponin I < 0.01, Total Protein 7.7, Albumin 4.5 , Globulin 3.2, Albumin/Globulin Ratio 1.4 07/09/17 11:00: PT 11.8, INR 1.03, APTT 29.0 07/09/17 11:00: WBC 9.0 D, RBC 5.18, Hgb 14.4, Hct 42.9, MCV 82.8, MCH 27.8, MCHC 33.6, RDW 12.5, Plt Count 203, MPV 11.3 H, Gran % 88.4 H, Lymph % (Auto) 6.9 L, [place]born % (Auto) 4.2, Eos % (Auto) 0.3 L, Baso % (Auto) 0.2, Gran # 7.99 H, Lymph # (Auto) 0.6 L, [place]born # (Auto) 0.4, Eos # (Auto) 0.0, Baso # (Auto) 0.02 07/09/17 11:00: pO2 39, VBG pH 7.44 H, VBG pCO2 37.0 L, VBG HCO3 25.1, VBG Total CO2 26.2, VBG O2 Sat (Calc) 82.2 H, VBG Base Excess 1.1, VBG Potassium 5.9 H, Sodium 131.0 L, Chloride 100.0, Glucose 128 H, Lactate 1.5, FiO2 21.0, Venous Blood Potassium 5.9 H - RAD Interpretation Radiology Orders: 07/09/17 10:36 CHEST PORTABLE [RAD] Stat 07/09/17 10:38 HEAD W/O CONTRAST [CT] Stat - Medication Orders Current Medication Orders: Discontinued Medications Acetaminophen (Tylenol 325mg Tab) 975 mg PO STAT STA Stop: 07/09/17 10:39 Last Admin: 07/09/17 11:22 Dose: 975 mg MAR Pain/Vitals Document 07/09/17 11:22 MR (Rec: 07/09/17 11:22 MR [id number]) Pain Reassessment Is This A Pain ReAssessment? No Presence of Pain Presence of Pain No Vitals Temperature (97.6 F-99.6 F) 102.2 F Temperature Source Oral Re-Assess: MAR Pain/Vitals Document 07/09/17 12:22 [employer]ER (Rec: 07/09/17 12:36 [employer] [id number]) Pain Reassessment Is This A Pain ReAssessment? No Acetaminophen (Tylenol 650 Mg Supp) 650 mg RC Q6H PRN PRN Reason: Fever >100.4 F Last Admin: 07/09/17 22:34 Dose: 650 mg MAR Pain/Vitals Document 07/09/17 22:34 AP (Rec: 07/09/17 22:34 AP [id number]) Vitals Temperature (97.6 F-99.6 F) 103.7 F Temperature Source Rectal Re-Assess: [facility] Pain/Vitals Document 07/09/17 23:34 AP (Rec: 07/09/17 23:57 AP [id number]) Pain Reassessment Is This A Pain ReAssessment? No Pain Scale Used Pain Scale Used [place] Albuterol/Ipratropium (Duoneb 3 Mg/0.5 Mg (3 Ml) Ud) 3 ml IH [id number] [facility] Amlodipine Besylate (Norvasc) 5 mg PO STAT STA Stop: 07/12/17 12:29 Last Admin: 07/12/17 12:47 Dose: 5 mg [facility] Pulse and Blood Pressure Document 07/12/17 12:47 MV (Rec: 07/12/17 12:47 MV [id number]) Pulse Pulse Rate (60-90) 80 Blood Pressure Blood Pressure (100/60-150/90) 144/120 Amlodipine Besylate (Norvasc) 5 mg PO DAILY [facility] Last Admin: 07/14/17 10:21 Dose: 5 mg Aspirin (Ecotrin) 81 mg PO DAILY [facility] Last Admin: 07/14/17 10:21 Dose: 81 mg Clonidine HCl (Catapres-Tts2 0.2 Mg/24 Hr) 1 patch TD Q7D@1000 MATEO Clonidine HCl (Catapres-Tts2 0.2 Mg/24 Hr) 1 patch TD Q7D@1000 MATEO Clonidine HCl (Catapres-Tts2 0.2 Mg/24 Hr) 1 patch TD STAT STA Stop: 07/09/17 22:29 Last Admin: 07/09/17 22:35 Dose: 1 patch MAR Pulse and Blood Pressure Document 07/09/17 22:35 AP (Rec: 07/09/17 22:36 [place] [id number]) Pulse Pulse Rate (60-90) 118 Blood Pressure Blood Pressure (100/60-150/90) 197/124 Docusate Sodium (Colace) 100 mg PO BID MATEO Last Admin: 07/09/17 21:58 Dose: Not Given Non-Admin Reason: NPO Gabapentin (Neurontin) 300 mg PO BID MATEO PRN Reason: Protocol Last Admin: 07/09/17 21:59 Dose: Not Given Non-Admin Reason: NPO Gabapentin (Neurontin) 100 mg PO TID MATEO PRN Reason: Protocol Last Admin: 07/14/17 13:20 Dose: 100 mg Behavioural Document 07/14/17 13:20 TAV (Rec: 07/14/17 13:20 TAV [id number]) Maintenance Maintenance Dose Yes Nonmedicinal Nonmedicinal Interventions Redirect Behavior Behavior for Medication: Anxiety Hydralazine HCl (Apresoline) 10 mg IVP ONCE ONE Stop: 07/09/17 23:02 Last Admin: 07/09/17 23:23 Dose: Not Given Non-Admin Reason: BP Parameters Not Met MAR Pulse and Blood Pressure Document 07/09/17 23:23 AP (Rec: 07/09/17 23:24 AP [place] [id number]) Pulse Pulse Rate (60-90) 119 Blood Pressure Blood Pressure (100/60-150/90) 160/97 Hydralazine HCl (Apresoline) 10 mg IVP Q6 PRN PRN Reason: Systolic Blood Pressure Last Admin: 07/12/17 14:12 Dose: 10 mg IVP Administration Document 07/12/17 14:12 MV (Rec: 07/12/17 14:12 MV [id number]) Charges for Administration # of IVP Administrations 1 MAR Pulse and Blood Pressure Document 07/12/17 14:12 MV (Rec: 07/12/17 14:12 MV [id number]) Pulse Pulse Rate (60-90) 102 Blood Pressure Blood Pressure (100/60-150/90) 140/90 Sodium Chloride (Sodium Chloride 0.9%) 500 mls @ 999 mls/hr IV .Q31M STA Stop: 07/09/17 11:07 Last Admin: 07/09/17 11:21 Dose: 999 mls/hr eMAR Start Stop Document 07/09/17 11:21 MR (Rec: 07/09/17 11:21 MR [id number]) Intravenous Solution Start Date 07/09/17 Start Time 11:01 End Date 07/09/17 End time 11:31 Total Infusion Time 30 Vancomycin HCl (Vancomycin 1gm) 1 gm in 250 mls @ 167 mls/hr IVPB STAT STA PRN Reason: Protocol Stop: 07/09/17 12:06 Last Admin: 07/09/17 12:39 Dose: 167 mls/hr eMAR Start Stop Document 07/09/17 12:39 [employer]ER (Rec: 07/09/17 12:40 [facility]-[id number]) Intravenous Solution Start Date 07/09/17 Start Time 12:40 End Date 07/09/17 End time 13:55 Total Infusion Time 75 Piperacillin Sod/Tazobactam Sod (Zosyn 3.375 In Ns 100ml) 100 mls @ 200 mls/hr IVPB STAT STA PRN Reason: Protocol Stop: 07/09/17 11:06 Last Admin: 07/09/17 11:21 Dose: 200 mls/hr eMAR Start Stop Document 07/09/17 11:21 MR (Rec: 07/09/17 11:22 MR [id number]) Intravenous Solution Start Date 07/09/17 Start Time 11:22 End Date 07/09/17 End time 11:52 Total Infusion Time 30 Meropenem 1 gm/ Sodium (Chloride) 100 mls @ 100 mls/hr IVPB Q8 MATEO PRN Reason: Protocol Stop: 07/16/17 22:01 Last Admin: 07/10/17 05:00 Dose: 100 mls/hr eMAR Start Stop Document 07/10/17 05:00 MARK (Rec: 07/10/17 05:01 MARK [id number]) Intravenous Solution Start Date 07/10/17 Start Time 05:01 End Date 07/10/17 End time 06:01 Total Infusion Time 60 Vancomycin HCl (Vancomycin 1gm) 1 gm in 250 mls @ 167 mls/hr IVPB Q12H MATEO PRN Reason: Protocol Last Admin: 07/11/17 12:50 Dose: 167 mls/hr eMAR Start Stop Document 07/11/17 12:50 KJ (Rec: 07/11/17 13:44 KJ [id number]) Intravenous Solution Start Date 07/11/17 Start Time 12:50 End Date 07/11/17 End time 13:50 Total Infusion Time 60 Sodium Chloride (Sodium Chloride 0.9%) 1,000 mls @ 60 mls/hr IV .[id number] MATEO Last Admin: 07/10/17 22:30 Dose: 60 mls/hr eMAR Start Stop Document 07/10/17 22:30 KOPPS (Rec: 07/10/17 22:31 KOPPS [id number]) Intravenous Solution Start Date 07/10/17 Start Time 22:31 Acetaminophen (Ofirmev) 1,000 mg in 100 mls @ 400 mls/hr IVPB Q6H PRN PRN Reason: Temperature Stop: 07/11/17 23:05 Last Admin: 07/10/17 09:30 Dose: 400 mls/hr eMAR Start Stop Document 07/10/17 09:30 RM (Rec: 07/10/17 09:31 RM [id number]) Intravenous Solution Start Date 07/10/17 Start Time 09:31 MAR Pain Assessment Document 07/10/17 09:30 RM (Rec: 07/10/17 09:31 RM [id number]) Pain Reassessment Is this a pain reassessment? No Meropenem/Sodium Chloride (Meropenem 1g/Ns 100ml Ivpb) 1 gm in 100 mls @ 100 mls/hr IVPB Q8 MATEO Stop: 07/16/17 22:01 Last Admin: 07/14/17 13:20 Dose: 100 mls/hr eMAR Start Stop Document 07/14/17 13:20 TAV (Rec: 07/14/17 13:20 TAV [id number]) Intravenous Solution Start Date 07/14/17 Start Time 13:20 End Date 07/14/17 End time 14:20 Total Infusion Time 60 Insulin Human Regular (Humulin R Low) 0 units SC ACHS MATEO PRN Reason: Protocol Last Admin: 07/14/17 12:37 Dose: 1 units MAR Blood Glucose Document 07/14/17 12:37 TAV (Rec: 07/14/17 12:38 TAV [place] [id number]) Blood Glucose Finger Stick Blood Glucose (70-120) 195 Subcutaneous Administrations Document 07/14/17 12:37 TAV (Rec: 07/14/17 12:38 TAV [place] [id number]) Injection Site MAR Injection Site Right Arm Charges for Administration # of Subcutaneous Administrations 1 Levalbuterol HCl (Xopenex) 0.63 mg IH [id number] [facility] Last Admin: 07/14/17 14:04 Dose: 0.63 mg Levothyroxine Sodium (Synthroid) 75 mcg PO DAILY [facility] Last Admin: 07/14/17 10:21 Dose: 75 mcg Megestrol Acetate (Megace) 400 mg PO DAILY [facility] Last Admin: 07/11/17 12:50 Dose: 400 mg Metformin HCl (Glucophage) 1,000 mg PO BID [facility] Last Admin: 07/09/17 21:59 Dose: Not Given Non-Admin Reason: NPO Methylprednisolone (Solu-Medrol) 40 mg IVP Q12 [facility] Last Admin: 07/12/17 09:30 Dose: 40 mg IVP Administration Document 07/12/17 09:30 MV (Rec: 07/12/17 09:30 MV [id number]) Charges for Administration # of IVP Administrations 1 Methylprednisolone (Solu-Medrol) 20 mg IVP Q12 [facility] Last Admin: 07/14/17 10:21 Dose: 20 mg IVP Administration Document 07/14/17 10:21 TAV (Rec: 07/14/17 10:22 TAV [place] [id number]) Charges for Administration # of IVP Administrations 1 Metoprolol Succinate (Toprol Xl) 50 mg PO QPM [facility] Last Admin: 07/11/17 18:07 Dose: 50 mg Comments: did not scan MAR Pulse and Blood Pressure Document 07/11/17 18:07 KJ (Rec: 07/11/17 18:07 KJ [id number]) Pulse Pulse Rate (60-90) 82 Blood Pressure Blood Pressure (100/60-150/90) 113/78 Metoprolol Succinate (Toprol Xl) 50 mg PO BID [facility] Last Admin: 07/14/17 09:59 Dose: Metoprolol Succinate (Toprol Xl) 50 mg PO STAT STA Stop: 07/12/17 10:45 Last Admin: 07/12/17 10:49 Dose: 50 mg MAR Pulse and Blood Pressure Document 07/12/17 10:49 MV (Rec: 07/12/17 10:50 MV [id number]) Pulse Pulse Rate (60-90) 106 Blood Pressure Blood Pressure (100/60-150/90) 189/112 Mupirocin (Bactroban Ointment) 0 gm TOP TID [facility] Last Admin: 07/14/17 10:22 Dose: Not Given Non-Admin Reason: Patient Refused Oseltamivir Phosphate (Tamiflu Cap) 75 mg PO BID [facility] PRN Reason: Protocol Stop: 07/14/17 21:46 Last Admin: 07/14/17 10:21 Dose: 75 mg Pantoprazole Sodium (Protonix Inj) 40 mg IVP BID [facility] Last Admin: 07/10/17 10:05 Dose: 40 mg IVP Administration Document 07/10/17 10:05 (Rec: 07/10/17 10:05 [facility]-[id number][facility] Charges for Administration # of IVP Administrations 1 Pantoprazole Sodium (Protonix Ec Tab) 40 mg PO BID [facility] Last Admin: 07/14/17 10:21 Dose: 40 mg Pneumococcal Polyvalent Vaccine (Pneumovax 23 Vaccine) 0.5 ml IM .ONCE ONE Stop: 07/09/17 21:40 Last Admin: 07/09/17 21:59 Dose: Immunization Registry Document 07/09/17 21:59 AP (Rec: 07/09/17 21:59 AP [id number]) Immunization Registry Consent Date 04/20/17 Polyethylene Glycol (Miralax) 17 gm PO DAILY [facility] Last Admin: 07/14/17 10:28 Dose: Not Given Non-Admin Reason: Patient Refused Potassium Chloride (K-Dur 20 Meq Er Tab) 20 meq PO TID [facility] Last Admin: 07/14/17 13:20 Dose: 20 meq Prednisone (Prednisone Tab) 0 mg PO DAILY [facility] PRN Reason: Taper Stop: 07/21/17 09:59 Valsartan (Diovan) 320 mg PO DAILY [facility] Last Admin: 07/14/17 10:21 Dose: 320 mg - Scribe Statement The provider has reviewed the documentation as recorded by the Geovannaibe Mychal Espino. All medical record entries made by the Mattie were at my direction and personally dictated by me. I have reviewed the chart and agree that the record accurately reflects my personal performance of the history, physical exam, medical decision making, and the department course for this patient. I have also personally directed, reviewed, and agree with the discharge instructions and disposition. Disposition/Present on Arrival - Present on Arrival Any Indicators Present on Arrival: No History of DVT/PE: No History of Uncontrolled Diabetes: No Urinary Catheter: No History of Decub. Ulcer: No History Surgical Site Infection Following: None - Disposition Have Diagnosis and Disposition been Completed?: Yes Diagnosis: Sepsis, Altered mental status Disposition: HOSPITALIZED Disposition Time: 01:00 Condition: FAIR
[2017-07-09 11:17] LABS: VENOUS BLOOD GAS BASE EXCESS 1.1 mmol/L (0.0-2.0); VENOUS BLOOD GAS PO2 39 mm/Hg (30-55); VENOUS BLOOD PH 7.44 (7.32-7.43)
[2017-07-09 11:18] LABS: BASO # 0.02 K/mm3 (0.0-2.0); BASO % 0.2 % (0.0-3.0); EOS % 0.3 % (1.5-5.0); GRAN # 7.99 (1.4-6.5); GRAN % 88.4 % (50.0-68.0); HEMOGLOBIN 14.4 g/dL (12.0-16.0); LYMPH # 0.6 (1.2-3.4); LYMPH % 6.9 % (22.0-35.0); MEAN CELL VOLUME 82.8 fl (80.0-105.0); MEAN CORPUSCULAR HEMOGLOBIN 27.8 pg (25.0-35.0); MEAN CORPUSCULAR HGB CONC 33.6 g/dl (31.0-37.0); MEAN PLATELET VOLUME 11.3 fl (7.0-11.0); MONO # 0.4 (0.1-0.6); MONO % 4.2 % (1.0-6.0); RBC 5.18 10^6/uL (3.5-6.1); RED CELL DISTRIBUTION WIDTH 12.5 % (11.5-14.5)
[2017-07-09 11:27] LABS: ALB/GLOB RATIO 1.4 (1.1-1.8); ALBUMIN 4.5 g/dL (3.0-4.8); ALT/SGPT 37 U/L (7-56); AST/SGOT 39 U/L (14-36); BLOOD UREA NITROGEN 10 mg/dL (7-21); CALCIUM 9.2 mg/dL (8.4-10.5); GFR AFRICAN-AMERICAN > 60; GFR NON-AFRICAN AMERICAN > 60; MAGNESIUM 1.5 mg/dL (1.7-2.2)
[2017-07-09 11:30] LABS: INR 1.03 (0.93-1.08); PROTHROMBIN TIME 11.8 SECONDS (9.4-12.5)
[2017-07-09 11:37] LABS: TROPONIN I < 0.01 ng/mL
--- NOTE | 2017-07-09 12:58 | CT ---
PROCEDURE: CT HEAD WITHOUT CONTRAST. HISTORY: Altered mental status COMPARISON: None available. TECHNIQUE: Axial computed tomography images were obtained through the head/brain without intravenous contrast. Radiation dose: Total exam DLP = 852.32 mGy-cm. This CT exam was performed using one or more of the following dose reduction techniques: Automated exposure control, adjustment of the mA and/or kV according to patient size, and/or use of iterative reconstruction technique. FINDINGS: HEMORRHAGE: No intracranial hemorrhage. BRAIN: Again seen are old lacunar infarctions in the right centrum semiovale and hirsch radiata. There are mild chronic microangiopathic changes. There is no mass, mass effect or abnormal extra-axial fluid collection. VENTRICLES: There is mild age-related global parenchymal volume loss and proportionate enlargement of the ventricles and cortical sulci. CALVARIUM: The skull base and calvarium are normal. PARANASAL SINUSES: There is mild mucosal thickening in the ethmoid air cells and maxillary sinuses. The remaining included paranasal sinuses are predominantly clear. MASTOID AIR CELLS: Predominantly clear. OTHER FINDINGS: None. IMPRESSION: No acute intracranial abnormality. 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 Mild chronic microangiopathic changes and mild age-related global parenchymal volume loss.
[2017-07-09 13:20] LABS: URINE BILIRUBIN NEGATIVE (NEGATIVE); URINE BLOOD TRACE-LYSED (NEGATIVE); URINE GLUCOSE (UA) NEGATIVE (NEGATIVE); URINE LEUKOCYTE ESTERASE TRACE Leu/uL (NEGATIVE); URINE NITRATE NEGATIVE (NEGATIVE); URINE PROTEIN NEGATIVE mg/dL (<30 mg/dL); URINE UROBILINOGEN 0.2 E.U./dL (<1 E.U./dL)
[2017-07-09 13:23] LABS: URINE APPEARANCE CLEAR (CLEAR); URINE COLOR YELLOW (YELLOW)
[2017-07-09 13:35] LABS: URINE WBC 0 - 2 /hpf (0-6)
[2017-07-09 13:36] LABS: URINE BACTERIA MOD (NEG)
[2017-07-09 13:37] LABS: URINE AMORPHOUS SEDIMENT FEW
--- NOTE | 2017-07-09 14:04 | RAD ---
HISTORY: Cough COMPARISON: 02/21/2017. FINDINGS: LUNGS: The lungs are well inflated and clear. PLEURA: No significant pleural effusion identified, no pneumothorax apparent. CARDIOVASCULAR: The heart is normal in size. Atherosclerotic aortic arch calcifications are present. OSSEOUS STRUCTURES: No significant abnormalities. VISUALIZED UPPER ABDOMEN: Normal. OTHER FINDINGS: None. IMPRESSION: No active pulmonary disease.
--- NOTE | 2017-07-09 15:10 | CARD ---
APPROVED REPORT EKG Measurement Heart [id number] <Conclusion> Sinus Tachycardia Possible septal OK, age unknown NSSTW changes Prolonged QTc
--- NOTE | 2017-07-09 18:27 | MRI ---
EXAM: MR Head Without Intravenous Contrast EXAM DATE/TIME: 07/09/2017 3:14 PM CLINICAL HISTORY: The patient age is 76 years old and is female; Signs and symptoms; Malaise or fatigue; Additional info: [facility] Facility exam id and description: Mri br s brain without contrast TECHNIQUE: Magnetic resonance images of the head/brain without intravenous contrast in multiple planes. COMPARISON: MR - BRAIN W WO CONTRAST 2016-12-26 16:50 FINDINGS: Artifacts: Motion artifact limits this study. Brain: There is no restricted diffusion within the brain to suggest acute ischemic change. There are multiple foci of high FLAIR signal intensity within the cerebral white matter. There is no mass effect or restricted diffusion associated with these foci. In a patient this age, this likely represents chronic small vessel ischemic disease. There is mild to moderate prominence of the ventricles and sulci, compatible with atrophy. T2 hyperintense foci are visualized within the bilateral basal ganglia and bilateral thalami, consistent with chronic ischemic changes. A few stable periventricular T2 hyperintense chronic lacunar infarcts are seen within the frontal lobes. No magnetic susceptibility intracerebral hemosiderin is visualized. Brainstem: The basilar artery causes a stable impression on the right ventral edith. Ventricles: See above. Bones/joints: No acute abnormality. Sinuses: Minimal mucosal thickening is identified within the bilateral maxillary sinuses, the right sphenoid sinus, right frontal sinus, and scattered ethmoid air cells. Mastoid air cells: There is minimal mucosal thickening within the right mastoid air cells. Orbits: No acute abnormality, as visualized. IMPRESSION: 1. There is no restricted diffusion within the brain to suggest acute ischemic change. 2. There are multiple foci of high FLAIR signal intensity within the cerebral white matter. In a patient this age, this likely represents chronic small vessel ischemic disease. 3. Additional chronic ischemic changes are noted above. 4. Mild to moderate stable atrophy. 5. Additional findings described above.
[2017-07-09 21:39] VITALS: BMI 20.3
[2017-07-09] MEDS ORDERED: Influenza Vaccine 60 mcg/0.5 mL SYR (4YR UP) IM ONE (21:39)
[2017-07-09] MEDS ORDERED: Pneumococcal 23-Valent Vaccine IM ONE (21:39)
[2017-07-09] MEDS: Insulin Reg-LOW-Coverage SC SCH (21:59)
[2017-07-09] MEDS: Sodium Chloride 0.9% 1,000 ML IV SCH (22:14)
[2017-07-09] MEDS: Vancomycin 1gm in NS 250ml 1 GM/250 ML BAG IVPB SCH (22:18)
[2017-07-09 22:29] LABS: ARTERIAL BLOOD GAS HCO3 20.9 mmol/L (21-28); ARTERIAL BLOOD GAS HEMOGLOBIN 15.1 g/dL (11.7-17.4); ARTERIAL BLOOD GAS O2 CAPACITY 20.7 mL/dl (16-24); ARTERIAL BLOOD GAS O2 CONTENT 20.1 ML/dl (15-23); ARTERIAL BLOOD GAS PCO2 28 mm/Hg (35-45); ARTERIAL BLOOD GAS PH 7.48 (7.35-7.45); ARTERIAL BLOOD GAS TCO2 21.8 mmol.L (22-28)
--- NOTE | 2017-07-09 22:55 | CP.PCM.CON ---
<Tre Paz - Last Filed: 07/10/17 00:39> History of Present Illness - History of Present Illness History of Present Illness: ICU Consult Note - Tre Paz PGY2 cc: Altered mental status HPI: Patient is a 76yo female with past medical history of COPD, Hypertension, TIA, DM type 2, hypothyroidism that presented to [facility] accompanied by daughter with reports of altered mental status. Patient altered on evaluation and thus history obtained from chart. Per record, patient's daughter reported that her mother had been confused/altered since the night prior and for the past 3 weeks had been complaining of cough. She was reportedly given a z-dustin which provided minimal relief. Patient reportedly became more confused with fevers and complaints of dysphagia and was subsequently brought to [facility] for evaluation. ICU was consulted for evaluation of altered mental status. 12point ROS limited due to patient's status PMHx: as stated above PSHx: left eye cataract, x4, hysterectomy, tonsillectomy Allergies: sulfa, tetracyclines, tetanus vaccine/toxoid Medications: reviewed and as per chart Social Hx: Tobacco use for > 50yrs (1ppd), no illicit drugs or alcohol Family Hx: non-contributory Past Patient History - Infectious Disease Hx of Infectious Diseases: None - Tetanus Immunizations Tetanus Immunization: Allergy to Tetanus Vaccine - Past Medical History & Family History Past Medical History?: Yes - Past Social History Smoking Status: Former Smoker - CARDIAC Hx Cardiac Disorders: Yes Hx Hypertension: Yes - PULMONARY Hx Respiratory Disorders: Yes (smoked cigarettes.quit 50 yrs ago) Hx Chronic Obstructive Pulmonary Disease (COPD): Yes Hx Pneumonia: Yes - NEUROLOGICAL Hx Neurological Disorder: Yes (near syncope) HX Cerebrovascular Accident: Yes Hx Transient Ischemic Attacks (TIA): Yes Other/Comment: diabetic neuropathy - HEENT Hx HEENT Problems: Yes (glaucoma) Other/Comment: LEFT EYE CATARACT SURGERY 06/2015 - RENAL Hx Chronic Kidney Disease: No - ENDOCRINE/METABOLIC Hx Endocrine Disorders: Yes Hx Diabetes Mellitus Type 2: Yes (Diabetic Neuropathy) - HEMATOLOGICAL/ONCOLOGICAL Hx Blood Disorders: No - INTEGUMENTARY Hx Dermatological Problems: No - MUSCULOSKELETAL/RHEUMATOLOGICAL Hx Musculoskeletal Disorders: Yes Hx Falls: Yes Hx Unsteady Gait: Yes (cane) - GASTROINTESTINAL Hx Gastrointestinal Disorders: Yes (GERD,CONSTIPATION,HIATAL HERNIA, GASTROPARESIS, POOR APPETITE) - GENITOURINARY/GYNECOLOGICAL Hx Genitourinary Disorders: No (URGENCY,FREQUENCY) - PSYCHIATRIC Hx Emotional Abuse: No Hx Physical Abuse: No Hx Substance Use: No - SURGICAL HISTORY Hx Surgeries: Yes (4 c sections,hysterectomy,hand,toe sx,thyroidectomy) Hx Hysterectomy: Yes Hx Musculoskeletal Surgery: Yes (Hand, Toes) - ANESTHESIA Hx Anesthesia: Yes Hx Anesthesia Reactions: No Hx Malignant Hyperthermia: No Meds Allergies/Adverse Reactions: Allergies Allergy/AdvReac Type Severity Reaction Status Date / Time Sulfa (Sulfonamide Allergy ANAPHYLAXIS Verified 07/09/17 17:52 Antibiotics) Tetanus Vaccines and Toxoid Allergy RASH Verified 07/09/17 17:52 [Tetanus Vaccines & Toxoid] tetracycline Allergy RASH Verified 07/09/17 17:52 - Medications Medications: Current Medications Acetaminophen (Tylenol 650 Mg Supp) 650 mg RC Q6H PRN PRN Reason: Fever >100.4 F Last Admin: 07/09/17 22:34 Dose: 650 mg Aspirin (Ecotrin) 81 mg PO DAILY [facility] Clonidine HCl (Catapres-Tts2 0.2 Mg/24 Hr) 1 patch TD Mo@1000 [facility] Docusate Sodium (Colace) 100 mg PO BID [facility] Last Admin: 07/09/17 21:58 Dose: Not Given Gabapentin (Neurontin) 300 mg PO BID [facility] PRN Reason: Protocol Last Admin: 07/09/17 21:59 Dose: Not Given Meropenem 1 gm/ Sodium (Chloride) 100 mls @ 100 mls/hr IVPB Q8 MATEO PRN Reason: Protocol Stop: 07/16/17 22:01 Vancomycin HCl (Vancomycin 1gm) 1 gm in 250 mls @ 167 mls/hr IVPB Q12H MATEO PRN Reason: Protocol Last Admin: 07/09/17 22:18 Dose: 167 mls/hr Sodium Chloride (Sodium Chloride 0.9%) 1,000 mls @ 60 mls/hr IV .[id number] [facility] Last Admin: 07/09/17 22:14 Dose: 60 mls/hr Insulin Human Regular (Humulin R Low) 0 units SC ACHS MATEO PRN Reason: Protocol Last Admin: 07/09/17 21:59 Dose: Not Given Levalbuterol HCl (Xopenex) 0.63 mg IH [id number] [facility] Levothyroxine Sodium (Synthroid) 75 mcg PO DAILY [facility] Meclizine HCl (Antivert) 25 mg PO TID PRN PRN Reason: Dizziness Megestrol Acetate (Megace) 400 mg PO DAILY [facility] Metformin HCl (Glucophage) 1,000 mg PO BID [facility] Last Admin: 07/09/17 21:59 Dose: Not Given Metoprolol Succinate (Toprol Xl) 50 mg PO QPM [facility] Mupirocin (Bactroban Ointment) 0 gm TOP TID [facility] Ondansetron HCl (Zofran Inj) 4 mg IVP Q4H PRN PRN Reason: Nausea/Vomiting Oseltamivir Phosphate (Tamiflu Cap) 75 mg PO BID [facility] PRN Reason: Protocol Stop: 07/14/17 21:46 Last Admin: 07/09/17 21:59 Dose: Not Given Pantoprazole Sodium (Protonix Inj) 40 mg IVP BID [facility] Last Admin: 07/09/17 22:13 Dose: 40 mg Polyethylene Glycol (Miralax) 17 gm PO DAILY [facility] Potassium Chloride (K-Dur 20 Meq Er Tab) 20 meq PO TID [facility] Valsartan (Diovan) 320 mg PO DAILY [facility] Physical Exam - Constitutional Appears: Toxic, Chronically Ill - Head Exam Head Exam: ATRAUMATIC, NORMOCEPHALIC - Eye Exam Eye Exam: PERRL. absent: Conjunctival injection - Respiratory Exam Respiratory Exam: absent: Rales, Rhonchi, Wheezes, Respiratory Distress Additional comments: coarse breath sounds bilaterally - Cardiovascular Exam Cardiovascular Exam: Tachycardia, +S1, +S2. absent: Gallop, JVD, Rubs - GI/Abdominal Exam GI & Abdominal Exam: Soft. absent: Distended, Firm, Guarding, Rebound, Rigid, Tenderness - Extremities Exam Extremities exam: Positive for: normal inspection. Negative for: calf tenderness, pedal edema, tenderness - Neurological Exam Additional comments: altered and unresponsive to verbal/painful stimuli PERRL - Skin Skin Exam: Dry, Intact, Normal Color, Warm Results - Vital Signs Recent Vital Signs: Last Vital Signs Temp 103.7 F H 07/09/17 22:34 Pulse 118 H 07/09/17 22:35 Resp 22 07/09/17 21:54 BP 197/124 H 07/09/17 22:35 Pulse Ox 100 07/09/17 21:54 - Labs Result Diagrams: 07/09/17 11:00 07/09/17 11:00 Labs: Laboratory Results - last 24 hr 07/09/17 07/09/17 07/09/17 14:16 21:08 22:25 pCO2 28 L pO2 67.0 L HCO3 20.9 L ABG pH 7.48 H ABG Total CO2 21.8 L ABG O2 Saturation 97.0 ABG O2 Content 20.1 ABG Base Excess -1.2 ABG Hemoglobin 15.1 ABG Carboxyhemoglobin 1.7 H POC ABG HHb (Measured) 2.9 ABG Methemoglobin 0.4 ABG O2 Capacity 20.7 Hgb O2 Saturation 95.0 FiO2 21.0 POC Glucose (mg/dL) 152 H Influenza Typ A,B (EIA) Negative for flu a/b Assessment & Plan - Assessment and Plan (Free Text) Plan: 76yo female with history of COPD, TIA, DM, HTN, hypothyroidism presents with altered mental status in the setting of sepsis possibly secondary to UTI Neuro: -altered, unresponsive -no leukocytosis however febrile with temp of 102.2F -CT Head reviewed and revealed no acute intracranial abnormalities, see full report -MRI Brain reviewed and revealed no restricted diffusion to suggest acute ischemic change; see full report -Carotid ultrasound pending -Neurochecks q4h -Ofirmev for fevers -RPR, B12 and folate pending -Urine toxicology pending -Neurology consulted - Dr. Lezama Cardio: -Monitor and maintain MAP > 65, presently hemodynamically stable -Hydralazine 10mg IVP PRN for SBP > 185 -Continue aspirin and valsartin home medications -EKG reviewed Pulm: -HOB > 45' -O2 supplementation via NC to maintain SaO2 > 90% -ABG reviewed; notable for respiratory alkalosis -Frequent suctioning GI: -NPO -GI prophylaxis with protonix -If patient continues to have fevers may consider CT scan abd/pelvis for evaluation of infection however at this time abdominal examination unimpressive Endo: -TSH, Free T4, T3 pending -Continue home synthroid Nephro: -IVF hydration -Monitor I's and O's -Monitor and replete electrolytes as indicated Heme: -DVT prophylaxis with SCD's ID: -Continue meropenem and tamiflu -Patient received vancomycin and zosyn in the ED -Urinalysis weakly positive for UTI -f/u blood cultures and urine cultures -procalcitonin -ID consulted - Dr. Bearden Patient seen and case discussed/reviewed with attending, Dr. Means <Jl Means Q - Last Filed: 07/10/17 01:05> Meds - Medications Medications: Current Medications Acetaminophen (Tylenol 650 Mg Supp) 650 mg RC Q6H PRN PRN Reason: Fever >100.4 F Last Admin: 07/09/17 22:34 Dose: 650 mg Aspirin (Ecotrin) 81 mg PO DAILY [facility] Clonidine HCl (Catapres-Tts2 0.2 Mg/24 Hr) 1 patch TD Mo@1000 [facility] Hydralazine HCl (Apresoline) 10 mg IVP Q6 PRN PRN Reason: Systolic Blood Pressure Meropenem 1 gm/ Sodium (Chloride) 100 mls @ 100 mls/hr IVPB Q8 MATEO PRN Reason: Protocol Stop: 07/16/17 22:01 Last Admin: 07/09/17 22:56 Dose: 100 mls/hr Vancomycin HCl (Vancomycin 1gm) 1 gm in 250 mls @ 167 mls/hr IVPB Q12H MATEO PRN Reason: Protocol Last Admin: 07/09/17 22:18 Dose: 167 mls/hr Sodium Chloride (Sodium Chloride 0.9%) 1,000 mls @ 60 mls/hr IV .[id number] [facility] Last Admin: 07/09/17 22:14 Dose: 60 mls/hr Acetaminophen (Ofirmev) 1,000 mg in 100 mls @ 400 mls/hr IVPB Q6H PRN PRN Reason: Temperature Stop: 07/11/17 23:05 Last Admin: 07/09/17 23:40 Dose: 400 mls/hr Insulin Human Regular (Humulin R Low) 0 units SC ACHS MATEO PRN Reason: Protocol Last Admin: 07/09/17 21:59 Dose: Not Given Levalbuterol HCl (Xopenex) 0.63 mg IH [id number] [facility] Levothyroxine Sodium (Synthroid) 75 mcg PO DAILY [facility] Megestrol Acetate (Megace) 400 mg PO DAILY [facility] Metformin HCl (Glucophage) 1,000 mg PO BID [facility] Last Admin: 07/09/17 21:59 Dose: Not Given Metoprolol Succinate (Toprol Xl) 50 mg PO QPM [facility] Mupirocin (Bactroban Ointment) 0 gm TOP TID [facility] Ondansetron HCl (Zofran Inj) 4 mg IVP Q4H PRN PRN Reason: Nausea/Vomiting Oseltamivir Phosphate (Tamiflu Cap) 75 mg PO BID [facility]ATEO PRN Reason: Protocol Stop: 07/14/17 21:46 Last Admin: 07/09/17 21:59 Dose: Not Given Pantoprazole Sodium (Protonix Inj) 40 mg IVP BID [facility] Last Admin: 07/09/17 22:13 Dose: 40 mg Polyethylene Glycol (Miralax) 17 gm PO DAILY [facility] Potassium Chloride (K-Dur 20 Meq Er Tab) 20 meq PO TID [facility] Valsartan (Diovan) 320 mg PO DAILY [facility] Results - Vital Signs Recent Vital Signs: Last Vital Signs Temp 103.7 F H 07/10/17 00:01 Pulse 119 H 07/10/17 00:01 Resp 22 07/10/17 00:01 BP 160/97 H 07/10/17 00:01 Pulse Ox 100 07/10/17 00:01 - Labs Result Diagrams: 07/09/17 11:00 07/09/17 11:00 Labs: Laboratory Results - last 24 hr 07/09/17 07/09/17 07/09/17 14:16 21:08 22:25 pCO2 28 L pO2 67.0 L HCO3 20.9 L ABG pH 7.48 H ABG Total CO2 21.8 L ABG O2 Saturation 97.0 ABG O2 Content 20.1 ABG Base Excess -1.2 ABG Hemoglobin 15.1 ABG Carboxyhemoglobin 1.7 H POC ABG HHb (Measured) 2.9 ABG Methemoglobin 0.4 ABG O2 Capacity 20.7 Hgb O2 Saturation 95.0 FiO2 21.0 POC Glucose (mg/dL) 152 H Influenza Typ A,B (EIA) Negative for flu a/b Attending/Attestation - Attestation I have personally seen and examined this patient.: Yes I have fully participated in the care of the patient.: Yes I have reviewed all pertinent clinical information: Yes Notes (Text): 07/10/17 01:04 I agree with the above mentioned note and exam by the resident with the addition /exception of the followin76 y/o female with a PMhx COPD, TIA, ?Parkinsons, DM ,Hypothyroid, dyslipidemia was brought in by her daughter for altered mentation occuring over the past 1-2 days. Patient is found to have acute cystitis, however mounted repeated fevers and was AAOx0. Currently able to protect her airway; will treat for sepsis secondary to possible cystitis and continue workup for AMS. Will consider abdominal imaging +/- LP in the event that patient does not respond to IV Abx and continues to have fevers without any improvement in her mentation. At this time she does not appear to have any meningeal signs (there is no neck rigidity on physical exam; PERRL. no change in appearance when both legs are flexed and raised). labs and images available thus far have been reviewed (MRI brain negative for an acute process of CVA) Case discussed at length with Dr. Paz total time of care: 45 minutes
[2017-07-09] MEDS: Meropenem 1 GM in Sodium Chloride 0.9% 100 ML IVPB SCH (22:56)
[2017-07-10] MEDS: Levalbuterol 0.63 MG/3 ML Inhal Soln UD IH SCH ×4 (01:13→20:53)
[2017-07-10] MEDS: Meropenem 1 GM in Sodium Chloride 0.9% 100 ML IVPB SCH (05:00)
[2017-07-10 07:40] LABS: BASO # 0.01 K/mm3 (0.0-2.0); BASO % 0.1 % (0.0-3.0); EOS % 0.1 % (1.5-5.0); GRAN # 5.65 (1.4-6.5); GRAN % 77.5 % (50.0-68.0); HEMOGLOBIN 15.2 g/dL (12.0-16.0); LYMPH # 0.9 (1.2-3.4); LYMPH % 12.2 % (22.0-35.0); MEAN CELL VOLUME 82.3 fl (80.0-105.0); MEAN CORPUSCULAR HEMOGLOBIN 27.4 pg (25.0-35.0); MEAN CORPUSCULAR HGB CONC 33.3 g/dl (31.0-37.0); MEAN PLATELET VOLUME 11.8 fl (7.0-11.0); MONO # 0.7 (0.1-0.6); MONO % 10.1 % (1.0-6.0); RBC 5.54 10^6/uL (3.5-6.1); RED CELL DISTRIBUTION WIDTH 12.6 % (11.5-14.5); WHITE BLOOD COUNT 7.3 10^3/ul (4.5-11.0)
[2017-07-10 08:10] LABS: IRON 32 ug/dL (45-180)
--- NOTE | 2017-07-10 08:12 | CON ---
DATE: 07/09/2017 NEUROLOGY CONSULTATION CHIEF COMPLAINT: Altered mental status. HISTORY OF PRESENT ILLNESS: This is a 76-year-old woman with history of COPD, TIA, type 2 diabetes mellitus, hypertension, history of GERD, gastroparesis, poor appetite who came in because daughter notes that she was altered, she has been having a cough for the past 3 weeks and some mild fever and was prescribed Z-Jed with no improvement she became increasingly confused from her baseline. Currently she is moving all extremities equally though is mildly confused than her baseline. Sensory exam, withdraws to localized noxious stimulus. Her CAT scan of the head showed old chronic lacunar infarctions in the right centrum semiovale and hirsch radiata with chronic ischemic changes, but no acute intracranial abnormalities. She is currently going for the MRI of the brain. She is currently mildly dehydrated as well and she had an elevated systolic and diastolic blood pressures of 197/111. Her influenza type A is negative. PAST MEDICAL HISTORY: Type 2 diabetes mellitus, hypertension, dyslipidemia and COPD. SOCIAL HISTORY: No illicit drug use, smoking or EtOH abuse. ALLERGIES: SULFONAMIDES, TETANUS VACCINE TOXOID AND TETRACYCLINE. REVIEW OF SYSTEMS: A 14-point review of systems negative except as per the HPI. FAMILY HISTORY: Noncontributory. MEDICATIONS: Reviewed by nursing reconciliation sheet. PHYSICAL EXAMINATION: VITAL SIGNS: Temperature 98.9, pulse rate 100, blood pressure 152/92, respiratory rate of 18, oxygen saturation 98% on room air. GENERAL: Patient is sitting up in bed, in no acute distress, slightly altered. HEENT: Atraumatic, normocephalic. PERRLA. Extraocular muscles intact. NECK: Supple. No JVD, no adenopathy noted. LUNGS: Clear to auscultation. No adventitious sounds. HEART: S1, S2, normal rate and rhythm. No murmurs, rubs or gallops. ABDOMEN: Soft, nontender, nondistended. Bowel sounds present. EXTREMITIES: No clubbing, no cyanosis. Peripheral pulses 2+ bilaterally. NEUROLOGIC: Patient is drowsy and she is mildly confused, oriented to self, not month or year. Recall after 5 minutes is 0/3. Poor attention span. Speech is difficult to assess, but she is hypophonic, mildly dysarthric. Cranial nerves II through XII intact. Motor: Moves all extremities equally. No pronator drift seen. Sensory: Withdraws to localized noxious stimulus. Decreased light touch and pinprick up to the calves bilaterally. DTRs are 2+ throughout and 1 at both knees and ankles. Gait deferred for now. LABORATORY DATA: Sodium is 137, potassium 3.7, chloride 99, carbon dioxide 24, BUN of 10, creatinine 0.6, random glucose 124. ASSESSMENT AND PLAN: This is a 76-year-old woman with history of chronic obstructive pulmonary disease, hypertension, dyslipidemia, type 2 diabetes mellitus, history of transient ischemic attack who presented with altered mental status who has had a cough for the past 3 weeks, did not get any relief with Z-Jed and had fevers and generalized weakness and becoming more confused and had a CAT scan at the Emergency Room of the head, which showed no acute intracranial abnormalities, just chronic old lacunar infarction in the right central semiovale and right hirsch radiata. Currently she responds in [place] language to simple commands. She is mildly confused and she had elevated systolic and diastolic blood pressures. At this time, the altered mental status could be secondary to viral prodrome versus hypertensive urgency versus an infarct. At this time, we will get: 1. MRA of the brain to assess for any acute infarction. 2. Carotid Doppler. 3. Recommend hydration since she is mildly dehydrated. 4. Monitor electrolytes and correct accordingly. 5. PT/OT evaluation and continue on current present medical management. Thank you for this consult. Adalid Lezama MD
[2017-07-10 08:19] LABS: % IRON SATURATION 8 % (20-55); TOTAL IRON BINDING CAPACITY 420 ug/dL (265-497)
[2017-07-10 08:20] LABS: LDL CHOLESTEROL 92 mg/dL (0-129)
[2017-07-10 08:24] LABS: FREE T4 1.85 ng/dL (0.78-2.19)
[2017-07-10 08:26] LABS: ALB/GLOB RATIO 1.3 (1.1-1.8); ALBUMIN 4.1 g/dL (3.0-4.8); ALT/SGPT 38 U/L (7-56); AST/SGOT 48 U/L (14-36); BLOOD UREA NITROGEN 10 mg/dL (7-21); CALCIUM 8.7 mg/dL (8.4-10.5); GFR AFRICAN-AMERICAN > 60; GFR NON-AFRICAN AMERICAN > 60; HDL CHOLESTEROL 37 mg/dL (29-60)
[2017-07-10 08:37] LABS: T3 0.68 ng/mL (0.97-1.69)
[2017-07-10] MEDS: Vancomycin 1gm in NS 250ml 1 GM/250 ML BAG IVPB SCH ×2 (09:03→22:22)
--- NOTE | 2017-07-10 09:13 | HP ---
The patient is a 76-year-old female. CHIEF COMPLAINT: Altered mental status. HISTORY OF PRESENT ILLNESS: Ms. Michelle Myles is a 76-year-old female with past medical history of COPD, TIA, diabetes mellitus, who came to the Emergency Room department via EMS, accompanied by family, for altered mental status since last night. As per daughter, patient complaining of cold for last 3 weeks for which she was prescribed with Z-Jed from her primary care physician, no improvement in the symptoms. Patient's symptoms worsened with worsening cough, fever and difficulty swallowing for the past few days. Daughter stated the patient became increasingly confused from baseline last night and is currently symptomatic for altered mental status. Patient denies any nausea, vomiting, diarrhea, abdominal pain, chest pain. Actually, patient is not a good historian and looks like little bit lethargic. PAST MEDICAL HISTORY: As above. Hypertension, COPD, pneumonia, TIA, left eye cataract surgery, diabetic neuropathy, GERD, constipation, hiatal hernia, gastroparesis, poor appetite, urgency, frequency, history of hysterectomy, history of hand and toe surgery, thyroidectomy and tonsillectomy. FAMILY HISTORY: Father and mother, noncontributory. HABITS: Currently, smoking. Alcohol, no. Substance abuse, no. ALLERGIES: PATIENT IS ALLERGIC TO THE SULFA, TETANUS AND TETRACYCLINE. HOME MEDICATIONS: Eye drops. REVIEW OF SYSTEMS: The patient is seen and examined in the ER. Looking lethargic. Hardly opening eyes, looks like she has a fever. Difficult swallowing, coughing. No chest pain. No abdominal pain, diarrhea, nausea or vomiting. Has altered mental status. PHYSICAL EXAMINATION: VITAL SIGNS: Temperature 98.9, T-max 102.2, pulse 100, respiratory rate 18, blood pressure 150/92, pulse oximetry of 98. HEENT: Head, normocephalic, atraumatic. Eyes: PERRLA. Extraocular muscles intact. Conjunctivae clear. Nose patent. Mucous membranes are moist. NECK: Supple. No carotid bruits, JVD, or thyromegaly. CHEST: Bilaterally symmetrical. LUNGS: Coarse breath sounds bilaterally. HEART: S1, S2 positive. Tachycardia. ABDOMEN: Soft. Bowel sounds positive. No tenderness. No distention. No peritoneal signs. EXTREMITIES: No edema. No cyanosis. NEUROLOGICAL: The patient is sleepy, confused. Responding to stimuli. SKIN: Warm and no cyanosis. LABORATORY DATA: White blood cells 9.0, hemoglobin 14.4, hematocrit 42.9, and platelets 203. Sodium 137, potassium 3.7, BUN 10, creatinine 0.6 and glucose 124. ASSESSMENT AND PLAN: Ms. Michelle Myles is a 76-year-old lady with hyperglycemia,came with altered mental status, history of chronic obstructive pulmonary disease, transient ischemic attack, diabetes, hypertension, history of cataract surgery, diabetic neuropathy, gastroesophageal reflux disease, dyspepsia, history of urgency and frequency. We admitted the patient, did CAT scan of the head. No acute intracranial abnormalities. Old lacunar infarction in the right centrum and semiovale, and hirsch radiata. Mild chronic microangiopathic changes and mild age-related global parenchymal volume loss. Went for MRI also. Bilateral carotid artery ultrasound is done, results are pending. According to MRI, there is no restrictive diffusion within the brain to suggest acute ischemia. There are multiple foci of high FLAIR signal intensity within the cerebral white matter. In a patient of this age, this likely represents chronic small vessel disease, additionally chronic ischemic changes are noted above. We called consult with Dr. Lezama for altered mental status; Dr. Perez, Infectious Disease. It looks like patient is going into septic shock. Restarted old medication. Blood pressure was high. Gastrointestinal and deep venous thrombosis prophylaxis. Repeat labs. We will follow up. Alison Powers MD
[2017-07-10] MEDS: Potassium Chloride 20 mEq ER Tab PO SCH ×3 (10:05→17:18)
[2017-07-10] MEDS: Megestrol Acetate 40 mg/ml Cup PO SCH (10:05)
[2017-07-10] MEDS: POLYETHYLENE GLYCOL 3350 17 GM/Dose PACKET PO SCH (10:05)
[2017-07-10] MEDS: Insulin Reg-LOW-Coverage SC SCH ×4 (10:06→22:21)
[2017-07-10] MEDS: Levothyroxine 75 MCG TAB PO SCH (10:10)
--- NOTE | 2017-07-10 11:09 | CP.CCUPN ---
<Rolf De La Rosa - Last Filed: 07/10/17 11:22> CCU Subjective - Physician Review Subjective (Free Text): Rolf De La Rosa PGY1 ICU Note for Dr. Valenzuela Patient was seen and evaluated in ICU. Patient states that she has had a productive cough for a few weeks that did not improve with the ZPak and that her was also sick at home. She states that she is a smoker. She complains of fevers overnight, and was noted to have fever (tmax 103.7 rectal) overnight, and a sore throat. CCU Objective - Vital Signs / Intake & Output Intake and Output (Last 8hrs): Intake & Output 07/09/17 07/10/17 07/10/17 22:59 06:59 14:59 Intake Total 1090 Output Total 100 Balance 990 Weight 115 lb Intake: IV 1090 Left Hand 0 Right Wrist 1090 Oral 0 Output: Urine 100 Urine, Voided 100 Other: Voiding Method Incontinent # Bowel Movements 0 - Physical Exam Head: Positive for: Atraumatic, Normocephalic Pupils: Positive for: PERRL Extroacular Muscles: Positive for: EOMI Conjunctiva: Positive for: Normal Ears: Positive for: Normal Mouth: Positive for: Dry Pharnyx: Negative for: EXUDATE Neck: Positive for: Normal Range of Motion Respiratory/Chest: Negative for: Respiratory Distress, Accessory Muscle Use, Wheezes, Rales Cardiovascular: Positive for: Regular Rate and Rhythm, Normal S1, S2. Negative for: Murmurs Abdomen: Positive for: Normal Bowel Sounds. Negative for: Tenderness, Distention, Peritoneal Signs Back: Positive for: Normal Inspection Upper Extremity: Positive for: Normal Inspection. Negative for: Cyanosis, Edema Lower Extremity: Positive for: Normal Inspection. Negative for: Edema Neurological: Positive for: GCS=15, CN II-XII Intact, Speech Normal, Other ( altered with confused responses. No focal deficits.) Skin: Positive for: Warm, Dry, Normal Color. Negative for: Rashes Psychiatric: Positive for: Alert, Oriented x 3 - Medications Active Medications: Active Medications Generic Name Dose Route Start Last Admin Trade Name Freq PRN Reason Stop Dose Admin Acetaminophen 650 mg 07/09/17 21:50 07/09/17 22:34 Tylenol 650 Mg Supp RC 650 mg Q6H PRN Administration Fever >100.4 F Aspirin 81 mg 02/13/18 10:00 07/10/17 10:05 Ecotrin PO 81 mg DAILY MATEO Administration Hydralazine HCl 10 mg 07/09/17 23:01 Apresoline IVP Q6 PRN Systolic Blood Pressure Vancomycin HCl 1 gm in 250 mls @ 167 mls/hr 07/09/17 21:45 07/10/17 09:03 Vancomycin 1gm IVPB 167 mls/hr Q12H MATEO Administration Protocol Sodium Chloride 1,000 mls @ 60 mls/hr 07/09/17 22:00 07/09/17 22:14 Sodium Chloride 0.9% IV 60 mls/hr .[id number] MATEO Administration Acetaminophen 1,000 mg in 100 mls @ 400 mls/hr 07/09/17 23:04 07/10/17 09:30 Ofirmev IVPB 07/11/17 23:05 400 mls/hr Q6H PRN Administration Temperature Meropenem/Sodium Chloride 1 gm in 100 mls @ 100 mls/hr 07/10/17 14:00 Meropenem 1g/Ns 100ml Ivpb IVPB 07/16/17 22:01 Q8 MATEO Insulin Human Regular 0 units 07/09/17 22:00 07/10/17 10:06 Humulin R Low SC Not Given ACHS [facility] Protocol Levalbuterol HCl 0.63 mg 07/10/17 02:00 07/10/17 07:48 Xopenex IH 0.63 mg [id number] MATEO Administration Levothyroxine Sodium 75 mcg 07/10/17 10:00 07/10/17 10:10 Synthroid PO 75 mcg DAILY MATEO Administration Megestrol Acetate 400 mg 07/10/17 10:00 07/10/17 10:05 Megace PO 400 mg DAILY MATEO Administration Metformin HCl 1,000 mg 07/09/17 20:15 07/09/17 21:59 Glucophage PO Not Given BID [facility] Metoprolol Succinate 50 mg 07/10/17 18:00 Toprol Xl PO QPM [facility] Mupirocin 0 gm 07/10/17 10:00 Bactroban Ointment TOP TID [facility] Ondansetron HCl 4 mg 07/09/17 20:07 Zofran Inj IVP Q4H PRN Nausea/Vomiting Oseltamivir Phosphate 75 mg 07/09/17 21:45 07/10/17 10:06 Tamiflu Cap PO 07/14/17 21:46 75 mg BID MATEO Administration Protocol Pantoprazole Sodium 40 mg 07/09/17 20:15 07/10/17 10:05 Protonix Inj IVP 40 mg BID MATEO Administration Polyethylene Glycol 17 gm 07/10/17 10:00 07/10/17 10:05 Miralax PO 17 gm DAILY MATEO Administration Potassium Chloride 20 meq 07/10/17 10:00 07/10/17 10:05 K-Dur 20 Meq Er Tab PO 20 meq TID MATEO Administration Valsartan 320 mg 07/10/17 10:00 07/10/17 10:06 Diovan PO 320 mg DAILY MATEO Administration - Patient Studies Lab Studies: Lab Studies 07/10/17 07/10/17 07/10/17 Range/Units 07:00 07:00 07:00 WBC 7.3 (4.5-11.0) 10^3/ul RBC 5.54 (3.5-6.1) 10^6/uL Hgb 15.2 (12.0-16.0) g/dL Hct 45.6 (36.0-48.0) % MCV 82.3 (80.0-105.0) fl MCH 27.4 (25.0-35.0) pg MCHC 33.3 (31.0-37.0) g/dl RDW 12.6 (11.5-14.5) % Plt Count 178 (120.0-450.0) 10^3/uL MPV 11.8 H (7.0-11.0) fl Gran % 77.5 H (50.0-68.0) % Lymph % (Auto) 12.2 L (22.0-35.0) % [place] % (Auto) 10.1 H (1.0-6.0) % Eos % (Auto) 0.1 L (1.5-5.0) % Baso % (Auto) 0.1 (0.0-3.0) % Gran # 5.65 (1.4-6.5) Lymph # (Auto) 0.9 L (1.2-3.4) [place] # (Auto) 0.7 H (0.1-0.6) Eos # (Auto) 0.0 (0.0-0.7) Baso # (Auto) 0.01 (0.0-2.0) K/mm3 pCO2 (35-45) mm/Hg pO2 (80-100) mm/Hg HCO3 (21-28) mmol/L ABG pH (7.35-7.45) ABG Total CO2 (22-28) mmol.L ABG O2 Saturation (95-98) % ABG O2 Content (15-23) ML/dl ABG Base Excess (-2.0-3.0) mmol/L ABG Hemoglobin (11.7-17.4) g/dL ABG Carboxyhemoglobin (0.5-1.5) % POC ABG HHb (Measured) (0-5) % ABG Methemoglobin (0.0-3.0) % ABG O2 Capacity (16-24) mL/dl Hgb O2 Saturation (95.0-98.0) % FiO2 % Sodium (132-148) mmol/L Potassium (3.6-5.0) mmol/L Chloride (98-107) mmol/L Carbon Dioxide (21-33) mmol/L Anion Gap (10-20) BUN (7-21) mg/dL Creatinine (0.7-1.2) mg/dl Est GFR ( Amer) Est GFR (Non-Af Amer) POC Glucose (mg/dL) (65-110) mg/dL Random Glucose (70-110) mg/dL Calcium (8.4-10.5) mg/dL Iron 32 L (45-180) ug/dL TIBC 420 (265-497) ug/dL % Saturation 8 L (20-55) % Total Bilirubin (0.2-1.3) mg/dL AST (14-36) U/L ALT (7-56) U/L Alkaline Phosphatase (38-126) U/L Total Protein (5.8-8.3) g/dL Albumin (3.0-4.8) g/dL Globulin gm/dL Albumin/Globulin Ratio (1.1-1.8) Triglycerides (35-160) mg/dL Cholesterol (130-200) mg/dL LDL Cholesterol Direct (0-129) mg/dL HDL Cholesterol (29-60) mg/dL Free T4 1.85 (0.78-2.19) ng/dL Total T3 0.68 L (0.97-1.69) ng/mL TSH 3rd Generation 0.35 L (0.46-4.68) mIU/mL Influenza Typ A,B (EIA) (NEGATIVE) 07/10/17 07/10/17 07/09/17 Range/Units 07:00 00:19 22:25 WBC (4.5-11.0) 10^3/ul RBC (3.5-6.1) 10^6/uL Hgb (12.0-16.0) g/dL Hct (36.0-48.0) % MCV (80.0-105.0) fl MCH (25.0-35.0) pg MCHC (31.0-37.0) g/dl RDW (11.5-14.5) % Plt Count (120.0-450.0) 10^3/uL MPV (7.0-11.0) fl Gran % (50.0-68.0) % Lymph % (Auto) (22.0-35.0) % [place] % (Auto) (1.0-6.0) % Eos % (Auto) (1.5-5.0) % Baso % (Auto) (0.0-3.0) % Gran # (1.4-6.5) Lymph # (Auto) (1.2-3.4) [place] # (Auto) (0.1-0.6) Eos # (Auto) (0.0-0.7) Baso # (Auto) (0.0-2.0) K/mm3 pCO2 28 L (35-45) mm/Hg pO2 67.0 L (80-100) mm/Hg HCO3 20.9 L (21-28) mmol/L ABG pH 7.48 H (7.35-7.45) ABG Total CO2 21.8 L (22-28) mmol.L ABG O2 Saturation 97.0 (95-98) % ABG O2 Content 20.1 (15-23) ML/dl ABG Base Excess -1.2 (-2.0-3.0) mmol/L ABG Hemoglobin 15.1 (11.7-17.4) g/dL ABG Carboxyhemoglobin 1.7 H (0.5-1.5) % POC ABG HHb (Measured) 2.9 (0-5) % ABG Methemoglobin 0.4 (0.0-3.0) % ABG O2 Capacity 20.7 (16-24) mL/dl Hgb O2 Saturation 95.0 (95.0-98.0) % FiO2 21.0 % Sodium 135 (132-148) mmol/L Potassium 3.3 L (3.6-5.0) mmol/L Chloride 98 (98-107) mmol/L Carbon Dioxide 23 (21-33) mmol/L Anion Gap 17 (10-20) BUN 10 (7-21) mg/dL Creatinine 0.7 (0.7-1.2) mg/dl Est GFR ( Amer) > 60 Est GFR (Non-Af Amer) > 60 POC Glucose (mg/dL) 149 H (65-110) mg/dL Random Glucose 126 H (70-110) mg/dL Calcium 8.7 (8.4-10.5) mg/dL Iron (45-180) ug/dL TIBC (265-497) ug/dL % Saturation (20-55) % Total Bilirubin 0.5 (0.2-1.3) mg/dL AST 48 H D (14-36) U/L ALT 38 (7-56) U/L Alkaline Phosphatase 65 (38-126) U/L Total Protein 7.2 (5.8-8.3) g/dL Albumin 4.1 (3.0-4.8) g/dL Globulin 3.1 gm/dL Albumin/Globulin Ratio 1.3 (1.1-1.8) Triglycerides 132 (35-160) mg/dL Cholesterol 151 (130-200) mg/dL LDL Cholesterol Direct 92 (0-129) mg/dL HDL Cholesterol 37 (29-60) mg/dL Free T4 (0.78-2.19) ng/dL Total T3 (0.97-1.69) ng/mL TSH 3rd Generation (0.46-4.68) mIU/mL Influenza Typ A,B (EIA) (NEGATIVE) 07/09/17 07/09/17 Range/Units 21:08 14:16 WBC (4.5-11.0) 10^3/ul RBC (3.5-6.1) 10^6/uL Hgb (12.0-16.0) g/dL Hct (36.0-48.0) % MCV (80.0-105.0) fl MCH (25.0-35.0) pg MCHC (31.0-37.0) g/dl RDW (11.5-14.5) % Plt Count (120.0-450.0) 10^3/uL MPV (7.0-11.0) fl Gran % (50.0-68.0) % Lymph % (Auto) (22.0-35.0) % [place] % (Auto) (1.0-6.0) % Eos % (Auto) (1.5-5.0) % Baso % (Auto) (0.0-3.0) % Gran # (1.4-6.5) Lymph # (Auto) (1.2-3.4) [place] # (Auto) (0.1-0.6) Eos # (Auto) (0.0-0.7) Baso # (Auto) (0.0-2.0) K/mm3 pCO2 (35-45) mm/Hg pO2 (80-100) mm/Hg HCO3 (21-28) mmol/L ABG pH (7.35-7.45) ABG Total CO2 (22-28) mmol.L ABG O2 Saturation (95-98) % ABG O2 Content (15-23) ML/dl ABG Base Excess (-2.0-3.0) mmol/L ABG Hemoglobin (11.7-17.4) g/dL ABG Carboxyhemoglobin (0.5-1.5) % POC ABG HHb (Measured) (0-5) % ABG Methemoglobin (0.0-3.0) % ABG O2 Capacity (16-24) mL/dl Hgb O2 Saturation (95.0-98.0) % FiO2 % Sodium (132-148) mmol/L Potassium (3.6-5.0) mmol/L Chloride (98-107) mmol/L Carbon Dioxide (21-33) mmol/L Anion Gap (10-20) BUN (7-21) mg/dL Creatinine (0.7-1.2) mg/dl Est GFR ( Amer) Est GFR (Non-Af Amer) POC Glucose (mg/dL) 152 H (65-110) mg/dL Random Glucose (70-110) mg/dL Calcium (8.4-10.5) mg/dL Iron (45-180) ug/dL TIBC (265-497) ug/dL % Saturation (20-55) % Total Bilirubin (0.2-1.3) mg/dL AST (14-36) U/L ALT (7-56) U/L Alkaline Phosphatase (38-126) U/L Total Protein (5.8-8.3) g/dL Albumin (3.0-4.8) g/dL Globulin gm/dL Albumin/Globulin Ratio (1.1-1.8) Triglycerides (35-160) mg/dL Cholesterol (130-200) mg/dL LDL Cholesterol Direct (0-129) mg/dL HDL Cholesterol (29-60) mg/dL Free T4 (0.78-2.19) ng/dL Total T3 (0.97-1.69) ng/mL TSH 3rd Generation (0.46-4.68) mIU/mL Influenza Typ A,B (EIA) Negative for flu a/b (NEGATIVE) Laboratory Results - last 24 hr 07/09/17 07/09/17 07/09/17 14:16 21:08 22:25 WBC RBC Hgb Hct MCV MCH MCHC RDW Plt Count MPV Gran % Lymph % (Auto) [place] % (Auto) Eos % (Auto) Baso % (Auto) Gran # Lymph # (Auto) [place] # (Auto) Eos # (Auto) Baso # (Auto) pCO2 28 L pO2 67.0 L HCO3 20.9 L ABG pH 7.48 H ABG Total CO2 21.8 L ABG O2 Saturation 97.0 ABG O2 Content 20.1 ABG Base Excess -1.2 ABG Hemoglobin 15.1 ABG Carboxyhemoglobin 1.7 H POC ABG HHb (Measured) 2.9 ABG Methemoglobin 0.4 ABG O2 Capacity 20.7 Hgb O2 Saturation 95.0 FiO2 21.0 Sodium Potassium Chloride Carbon Dioxide Anion Gap BUN Creatinine Est GFR ( Amer) Est GFR (Non-Af Amer) POC Glucose (mg/dL) 152 H Random Glucose Calcium Iron TIBC % Saturation Total Bilirubin AST ALT Alkaline Phosphatase Total Protein Albumin Globulin Albumin/Globulin Ratio Triglycerides Cholesterol LDL Cholesterol Direct HDL Cholesterol Free T4 Total T3 TSH 3rd Generation Influenza Typ A,B (EIA) Negative for flu a/b 07/10/17 07/10/17 07/10/17 00:19 07:00 07:00 WBC RBC Hgb Hct MCV MCH MCHC RDW Plt Count MPV Gran % Lymph % (Auto) [place] % (Auto) Eos % (Auto) Baso % (Auto) Gran # Lymph # (Auto) [place] # (Auto) Eos # (Auto) Baso # (Auto) pCO2 pO2 HCO3 ABG pH ABG Total CO2 ABG O2 Saturation ABG O2 Content ABG Base Excess ABG Hemoglobin ABG Carboxyhemoglobin POC ABG HHb (Measured) ABG Methemoglobin ABG O2 Capacity Hgb O2 Saturation FiO2 Sodium 135 Potassium 3.3 L Chloride 98 Carbon Dioxide 23 Anion Gap 17 BUN 10 Creatinine 0.7 Est GFR ( Amer) > 60 Est GFR (Non-Af Amer) > 60 POC Glucose (mg/dL) 149 H Random Glucose 126 H Calcium 8.7 Iron 32 L TIBC 420 % Saturation 8 L Total Bilirubin 0.5 AST 48 H D ALT 38 Alkaline Phosphatase 65 Total Protein 7.2 Albumin 4.1 Globulin 3.1 Albumin/Globulin Ratio 1.3 Triglycerides 132 Cholesterol 151 LDL Cholesterol Direct 92 HDL Cholesterol 37 Free T4 Total T3 TSH 3rd Generation Influenza Typ A,B (EIA) 07/10/17 07/10/17 07:00 07:00 WBC 7.3 RBC 5.54 Hgb 15.2 Hct 45.6 MCV 82.3 MCH 27.4 MCHC 33.3 RDW 12.6 Plt Count 178 MPV 11.8 H Gran % 77.5 H Lymph % (Auto) 12.2 L [place] % (Auto) 10.1 H Eos % (Auto) 0.1 L Baso % (Auto) 0.1 Gran # 5.65 Lymph # (Auto) 0.9 L [place] # (Auto) 0.7 H Eos # (Auto) 0.0 Baso # (Auto) 0.01 pCO2 pO2 HCO3 ABG pH ABG Total CO2 ABG O2 Saturation ABG O2 Content ABG Base Excess ABG Hemoglobin ABG Carboxyhemoglobin POC ABG HHb (Measured) ABG Methemoglobin ABG O2 Capacity Hgb O2 Saturation FiO2 Sodium Potassium Chloride Carbon Dioxide Anion Gap BUN Creatinine Est GFR ( Amer) Est GFR (Non-Af Amer) POC Glucose (mg/dL) Random Glucose Calcium Iron TIBC % Saturation Total Bilirubin AST ALT Alkaline Phosphatase Total Protein Albumin Globulin Albumin/Globulin Ratio Triglycerides Cholesterol LDL Cholesterol Direct HDL Cholesterol Free T4 1.85 Total T3 0.68 L TSH 3rd Generation 0.35 L Influenza Typ A,B (EIA) Fingerstick Blood Sugar Results: 159 Review of Systems - Review of Systems All systems: reviewed and no additional remarkable complaints except (as per HPI ) Critical Care Progress Note - Prophylaxis GI Prophylaxis GI: PPI - Prophylaxis DVT Prophylaxis DVT: SCDs - Nutrition Nutrition: Nutrition Category Date Time Status NPO Diet [DIET] Diets 07/10/17 Breakfast Ordered Assessment/Plan - Assessment and Plan (Free Text) Assessment: 76 yo F with a PMH of HTN, COPD, hypothyroid, TIA, NIDDM presents with AMS in the setting of sepsis possibly secondary to UTI. Patient was admitted to ICU for severe sepsis with AMS. Patient is now hemodynamically stable, is more alert and responding appropriately to questions. Neuro: -AAOx3 -tmax 103.7 (rectal) overnight, no leukocytosis noted -Head CT negative for acute changes; see full report -Brain MRI negative for acute changes; see full report -Carotid US results pending -Neurochecks q4h -Ofirmev for fevers -RPR, B12 and folate pending -Utox results pending -neurology consulted- Dr. Lezama- recs appreciated Cardio: -monitor and maintain MAP> 65, presently hemodynamically stable -Hydralazine 10 mg IVP PRN for SBP> 185 -Continue home ASA and Valsartan -admitting EKG reviewed; ST at 115, QTc prolonged at 616 Pulm: -HoB >45 degrees -O2 supplementation via NC to maintain SaO2> 90% -ABG reviewed from 07/09/17; notable for respiratory alkalosis -CXR did not show any acute changes GI: -NPO -swallow eval pending -GI prophylaxis with protonix iv Endo: -TSH low at 0.35, Total T3 low 0.68, Free T4 1.85 -maintain euglycemia -continue home meds synthroid, metformin Nephro: -IVF hydration -potassium 3.3; replete -Monitor Is and Os -continue to monitor and replete electrolytes as needed Heme: -DVT ppx with SCDs -continue to monitor CBC ID: -continue Meropenem and Vancomycin -UA not indicating UTI -f/u BCx3, UCx -procalcitonin pending -ID consulted- Dr. Perez-recs appreciated Diet: currently NPO; swallow eval pending GI ppx: protonix iv Dispo: pt is hemodynamically stable, and is alert and oriented. will transfer to med-surg Patient was seen, examined and discussed with attending, Dr. Nicolas De La Rosa PGY1 Pager # [phone] <Wiliam Valenzuela - Last Filed: 07/10/17 11:51> CCU Objective - Vital Signs / Intake & Output Vital Signs (Last 4 hours): Vital Signs Temp 07/10/17 08:00 101.3 F H Intake and Output (Last 8hrs): Intake & Output 07/09/17 07/10/17 07/10/17 22:59 06:59 14:59 Intake Total 1090 Output Total 100 Balance 990 Weight 115 lb Intake: IV 1090 Left Hand 0 Right Wrist 1090 Oral 0 Output: Urine 100 Urine, Voided 100 Other: Voiding Method Incontinent # Bowel Movements 0 - Medications Active Medications: Active Medications Generic Name Dose Route Start Last Admin Trade Name Freq PRN Reason Stop Dose Admin Acetaminophen 650 mg 07/09/17 21:50 07/09/17 22:34 Tylenol 650 Mg Supp RC 650 mg Q6H PRN Administration Fever >100.4 F Aspirin 81 mg 07/10/17 10:00 07/10/17 10:05 Ecotrin PO 81 mg DAILY MATEO Administration Hydralazine HCl 10 mg 07/09/17 23:01 Apresoline IVP Q6 PRN Systolic Blood Pressure Vancomycin HCl 1 gm in 250 mls @ 167 mls/hr 07/09/17 21:45 07/10/17 09:03 Vancomycin 1gm IVPB 167 mls/hr Q12H MATEO Administration Protocol Sodium Chloride 1,000 mls @ 60 mls/hr 07/09/17 22:00 07/09/17 22:14 Sodium Chloride 0.9% IV 60 mls/hr .[id number] MATEO Administration Acetaminophen 1,000 mg in 100 mls @ 400 mls/hr 07/09/17 23:04 07/10/17 09:30 Ofirmev IVPB 07/11/17 23:05 400 mls/hr Q6H PRN Administration Temperature Meropenem/Sodium Chloride 1 gm in 100 mls @ 100 mls/hr 07/10/17 14:00 Meropenem 1g/Ns 100ml Ivpb IVPB 07/16/17 22:01 Q8 MATEO Insulin Human Regular 0 units 07/09/17 22:00 07/10/17 10:06 Humulin R Low SC Not Given ACHS [facility] Protocol Levalbuterol HCl 0.63 mg 07/10/17 02:00 07/10/17 07:48 Xopenex IH 0.63 mg [id number] MATEO Administration Levothyroxine Sodium 75 mcg 07/10/17 10:00 07/10/17 10:10 Synthroid PO 75 mcg DAILY MATEO Administration Megestrol Acetate 400 mg 07/10/17 10:00 07/10/17 10:05 Megace PO 400 mg DAILY MATEO Administration Metformin HCl 1,000 mg 07/09/17 20:15 07/09/17 21:59 Glucophage PO Not Given BID MATEO Metoprolol Succinate 50 mg 07/10/17 18:00 Toprol Xl PO QPM [facility] Mupirocin 0 gm 07/10/17 10:00 Bactroban Ointment TOP TID [facility] Ondansetron HCl 4 mg 07/09/17 20:07 Zofran Inj IVP Q4H PRN Nausea/Vomiting Oseltamivir Phosphate 75 mg 07/09/17 21:45 07/10/17 10:06 Tamiflu Cap PO 07/14/17 21:46 75 mg BID MATEO Administration Protocol Pantoprazole Sodium 40 mg 07/09/17 20:15 07/10/17 10:05 Protonix Inj IVP 40 mg BID MATEO Administration Polyethylene Glycol 17 gm 07/10/17 10:00 07/10/17 10:05 Miralax PO 17 gm DAILY MATEO Administration Potassium Chloride 20 meq 07/10/17 10:00 07/10/17 10:05 K-Dur 20 Meq Er Tab PO 20 meq TID MATEO Administration Valsartan 320 mg 07/10/17 10:00 07/10/17 10:06 Diovan PO 320 mg DAILY MATEO Administration - Patient Studies Lab Studies: Lab Studies 07/10/17 07/10/17 07/10/17 Range/Units 07:00 07:00 07:00 WBC 7.3 (4.5-11.0) 10^3/ul RBC 5.54 (3.5-6.1) 10^6/uL Hgb 15.2 (12.0-16.0) g/dL Hct 45.6 (36.0-48.0) % MCV 82.3 (80.0-105.0) fl MCH 27.4 (25.0-35.0) pg MCHC 33.3 (31.0-37.0) g/dl RDW 12.6 (11.5-14.5) % Plt Count 178 (120.0-450.0) 10^3/uL MPV 11.8 H (7.0-11.0) fl Gran % 77.5 H (50.0-68.0) % Lymph % (Auto) 12.2 L (22.0-35.0) % [place] % (Auto) 10.1 H (1.0-6.0) % Eos % (Auto) 0.1 L (1.5-5.0) % Baso % (Auto) 0.1 (0.0-3.0) % Gran # 5.65 (1.4-6.5) Lymph # (Auto) 0.9 L (1.2-3.4) [place] # (Auto) 0.7 H (0.1-0.6) Eos # (Auto) 0.0 (0.0-0.7) Baso # (Auto) 0.01 (0.0-2.0) K/mm3 pCO2 (35-45) mm/Hg pO2 (80-100) mm/Hg HCO3 (21-28) mmol/L ABG pH (7.35-7.45) ABG Total CO2 (22-28) mmol.L ABG O2 Saturation (95-98) % ABG O2 Content (15-23) ML/dl ABG Base Excess (-2.0-3.0) mmol/L ABG Hemoglobin (11.7-17.4) g/dL ABG Carboxyhemoglobin (0.5-1.5) % POC ABG HHb (Measured) (0-5) % ABG Methemoglobin (0.0-3.0) % ABG O2 Capacity (16-24) mL/dl Hgb O2 Saturation (95.0-98.0) % FiO2 % Sodium (132-148) mmol/L Potassium (3.6-5.0) mmol/L Chloride (98-107) mmol/L Carbon Dioxide (21-33) mmol/L Anion Gap (10-20) BUN (7-21) mg/dL Creatinine (0.7-1.2) mg/dl Est GFR ( Amer) Est GFR (Non-Af Amer) POC Glucose (mg/dL) (65-110) mg/dL Random Glucose (70-110) mg/dL Calcium (8.4-10.5) mg/dL Iron 32 L (45-180) ug/dL TIBC 420 (265-497) ug/dL % Saturation 8 L (20-55) % Total Bilirubin (0.2-1.3) mg/dL AST (14-36) U/L ALT (7-56) U/L Alkaline Phosphatase (38-126) U/L Total Protein (5.8-8.3) g/dL Albumin (3.0-4.8) g/dL Globulin gm/dL Albumin/Globulin Ratio (1.1-1.8) Triglycerides (35-160) mg/dL Cholesterol (130-200) mg/dL LDL Cholesterol Direct (0-129) mg/dL HDL Cholesterol (29-60) mg/dL Free T4 1.85 (0.78-2.19) ng/dL Total T3 0.68 L (0.97-1.69) ng/mL TSH 3rd Generation 0.35 L (0.46-4.68) mIU/mL Influenza Typ A,B (EIA) (NEGATIVE) 07/10/17 07/10/17 07/09/17 Range/Units 07:00 00:19 22:25 WBC (4.5-11.0) 10^3/ul RBC (3.5-6.1) 10^6/uL Hgb (12.0-16.0) g/dL Hct (36.0-48.0) % MCV (80.0-105.0) fl MCH (25.0-35.0) pg MCHC (31.0-37.0) g/dl RDW (11.5-14.5) % Plt Count (120.0-450.0) 10^3/uL MPV (7.0-11.0) fl Gran % (50.0-68.0) % Lymph % (Auto) (22.0-35.0) % [place] % (Auto) (1.0-6.0) % Eos % (Auto) (1.5-5.0) % Baso % (Auto) (0.0-3.0) % Gran # (1.4-6.5) Lymph # (Auto) (1.2-3.4) [place] # (Auto) (0.1-0.6) Eos # (Auto) (0.0-0.7) Baso # (Auto) (0.0-2.0) K/mm3 pCO2 28 L (35-45) mm/Hg pO2 67.0 L (80-100) mm/Hg HCO3 20.9 L (21-28) mmol/L ABG pH 7.48 H (7.35-7.45) ABG Total CO2 21.8 L (22-28) mmol.L ABG O2 Saturation 97.0 (95-98) % ABG O2 Content 20.1 (15-23) ML/dl ABG Base Excess -1.2 (-2.0-3.0) mmol/L ABG Hemoglobin 15.1 (11.7-17.4) g/dL ABG Carboxyhemoglobin 1.7 H (0.5-1.5) % POC ABG HHb (Measured) 2.9 (0-5) % ABG Methemoglobin 0.4 (0.0-3.0) % ABG O2 Capacity 20.7 (16-24) mL/dl Hgb O2 Saturation 95.0 (95.0-98.0) % FiO2 21.0 % Sodium 135 (132-148) mmol/L Potassium 3.3 L (3.6-5.0) mmol/L Chloride 98 (98-107) mmol/L Carbon Dioxide 23 (21-33) mmol/L Anion Gap 17 (10-20) BUN 10 (7-21) mg/dL Creatinine 0.7 (0.7-1.2) mg/dl Est GFR ( Amer) > 60 Est GFR (Non-Af Amer) > 60 POC Glucose (mg/dL) 149 H (65-110) mg/dL Random Glucose 126 H (70-110) mg/dL Calcium 8.7 (8.4-10.5) mg/dL Iron (45-180) ug/dL TIBC (265-497) ug/dL % Saturation (20-55) % Total Bilirubin 0.5 (0.2-1.3) mg/dL AST 48 H D (14-36) U/L ALT 38 (7-56) U/L Alkaline Phosphatase 65 (38-126) U/L Total Protein 7.2 (5.8-8.3) g/dL Albumin 4.1 (3.0-4.8) g/dL Globulin 3.1 gm/dL Albumin/Globulin Ratio 1.3 (1.1-1.8) Triglycerides 132 (35-160) mg/dL Cholesterol 151 (130-200) mg/dL LDL Cholesterol Direct 92 (0-129) mg/dL HDL Cholesterol 37 (29-60) mg/dL Free T4 (0.78-2.19) ng/dL Total T3 (0.97-1.69) ng/mL TSH 3rd Generation (0.46-4.68) mIU/mL Influenza Typ A,B (EIA) (NEGATIVE) 07/09/17 07/09/17 Range/Units 21:08 14:16 WBC (4.5-11.0) 10^3/ul RBC (3.5-6.1) 10^6/uL Hgb (12.0-16.0) g/dL Hct (36.0-48.0) % MCV (80.0-105.0) fl MCH (25.0-35.0) pg MCHC (31.0-37.0) g/dl RDW (11.5-14.5) % Plt Count (120.0-450.0) 10^3/uL MPV (7.0-11.0) fl Gran % (50.0-68.0) % Lymph % (Auto) (22.0-35.0) % [place] % (Auto) (1.0-6.0) % Eos % (Auto) (1.5-5.0) % Baso % (Auto) (0.0-3.0) % Gran # (1.4-6.5) Lymph # (Auto) (1.2-3.4) [place] # (Auto) (0.1-0.6) Eos # (Auto) (0.0-0.7) Baso # (Auto) (0.0-2.0) K/mm3 pCO2 (35-45) mm/Hg pO2 (80-100) mm/Hg HCO3 (21-28) mmol/L ABG pH (7.35-7.45) ABG Total CO2 (22-28) mmol.L ABG O2 Saturation (95-98) % ABG O2 Content (15-23) ML/dl ABG Base Excess (-2.0-3.0) mmol/L ABG Hemoglobin (11.7-17.4) g/dL ABG Carboxyhemoglobin (0.5-1.5) % POC ABG HHb (Measured) (0-5) % ABG Methemoglobin (0.0-3.0) % ABG O2 Capacity (16-24) mL/dl Hgb O2 Saturation (95.0-98.0) % FiO2 % Sodium (132-148) mmol/L Potassium (3.6-5.0) mmol/L Chloride (98-107) mmol/L Carbon Dioxide (21-33) mmol/L Anion Gap (10-20) BUN (7-21) mg/dL Creatinine (0.7-1.2) mg/dl Est GFR ( Amer) Est GFR (Non-Af Amer) POC Glucose (mg/dL) 152 H (65-110) mg/dL Random Glucose (70-110) mg/dL Calcium (8.4-10.5) mg/dL Iron (45-180) ug/dL TIBC (265-497) ug/dL % Saturation (20-55) % Total Bilirubin (0.2-1.3) mg/dL AST (14-36) U/L ALT (7-56) U/L Alkaline Phosphatase (38-126) U/L Total Protein (5.8-8.3) g/dL Albumin (3.0-4.8) g/dL Globulin gm/dL Albumin/Globulin Ratio (1.1-1.8) Triglycerides (35-160) mg/dL Cholesterol (130-200) mg/dL LDL Cholesterol Direct (0-129) mg/dL HDL Cholesterol (29-60) mg/dL Free T4 (0.78-2.19) ng/dL Total T3 (0.97-1.69) ng/mL TSH 3rd Generation (0.46-4.68) mIU/mL Influenza Typ A,B (EIA) Negative for flu a/b (NEGATIVE) Laboratory Results - last 24 hr 07/09/17 07/09/17 07/09/17 14:16 21:08 22:25 WBC RBC Hgb Hct MCV MCH MCHC RDW Plt Count MPV Gran % Lymph % (Auto) [place] % (Auto) Eos % (Auto) Baso % (Auto) Gran # Lymph # (Auto) [place] # (Auto) Eos # (Auto) Baso # (Auto) pCO2 28 L pO2 67.0 L HCO3 20.9 L ABG pH 7.48 H ABG Total CO2 21.8 L ABG O2 Saturation 97.0 ABG O2 Content 20.1 ABG Base Excess -1.2 ABG Hemoglobin 15.1 ABG Carboxyhemoglobin 1.7 H POC ABG HHb (Measured) 2.9 ABG Methemoglobin 0.4 ABG O2 Capacity 20.7 Hgb O2 Saturation 95.0 FiO2 21.0 Sodium Potassium Chloride Carbon Dioxide Anion Gap BUN Creatinine Est GFR ( Amer) Est GFR (Non-Af Amer) POC Glucose (mg/dL) 152 H Random Glucose Calcium Iron TIBC % Saturation Total Bilirubin AST ALT Alkaline Phosphatase Total Protein Albumin Globulin Albumin/Globulin Ratio Triglycerides Cholesterol LDL Cholesterol Direct HDL Cholesterol Free T4 Total T3 TSH 3rd Generation Influenza Typ A,B (EIA) Negative for flu a/b 07/10/17 07/10/17 07/10/17 00:19 07:00 07:00 WBC RBC Hgb Hct MCV MCH MCHC RDW Plt Count MPV Gran % Lymph % (Auto) [place] % (Auto) Eos % (Auto) Baso % (Auto) Gran # Lymph # (Auto) [place] # (Auto) Eos # (Auto) Baso # (Auto) pCO2 pO2 HCO3 ABG pH ABG Total CO2 ABG O2 Saturation ABG O2 Content ABG Base Excess ABG Hemoglobin ABG Carboxyhemoglobin POC ABG HHb (Measured) ABG Methemoglobin ABG O2 Capacity Hgb O2 Saturation FiO2 Sodium 135 Potassium 3.3 L Chloride 98 Carbon Dioxide 23 Anion Gap 17 BUN 10 Creatinine 0.7 Est GFR ( Amer) > 60 Est GFR (Non-Af Amer) > 60 POC Glucose (mg/dL) 149 H Random Glucose 126 H Calcium 8.7 Iron 32 L TIBC 420 % Saturation 8 L Total Bilirubin 0.5 AST 48 H D ALT 38 Alkaline Phosphatase 65 Total Protein 7.2 Albumin 4.1 Globulin 3.1 Albumin/Globulin Ratio 1.3 Triglycerides 132 Cholesterol 151 LDL Cholesterol Direct 92 HDL Cholesterol 37 Free T4 Total T3 TSH 3rd Generation Influenza Typ A,B (EIA) 07/10/17 07/10/17 07:00 07:00 WBC 7.3 RBC 5.54 Hgb 15.2 Hct 45.6 MCV 82.3 MCH 27.4 MCHC 33.3 RDW 12.6 Plt Count 178 MPV 11.8 H Gran % 77.5 H Lymph % (Auto) 12.2 L [place] % (Auto) 10.1 H Eos % (Auto) 0.1 L Baso % (Auto) 0.1 Gran # 5.65 Lymph # (Auto) 0.9 L [place] # (Auto) 0.7 H Eos # (Auto) 0.0 Baso # (Auto) 0.01 pCO2 pO2 HCO3 ABG pH ABG Total CO2 ABG O2 Saturation ABG O2 Content ABG Base Excess ABG Hemoglobin ABG Carboxyhemoglobin POC ABG HHb (Measured) ABG Methemoglobin ABG O2 Capacity Hgb O2 Saturation FiO2 Sodium Potassium Chloride Carbon Dioxide Anion Gap BUN Creatinine Est GFR ( Amer) Est GFR (Non-Af Amer) POC Glucose (mg/dL) Random Glucose Calcium Iron TIBC % Saturation Total Bilirubin AST ALT Alkaline Phosphatase Total Protein Albumin Globulin Albumin/Globulin Ratio Triglycerides Cholesterol LDL Cholesterol Direct HDL Cholesterol Free T4 1.85 Total T3 0.68 L TSH 3rd Generation 0.35 L Influenza Typ A,B (EIA) Critical Care Progress Note - Nutrition Nutrition: Nutrition Category Date Time Status NPO Diet [DIET] Diets 07/10/17 Breakfast Ordered Assessment/Plan - Assessment and Plan (Free Text) Assessment: Patient seen and examined on rounds with resident, agree with note with following additions/exceptions Patient is 76yo female a/w AMS, fever. Currently afebrile, HD stable, comfortable awake, alert, NAD, answers questions appropriately, requesting coffee. On broad spectrum antibiotics, ID is following. AMS, resolved Fever Dehydration Hypothyroidism Recommend: - supp o2 as needed - broad spectrum abx as per ID, follow up cultures - BP control - IVF hydraiton - neurology follow up - Speech swallow eval - cont with Synthoid - GI ppx - DVT ppx - Stable, transfer to med surg
[2017-07-10] MEDS: Meropenem 1g/NS 100mL IVPB 1 GM/100 ML PIGGYBACK IVPB SCH ×2 (13:48→22:22)
[2017-07-10] MEDS: Sodium Chloride 0.9% 1,000 ML IV SCH ×2 (13:49→22:30)
--- NOTE | 2017-07-10 14:08 | CP.PCM.PN ---
Subjective - Date & Time of Evaluation Date of Evaluation: 07/10/17 Time of Evaluation: 14:40 - Subjective Subjective: Patient: CALEB VELEZ [facility] #:[id number] Unit: [id number] : 1940 Loc: CCU Room/Bed: 129-03 Age/Sex: 76 / F ADM Status: ADM IN ADM Date: DIS Date: DATE: 07/10/2017 NEUROLOGY FOLLOW UP: CHIEF COMPLAINT: F/U FOR Altered mental status. SUBJECTIVE: More attentive today, MRI brain showed no acute abnormality, BP much better today, She had a fever over night, PAST MEDICAL HISTORY: Type 2 diabetes mellitus, hypertension, dyslipidemia and COPD. SOCIAL HISTORY: No illicit drug use, smoking or EtOH abuse. ALLERGIES: SULFONAMIDES, TETANUS VACCINE TOXOID AND TETRACYCLINE. REVIEW OF SYSTEMS: A 14-point review of systems negative except as per the HPI. FAMILY HISTORY: Noncontributory. MEDICATIONS: Reviewed by nursing reconciliation sheet. PHYSICAL EXAMINATION: VITAL SIGNS: Reviewed, GENERAL: Patient is sitting up in bed, in no acute distress, slightly altered. HEENT: Atraumatic, normocephalic. PERRLA. Extraocular muscles intact. NECK: Supple. No JVD, no adenopathy noted. LUNGS: Clear to auscultation. No adventitious sounds. HEART: S1, S2, normal rate and rhythm. No murmurs, rubs or gallops. ABDOMEN: Soft, nontender, nondistended. Bowel sounds present. EXTREMITIES: No clubbing, no cyanosis. Peripheral pulses 2+ bilaterally. NEUROLOGIC: Patient is drowsy and she is mildly confused, oriented to self, not month or year. Recall after 5 minutes is 0/3. Poor attention span. Speech is difficult to assess, but she is hypophonic, mildly dysarthric. Cranial nerves II through XII intact. Motor: Moves all extremities equally. No pronator drift seen. Sensory: Withdraws to localized noxious stimulus. Decreased light touch and pinprick up to the calves bilaterally. DTRs are 2+ throughout and 1 at both knees and ankles. Gait deferred for now. 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 Currently she responds in [place] language to simple commands. She is mildly confused and she had elevated systolic and diastolic blood pressures. At this time, the altered mental status could be secondary to viral prodrome versus hypertensive urgency versus with underlying sepsis. MRI brain showed no acute infarct, At this time, we will get: 1. Recommend hydration since she is mildly dehydrated. 2. Monitor electrolytes and correct accordingly. 3. PT/OT evaluation and continue with current present medical management. 4. Delirium precautions. No sedative meds. Thank you Adalid Lezama MD Objective - Vital Signs/Intake and Output Vital Signs (last 24 hours): Temp Pulse Resp BP Pulse Ox 99.7 F H 96 H 25 H 128/70 99 07/10/17 13:20 07/10/17 13:20 07/10/17 13:20 07/10/17 13:00 07/10/17 13:20 Intake and Output: 07/10/17 07/10/17 06:59 18:59 Intake Total 1090 Output Total 100 Balance 990 - Medications Medications: Current Medications Acetaminophen (Tylenol 650 Mg Supp) 650 mg RC Q6H PRN PRN Reason: Fever >100.4 F Last Admin: 07/09/17 22:34 Dose: 650 mg Aspirin (Ecotrin) 81 mg PO DAILY [facility] Last Admin: 07/10/17 10:05 Dose: 81 mg Hydralazine HCl (Apresoline) 10 mg IVP Q6 PRN PRN Reason: Systolic Blood Pressure Vancomycin HCl (Vancomycin 1gm) 1 gm in 250 mls @ 167 mls/hr IVPB Q12H MATEO PRN Reason: Protocol Last Admin: 07/10/17 09:03 Dose: 167 mls/hr Sodium Chloride (Sodium Chloride 0.9%) 1,000 mls @ 60 mls/hr IV .[id number] [facility] Last Admin: 07/10/17 13:49 Dose: 60 mls/hr Acetaminophen (Ofirmev) 1,000 mg in 100 mls @ 400 mls/hr IVPB Q6H PRN PRN Reason: Temperature Stop: 07/11/17 23:05 Last Admin: 07/10/17 09:30 Dose: 400 mls/hr Meropenem/Sodium Chloride (Meropenem 1g/Ns 100ml Ivpb) 1 gm in 100 mls @ 100 mls/hr IVPB Q8 [facility] Stop: 07/16/17 22:01 Last Admin: 07/10/17 13:48 Dose: 100 mls/hr Insulin Human Regular (Humulin R Low) 0 units SC ACHS [facility] PRN Reason: Protocol Last Admin: 07/10/17 11:47 Dose: Not Given Levalbuterol HCl (Xopenex) 0.63 mg IH [id number] [facility] Last Admin: 07/10/17 07:48 Dose: 0.63 mg Levothyroxine Sodium (Synthroid) 75 mcg PO DAILY [facility] Last Admin: 07/10/17 10:10 Dose: 75 mcg Megestrol Acetate (Megace) 400 mg PO DAILY [facility] Last Admin: 07/10/17 10:05 Dose: 400 mg Metformin HCl (Glucophage) 1,000 mg PO BID [facility] Last Admin: 07/09/17 21:59 Dose: Not Given Metoprolol Succinate (Toprol Xl) 50 mg PO QPM [facility] Mupirocin (Bactroban Ointment) 0 gm TOP TID [facility] Last Admin: 07/10/17 10:30 Dose: 1 mg Ondansetron HCl (Zofran Inj) 4 mg IVP Q4H PRN PRN Reason: Nausea/Vomiting Oseltamivir Phosphate (Tamiflu Cap) 75 mg PO BID [facility] PRN Reason: Protocol Stop: 07/14/17 21:46 Last Admin: 07/10/17 10:06 Dose: 75 mg Pantoprazole Sodium (Protonix Inj) 40 mg IVP BID [facility] Last Admin: 07/10/17 10:05 Dose: 40 mg Polyethylene Glycol (Miralax) 17 gm PO DAILY [facility] Last Admin: 07/10/17 10:05 Dose: 17 gm Potassium Chloride (K-Dur 20 Meq Er Tab) 20 meq PO TID [facility] Last Admin: 07/10/17 13:48 Dose: 20 meq Valsartan (Diovan) 320 mg PO DAILY [facility] Last Admin: 07/10/17 10:06 Dose: 320 mg - Labs Labs: 07/10/17 07:00 07/10/17 07:00 PT 11.8 SECONDS (9.4-12.5) 07/09/17 11:00 INR 1.03 (0.93-1.08) 07/09/17 11:00 APTT 29.0 Seconds (25.1-36.5) 07/09/17 11:00
[2017-07-10] MEDS: Metoprolol Succinate 50 mg XL Tab PO SCH (17:19)
[2017-07-10] MEDS: Pantoprazole 40 mg EC Tab PO SCH (17:19)
--- NOTE | 2017-07-10 20:15 | CON ---
DATE: LOCATION: Patient is seen in CCU 129, bed 3. CHIEF COMPLAINT: Weakness times several days. HISTORY OF PRESENT ILLNESS: This is a 76-year-old female with past medical history of chronic obstructive lung disease, TIA, diabetes mellitus, hypothyroid, history of tonsillectomy, , hysterectomy, who is in the hospital last in 02/2017, with a left lower lobe healthcare-associated pneumonia, now admitted through the emergency room, was seen by Dr. Jorge A Mojica because of change in mental status. Patient had been coughing for last 3 weeks and was given a course of Z-Jed as outpatient. Patient's daughter states that the patient came more confused from baseline and Infectious Disease consultation requested. Patient is a poor historian this morning. PAST MEDICAL HISTORY: Significant for chronic obstructive lung disease, hypothyroidism, transient ischemic attack, diabetes mellitus, hypertension, left-sided healthcare-associated pneumonia. PAST SURGICAL HISTORY: Significant for tonsillectomy, , hysterectomy. ALLERGIES: PATIENT HAS MULTIPLE ALLERGIES INCLUDING SULFA AND TETRACYCLINE AND TETANUS. MEDICATIONS AT HOME: Include losartan and pantoprazole, mupirocin, metformin, meclizine, levothyroxine, insulin, aspirin. PHYSICAL EXAMINATION: GENERAL: Patient is in bed, appears comfortable. VITAL SIGNS: Temperature of 99.9; T-max is 101.3; heart rate of 92, it was up to 103; respiratory rate of 21; blood pressure is 111/50. Patient's oxygen saturation was 99. HEENT: Unremarkable. NECK: Supple. LUNGS: Have decreased breath sounds. HEART: Normal S1, S2. ABDOMEN: Soft, nontender. No rebound, no guarding. No masses. LABORATORY EXAMINATION: Reveals a white count of 7.3, hemoglobin of 15, platelets of 178. Coagulation is noted. Chemistries reveals a BUN of 10, creatinine of 0.6. Urinalysis is noted 0 to 2 wbc's. Influenza is negative. Microbiology is pending. Patient had a chest x-ray. The lungs are well inflated and clear. CAT scan of the head, chronic changes. Patient had an EKG, QTc of 616. MRI of the brain, which noted chronic small vessel disease. note is reviewed and Dr. Adalid Lezama's consultation is reviewed and patient's influenza serology is negative. Urinalysis is unremarkable. ASSESSMENT AND PLAN: A 76-year-old female with chronic obstructive lung disease, hypothyroidism, transient ischemic attack, diabetes mellitus, hypertension, history of left healthcare-associated pneumonia, history of tonsillectomy, section, hysterectomy, SULFA AND TETRACYCLINE ALLERGY, admitted with a fever of 102.2, tachycardia, normal white count and generalized aches and pains and cough and with a negative influenza. Systemic inflammatory response syndrome, this still may be influenza. We will start empirically on Tamiflu and currently on meropenem. Procalcitonin, cultures, blood and urine cultures, are pending. Viral illness. Patient also is on vancomycin. We will follow closely with you. Pending panculture results and influenza serology. We will order a CAT scan of the chest without contrast and we will follow closely with you. Narayan Perez MD
--- NOTE | 2017-07-10 21:08 | PN ---
DATE: SUBJECTIVE: The patient is seen and examined on the bedside. Looks a little bit more awake and alert as compared to yesterday. Still having fever last night. Much better today. No nausea, vomiting, or diarrhea. No hematuria or hematochezia. No headache or dizziness. No chest pain or palpitation. REVIEW OF SYSTEMS: A 14-point review of systems is negative, except as above. PHYSICAL EXAMINATION: VITAL SIGNS: Temperature 99.7, pulse 96, respiratory rate 25, and blood pressure 128/70. HEENT: Head: Normocephalic, atraumatic. Eyes: PERRLA. Extraocular movements are intact. Conjunctivae clear. Nose patent. Mucous membranes are moist. NECK: Supple. No carotid bruits, JVD, or thyromegaly. CHEST: Bilaterally symmetrical. HEART: S1 and S2 positive. LUNGS: Clear to auscultation. ABDOMEN: Soft. Bowel sounds are present. No organomegaly. EXTREMITIES: No edema. No cyanosis. NEUROLOGIC: The patient is awake and alert. Moving all four extremities. No focal deficits. LABORATORY DATA: White blood cells 7.3, hemoglobin 15.2, hematocrit 45.6, and platelets 178. Sodium 135, potassium 3.3, BUN 10, creatinine 0.7, and glucose 113. MEDICATIONS: Hydralazine, Bactroban, Diovan, Ecotrin, Glucophage, insulin, K-Dur, Megace, meropenem, MiraLax, Glucotrol, vancomycin, Xopenex, and Zofran. ASSESSMENT AND PLAN: Ms. Michelle Myles is a 76-year-old lady with hypokalemia, hyperglycemia, iron deficiency, hyperthyroidism, hematuria, and proteinuria; seen by Dr. Adalid Lezama for altered mental status, but today, mental status is improved. The patient has partially treated infection, and completed a course of Z-Jed as outpatient. Currently, when I saw the patient, the patient was afebrile, stable, and comfortable. Getting broad spectrum antibiotics. Dehydration. Getting oxygen as needed, broad spectrum antibiotics as per Infectious Disease. Blood pressure control. IV hydration. Neurologist and Infectious Disease followup. Speech evaluation. Continue Synthroid. Gastric and deep venous thrombosis prophylaxes. Repeat labs. We will follow up. Alison Powers MD [facility] # [id number]
[2017-07-11] MEDS ORDERED: Albuterol-Ipratrop 3 mg / 0.5 (3 ml) UD IH SCH (02:00)
[2017-07-11] MEDS: Levalbuterol 0.63 MG/3 ML Inhal Soln UD IH SCH ×5 (03:00→20:05)
[2017-07-11] MEDS: Meropenem 1g/NS 100mL IVPB 1 GM/100 ML PIGGYBACK IVPB SCH ×3 (05:47→22:18)
--- NOTE | 2017-07-11 05:59 | CON ---
DATE: 07/10/2017 REFERRING PHYSICIAN: Alison Powers MD. REASON FOR CONSULT: Cough, shortness of breath. HISTORY OF PRESENT ILLNESS: This is a 76-year-old female with known history of chronic obstructive lung disease, diabetes, hypothyroid, history of TIAs, recently having URI symptoms, was treated as outpatient with Z-Jed, improved at one point, but recurred the symptoms night before, had a change in mental status. According to family, was lethargic. According to the patient, she does have some headache. No rhinitis, cough, shortness of breath. No dysuria, neck pain or leg swelling. Seen by Infectious Diseases and Neurology. CT of the head is done, which is unremarkable. PAST MEDICAL HISTORY: As per history present illness. ALLERGIES: ALLERGIC TO SULFA, TETRACYCLINE AND TETANUS SHOTS. FAMILY HISTORY: No significant cardiopulmonary disease reported. SOCIAL HISTORY: Active smoking. Denies any alcohol use. MEDICATIONS: The patient is on hydralazine 10 mg q. 6 hour p.r.n., Bactroban ointment to affected area 3 times a day, Diovan 320 mg daily, Ecotrin 81 mg daily, metformin 1000 mg twice a day, insulin coverage, potassium 20 mEq 3 times a day, Megace 400 mg daily, meropenem 1 g IV q. 8 hour, MiraLax 17 g daily, Tylenol suppository p.r.n. basis, Protonix 40 mg daily, IV fluid normal saline 6 mL per hour, levothyroxine 75 mcg daily, Tamiflu 75 mg twice a day, Toprol-XL 50 mg daily, vancomycin 1 g IV q. 12 hour, Xopenex inhale q. 6 hour, Zofran p.r.n. basis. REVIEW OF SYSTEMS: Has a mild headache, rhinitis, cough, shortness of breath. No nausea, no vomiting. No diarrhea, no dysuria, no leg pain or swelling. PHYSICAL EXAMINATION: GENERAL: Lying in the bed, no acute distress. VITAL SIGNS: Temperature is 99.7, T max is 101.3, heart rate is 90, respiratory rate is 20, blood pressure 138/95, pulse ox of 97% on nasal cannula. HEENT: Moist mucous membranes. Crowded airway. Mallampati score is 4. NECK: Supple. No JVD. LUNGS: Have a bilateral scattered rhonchi and wheezing. HEART: S1 and S2. ABDOMEN: Soft, nontender. No organomegaly. EXTREMITIES: There is no edema. NEUROLOGIC: Sleepy, arousable. Follows simple commands. LABORATORY DATA: Shows hemoglobin 15.2, hematocrit 45.6, WBC 7.3, platelet is 178. ABG shows pH 7.48, pCO2 of 28, O2 is 67, on room air. Sodium 135, potassium 3.3, chloride 98, bicarbonate 23, BUN 10, creatinine 0.7, glucose is 126, hemoglobin A1c 7.4, calcium 8.7, iron is 32, AST 48, ALT 38, alk phos is 65. Albumin is 4.1. HDL is 37. B12 is 559. Folate 16, T4 free is 1.85, T3 total 0.68. Urinalysis shows WBC 0-2. Influenza serology is negative. Urine has gram-negative rods which is more than 100,000 colonies. IMPRESSION AND PLAN: Sepsis, probably origin is genitourinary, with chronic obstructive pulmonary disease exacerbation. Other issues are hypothyroid, diabetes, hypertension, smoker. The patient urged to stop smoking. We will add inhaled bronchodilator. Continue meropenem. Tamiflu is added by ID for now. Keep head elevated at 45 degrees. Gastric prophylaxis, deep venous thrombosis prophylaxis. Follow up labs in the morning. Thank you and we will follow with you. Felipe Bergman MD
[2017-07-11 06:37] LABS: BASO # 0.01 K/mm3 (0.0-2.0); BASO % 0.2 % (0.0-3.0); EOS # 0.1 (0.0-0.7); EOS % 1.8 % (1.5-5.0); GRAN # 3.1 (1.4-6.5); GRAN % 63.5 % (50.0-68.0); HEMOGLOBIN 13.5 g/dL (12.0-16.0); LYMPH # 1.1 (1.2-3.4); LYMPH % 23.3 % (22.0-35.0); MEAN CELL VOLUME 82.9 fl (80.0-105.0); MEAN CORPUSCULAR HEMOGLOBIN 27.2 pg (25.0-35.0); MEAN CORPUSCULAR HGB CONC 32.8 g/dl (31.0-37.0); MEAN PLATELET VOLUME 12.6 fl (7.0-11.0); MONO # 0.6 (0.1-0.6); MONO % 11.2 % (1.0-6.0); RBC 4.96 10^6/uL (3.5-6.1); RED CELL DISTRIBUTION WIDTH 12.8 % (11.5-14.5); WHITE BLOOD COUNT 4.9 10^3/ul (4.5-11.0)
[2017-07-11 07:04] LABS: ALB/GLOB RATIO 1.3 (1.1-1.8); ALBUMIN 3.4 g/dL (3.0-4.8); ALT/SGPT 40 U/L (7-56); AST/SGOT 54 U/L (14-36); BLOOD UREA NITROGEN 11 mg/dL (7-21); CALCIUM 8.6 mg/dL (8.4-10.5); GFR AFRICAN-AMERICAN > 60; GFR NON-AFRICAN AMERICAN > 60; MAGNESIUM 1.9 mg/dL (1.7-2.2)
[2017-07-11] MEDS: Insulin Reg-LOW-Coverage SC SCH ×4 (07:30→22:10)
[2017-07-11] MEDS: Potassium Chloride 20 mEq ER Tab PO SCH ×3 (10:30→18:02)
--- NOTE | 2017-07-11 11:51 | CT ---
PROCEDURE: CT Chest without contrast HISTORY: r/o cap COMPARISON: 02/15/2017 TECHNIQUE: Contiguous axial images were obtained through the chest without intravenous contrast enhancement. Sagittal and coronal reconstructions were performed. Radiation dose (DLP): Of mGy-cm. This CT exam was performed using one or more of the following dose reduction techniques: Automated exposure control, adjustment of the mA and/or kV according to patient size, and/or use of iterative reconstruction technique. FINDINGS: LUNGS: Prominent pulmonary markings compatible with lower airways disease, bronchitis. No discrete infiltrates MEDIASTINUM: Unremarkable thoracic aorta. No aneurysm. Normal sized heart. Main pulmonary artery unremarkable. No vascular congestion. No lymphadenopathy. PLEURA: No pleural fluid. No pneumothorax. BONES: No fracture. No destructive lesion. UPPER ABDOMEN: Grossly unremarkable. OTHER FINDINGS: None. IMPRESSION: No active pulmonary disease. No discrete nodules, masses or infiltrates. No significant interval change.
[2017-07-11] MEDS: Levothyroxine 75 MCG TAB PO SCH (12:50)
[2017-07-11] MEDS: Megestrol Acetate 40 mg/ml Cup PO SCH (12:50)
[2017-07-11] MEDS: Vancomycin 1gm in NS 250ml 1 GM/250 ML BAG IVPB SCH (12:50)
[2017-07-11] MEDS: POLYETHYLENE GLYCOL 3350 17 GM/Dose PACKET PO SCH (12:50)
[2017-07-11] MEDS: Pantoprazole 40 mg EC Tab PO SCH ×2 (13:42→18:02)
[2017-07-11] MEDS: Metoprolol Succinate 50 mg XL Tab PO SCH (18:07)
--- NOTE | 2017-07-11 18:19 | US ---
PROCEDURE: Bilateral carotid artery duplex ultrasound HISTORY: Carotid stenosis PHYSICIAN(S): Jitendra Jonas MD. TECHNIQUE: Duplex sonography and color-flow Doppler were used to evaluate the carotid bifurcations and limited segments of the vertebral arteries bilaterally. FINDINGS: There is mild smooth heterogeneous plaque noted at the carotid bifurcations bilaterally. The peak systolic velocity in the proximal right internal carotid artery is 85 cm/sec. This corresponds to a 20 to 39% proximal right ICA stenosis. Normal systolic velocities are noted in the proximal right external carotid artery. There is antegrade flow in the right vertebral artery. The peak systolic velocity in the proximal left internal carotid artery is 68 cm/sec. This corresponds to a 20 to 39% proximal left ICA stenosis. Normal systolic velocities are noted in the proximal left external carotid artery. There is antegrade flow in the left vertebral artery. IMPRESSION: 1. Bilateral 20-39% proximal ICA stenoses. 2. Antegrade flow in both vertebral arteries.
--- NOTE | 2017-07-11 21:13 | PN ---
DATE: 07/11/2017 SUBJECTIVE: Patient is seen earlier this morning in 241, bed 2. No fevers, no chills. PHYSICAL EXAMINATION: VITAL SIGNS: Temperature is 98, blood pressure is 130/80, respiratory rate of 20, heart rate of 100. HEENT: Unremarkable. NECK: Supple. LUNGS: Have decreased breath sounds. HEART: Normal S1 and S2. ABDOMEN: Soft, nontender. LABORATORY DATA: Laboratory examination reveals a white count of 4.9, hemoglobin of 13, platelets of 171. Chemistry reveals BUN of 11, creatinine of 0.6. Urinalysis is noted. Serology is reviewed. Microbiology reveals there is Klebsiella pneumoniae in the urine culture and blood cultures have no growth. The Klebsiella in the urine is ESBL positive Klebsiella. MEDICATIONS: Review of orders reveals the patient to be on meropenem, Tamiflu, IV vancomycin. Dr. Bergman's note is reviewed. Dr. Powers's progress note is reviewed. ASSESSMENT AND PLAN: This is a 76-year-old female who was seen earlier this morning in 241, bed 2, with chronic obstructive lung disease, hypothyroidism, transient ischemic attacks, diabetes mellitus, hypertension, history of left healthcare-associated pneumonia, history of tonsillectomy, , hysterectomy, SULFA AND TETRACYCLINE ALLERGY, admitted with a fever, tachycardia, normal white count, generalized aches and pains and negative influenza. Patient had a CAT scan of the chest yesterday, which revealed no active pulmonary disease, no discrete nodules, masses or infiltrates, essentially unremarkable. Her urinalysis shows 0-2 WBC and her urinalysis is not consistent with urinary tract infection. Patient did have low-grade fevers. On admission did have a temperature up to 103, with systemic inflammatory response syndrome and patient is behaving like having influenza. We will repeat the urinalysis and urine culture. If negative, we will discontinue meropenem and will empirically continue the treatment with Tamiflu for 5 days. We will discontinue the vancomycin. Today is day #2 of meropenem and day #3 of Tamiflu. Narayan Perez MD
[2017-07-11] MEDS: MethylPREDNISolone 40 mg Vial IVP SCH (22:19)
--- NOTE | 2017-07-12 01:14 | PN ---
DATE: 07/11/2017 PULMONARY PROGRESS NOTE REFERRING PHYSICIAN: Alison Powers MD. SUBJECTIVE: She is lying in the bed at 45 degrees. Feels better. Decreased cough. Decreased shortness breath. No nausea. No vomiting, diarrhea, leg pain, leg swelling. OBJECTIVE: GENERAL: In no acute distress. VITAL SIGNS: Temperature is 99, heart rate is 83, respiratory rate is 20, blood pressure 131/85, pulse ox 100% on 2 L nasal cannula. HEENT: Moist mucous membrane. Crowded airway. Mallampati score is 4. NECK: Supple. No JVD. LUNGS: Have a prolonged expiratory phase, some wheezing and basilar rhonchi. HEART: S1 and S2. ABDOMEN: Soft, nontender. No organomegaly. EXTREMITIES: No edema. NEUROLOGIC: Awake and alert, follows simple command. MEDICATIONS: She is on hydralazine 10 mg q. 6 hours p.r.n., Bactroban ointment to affected area 3 times a day, valsartan 320 mg daily, Ecotrin 81 mg daily, metformin 1000 mg twice a day, insulin coverage, potassium 20 mEq three times a day, Megace 400 mg daily, meropenem 1 g IV q. 8 hours, MiraLax 17 g p.o. daily, Tylenol p.r.n., Protonix 40 mg twice a day, IV fluid normal saline 60 mL/hour, Synthroid 75 mcg daily, Tamiflu 75 mg twice a day, Toprol XL 50 mg daily, Tylenol p.r.n., Xopenex inhaled q. 6 hours, Zofran p.r.n. basis. LABORATORY DATA: Shows hemoglobin 13.5, hematocrit 41.1, WBC 4.9, platelet count is 171. Sodium 138, potassium 3.7, chloride 106, bicarbonate 23, BUN 11, creatinine 0.6, glucose 125, calcium is 8.6, magnesium 1.9, AST 54, ALT 40, alk phos is 54, albumin is 3.4. Influenza A and B negative. Urine culture has Klebsiella. IMPRESSION AND PLAN: Sepsis, probably origin is genitourinary tract; chronic obstructive lung disease; active smoker; hypothyroid; diabetes; hypertension. Continue antibiotics, IV and inhaled bronchodilator. Keep head at 45 degrees. Gastric prophylaxis, deep venous thrombosis prophylaxis. I will continue Tamiflu. Her is also sick with upper respiratory infection type of symptoms. Thank you and we will follow with you. Felipe Bergman MD
[2017-07-12] MEDS: Levalbuterol 0.63 MG/3 ML Inhal Soln UD IH SCH ×4 (02:00→20:34)
[2017-07-12] MEDS: Meropenem 1g/NS 100mL IVPB 1 GM/100 ML PIGGYBACK IVPB SCH ×3 (05:54→21:59)
[2017-07-12 06:53] LABS: ALB/GLOB RATIO 1.3 (1.1-1.8); ALBUMIN 3.6 g/dL (3.0-4.8); ALT/SGPT 27 U/L (7-56); AST/SGOT 43 U/L (14-36); BLOOD UREA NITROGEN 13 mg/dL (7-21); CALCIUM 9.3 mg/dL (8.4-10.5); GFR AFRICAN-AMERICAN > 60; GFR NON-AFRICAN AMERICAN > 60
[2017-07-12 07:14] LABS: GRAN # 2.58 (1.4-6.5); GRAN % 82.2 % (50.0-68.0); HEMOGLOBIN 13.8 g/dL (12.0-16.0); LYMPH # 0.4 (1.2-3.4); LYMPH % 13.7 % (22.0-35.0); MEAN CELL VOLUME 82.2 fl (80.0-105.0); MEAN CORPUSCULAR HEMOGLOBIN 27.3 pg (25.0-35.0); MEAN CORPUSCULAR HGB CONC 33.2 g/dl (31.0-37.0); MEAN PLATELET VOLUME 11.8 fl (7.0-11.0); MONO # 0.1 (0.1-0.6); MONO % 4.1 % (1.0-6.0); RBC 5.06 10^6/uL (3.5-6.1); RED CELL DISTRIBUTION WIDTH 12.8 % (11.5-14.5); WHITE BLOOD COUNT 3.1 10^3/ul (4.5-11.0)
--- NOTE | 2017-07-12 08:52 | PN ---
DATE: 07/11/2017 SUBJECTIVE: Patient is a 76-year-old female. Patient was seen and examined on the bedside, looking comfortable. Actually doing physical therapy, looks very active as compared to admission. Daughter was standing at the bedside also. No more fever. No nausea, vomiting, or diarrhea. No hematuria or hematochezia. No swelling of the legs. No chest pain or palpitation. No headache, no dizziness. PHYSICAL EXAMINATION: VITAL SIGNS: Temperature 98, blood pressure 130/80, respiratory rate 20, heart rate 100. HEENT: Head, normocephalic and atraumatic. Eyes, PERRLA. Extraocular muscles intact. Conjunctivae clear. Nose patent. Mucous membrane moist. NECK: Supple. No carotid bruit, JVD or thyromegaly. CHEST: Bilaterally symmetrical. HEART: S1 and S2 positive. LUNGS: Clear to auscultation. ABDOMEN: Soft. Bowel sounds positive. No organomegaly. EXTREMITIES: No edema. No cyanosis. NEUROLOGIC: Patient is awake and alert. Moving all 4 extremities. No focal deficits. MEDICATIONS: Hydralazine, Bactroban, Diovan, Ecotrin, Glucophage, insulin, K-Dur, megestrol, MiraLax, Protonix, sodium chloride, Solu-Medrol, Synthroid, Tamiflu, Toprol, Tylenol, Xopenex, Zofran. LABORATORY DATA: White blood cells 4.9, hemoglobin 13.5, hematocrit 41.8, platelets 171. Sodium 138, potassium 3.7, BUN 11, creatinine 0.6, glucose 181. ASSESSMENT AND PLAN: The patient is a 76-year-old lady with hyperglycemia, abnormal liver function test, hematuria, urinary tract infection, seen by Dr. Perez, Infectious Disease, history of chronic obstructive lung disease, hypothyroidism, transient ischemic attack, diabetes mellitus, history of healthcare-associated pneumonia, history of tonsillectomy, section, hysterectomy, history of tachycardia. Patient's CAT scan of the chest yesterday revealed active pulmonary disease; no discrete nodules, masses, or infiltrates; essentially unremarkable. On admission, patient had temperature of 103, has systemic inflammatory response syndrome. According to Infectious Disease, they will repeat urinalysis; if it is negative, we will discontinue meropenem. We will continue treatment with Tamiflu for 5 days, and Dr. Boghossian discontinued vancomycin. Discussion done with patient's daughter. Patient has a history of hypothyroidism. Urged to quit smoking. Continue inhaled bronchodilators. Gastric and deep vein thrombosis prophylaxis. We will repeat labs. We will follow up. Alison Powers MD [facility]
[2017-07-12] MEDS: MethylPREDNISolone 40 mg Vial IVP SCH ×2 (09:30→22:11)
[2017-07-12] MEDS: Potassium Chloride 20 mEq ER Tab PO SCH ×3 (09:30→21:58)
[2017-07-12] MEDS: Levothyroxine 75 MCG TAB PO SCH (09:30)
[2017-07-12] MEDS: Pantoprazole 40 mg EC Tab PO SCH ×2 (09:30→21:59)
[2017-07-12] MEDS: POLYETHYLENE GLYCOL 3350 17 GM/Dose PACKET PO SCH (09:31)
[2017-07-12] MEDS: Insulin Reg-LOW-Coverage SC SCH ×4 (09:49→22:16)
[2017-07-12] MEDS ORDERED: Metoprolol Succinate 50 mg XL Tab PO STA (10:44)
[2017-07-12] MEDS ORDERED: Metoprolol Succinate 50 mg XL Tab PO SCH (10:45)
[2017-07-12] MEDS: Metoprolol Succinate 50 mg XL Tab PO SCH (22:00)
--- NOTE | 2017-07-13 00:33 | PN ---
DATE: PULMONARY PROGRESS NOTE REFERRING PHYSICIAN: Alison Powers MD. SUBJECTIVE: She is lying in the bed, head at 45 degrees. Feels much better. Decreased cough. Decreased shortness of breath. No nausea. No vomiting or diarrhea. No leg pain leg swelling. OBJECTIVE: GENERAL: In no acute distress. VITAL SIGNS: Temperature is 98, heart rate is 102, respiratory rate is 18 to 20, blood pressure 140/90, pulse ox 98% on 2 L nasal cannula. HEENT: Moist mucous membrane. Crowded airway. Mallampati score is 4. NECK: Supple. No JVD. LUNGS: Have a few scattered rhonchi and wheezing. HEART: S1 and S2. ABDOMEN: Soft, nontender. No organomegaly. EXTREMITIES: No edema. NEUROLOGIC: Awake and alert, follows simple command. MEDICATIONS: She is on hydralazine 10 mg q. 6 hours p.r.n., Bactroban ointment to affected area 3 times a day, Diovan 320 mg daily, Ecotrin 81 mg daily, insulin coverage, potassium 20 mEq three times a day, meropenem 1 g IV q. 8 hours, MiraLax 17 g daily, Protonix 40 mg daily, Solu-Medrol 40 mg q. 12 hours, Synthroid 75 mcg daily, Tamiflu 75 mg twice a day, Toprol XL 50 mg twice a day, Tylenol p.r.n., Xopenex 0.63 q. 6 hours. LABORATORY DATA: Shows hemoglobin 13.8, hematocrit of 41.6, WBC of 3.1, platelet is 179. Sodium 137, potassium 4.1, chloride 105, bicarbonate 22, BUN 13, creatinine 0.6, glucose 264, calcium 9.3, AST 43, ALT 27, alk phos is 56, total protein 6.4. Influenza A and B negative. Microbiology, urine culture has ESBL. IMPRESSION AND PLAN: Sepsis, has extended-spectrum beta-lactamases in the urine. Also chronic obstructive lung disease, active smoker, hypothyroid, diabetes, hypertension. We will decrease Solu-Medrol to 20 mg twice a day, continue inhaled bronchodilators, antibiotics as per Infectious Diseases. Gastric prophylaxis, deep venous thrombosis prophylaxis. May add enalapril 10 mg p.o. daily. Out of bed to chair, physical therapy. Thank you and we will follow with you. Felipe Bergman MD [facility] # [id number]
[2017-07-13] MEDS: Levalbuterol 0.63 MG/3 ML Inhal Soln UD IH SCH ×4 (02:40→20:12)
--- NOTE | 2017-07-13 03:53 | PN ---
DATE: 07/12/2017 SUBJECTIVE: Patient is seen earlier this morning in room 241. No fevers and no chills. PHYSICAL EXAMINATION: VITAL SIGNS: Temperature is 97, blood pressure is 150/60, respiratory rate of 18. HEENT: Unremarkable. NECK: Supple. LUNGS: Have decreased breath sounds. HEART: Normal S1 and S2. ABDOMEN: Soft. LABORATORY EXAMINATION: Reveals a white count of 3.1, hemoglobin of 13. Chemistry reveals a BUN of 13, creatinine of 0.6, and procalcitonin is 0.09. Urinalysis is noted. Serology is negative. Microbiology reveals, urine culture is Klebsiella pneumoniae and ESBL Klebsiella. REVIEW OF ORDERS: Reveals the patient to be on meropenem, patient is on Tamiflu. ASSESSMENT AND PLAN: This is a 76-year-old female who was seen earlier this morning with chronic obstructive lung disease, hypothyroidism, transient ischemic attacks, diabetes, hypertension, history of healthcare-associated pneumonia, who is admitted with generalized aches and pains and fever, tachycardia, with systemic inflammatory response syndrome, patient is behaving like influenza the influenza serology and rapid test is negative. Urinalysis yesterday is 0 to 2 wbc's. Microbiology is noted and nares methicillin-resistant Staphylococcus aureus is negative. May discontinue the meropenem in the next 24 hours and complete 5 days of Tamiflu, today is day #4 of Tamiflu, complete 5 days and may discontinue the meropenem in the next 24 hours. Waiting for the repeat urine culture. Narayan Perez MD
[2017-07-13] MEDS: Meropenem 1g/NS 100mL IVPB 1 GM/100 ML PIGGYBACK IVPB SCH ×3 (06:42→21:59)
[2017-07-13 08:07] LABS: BASO # 0.01 K/mm3 (0.0-2.0); BASO % 0.1 % (0.0-3.0); GRAN # 10.22 (1.4-6.5); GRAN % 85.7 % (50.0-68.0); HEMOGLOBIN 15.7 g/dL (12.0-16.0); LYMPH % 8.7 % (22.0-35.0); MEAN CELL VOLUME 81.6 fl (80.0-105.0); MEAN CORPUSCULAR HEMOGLOBIN 27.5 pg (25.0-35.0); MEAN CORPUSCULAR HGB CONC 33.7 g/dl (31.0-37.0); MEAN PLATELET VOLUME 12.2 fl (7.0-11.0); MONO # 0.7 (0.1-0.6); MONO % 5.5 % (1.0-6.0); RBC 5.71 10^6/uL (3.5-6.1); RED CELL DISTRIBUTION WIDTH 12.9 % (11.5-14.5); WHITE BLOOD COUNT 11.9 10^3/ul (4.5-11.0)
[2017-07-13] MEDS: Insulin Reg-LOW-Coverage SC SCH ×4 (08:10→22:07)
[2017-07-13 08:36] LABS: ALB/GLOB RATIO 1.3 (1.1-1.8); ALBUMIN 4.5 g/dL (3.0-4.8); ALT/SGPT 25 U/L (7-56); AST/SGOT 33 U/L (14-36); BLOOD UREA NITROGEN 17 mg/dL (7-21); CALCIUM 10.2 mg/dL (8.4-10.5); GFR AFRICAN-AMERICAN > 60; GFR NON-AFRICAN AMERICAN > 60
--- NOTE | 2017-07-13 09:12 | PN ---
DATE: 07/12/2017 SUBJECTIVE: Patient is a 76-year-old female. Patient was seen and examined at the bedside on 07/12/2017. Feeling better. Doing physical therapy. No nausea, vomiting, or diarrhea. No hematuria, hematochezia. No swelling of the legs. No chest pain, no palpitation. PHYSICAL EXAMINATION: VITAL SIGNS: Temperature 98, heart rate 102, respiratory rate 18, blood pressure 140/90, pulse oximetry 98% on 2 L nasal cannula. HEENT: Head: Normocephalic and atraumatic. Eyes: PERRLA. Extraocular muscles intact. Conjunctivae clear. Nose patent. Mucous membrane moist. NECK: Supple. No carotid bruit. No JVD or thyromegaly. LUNGS: Few scattered rhonchi and wheezing. HEART: S1 and S2, positive. ABDOMEN: Soft, nontender. No organomegaly. EXTREMITIES: No edema. No cyanosis. NEUROLOGIC: Patient is awake, alert. Moving all four extremities. No focal deficits. MEDICATIONS: Hydralazine, Bactroban, Diovan, Ecotrin, insulin, meropenem, MiraLax, Protonix, Solu-Medrol, Synthroid, Toprol, Tylenol, Xopenex. LABORATORY DATA: Hemoglobin 13.8, hematocrit 41.6, white blood cells 3.1, platelets 179. Sodium 137, potassium 4.1, BUN 13, creatinine 0.6, glucose 264. AST 34, ALT 27. ASSESSMENT AND PLAN: Ms. Martinez is a 76-year-old lady came with severe sepsis, likely septic shock, has extended-spectrum beta-lactamase in the urine, also chronic obstructive lung disease, active smoker, hypothyroidism, diabetes mellitus, hypertension. Patient is asking tapering dose of Solu-Medrol, continue inhaled bronchodilators. Antibiotics as per Infectious Disease. GI and deep vein thrombosis prophylaxis. We will follow up. Alison Powers MD
[2017-07-13] MEDS: POLYETHYLENE GLYCOL 3350 17 GM/Dose PACKET PO SCH (09:31)
[2017-07-13] MEDS: Pantoprazole 40 mg EC Tab PO SCH ×2 (09:31→17:01)
[2017-07-13] MEDS: Levothyroxine 75 MCG TAB PO SCH (09:31)
[2017-07-13] MEDS: MethylPREDNISolone 40 mg Vial IVP SCH ×2 (09:32→21:59)
[2017-07-13] MEDS: Potassium Chloride 20 mEq ER Tab PO SCH ×3 (09:33→17:00)
[2017-07-13] MEDS: Metoprolol Succinate 50 mg XL Tab PO SCH ×2 (09:33→17:00)
[2017-07-13 19:44] VITALS: O2SAT 97
--- NOTE | 2017-07-13 23:30 | PN ---
DATE: 07/13/2017 PULMONARY PROGRESS NOTE REFERRING PHYSICIAN: Alison Powers MD. SUBJECTIVE: She is out of bed to chair, feels much better. No headache. No rhinitis. Decreased shortness of breath. Mild cough. No nausea. No vomiting, diarrhea, leg pain, leg swelling. OBJECTIVE: GENERAL: In no acute distress. VITAL SIGNS: Temp is 98, heart rate is 75, respiratory rate is 20, blood pressure 140/82, pulse ox of 98% on room air. HEENT: Moist mucous membrane. Crowded airway. Mallampati score is 4. NECK: Supple. No JVD. LUNGS: Have a prolonged expiratory phase with some wheezing. HEART: S1 and S2. ABDOMEN: Soft, nontender. No organomegaly. EXTREMITIES: No edema. NEUROLOGIC: Awake, alert. Follows simple commands. MEDICATIONS: She is on hydralazine 10 mg q. 6 hours p.r.n., Bactroban ointment to affected area three times a day, Diovan 320 mg daily, Ecotrin 81 mg daily, insulin coverage, potassium 20 mEq three times a day, meropenem 1 g IV q. 8 hours, MiraLax 17 g daily, gabapentin 100 mg three times a day, Norvasc 5 mg daily, Protonix 40 mg daily, Solu-Medrol 20 mg q. 12 hours, Synthroid 75 mcg daily, Tamiflu 75 mg twice a day, Toprol-XL 50 mg twice a day, Tylenol p.r.n. basis, Xopenex 0.63 inhaled q. 6 hours. LABORATORY DATA: Shows hemoglobin 15.7, hematocrit is 46.6, WBC 11.9, platelet count is 213. Sodium 141, potassium 4.6, chloride 105, bicarbonate 19, BUN 17, creatinine 0.7, glucose 245, calcium is 10.2, AST 33, ALT 25, alk phos is 64. Albumin is 4.5. Urine culture has Klebsiella pneumoniae, which is ESBL. IMPRESSION AND PLAN: Urinary tract infection with Klebsiella pneumoniae, which is extended-spectrum beta-lactamase; chronic obstructive lung disease; active smoker; hypothyroid; diabetes; hypertension; may have sleep apnea syndrome. Continue antibiotics. Keep head at 45 degrees. IV and inhaled bronchodilator, gastric prophylaxis, deep venous thrombosis prophylaxis. Follow up blood pressure. Thank you and we will follow with you. Felipe Bergman MD [facility] # [id number]
--- NOTE | 2017-07-14 00:06 | PN ---
DATE: 07/13/2017 SUBJECTIVE: The patient is in bed, in no acute distress, nontoxic. PHYSICAL EXAMINATION VITAL SIGNS: Temperature is 98, blood pressure is 138/90, respiratory rate is 16. HEENT: Unremarkable. NECK: Supple. LUNGS: Have decreased breath sounds. HEART: Normal S1 and S2. ABDOMEN: Soft, nontender. LABORATORY DATA: Reveals a white count of 11,000 and a hemoglobin of 15, platelets of 213. Coagulation is noted. Chemistries reveal the patient's BUN of 17, creatinine of 0.7, procalcitonin is 0.09 and microbiology is noted, the Klebsiella in the urine. ASSESSMENT AND PLAN: This is a 76-year-old female who was seen early this morning in 577, bed 1; currently on meropenem and Solu-Medrol, with chronic obstructive lung disease, hypothyroidism, transient ischemic attack, diabetes, hypertension, history of healthcare-associated pneumonia, admitted with generalized aches and pains, fever and tachycardia with #1 is systemic inflammatory response syndrome. She is behaving like influenza and we will complete 5 days of Tamiflu, today is day #5 and the Klebsiella in the urine, this is an extended-spectrum beta-lactamase Klebsiella with urinalysis which is not consistent with infection. Today is day #4 of meropenem. We will discontinue meropenem in the next [address] Powers's note is reviewed. Narayan Perez MD
[2017-07-14] MEDS: Levalbuterol 0.63 MG/3 ML Inhal Soln UD IH SCH ×3 (01:33→14:04)
[2017-07-14] MEDS: Meropenem 1g/NS 100mL IVPB 1 GM/100 ML PIGGYBACK IVPB SCH ×2 (06:21→13:20)
[2017-07-14] MEDS: Metoprolol Succinate 50 mg XL Tab PO SCH ×2 (06:46→09:59)
[2017-07-14 06:50] VITALS: BP 151/105; PULSE 68
[2017-07-14 08:22] LABS: BASO # 0.02 K/mm3 (0.0-2.0); BASO % 0.2 % (0.0-3.0); EOS % 0.1 % (1.5-5.0); GRAN # 8.72 (1.4-6.5); HEMOGLOBIN 15.3 g/dL (12.0-16.0); LYMPH # 3.3 (1.2-3.4); LYMPH % 25.1 % (22.0-35.0); MEAN CELL VOLUME 82.5 fl (80.0-105.0); MEAN CORPUSCULAR HEMOGLOBIN 27.6 pg (25.0-35.0); MEAN CORPUSCULAR HGB CONC 33.5 g/dl (31.0-37.0); MEAN PLATELET VOLUME 11.9 fl (7.0-11.0); MONO # 1.1 (0.1-0.6); MONO % 8.6 % (1.0-6.0); RBC 5.54 10^6/uL (3.5-6.1); RED CELL DISTRIBUTION WIDTH 12.8 % (11.5-14.5); WHITE BLOOD COUNT 13.2 10^3/ul (4.5-11.0)
[2017-07-14 09:00] LABS: ALB/GLOB RATIO 1.4 (1.1-1.8); ALBUMIN 4.4 g/dL (3.0-4.8); ALT/SGPT 29 U/L (7-56); AST/SGOT 25 U/L (14-36); BLOOD UREA NITROGEN 20 mg/dL (7-21); GFR AFRICAN-AMERICAN > 60; GFR NON-AFRICAN AMERICAN > 60
[2017-07-14] MEDS: Insulin Reg-LOW-Coverage SC SCH ×2 (09:05→12:37)
[2017-07-14 09:29] VITALS: RESP 16; TEMP 97.4
[2017-07-14] MEDS: Levothyroxine 75 MCG TAB PO SCH (10:21)
[2017-07-14] MEDS: MethylPREDNISolone 40 mg Vial IVP SCH (10:21)
[2017-07-14] MEDS: Potassium Chloride 20 mEq ER Tab PO SCH ×2 (10:21→13:20)
[2017-07-14] MEDS: Pantoprazole 40 mg EC Tab PO SCH (10:21)
[2017-07-14] MEDS: POLYETHYLENE GLYCOL 3350 17 GM/Dose PACKET PO SCH ×2 (10:22→10:28)
--- NOTE | 2017-07-14 18:39 | PN ---
DATE: 07/14/2017 PULMONARY PROGRESS NOTE REFERRING PHYISICIAN: Alison Powers MD. SUBJECTIVE: She is ambulating in the room. Night was unremarkable. Feels better. Decreased cough. Decreased shortness of breath. No nausea, no vomiting, no diarrhea, no abdominal pain. No leg pain, leg swelling. OBJECTIVE: GENERAL: In no acute distress. VITAL SIGNS: Temperature is 98, heart rate 68, respiratory rate is 20, blood pressure 151/105, pulse ox 97% room air. HEENT: Moist mucous membrane. Crowded airway. Mallampati score is IV. NECK: Supple. No JVD. LUNGS: Have a few scattered rhonchi, prolonged expiratory phase with wheezing. HEART: S1 and S2. ABDOMEN: Soft, nontender, no organomegaly. EXTREMITIES: There is no edema. NEUROLOGIC: Awake and follows simple command. MEDICATIONS: Reviewed and noted. No new change in medications since yesterday. LABORATORY DATA: Shows hemoglobin 15.3, hematocrit 45.7, WBC 13.2, platelet count is 230. Sodium 140, potassium 3.7, chloride 104, bicarbonate 27, BUN 20, creatinine 0.7, glucose 167, calcium 10.0. AST 25, ALT 29, alk phos is 58, albumin is 4.4. Urine culture has a Klebsiella, which is ESBL. IMPRESSION AND PLAN: Urinary tract infection with Klebsiella pneumonia which is extended-spectrum beta-lactamase, chronic obstructive lung disease, active smoker, hypothyroid, diabetes, hypertension, may have sleep apnea syndrome. Keep head elevated at 45 degrees. Avoid sedatives, gastric prophylaxis, IV and inhaled bronchodilator, antibiotics as per Infectious Disease. Spoke to patient's family. Thank you and we will follow with you. Felipe Bergman MD
--- NOTE | 2017-07-14 23:32 | PN ---
DATE: SUBJECTIVE: Patient is in bed, in no acute distress, nontoxic. No fevers and chills. PHYSICAL EXAMINATION: VITAL SIGNS: Temperature is 97, blood pressure is 150/100, respiratory rate 18. HEENT: Unremarkable. NECK: Supple. LUNGS: Decreased breath sounds. HEART: Normal S1 and S2. ABDOMEN: Soft, nontender. LABORATORY DATA: Reveals a white count 13,200, hemoglobin of 15, platelets of 230. Chemistries reveal BUN of 20, creatinine of 0.7. Urinalysis is noted. Serology is noted. Microbiology reveals Klebsiella pneumoniae, which is ESBL. ASSESSMENT AND PLAN: This is a 76-year-old female who is seen earlier this morning in 577, bed 1, with history of chronic obstructive lung disease, hypothyroidism, transient ischemic attack, diabetes, hypertension, history of health-care associated pneumonia, who was admitted with generalized aches and pains, and with systemic inflammatory response syndrome. Patient is behaving like influenza, although the influenza serology is negative, and completed Tamiflu 5 days, completed Klebsiella therapy 5 days, and for possible transitional care transfer. Narayan Perez MD
--- NOTE | 2017-07-15 05:18 | PN ---
DATE: 07/13/2017 SUBJECTIVE: Patient is a 76-year-old female with hematochezia. No swelling of the legs. No chest pain or palpitation. Decreased shortness of breath. Cough is better. No fever. No chills. PHYSICAL EXAMINATION: VITAL SIGNS: Temperature 98, heart rate 75, respiratory rate 18 , blood pressure 140/82, pulse oximetry 98% on room air. HEENT: Head normocephalic, atraumatic. Eyes PERRLA. Extraocular muscles intact. Conjunctivae clear. Nose patent. Mucous membrane moist. NECK: Supple. No carotid bruit. No JVD or thyromegaly. CHEST: Bilaterally symmetrical. HEART: S1 and S2 positive. LUNGS: Clear to auscultation. ABDOMEN: Soft. Bowel sounds positive. No organomegaly. EXTREMITIES: No edema. No cyanosis. NEUROLOGICAL: The patient is awake and alert. Moving all 4 extremities. No focal deficits. MEDICATIONS: Hydralazine, Bactroban, Diovan, Ecotrin, Insulin coverage, meropenem, MiraLax, Gabapentin, Protonix, Solu-Medrol, Synthroid, Tamiflu, Toprol, Tylenol, Xopenex. LABORATORY DATA: Hemoglobin 15.7, hematocrit 47.6, white blood cells 11.9. Sodium 141, potassium 4.6, BUN 17, creatinine 0.7, glucose 245, AST 33, ALT 35. Urine culture had Klebsiella pneumoniae which was ESBL. ASSESSMENT AND PLAN: Ms. Michelle Myles is a 76-year-old lady with urinary tract infection and with Klebsiella pneumoniae, which is extended spectrum beta lactamase, chronic obstructive lung disease, active smoker, hypothyroidism, diabetes mellitus, hypertension, may have sleep apnea syndrome. We will continue antibiotics. Keep head at 45 degrees. I have initiated bronchodilators. Gastric prophylaxis and deep vein thrombosis prophylaxis. We will follow up. Alison Powers MD [facility]
== END 2017-07-14 16:36 | DRG 690 ==
LOC: ED 10:13 → ERH 13:37 → 2RSO 21:33 → CCU 07-10 00:23 → 2A 07-10 14:17 → 5RSO 07-12 18:38
PROVIDERS: ADMIT Internal Medicine; ATTEND Internal Medicine
DX: N39.0 Urinary tract infection, site not specified (principal); J44.1 Chronic obstructive pulmonary disease with (acute) exacerbation; B96.1 Klebsiella pneumoniae [K. pneumoniae] as the cause of diseases classified elsewhere; E11.65 Type 2 diabetes mellitus with hyperglycemia; E11.43 Type 2 diabetes mellitus with diabetic autonomic (poly)neuropathy; K31.84 Gastroparesis; E11.40 Type 2 diabetes mellitus with diabetic neuropathy, unspecified; E86.0 Dehydration; E03.9 Hypothyroidism, unspecified; K21.9 Gastro-esophageal reflux disease without esophagitis; I10 Essential (primary) hypertension; Z16.12 Extended spectrum beta lactamase (ESBL) resistance; E87.6 Hypokalemia; E61.1 Iron deficiency; F17.200 Nicotine dependence, unspecified, uncomplicated; G47.30 Sleep apnea, unspecified; E78.5 Hyperlipidemia, unspecified; H40.9 Unspecified glaucoma; Z86.73 Personal history of transient ischemic attack (TIA), and cerebral infarction without residual deficits; Z88.1 Allergy status to other antibiotic agents; Z88.2 Allergy status to sulfonamides; Z79.4 Long term (current) use of insulin; Z79.82 Long term (current) use of aspirin; Z87.01 Personal history of pneumonia (recurrent); Z90.710 Acquired absence of both cervix and uterus

== ENCOUNTER 2017-07-14 16:36 | Inpatient (IN) | payer MEDICARE ==
[2017-07-14] MEDS: Insulin Reg-LOW-Coverage SC SCH ×2 (17:30→22:34)
[2017-07-14] MEDS ORDERED: Levalbuterol 0.63 MG/3 ML Inhal Soln UD IH PRN (17:35)
[2017-07-14 17:59] VITALS: BMI 19.5
[2017-07-14] MEDS: Potassium Chloride 20 mEq ER Tab PO SCH (18:50)
[2017-07-14] MEDS: Metoprolol Succinate 50 mg XL Tab PO SCH (18:50)
[2017-07-14] MEDS ORDERED: Influenza Vaccine 60 mcg/0.5 mL SYR (4YR UP) IM ONE (22:09)
[2017-07-14] MEDS ORDERED: Pneumococcal 23-Valent Vaccine IM ONE (22:09)
[2017-07-14 22:53] LABS: URINE APPEARANCE CLEAR (CLEAR); URINE BILIRUBIN NEGATIVE (NEGATIVE); URINE BLOOD NEGATIVE (NEGATIVE); URINE COLOR YELLOW (YELLOW); URINE GLUCOSE (UA) 500 mg/dL (NEGATIVE); URINE LEUKOCYTE ESTERASE NEGATIVE Leu/uL (NEGATIVE); URINE NITRATE NEGATIVE (NEGATIVE); URINE PROTEIN TRACE mg/dL (<30 mg/dL); URINE UROBILINOGEN 0.2 E.U./dL (<1 E.U./dL)
[2017-07-14 22:58] LABS: URINE RBC 0 - 2 /hpf (0-2)
[2017-07-14 22:59] LABS: URINE AMORPHOUS SEDIMENT FEW; URINE BACTERIA MANY (NEG)
[2017-07-15] MEDS: Levothyroxine 75 MCG TAB PO SCH (05:12)
[2017-07-15] MEDS: Pantoprazole 40 mg EC Tab PO SCH ×2 (05:12→16:30)
[2017-07-15] MEDS: Insulin Reg-LOW-Coverage SC SCH ×4 (06:59→22:19)
[2017-07-15 07:38] LABS: ALB/GLOB RATIO 1.4 (1.1-1.8); ALBUMIN 4.1 g/dL (3.0-4.8); ALT/SGPT 35 U/L (7-56); AST/SGOT 20 U/L (14-36); BLOOD UREA NITROGEN 20 mg/dL (7-21); CALCIUM 10.2 mg/dL (8.4-10.5); GFR AFRICAN-AMERICAN > 60; GFR NON-AFRICAN AMERICAN > 60
[2017-07-15 08:52] LABS: BASO # 0.02 K/mm3 (0.0-2.0); BASO % 0.2 % (0.0-3.0); EOS % 0.3 % (1.5-5.0); GRAN # 7.05 (1.4-6.5); GRAN % 57.4 % (50.0-68.0); HEMOGLOBIN 13.9 g/dL (12.0-16.0); LYMPH % 32.8 % (22.0-35.0); MEAN CELL VOLUME 81.8 fl (80.0-105.0); MEAN CORPUSCULAR HEMOGLOBIN 27.5 pg (25.0-35.0); MEAN CORPUSCULAR HGB CONC 33.6 g/dl (31.0-37.0); MEAN PLATELET VOLUME 12.7 fl (7.0-11.0); MONO # 1.1 (0.1-0.6); MONO % 9.3 % (1.0-6.0); RBC 5.06 10^6/uL (3.5-6.1); RED CELL DISTRIBUTION WIDTH 12.9 % (11.5-14.5); WHITE BLOOD COUNT 12.3 10^3/ul (4.5-11.0)
[2017-07-15] MEDS: POLYETHYLENE GLYCOL 3350 17 GM/Dose PACKET PO SCH (09:56)
[2017-07-15] MEDS: Metoprolol Succinate 50 mg XL Tab PO SCH (10:02)
[2017-07-15] MEDS: Potassium Chloride 20 mEq ER Tab PO SCH ×3 (10:03→18:01)
--- NOTE | 2017-07-16 03:13 | CON ---
DATE: 07/15/2017 The patients in seen earlier in room 303. CHIEF COMPLAINT: Weakness times several days. HISTORY OF PRESENT ILLNESS: This is a 76-year-old female with a history of chronic obstructive lung disease, TIA, diabetes mellitus, hypothyroidism, HCAP, who was admitted with sepsis and positive influenza and found to have ESBL Klebsiella urinary tract infection, had completed the Tamiflu treatment and is on day #6 of meropenem and transferred to Transitional Care. No fevers, no chills. She is doing much better. No abdominal pain, diarrhea or constipation. However, she is weak. PAST MEDICAL HISTORY: Significant for COPD, TIA, diabetes, hypothyroidism, HCAP. PAST SURGICAL HISTORY: Significant for tonsillectomy, , hysterectomy. ALLERGIES: THE PATIENT IS ALLERGIC TO SULFA, TETANUS AND TETRACYCLINE. MEDICATIONS: The patient's medications at home are reviewed and the patient is on prednisone at home. PHYSICAL EXAMINATION: GENERAL: Patient is in bed, in no acute distress, answering questions appropriately. VITAL SIGNS: Temperature of 98, blood pressure is 130/90, respiratory rate of 18, heart rate of 80. HEENT: Unremarkable. NECK: Supple. LUNGS: Decreased breath sounds. HEART: Normal S1, S2. ABDOMEN: Soft, nontender. LABORATORY DATA: Reveals a white count of 12,300, hemoglobin of 13, platelets of 212. BUN of 20, creatinine of 0.7. Urinalysis is noted and one to three wbc's in urinalysis from yesterday. The urine culture reveals the patient is having Klebsiella. Urine culture which was positive. I ordered urinalysis which is unremarkable. Klebsiella is reported to be ESBL. ASSESSMENT AND PLAN: This is a 76-year-old female with chronic obstructive lung disease, transient ischemic attack. We will discontinue the meropenem. The patient has had adequate therapy with 6 days of meropenem. No further antibiotics necessary. The patient also has completed the Tamiflu and the patient has had over 5 days of Tamiflu. No further antibiotics and no further Tamiflu; however, the patient is at risk for developing nosocomial infections. Case discussed with PMD. Narayan Perez MD [facility] # [id number]
--- NOTE | 2017-07-16 05:39 | CON ---
DATE: PULMONARY CONSULT REFERRING PHYSICIAN: Dr. Poewrs. REASON FOR CONSULTATION: Chronic obstructive lung disease. HISTORY OF PRESENT ILLNESS: This is a 76-year-old female well known to me from acute side of the hospital where originally she admitted with fever, cough, shortness of breath, change in mental status, found to have a sepsis with ESBL in the urine and also exacerbation of chronic lung disease. She is treated with antibiotics, IV and inhaled bronchodilator with some benefit, slowly improving. No admit to the RCU for continued care. PAST MEDICAL HISTORY: Chronic obstructive lung disease, diabetes, hypothyroid, history of multiple TIAs. ALLERGIES: TO SULFA, TETRACYCLINE AND TETANUS SHOTS. FAMILY HISTORY: No significant cardiopulmonary disease reported. SOCIAL HISTORY: She is active smoker. Denies any alcohol use. MEDICATIONS: She is on hydralazine 10 mg q. 6 hour p.r.n., Diovan 320 mg daily, Ecotrin 81 mg daily, insulin coverage, potassium 20 mEq daily, MiraLax 17 g daily, Neurontin 100 mg three times a day, Norvasc 5 mg daily, prednisone 20 mg daily, Protonix 40 mg twice a day, Synthroid 75 mg daily, Toprol XL 5 mg twice a day, Tylenol p.r.n., Xopenex inhaled q.6 hour p.r.n. REVIEW OF SYSTEMS: Presently no more headache, no rhinitis, does have a cough, shortness of breath. No nausea, vomiting, no diarrhea or dysuria. No leg pain or leg swelling. PHYSICAL EXAMINATION: GENERAL: Lying in the bed, no acute distress. VITAL SIGNS: Temperature is 98, heart rate 66, respiratory rate is 18, blood pressure 123/83, pulse ox 96% room air. HEENT: Moist mucous membranes. Small oral cavity. Crowded airway. NECK; Supple. No JVD. LUNGS: Has a prolonged expiratory phase with some wheezing. HEART: S1, S2. ABDOMEN: Soft, nontender, no organomegaly. EXTREMITIES: No edema. NEUROLOGIC: Awake and follows simple commands. LABORATORY DATA: Shows hemoglobin 13.9, hematocrit 41.4, WBC 12.3, platelet is 212. INR 1.03. PTT is 29. Sodium 137, potassium 4.5, chloride 100, bicarbonate 24, BUN 20, creatinine 0.7, glucose 160, calcium is 10.2, AST 20, ALT 35, alk phos is 62, total protein is 7.0. Albumin is 4.1. Urinalysis shows wbc 1-3, rbcs 0-2. Influenza A and B been negative. Urine culture has Klebsiella pneumonia, which is ESBL. Blood culture are unremarkable. IMPRESSION AND PLAN: Urinary tract infection with extended-spectrum beta-lactamase Klebsiella pneumonia, chronic obstructive lung disease, hypothyroid, diabetes, hypertension, may have sleep apnea syndrome. We will continue p.o. and inhaled bronchodilator, antibiotics as per infectious diseases. Gastric prophylaxis, deep vein thrombosis prophylaxis. Sleep apnea precaution, avoid sedation. Fall precaution. Continue therapy. Thank you and we will follow with you. Felipe Bergman MD
[2017-07-16] MEDS: Pantoprazole 40 mg EC Tab PO SCH ×2 (05:56→17:00)
[2017-07-16] MEDS: Levothyroxine 75 MCG TAB PO SCH (05:56)
[2017-07-16] MEDS: Insulin Reg-LOW-Coverage SC SCH ×4 (06:55→22:27)
[2017-07-16 07:29] LABS: HEMOGLOBIN 16.1 g/dL (12.0-16.0); MEAN CELL VOLUME 81.6 fl (80.0-105.0); MEAN CORPUSCULAR HEMOGLOBIN 27.4 pg (25.0-35.0); MEAN CORPUSCULAR HGB CONC 33.5 g/dl (31.0-37.0); MEAN PLATELET VOLUME 11.8 fl (7.0-11.0); RBC 5.88 10^6/uL (3.5-6.1); RED CELL DISTRIBUTION WIDTH 12.8 % (11.5-14.5); WHITE BLOOD COUNT 16.7 10^3/ul (4.5-11.0)
[2017-07-16 08:19] LABS: ALB/GLOB RATIO 1.3 (1.1-1.8); ALBUMIN 4.4 g/dL (3.0-4.8); ALT/SGPT 30 U/L (7-56); AST/SGOT 31 U/L (14-36); BLOOD UREA NITROGEN 22 mg/dL (7-21); CALCIUM 10.2 mg/dL (8.4-10.5); GFR AFRICAN-AMERICAN > 60; GFR NON-AFRICAN AMERICAN > 60
--- NOTE | 2017-07-16 08:19 | HP ---
DATE OF EXAM: 07/14/2017 CHIEF COMPLAINT: Deconditioned, need antibiotics. HISTORY OF PRESENT ILLNESS: Ms. Myles is a 76-year-old female with past medical history of COPD, TIA, diabetes mellitus, came to the emergency room at [facility] on 07/09/2017 with altered mental status, she was in the septic shock. She got her treatment as outpatient from her primary care physician with [facility], but it was not working and had infection until she came to [facility]. We admitted her in the unit, gave antibiotics, she improved. ID was on the case. Now transferred to TCU on 07/14/2017 for continuity of care, deconditioning and the completion of the antibiotics. PAST MEDICAL HISTORY: As above, COPD, hypertension, hypercholesterolemia, pneumonia, TIA, left eye cataract surgery, diabetic neuropathy, GERD, constipation, hiatal hernia, gastroparesis, poor appetite, urgency, frequency, history of hysterectomy, history of hand and toe surgery, thyroidectomy and tonsillectomy. FAMILY HISTORY: Father and mother, noncontributory. HABITS: Currently smoking. Alcohol, no. Substance abuse, no. ALLERGIES: PATIENT IS ALLERGIC TO THE SULFA, TETANUS, AND TETRACYCLINE. REVIEW OF SYSTEMS: The patient is seen and examined on the bedside. Looking comfortable. No nausea, vomiting, diarrhea. No hematuria or hematochezia. No swelling of the legs. No chest pain. No palpitation. No headache. No dizziness. PHYSICAL EXAMINATION: VITAL SIGNS: Temperature 98.4, pulse 56, blood pressure 123/83, respiratory rate 18. HEENT: Head: Normocephalic, atraumatic. Eyes: PERRLA. Extraocular muscles intact. Conjunctivae clear. Nose patent. Mucous membranes are moist. NECK: Supple. No carotid bruits, JVD or thyromegaly. CHEST: Bilaterally symmetrical. HEART: S1, S2 positive. LUNGS: Clear to auscultation. ABDOMEN: Soft. Bowel sounds present. No organomegaly. EXTREMITIES: No edema, no cyanosis. NEUROLOGICAL: Patient is awake and alert. Moving all 4 extremities. No focal deficit. LABORATORY DATA: White blood cells 12.3, hemoglobin 13.9, hematocrit 41.4, platelets 212. Sodium 137, potassium 4.5, BUN 20, creatinine 0.7. Glucose 170, 209, 160. ASSESSMENT AND PLAN: Ms. Myles is a 76-year-old lady with leukocytosis, hyperglycemia, proteinuria, glucosuria, came with septic shock - improved, chronic obstructive pulmonary disease with exacerbation, hypothyroidism, hypertension, history of smoking, urged to quit smoking. Patient was getting inhaled bronchodilators, getting meropenem and Tamiflu. Gastric prophylaxis, deep vein thrombosis prophylaxis. Urinary tract infection with Klebsiella pneumoniae, which is extended spectrum beta lactamase. Patient is getting physical therapy. PT, OT. We will follow up. Alison Powers MD
[2017-07-16] MEDS: Potassium Chloride 20 mEq ER Tab PO SCH ×3 (10:52→17:31)
[2017-07-16] MEDS: POLYETHYLENE GLYCOL 3350 17 GM/Dose PACKET PO SCH (10:52)
[2017-07-16] MEDS: Metoprolol Succinate 50 mg XL Tab PO SCH ×2 (10:53→17:38)
--- NOTE | 2017-07-16 15:54 | CON ---
DATE: 07/16/2017 NEUGOLOGY CONSULT CHIEF COMPLAINT: Transient altered mental status. HISTORY OF PRESENT ILLNESS: This is a 76-year-old woman with past medical history of COPD, diabetes, hypothyroidism, history of TIA, history of cognitive impairment. She came to the hospital for fever, cough, shortness of breath, change in mental status, found to have elevated systolic and diastolic blood pressures initially with MRI of the brain showing no acute intracranial abnormalities, chronic ischemic changes, found to have sepsis with ESBL in the urine and exacerbation of underlying chronic obstructive lung disease, for which she was treated with IV antibiotics and inhaled bronchodilators and slowly improved and currently in TCU, undergoing antibiotic therapy and also some physical therapy for deconditioned state. She is more attentive, following simple commands. Moving all extremities and talked to the patient as well as the daughter at bedside. PAST MEDICAL HISTORY: COPD, diabetes, hypothyroidism, hypertension, and history of cognitive impairment. ALLERGIES: THE PATIENT IS ALLERGIC TO SULFA, TETRACYCLINE, AND TETANUS SHOTS. FAMILY HISTORY: Noncontributory. SOCIAL HISTORY: No illicit drug use, smoking, or EtOH abuse. MEDICATIONS: Reviewed by nursing reconciliation sheet. REVIEW OF SYSTEMS: A 14-point review of systems is negative except in the HPI. PHYSICAL EXAMINATION: GENERAL: The patient is sitting up in bed, in no acute distress. VITAL SIGNS: Temperature 98.4, pulse rate is 66, blood pressure 122/83, respiratory rate 18, and oxygen saturation 96% on room air. HEENT: Head is atraumatic and normocephalic. PERRLA. Extraocular muscles intact. NECK: Supple. No JVD. No adenopathy noted. LUNGS: Clear to auscultation. No adventitious sounds. HEART: S1 and S2. Normal rate and rhythm. No murmur, rubs, or gallops. ABDOMEN: Soft, nontender, and nondistended. Bowel sounds present. EXTREMITIES: No clubbing. No cyanosis. Peripheral pulses 2+ felt bilaterally. NEUROLOGIC: The patient is alert, oriented to person, place, month, and year. Speech is fluent without any errors. Cranial nerves II through XII intact. Motor exam: Moves all extremities equally. Toes are downgoing bilaterally. Sensory exam: Light touch and pinprick up to the calves bilaterally. Decreased vibration at the toes. DTRs are 2+ throughout except for 1 at both knees and ankles. Coordination, [id number] intact. Gait is deferred for now. LABORATORY DATA: Sodium is 139, potassium 4.4, chloride of 105, carbon dioxide 24. BUN of 22, creatinine 0.8. Random glucose of 176. ASSESSMENT AND PLAN: This is a 76-year-old woman with history of chronic obstructive pulmonary disease, hypothyroidism, history of diabetic peripheral neuropathy, hypertension, history of transient ischemic attack, and congenitive impairment, who came initially to [facility] for change in mental status, shortness of breath, cough, and fever, found to have sepsis with extended-spectrum beta-lactamase in the urine and exacerbation of chronic obstructive pulmonary disease. MRI of the brain at that time showed no acute intracranial abnormalities, chronic ischemic changes, and had elevated blood pressures at that time, which was stabilized. She was also treated on for antibiotics and IV and inhaled bronchodilators, currently TCU deconditioned state and rehabilitation. She is currently getting antibiotic therapy. At this time, I recommended; 1. Sleep apnea precaution, avoid sedative meds. 2. Continue her gabapentin for neuropathy from diabetes. 3. Keep her blood sugars between 140 to 180. 4. Keep her blood pressures between 130 to 140 systolic and diastolic 70 to 80. 5. Continue her PT/OT for underlying deconditioning. Adalid Lezama MD
--- NOTE | 2017-07-17 00:31 | PN ---
DATE: 07/16/2017 PULMONARY PROGRESS NOTE REFERRING PHYSICIAN: Dr. Powers. SUBJECTIVE: Patient is sitting up in a chair, participating in therapy. Night was unremarkable. Feels better. Decreased cough and decreasing short of breath. No chest pain. No abdominal pain. No dysuria, leg pain or leg swelling. OBJECTIVE: GENERAL: No acute distress. VITAL SIGNS: Temp is 98, heart rate 74, respiratory rate is 18, blood pressure is 100/67, pulse ox 98% on room air. HEENT: Moist mucous membrane. Crowded airway. Mallampati score is IV. NECK: Supple. No JVD. LUNGS: Have a prolonged expiratory phase. Few wheezing. HEART: S1 and S2. ABDOMEN: Soft, nontender. No organomegaly. EXTREMITIES: No edema. NEUROLOGIC: Awake, alert. Follows simple command. MEDICATIONS: She is on hydralazine 10 mg q. 6 hours p.r.n., Diovan 320 mg daily, Ecotrin 81 mg daily, insulin coverage, potassium 20 mEq three times a day, MiraLax 17 g daily, gabapentin 100 mg three times a day, Norvasc 5 mg daily, prednisone 20 mg daily, Protonix 40 mg twice a day, Synthroid 75 mcg daily, Toprol XL 50 mg twice a day, Tylenol p.r.n., Xopenex inhaled q. 6 hours p.r.n. LABORATORY DATA: Shows hemoglobin 16.1, hematocrit 48.0, WBC 16.7, platelet is 258. Sodium 134, potassium 4.4, chloride 101, bicarbonate 24, BUN 22, creatinine 0.8, glucose 176, calcium is 10.2, AST 31, ALT 30, alk phos is 67, albumin is 4.4. Microbiology: Urine culture, repeat, there is no growth so far. IMPRESSION AND PLAN: Urinary tract infection and has extended-spectrum beta-lactamase Klebsiella pneumonia, chronic obstructive lung disease, hypothyroid, diabetes, hypertension, may have sleep apnea syndrome. We will continue p.o. and inhaled bronchodilators, could decrease prednisone dose. Antibiotics as per Infectious Disease. Gastric prophylaxis, deep venous thrombosis prophylaxis. Sleep apnea precaution. Keep head at 45 degrees. Avoid nocturnal sedative. Influenza A and B have been negative. Thank you and we will follow with you. Felipe Bergman MD [facility] # [id number]
[2017-07-17] MEDS: Levothyroxine 75 MCG TAB PO SCH (05:33)
[2017-07-17] MEDS: Pantoprazole 40 mg EC Tab PO SCH ×2 (05:33→15:58)
[2017-07-17] MEDS: Insulin Reg-LOW-Coverage SC SCH ×4 (07:40→21:43)
[2017-07-17] MEDS: Metoprolol Succinate 50 mg XL Tab PO SCH ×2 (10:12→18:03)
[2017-07-17] MEDS: Potassium Chloride 20 mEq ER Tab PO SCH ×3 (10:13→18:03)
[2017-07-17] MEDS: POLYETHYLENE GLYCOL 3350 17 GM/Dose PACKET PO SCH (10:14)
--- NOTE | 2017-07-17 12:38 | PN ---
DATE: 07/16/2017 SUBJECTIVE: Patient was seen and examined at the bedside, looking comfortable, participating in physical therapy, night was unremarkable. No change in mental status, improving. Cough is better. Shortness of breath is better. No fever. No chills. No hematuria. No hematochezia. PHYSICAL EXAMINATION VITAL SIGNS: Temperature 98, heart rate is 74, respiratory rate 18, blood pressure 100/67, pulse oximetry 98% on room air. HEENT: Head: Normocephalic, atraumatic. Eyes: PERRLA. Extraocular muscles are intact. Conjunctivae clear. Nose patent. Mucous membranes are moist. NECK: Supple. No carotid bruits. No JVD or thyromegaly. CHEST: Bilaterally symmetrical. HEART: S1 and S2 positive. LUNGS: Clear to auscultation. ABDOMEN: Soft. Bowel sounds present. No organomegaly. EXTREMITIES: No edema. No cyanosis. NEUROLOGIC: Patient is awake and alert. Moving all four extremities. No focal deficits. MEDICATIONS: Hydralazine, Diovan, Ecotrin, potassium, MiraLax, gabapentin, Norvasc, Protonix, Synthroid, Toprol, Tylenol, Xopenex. LABORATORY DATA: Hemoglobin 16.1, hematocrit 48. White blood cells 15.7, platelet 258,000. Sodium 134, potassium 4.4, BUN 22, creatinine 0.8, AST 31, ALT 30. ASSESSMENT AND PLAN: Ms. Michelle Myles is a 76-year-old lady who has urinary tract infection with extended-spectrum beta-lactamase Klebsiella pneumoniae, came with sepsis and septic shock, chronic obstructive lung disease, hypothyroidism, diabetes mellitus, hypertension, sleep apnea syndrome. Getting antibiotics as per Infectious Disease. Gastric and deep venous thrombosis prophylaxis. Getting physical therapy. Sleep apnea precautions. Avoid nocturnal sedative. Patient has history of heavy smoking, urged to quit. Influenza A and B has been negative. Repeat labs. Continue present treatment. Alison Powers MD
--- NOTE | 2017-07-17 18:25 | CP.PCM.PN ---
Subjective - Date & Time of Evaluation Date of Evaluation: 07/17/17 Time of Evaluation: 11:35 - Subjective Subjective: No fevers, not in distress. Objective - Vital Signs/Intake and Output Vital Signs (last 24 hours): Temp Pulse Resp BP Pulse Ox 98.9 F 72 16 134/81 100 07/17/17 06:00 07/17/17 06:00 07/17/17 06:00 07/17/17 06:00 07/17/17 06:00 - Medications Medications: Current Medications Acetaminophen (Tylenol 325mg Tab) 650 mg PO Q6H PRN; Protocol PRN Reason: Fever >100.4 F Amlodipine Besylate (Norvasc) 5 mg PO DAILY [facility] PRN Reason: Protocol Last Admin: 07/16/17 10:53 Dose: 5 mg Aspirin (Ecotrin) 81 mg PO 0800 [facility] PRN Reason: Protocol Last Admin: 07/17/17 08:03 Dose: 81 mg Gabapentin (Neurontin) 100 mg PO TID [facility] PRN Reason: Protocol Last Admin: 07/16/17 17:31 Dose: 100 mg Hydralazine HCl (Apresoline) 10 mg IVP Q6 PRN; Protocol PRN Reason: Systolic Blood Pressure Insulin Human Regular (Humulin R Low) 0 units SC ACHS [facility] PRN Reason: Protocol Last Admin: 07/17/17 07:40 Dose: 3 units Levalbuterol HCl (Xopenex) 0.63 mg IH [id number] PRN; Protocol PRN Reason: Shortness of Breath Levothyroxine Sodium (Synthroid) 75 mcg PO 0600 [facility] PRN Reason: Protocol Last Admin: 07/17/17 05:33 Dose: 75 mcg Metoprolol Succinate (Toprol Xl) 50 mg PO BID [facility] PRN Reason: Protocol Last Admin: 07/16/17 17:38 Dose: 50 mg Pantoprazole Sodium (Protonix Ec Tab) 40 mg PO 0600,1600 [facility] PRN Reason: Protocol Last Admin: 07/17/17 05:33 Dose: 40 mg Polyethylene Glycol (Miralax) 17 gm PO DAILY [facility] PRN Reason: Protocol Last Admin: 07/16/17 10:52 Dose: 17 gm Potassium Chloride (K-Dur 20 Meq Er Tab) 20 meq PO TID [facility] PRN Reason: Protocol Last Admin: 02/19/18 17:31 Dose: 20 meq Prednisone (Prednisone Tab) 20 mg PO 0800 [facility]; Protocol PRN Reason: Taper Stop: 07/21/17 09:59 Last Admin: 07/17/17 08:03 Dose: 20 mg Valsartan (Diovan) 320 mg PO DAILY [facility] PRN Reason: Protocol Last Admin: 07/16/17 10:53 Dose: 320 mg - Labs Labs: 07/16/17 06:45 07/16/17 06:45 - Constitutional Appears: Non-toxic - Head Exam Head Exam: NORMAL INSPECTION - Respiratory Exam Respiratory Exam: Decreased Breath Sounds - Cardiovascular Exam Cardiovascular Exam: +S1, +S2 - GI/Abdominal Exam GI & Abdominal Exam: Soft. absent: Tenderness Assessment and Plan - Assessment and Plan (Free Text) Plan: Assessment S/P ESBL Klebsiella UTI S/P treatment of Influenza history of sepsis due to left lower lobe healthcare-associated pneumonia COPD history of TIA S/P left eye cataract surgery DM hypothyroidism S/P S/P hysterectomy S/P tonsillectomy HTN significant smoking history Plan continue to monitor off antibiotics since she is at risk for nosocomial infections
--- NOTE | 2017-07-18 01:32 | PN ---
DATE: 07/17/2017 PULMONARY PROGRESS NOTE REFERRING PHYSICIAN: Alison Powers MD SUBJECTIVE: She is ambulating in the escobar with the help of therapist. Night was unremarkable. Cough is better. No nausea, no vomiting, no diarrhea. No dysuria, leg pain or leg swelling. OBJECTIVE: GENERAL: No acute distress. VITAL SIGNS: Temp 98, heart rate 73, respiratory rate is 18, blood pressure 117/72, pulse ox 98% on nasal cannula. HEENT: Moist mucous membrane. Crowded airway. Mallampati score is 4. NECK: Supple. No JVD. LUNGS: Fair airflow with a few rhonchi. HEART: S1 and S2. ABDOMEN: Soft, nontender. No organomegaly. EXTREMITIES: No edema. NEUROLOGIC: Awake, alert. Follows simple command. MEDICATIONS: She is on hydralazine 10 mg q.6 hours p.r.n., valsartan 320 mg daily, Ecotrin 81 mg daily, insulin coverage, potassium 20 mEq three times a day, MiraLax 17 g p.o. daily, Neurontin 100 mg three times daily, Norvasc 5 mg daily, prednisone 10 mg daily, Protonix 40 mg twice a day, Synthroid 75 mcg daily, Toprol XL 50 mg daily, Tylenol p.r.n., Xopenex q.6 hours p.r.n. LABORATORY DATA: Reviewed. Blood sugar this morning was 241. IMPRESSION AND PLAN: Urinary tract infection with extended-spectrum beta-lactamase organism, Klebsiella pneumonia, chronic obstructive lung disease, hypothyroid, diabetes, hypertension, may have sleep apnea syndrome, activities of daily living dysfunction. Spoke to family at bedside, all their questions answered. Continue p.o. and inhaled bronchodilator. Antibiotics as per Infectious Disease. Gastric prophylaxis, deep venous thrombosis prophylaxis. Fall precaution. Outpatient pulmonary function test. The patient asked to stop smoking. Thank you and we will follow with you. Felipe Bergman MD
[2017-07-18] MEDS: Pantoprazole 40 mg EC Tab PO SCH ×2 (05:41→17:42)
[2017-07-18] MEDS: Levothyroxine 75 MCG TAB PO SCH (05:41)
[2017-07-18] MEDS: Insulin Reg-LOW-Coverage SC SCH ×4 (06:43→23:14)
[2017-07-18 06:51] LABS: HEMOGLOBIN 14.1 g/dL (12.0-16.0); MEAN CELL VOLUME 82.1 fl (80.0-105.0); MEAN CORPUSCULAR HEMOGLOBIN 27.1 pg (25.0-35.0); MEAN PLATELET VOLUME 11.8 fl (7.0-11.0); RBC 5.2 10^6/uL (3.5-6.1); WHITE BLOOD COUNT 18.4 10^3/ul (4.5-11.0)
[2017-07-18 07:07] LABS: BLOOD UREA NITROGEN 28 mg/dL (7-21); CALCIUM 9.8 mg/dL (8.4-10.5); GFR AFRICAN-AMERICAN > 60; GFR NON-AFRICAN AMERICAN > 60
--- NOTE | 2017-07-18 08:47 | PN ---
DATE: 07/17/2017 SUBJECTIVE: Patient is a 76-year-old female, seen in her room, looking comfortable, worrying about her who has stroke. No nausea, vomiting, or diarrhea. No hematuria or hematochezia. No swelling of the legs. No chest pain, no palpitation. No headache or dizziness. PHYSICAL EXAMINATION: VITAL SIGNS: Temperature 97.4, pulse 78, blood pressure 107/72, respiratory rate 18. HEENT: Head normocephalic, atraumatic. Eyes PERRLA. Extraocular muscles intact. Conjunctivae clear. Nose patent. Mucous membrane moist. NECK: Supple. No carotid bruit. No JVD or thyromegaly. CHEST: Bilaterally symmetrical. HEART: S1 and S2 positive. LUNGS: Clear to auscultation. ABDOMEN: Soft. Bowel sounds present. No organomegaly. EXTREMITIES: No edema. No cyanosis. NEUROLOGIC: The patient is awake and alert. Follows simple commands. MEDICATIONS: Hydralazine, Diovan, Ecotrin, insulin, Protonix, MiraLax, gabapentin, Norvasc, prednisone, levothyroxine, Toprol, Xopenex. LABORATORY DATA: White blood cells 15.7, hemoglobin 16.1, hematocrit 48.0, platelets 228. ASSESSMENT AND PLAN: Hyperglycemia, history of urosepsis, came with septic shock, infection with extended-spectrum beta-lactamase Klebsiella pneumoniae, history of pulmonary hypertension, history of heavy smoking. Getting inhaled bronchodilators. Gastric and deep vein thrombosis prophylaxes. Repeat labs. We will follow up. Alison Powers MD
[2017-07-18] MEDS: Metoprolol Succinate 50 mg XL Tab PO SCH ×3 (09:57→19:02)
[2017-07-18] MEDS: Potassium Chloride 20 mEq ER Tab PO SCH ×3 (10:00→17:41)
[2017-07-18] MEDS: POLYETHYLENE GLYCOL 3350 17 GM/Dose PACKET PO SCH (10:01)
--- NOTE | 2017-07-18 16:35 | CP.PCM.PN ---
<Alondra Partida - Last Filed: 07/18/17 16:31> Subjective - Date & Time of Evaluation Date of Evaluation: 07/18/17 Time of Evaluation: 11:15 - Subjective Subjective: Chief complaint: low back pain 76 yr female w/ COPD, TIA, DM II, TIA, L eye cataract, GERD, Hital hernia , gastroparesis, & falls. Treated in [facility] for AMS rellated to sepsis UTI positive for extended-spectrum beta-lactamase organism & klebsiella pnemonia which has resolved. Now in TCU for physical PT/OT secondary to deconditioning. Today, pt seen out on pass in ICU visiting her . Pt reports low back pain. Denies any shortness of breath, chest pain, headache, fever, chills, diarrhea, constipation, paraesthesias, or urinary changes. Objective - Vital Signs/Intake and Output Vital Signs (last 24 hours): Temp Pulse Resp BP Pulse Ox 98.1 F 67 20 106/75 100 07/18/17 10:00 07/18/17 10:00 07/18/17 10:00 07/18/17 10:00 07/18/17 10:00 - Medications Medications: Current Medications Acetaminophen (Tylenol 325mg Tab) 650 mg PO Q6H PRN; Protocol PRN Reason: Fever >100.4 F Amlodipine Besylate (Norvasc) 5 mg PO DAILY [facility] PRN Reason: Protocol Last Admin: 07/18/17 10:00 Dose: 5 mg Aspirin (Ecotrin) 81 mg PO 0800 [facility] PRN Reason: Protocol Last Admin: 07/18/17 09:59 Dose: 81 mg Gabapentin (Neurontin) 100 mg PO TID [facility] PRN Reason: Protocol Last Admin: 07/18/17 14:41 Dose: 100 mg Hydralazine HCl (Apresoline) 10 mg IVP Q6 PRN; Protocol PRN Reason: Systolic Blood Pressure Insulin Human Regular (Humulin R Low) 0 units SC ACHS [facility] PRN Reason: Protocol Last Admin: 07/18/17 13:03 Dose: Not Given Levalbuterol HCl (Xopenex) 0.63 mg IH [id number] PRN; Protocol PRN Reason: Shortness of Breath Levothyroxine Sodium (Synthroid) 75 mcg PO 0600 [facility] PRN Reason: Protocol Last Admin: 07/18/17 05:41 Dose: 75 mcg Metoprolol Succinate (Toprol Xl) 50 mg PO BID [facility] PRN Reason: Protocol Last Admin: 07/18/17 09:57 Dose: 50 mg Pantoprazole Sodium (Protonix Ec Tab) 40 mg PO 0600,1600 [facility] PRN Reason: Protocol Last Admin: 07/18/17 05:41 Dose: 40 mg Polyethylene Glycol (Miralax) 17 gm PO DAILY [facility] PRN Reason: Protocol Last Admin: 07/18/17 10:01 Dose: 17 gm Potassium Chloride (K-Dur 20 Meq Er Tab) 20 meq PO TID [facility] PRN Reason: Protocol Last Admin: 07/18/17 14:41 Dose: 20 meq Prednisone (Prednisone Tab) 10 mg PO 0800 [facility]; Protocol PRN Reason: Taper Stop: 07/21/17 09:59 Last Admin: 07/18/17 10:00 Dose: 10 mg Valsartan (Diovan) 320 mg PO DAILY [facility] PRN Reason: Protocol Last Admin: 07/18/17 10:01 Dose: 320 mg - Labs Labs: 07/18/17 05:40 07/18/17 05:40 - Constitutional Appears: Well - Head Exam Head Exam: ATRAUMATIC, NORMAL INSPECTION, NORMOCEPHALIC - Eye Exam Eye Exam: EOMI, Normal appearance - ENT Exam ENT Exam: Mucous Membranes Moist, Normal Exam - Neck Exam Neck Exam: Full ROM, Normal Inspection. absent: Lymphadenopathy - Respiratory Exam Respiratory Exam: Clear to Ausculation Bilateral, NORMAL BREATHING PATTERN - Cardiovascular Exam Cardiovascular Exam: REGULAR RHYTHM, +S1, +S2. absent: Murmur - GI/Abdominal Exam GI & Abdominal Exam: Soft, Normal Bowel Sounds. absent: Tenderness - Extremities Exam Extremities Exam: Full ROM, Normal Capillary Refill, Normal Inspection. absent : Joint Swelling, Pedal Edema - Back Exam Back Exam: NORMAL INSPECTION - Neurological Exam Neurological Exam: Alert, Awake, Oriented x3 - Psychiatric Exam Psychiatric exam: Normal Affect, Normal Mood - Skin Skin Exam: Dry, Intact, Normal Color, Warm Assessment and Plan (1) Low back pain Status: Acute (2) Altered mental status Status: Resolved (3) COPD (chronic obstructive pulmonary disease) Status: Acute (4) Community acquired pneumonia Status: Acute (5) Sepsis Status: Acute - Assessment and Plan (Free Text) Plan: Completed treatment with IV abx. GI/VTE prophlyaxis. Continue PT/OT. Pain management plan: Tylenol PRN Consults: Neuro - Dr. Teja Perez Pulmo - Dr. Pineda Reviewed: CT chest = WNL Carotid Doppler = B/L 20-30% ICA stenosis MRI brain = high flair signal intensity within cerebral white matter, represents chronic small vessel ischemic disease, mild to mod stable atrophy CT head = old lacunar infarcts R centrum semiovale and hirsch radiata, mild chronic microangiopathic changes CXR = WNL ECG = ST, possible septal RI, NSSTW changes, prolonged QTC <Alison Powers - Last Filed: 07/19/17 09:36> Objective - Vital Signs/Intake and Output Vital Signs (last 24 hours): Temp Pulse Resp BP Pulse Ox 97.8 F 64 18 107/69 100 07/18/17 17:34 07/18/17 17:34 07/18/17 17:34 07/18/17 17:34 07/18/17 17:34 - Medications Medications: Current Medications Acetaminophen (Tylenol 325mg Tab) 650 mg PO Q6H PRN; Protocol PRN Reason: Fever >100.4 F Amlodipine Besylate (Norvasc) 5 mg PO DAILY [facility] PRN Reason: Protocol Last Admin: 07/18/17 10:00 Dose: 5 mg Aspirin (Ecotrin) 81 mg PO 0800 [facility] PRN Reason: Protocol Last Admin: 07/19/17 08:53 Dose: 81 mg Gabapentin (Neurontin) 100 mg PO TID [facility] PRN Reason: Protocol Last Admin: 07/18/17 17:42 Dose: 100 mg Hydralazine HCl (Apresoline) 10 mg IVP Q6 PRN; Protocol PRN Reason: Systolic Blood Pressure Insulin Human Regular (Humulin R Low) 0 units SC ACHS [facility] PRN Reason: Protocol Last Admin: 07/19/17 06:45 Dose: 2 units Levalbuterol HCl (Xopenex) 0.63 mg IH [id number] PRN; Protocol PRN Reason: Shortness of Breath Levothyroxine Sodium (Synthroid) 75 mcg PO 0600 [facility] PRN Reason: Protocol Last Admin: 07/19/17 05:46 Dose: 75 mcg Metoprolol Succinate (Toprol Xl) 50 mg PO 0800,1800 [facility] PRN Reason: Protocol Pantoprazole Sodium (Protonix Ec Tab) 40 mg PO 0600,1600 [facility] PRN Reason: Protocol Last Admin: 07/19/17 05:45 Dose: 40 mg Polyethylene Glycol (Miralax) 17 gm PO DAILY [facility] PRN Reason: Protocol Last Admin: 07/18/17 10:01 Dose: 17 gm Potassium Chloride (K-Dur 20 Meq Er Tab) 20 meq PO 0730,1230,1800 [facility] PRN Reason: Protocol Last Admin: 07/19/17 08:54 Dose: 20 meq Prednisone (Prednisone Tab) 5 mg PO 0800 [facility] Stop: 07/21/17 09:59 Valsartan (Diovan) 320 mg PO DAILY [facility] PRN Reason: Protocol Last Admin: 07/18/17 10:01 Dose: 320 mg - Labs Labs: 07/18/17 05:40 07/18/17 05:40 Assessment and Plan - Assessment and Plan (Free Text) Plan: 76 yr female w/ COPD, TIA, DM II, TIA, L eye cataract, GERD, Hital hernia , gastroparesis, & falls. Treated in [facility] for AMS rellated to sepsis UTI positive for extended-spectrum beta-lactamase organism & klebsiella pnemonia which has resolved. Now in TCU for physical PT/OT secondary to deconditioning. Today, pt seen out on pass in ICU visiting her . Pt reports low back pain. Denies any shortness of breath, chest pain, headache, fever, chills, diarrhea, constipation, paraesthesias, or urinary changes. agreed all above , d/d with SKID ADZER . pt daughter and staff . chart . labs and meds noted . will f/u
--- NOTE | 2017-07-18 21:44 | PN ---
DATE: PULMONARY PROGRESS NOTE REFERRING PHYSICIAN: Alison Powers MD. SUBJECTIVE: She is out of bed to chair. Daughter is at the bedside. Night was unremarkable. She feels better. Decreased cough. Decreased shortness of breath. No nausea, no vomiting, no diarrhea. No leg pain or leg swelling. OBJECTIVE: GENERAL: In no acute distress. VITAL SIGNS: Temperature is 98, heart rate 67, respiratory rate is 18, blood pressure 106/75, pulse ox 100% on room air. HEENT: Moist mucous membrane. Crowded airway. NECK: Supple. No JVD. LUNGS: Have a few scattered rhonchi. HEART: S1 and S2. ABDOMEN: Soft, nontender, no organomegaly. EXTREMITIES: No edema. NEUROLOGIC: Awake, alert, follows simple command. MEDICATIONS: She is on hydralazine 10 mg q.6 hours p.r.n., Diovan 320 mg daily, Ecotrin 81 mg daily, insulin coverage, potassium 20 mEq three times a day, MiraLax 17 g daily, gabapentin 100 mg three times a day, Norvasc 5 mg daily, prednisone 10 mg daily, Protonix 40 mg daily, Synthroid 75 mcg daily, Toprol-XL 50 mg twice a day, Tylenol p.r.n., Xopenex q.6 hours p.r.n. LABORATORY DATA: Shows hemoglobin 14.1, hematocrit 42.7, WBC 18.4, platelet is 280. Sodium 140, potassium 4.4, chloride 106, bicarbonate 20, BUN is 28, creatinine 0.8, glucose is 208, calcium is 9.8. IMPRESSION AND PLAN: Urinary tract infection with extended-spectrum beta-lactamase organism Klebsiella pneumoniae, chronic obstructive lung disease, hypothyroid, diabetes, hypertension, may have sleep apnea syndrome, activities of daily living dysfunction. I spoke to the patient's family at bedside. All their questions answered. Continue p.o. and inhaled bronchodilator. Continue antibiotics, gastric prophylaxis, deep venous thrombosis prophylaxis, fall precaution. Continue therapy. Thank you and we will follow with you. Felipe Bergman MD
[2017-07-19] MEDS: Pantoprazole 40 mg EC Tab PO SCH ×2 (05:45→18:43)
[2017-07-19] MEDS: Levothyroxine 75 MCG TAB PO SCH (05:46)
[2017-07-19] MEDS: Insulin Reg-LOW-Coverage SC SCH ×4 (06:45→21:52)
[2017-07-19] MEDS: Potassium Chloride 20 mEq ER Tab PO SCH ×3 (08:54→18:42)
[2017-07-19] MEDS: POLYETHYLENE GLYCOL 3350 17 GM/Dose PACKET PO SCH (09:33)
[2017-07-19] MEDS: Metoprolol Succinate 50 mg XL Tab PO SCH ×2 (09:34→18:45)
--- NOTE | 2017-07-19 11:21 | CP.PCM.PN ---
Subjective - Date & Time of Evaluation Date of Evaluation: 07/19/17 Time of Evaluation: 10:55 - Subjective Subjective: No fevers, not in distress. Objective - Vital Signs/Intake and Output Vital Signs (last 24 hours): Temp Pulse Resp BP Pulse Ox 97.8 F 71 18 143/88 100 07/18/17 17:34 07/19/17 09:34 07/18/17 17:34 07/19/17 09:34 07/18/17 17:34 - Medications Medications: Current Medications Acetaminophen (Tylenol 325mg Tab) 650 mg PO Q6H PRN; Protocol PRN Reason: Fever >100.4 F Amlodipine Besylate (Norvasc) 5 mg PO DAILY MATEO PRN Reason: Protocol Last Admin: 07/19/17 09:34 Dose: 5 mg Aspirin (Ecotrin) 81 mg PO 0800 MATEO PRN Reason: Protocol Last Admin: 07/19/17 08:53 Dose: 81 mg Gabapentin (Neurontin) 100 mg PO TID MATEO PRN Reason: Protocol Last Admin: 07/19/17 09:33 Dose: 100 mg Hydralazine HCl (Apresoline) 10 mg IVP Q6 PRN; Protocol PRN Reason: Systolic Blood Pressure Insulin Human Regular (Humulin R Low) 0 units SC ACHS MATEO PRN Reason: Protocol Last Admin: 07/19/17 06:45 Dose: 2 units Levalbuterol HCl (Xopenex) 0.63 mg IH [id number] PRN; Protocol PRN Reason: Shortness of Breath Levothyroxine Sodium (Synthroid) 75 mcg PO 0600 MATEO PRN Reason: Protocol Last Admin: 07/19/17 05:46 Dose: 75 mcg Metoprolol Succinate (Toprol Xl) 50 mg PO 0800,1800 MATEO PRN Reason: Protocol Last Admin: 07/19/17 09:34 Dose: 50 mg Pantoprazole Sodium (Protonix Ec Tab) 40 mg PO 0600,1600 MATEO PRN Reason: Protocol Last Admin: 07/19/17 05:45 Dose: 40 mg Polyethylene Glycol (Miralax) 17 gm PO DAILY MATEO PRN Reason: Protocol Last Admin: 07/19/17 09:33 Dose: 17 gm Potassium Chloride (K-Dur 20 Meq Er Tab) 20 meq PO 0730,1230,1800 MATEO PRN Reason: Protocol Last Admin: 07/19/17 08:54 Dose: 20 meq Prednisone (Prednisone Tab) 5 mg PO 0800 MATEO Stop: 07/21/17 09:59 Valsartan (Diovan) 320 mg PO DAILY MATEO PRN Reason: Protocol Last Admin: 07/19/17 09:33 Dose: 320 mg - Labs Labs: 07/18/17 05:40 07/18/17 05:40 - Constitutional Appears: Non-toxic, Chronically Ill - Head Exam Head Exam: NORMAL INSPECTION - Respiratory Exam Respiratory Exam: Decreased Breath Sounds - Cardiovascular Exam Cardiovascular Exam: +S1, +S2 - GI/Abdominal Exam GI & Abdominal Exam: Soft. absent: Tenderness Assessment and Plan - Assessment and Plan (Free Text) Plan: Assessment S/P ESBL Klebsiella UTI S/P treatment of Influenza history of sepsis due to left lower lobe healthcare-associated pneumonia COPD history of TIA S/P left eye cataract surgery DM hypothyroidism S/P S/P hysterectomy S/P tonsillectomy HTN significant smoking history Plan continue to monitor off antibiotics since she is at risk for hospital-acquired infections
--- NOTE | 2017-07-20 02:52 | PN ---
DATE: 07/19/2017 PULMONARY PROGRESS NOTE REFERRING PHYSICIAN: Dr. Powers. SUBJECTIVE: Patient is sitting side of the bed, having dinner. Night was unremarkable. Feels better, doing well in therapy. Decreased cough. Decreased shortness of breath. No nausea. No vomiting or diarrhea. No leg pain or leg swelling. OBJECTIVE: GENERAL: In no acute distress. VITAL SIGNS: Temp is 98, heart rate is 70, respiratory rate is 20, blood pressure 116/75, pulse ox 98% on room air. HEENT: Moist mucous membrane. Crowded airway. NECK: Supple. No JVD. LUNGS: Has a prolonged expiratory phase. HEART: S1 and S2. ABDOMEN: Soft, nontender. No organomegaly. EXTREMITIES: No edema. NEUROLOGICAL: Awake and alert. Follows simple command. MEDICATIONS: She is on hydralazine 10 mg q. 6 hours p.r.n., Diovan 320 mg daily, Ecotrin 81 mg daily, insulin coverage, potassium 20 mEq three times a day, MiraLax 17 g p.o. daily, Neurontin 100 mg three times a day, Norvasc 5 mg daily, prednisone 5 mg daily , Protonix 40 mg twice a day, Synthroid 75 mcg daily, Toprol XL mg twice a day, Tylenol p.r.n., Xopenex inhaled q. 6 hours p.r.n. LABORATORY DATA: Reviewed. Blood sugar this morning 251. Microbiology: Urine culture, repeat. There is no growth. IMPRESSION AND PLAN: Urinary tract infection with extended-spectrum beta-lactamase organism, Klebsiella pneumonia, chronic obstructive lung disease, hypothyroid, diabetes, hypertension, may have sleep apnea syndrome, activities of daily living dysfunction. Pulmonary point of view, she is doing pretty. I will discontinue prednisone. Continue inhaled bronchodilator, antibiotics as per Infectious Disease, gastric prophylaxis, deep venous thrombosis prophylaxis. Fall precaution. Continue therapy. Patient is to stop smoking, outpatient upon discharge, need pulmonary function tests, also may benefit from sleep study. Thank you and we will follow with you. Felipe Bergman MD
[2017-07-20] MEDS: Pantoprazole 40 mg EC Tab PO SCH ×2 (05:35→18:04)
[2017-07-20] MEDS: Levothyroxine 75 MCG TAB PO SCH (05:35)
[2017-07-20] MEDS: Insulin Reg-LOW-Coverage SC SCH ×4 (06:41→22:40)
[2017-07-20] MEDS: Potassium Chloride 20 mEq ER Tab PO SCH ×3 (09:35→18:03)
[2017-07-20] MEDS: POLYETHYLENE GLYCOL 3350 17 GM/Dose PACKET PO SCH (09:36)
[2017-07-20] MEDS: Metoprolol Succinate 50 mg XL Tab PO SCH ×2 (09:37→18:04)
--- NOTE | 2017-07-20 10:18 | CP.PCM.PN ---
Subjective - Date & Time of Evaluation Date of Evaluation: 07/20/17 Time of Evaluation: 10:00 - Subjective Subjective: Comfortable in bed, no fevers overnight, not in distress. Objective - Vital Signs/Intake and Output Vital Signs (last 24 hours): Temp Pulse Resp BP Pulse Ox 98 F 70 20 96/64 L 98 07/19/17 10:00 07/20/17 08:35 07/19/17 10:00 07/19/17 18:45 07/19/17 10:00 - Medications Medications: Current Medications Acetaminophen (Tylenol 325mg Tab) 650 mg PO Q6H PRN; Protocol PRN Reason: Fever >100.4 F Amlodipine Besylate (Norvasc) 5 mg PO DAILY MATEO PRN Reason: Protocol Last Admin: 07/19/17 09:34 Dose: 5 mg Aspirin (Ecotrin) 81 mg PO 0800 MATEO PRN Reason: Protocol Last Admin: 07/19/17 08:53 Dose: 81 mg Gabapentin (Neurontin) 100 mg PO TID MATEO PRN Reason: Protocol Last Admin: 07/19/17 18:43 Dose: 100 mg Hydralazine HCl (Apresoline) 10 mg IVP Q6 PRN; Protocol PRN Reason: Systolic Blood Pressure Insulin Human Regular (Humulin R Low) 0 units SC ACHS MATEO PRN Reason: Protocol Last Admin: 07/20/17 06:41 Dose: 2 units Levalbuterol HCl (Xopenex) 0.63 mg IH [id number] PRN; Protocol PRN Reason: Shortness of Breath Levothyroxine Sodium (Synthroid) 75 mcg PO 0600 MATEO PRN Reason: Protocol Last Admin: 07/20/17 05:35 Dose: 75 mcg Metoprolol Succinate (Toprol Xl) 50 mg PO 0800,1800 MATEO PRN Reason: Protocol Last Admin: 07/19/17 18:45 Dose: Not Given Pantoprazole Sodium (Protonix Ec Tab) 40 mg PO 0600,1600 MATEO PRN Reason: Protocol Last Admin: 07/20/17 05:35 Dose: 40 mg Polyethylene Glycol (Miralax) 17 gm PO DAILY MATEO PRN Reason: Protocol Last Admin: 07/19/17 09:33 Dose: 17 gm Potassium Chloride (K-Dur 20 Meq Er Tab) 20 meq PO 0730,1230,1800 MATEO PRN Reason: Protocol Last Admin: 07/19/17 18:42 Dose: 20 meq Prednisone (Prednisone Tab) 5 mg PO 0800 MATEO Stop: 07/21/17 09:59 Valsartan (Diovan) 320 mg PO DAILY MATEO PRN Reason: Protocol Last Admin: 07/19/17 09:33 Dose: 320 mg - Labs Labs: 07/18/17 05:40 07/18/17 05:40 - Constitutional Appears: Chronically Ill - Head Exam Head Exam: NORMAL INSPECTION - Neck Exam Neck Exam: absent: Meningismus - Respiratory Exam Respiratory Exam: Decreased Breath Sounds - Cardiovascular Exam Cardiovascular Exam: +S1, +S2 - GI/Abdominal Exam GI & Abdominal Exam: Soft. absent: Tenderness Assessment and Plan - Assessment and Plan (Free Text) Plan: Assessment S/P ESBL Klebsiella UTI S/P treatment of Influenza history of sepsis due to left lower lobe healthcare-associated pneumonia COPD history of TIA S/P left eye cataract surgery DM hypothyroidism S/P S/P hysterectomy S/P tonsillectomy HTN significant smoking history Plan continue to monitor off antibiotics since she is at risk for healthcare- associated infections
[2017-07-20 11:11] VITALS: PULSE 71; RESP 18; TEMP 98.2; O2SAT 99
--- NOTE | 2017-07-20 12:19 | CP.PCM.PN ---
<Alondra Partida - Last Filed: 07/20/17 12:15> Subjective - Date & Time of Evaluation Date of Evaluation: 07/20/17 Time of Evaluation: 09:30 - Subjective Subjective: Chief complaint: no complaints 76 yr female w/ COPD, TIA, DM II, TIA, L eye cataract, GERD, Hital hernia , gastroparesis, & falls. Treated in [facility] for AMS rellated to sepsis UTI positive for extended-spectrum beta-lactamase organism & klebsiella pnemonia which has resolved. Now in TCU for physical PT/OT secondary to deconditioning. Today, pt seen with her daughter Mary at bedside. Denies any shortness of breath, chest pain, headache, fever, chills, diarrhea, constipation, paraesthesias, or urinary changes. Objective - Vital Signs/Intake and Output Vital Signs (last 24 hours): Temp Pulse Resp BP Pulse Ox 98.2 F 71 18 133/79 99 07/20/17 11:10 07/20/17 11:10 07/20/17 11:10 07/20/17 11:10 07/20/17 11:10 - Medications Medications: Current Medications Acetaminophen (Tylenol 325mg Tab) 650 mg PO Q6H PRN; Protocol PRN Reason: Fever >100.4 F Amlodipine Besylate (Norvasc) 5 mg PO DAILY MATEO PRN Reason: Protocol Last Admin: 07/20/17 09:36 Dose: 5 mg Aspirin (Ecotrin) 81 mg PO 0800 MATEO PRN Reason: Protocol Last Admin: 07/20/17 09:35 Dose: 81 mg Gabapentin (Neurontin) 100 mg PO TID MATEO PRN Reason: Protocol Last Admin: 07/20/17 09:36 Dose: 100 mg Hydralazine HCl (Apresoline) 10 mg IVP Q6 PRN; Protocol PRN Reason: Systolic Blood Pressure Insulin Human Regular (Humulin R Low) 0 units SC ACHS MATEO PRN Reason: Protocol Last Admin: 07/20/17 06:41 Dose: 2 units Levalbuterol HCl (Xopenex) 0.63 mg IH [id number] PRN; Protocol PRN Reason: Shortness of Breath Levothyroxine Sodium (Synthroid) 75 mcg PO 0600 [facility] PRN Reason: Protocol Last Admin: 07/20/17 05:35 Dose: 75 mcg Metoprolol Succinate (Toprol Xl) 50 mg PO 0800,1800 MATEO PRN Reason: Protocol Last Admin: 07/20/17 09:37 Dose: 50 mg Pantoprazole Sodium (Protonix Ec Tab) 40 mg PO 0600,1600 MATEO PRN Reason: Protocol Last Admin: 07/20/17 05:35 Dose: 40 mg Polyethylene Glycol (Miralax) 17 gm PO DAILY MATEO PRN Reason: Protocol Last Admin: 07/20/17 09:36 Dose: Not Given Potassium Chloride (K-Dur 20 Meq Er Tab) 20 meq PO 0730,1230,1800 MATEO PRN Reason: Protocol Last Admin: 07/20/17 09:35 Dose: 20 meq Prednisone (Prednisone Tab) 5 mg PO 0800 [facility] Stop: 07/21/17 09:59 Last Admin: 07/20/17 09:36 Dose: 5 mg Valsartan (Diovan) 320 mg PO DAILY MATEO PRN Reason: Protocol Last Admin: 07/20/17 09:35 Dose: 320 mg - Labs Labs: 07/18/17 05:40 07/18/17 05:40 - Constitutional Appears: Well - Head Exam Head Exam: ATRAUMATIC, NORMAL INSPECTION, NORMOCEPHALIC - Eye Exam Eye Exam: EOMI, Normal appearance, PERRL Pupil Exam: NORMAL ACCOMODATION, PERRL - ENT Exam ENT Exam: Mucous Membranes Moist, Normal Exam - Neck Exam Neck Exam: Full ROM, Normal Inspection. absent: Lymphadenopathy - Respiratory Exam Respiratory Exam: Clear to Ausculation Bilateral, NORMAL BREATHING PATTERN - Cardiovascular Exam Cardiovascular Exam: REGULAR RHYTHM, +S1, +S2. absent: Murmur - GI/Abdominal Exam GI & Abdominal Exam: Soft, Normal Bowel Sounds. absent: Tenderness - Extremities Exam Extremities Exam: Full ROM, Normal Capillary Refill, Normal Inspection. absent : Joint Swelling, Pedal Edema - Neurological Exam Neurological Exam: Alert, Awake, Oriented x3 - Psychiatric Exam Psychiatric exam: Normal Affect, Normal Mood - Skin Skin Exam: Dry, Intact, Normal Color, Warm Assessment and Plan (1) Low back pain Status: Resolved (2) COPD (chronic obstructive pulmonary disease) Status: Acute (3) Community acquired pneumonia Status: Acute (4) Sepsis Status: Acute (5) Leukocytosis Status: Acute - Assessment and Plan (Free Text) Plan: Completed treatment with IV abx. GI/VTE prophlyaxis. Continue PT/OT. Pain management plan: Tylenol PRN Consults: Neuro - Dr. Teja Richardsmo - Dr. Pineda Reviewed: CT chest = WNL Carotid Doppler = B/L 20-30% ICA stenosis MRI brain = high flair signal intensity within cerebral white matter, represents chronic small vessel ischemic disease, mild to mod stable atrophy CT head = old lacunar infarcts R centrum semiovale and hirsch radiata, mild chronic microangiopathic changes CXR = WNL ECG = ST, possible septal PA, NSSTW changes, prolonged QTC <Alison Powers - Last Filed: 07/20/17 21:43> Objective - Vital Signs/Intake and Output Vital Signs (last 24 hours): Temp Pulse Resp BP Pulse Ox 98.2 F 71 18 97/56 L 99 07/20/17 11:10 07/20/17 11:10 07/20/17 11:10 07/20/17 18:04 07/20/17 11:10 - Medications Medications: Current Medications Acetaminophen (Tylenol 325mg Tab) 650 mg PO Q6H PRN; Protocol PRN Reason: Fever >100.4 F Amlodipine Besylate (Norvasc) 5 mg PO DAILY MATEO PRN Reason: Protocol Last Admin: 07/20/17 09:36 Dose: 5 mg Aspirin (Ecotrin) 81 mg PO 0800 MATEO PRN Reason: Protocol Last Admin: 07/20/17 09:35 Dose: 81 mg Gabapentin (Neurontin) 100 mg PO TID MATEO PRN Reason: Protocol Last Admin: 07/20/17 18:03 Dose: 100 mg Hydralazine HCl (Apresoline) 10 mg IVP Q6 PRN; Protocol PRN Reason: Systolic Blood Pressure Insulin Human Regular (Humulin R Low) 0 units SC ACHS MATEO PRN Reason: Protocol Last Admin: 07/20/17 18:02 Dose: 3 units Levalbuterol HCl (Xopenex) 0.63 mg IH [id number] PRN; Protocol PRN Reason: Shortness of Breath Levothyroxine Sodium (Synthroid) 75 mcg PO 0600 MATEO PRN Reason: Protocol Last Admin: 07/20/17 05:35 Dose: 75 mcg Metoprolol Succinate (Toprol Xl) 50 mg PO 0800,1800 MATEO PRN Reason: Protocol Last Admin: 07/20/17 18:04 Dose: Not Given Pantoprazole Sodium (Protonix Ec Tab) 40 mg PO 0600,1600 MATEO PRN Reason: Protocol Last Admin: 07/20/17 18:04 Dose: 40 mg Polyethylene Glycol (Miralax) 17 gm PO DAILY MATEO PRN Reason: Protocol Last Admin: 07/20/17 09:36 Dose: Not Given Potassium Chloride (K-Dur 20 Meq Er Tab) 20 meq PO 0730,1230,1800 MATEO PRN Reason: Protocol Last Admin: 07/20/17 18:03 Dose: 20 meq Prednisone (Prednisone Tab) 5 mg PO 0800 MATEO Stop: 07/21/17 09:59 Last Admin: 07/20/17 09:36 Dose: 5 mg Valsartan (Diovan) 320 mg PO DAILY MATEO PRN Reason: Protocol Last Admin: 07/20/17 09:35 Dose: 320 mg - Labs Labs: 07/18/17 05:40 07/18/17 05:40 Assessment and Plan - Assessment and Plan (Free Text) Plan: 76 yr female w/ COPD, TIA, DM II, TIA, L eye cataract, GERD, Hital hernia , gastroparesis, & falls. Treated in [facility] for AMS rellated to sepsis UTI positive for extended-spectrum beta-lactamase organism & klebsiella pnemonia which has resolved. Now in TCU for physical PT/OT secondary to deconditioning. Today, pt seen with her daughter Mary at bedside. Denies any shortness of breath, chest pain, headache, fever, chills, diarrhea, constipation, paraesthesias, or urinary changes.pt is seen and bed side , looking comfortable , agreed all above , chart , meds and labs noted , will f/u , happy to go home [place]
--- NOTE | 2017-07-20 15:05 | PN ---
DATE: SUBJECTIVE: Patient is a 76-year-old female. Patient was seen and examined at the bedside, looking comfortable. Sitting comfortably. No fever, no chills. No nausea, vomiting, or diarrhea. No hematuria or hematochezia. No headache or dizziness. Do not look like in distress. No skin rashes. PHYSICAL EXAMINATION: VITAL SIGNS: Temperature 97.8, pulse 71, respiratory rate 18, blood pressure 143/88, pulse oximetry 100%. HEENT: Head: Normocephalic, atraumatic. Eyes: PERRLA. Extraocular muscles are intact. Conjunctivae clear. Nose patent. Mucous membranes are moist. NECK: Supple. No carotid bruit, JVD, or thyromegaly. CHEST: Bilaterally symmetrical. HEART: S1 and S2 positive. LUNGS: Clear to auscultation. ABDOMEN: Soft. Bowel sounds positive. No organomegaly. EXTREMITIES: No edema. No cyanosis. NEUROLOGIC: Patient is awake, alert. Moving all 4 extremities. No focal deficit. MEDICATIONS: Tylenol, Norvasc, Ecotrin, Neurontin, hydralazine, insulin, Xopenex, levothyroxine, metoprolol, pantoprazole, MiraLax, potassium, prednisone, Diovan. LABORATORY DATA: White blood cells 18.4, hemoglobin 14.1, hematocrit 42.7, platelets 280. Sodium 140, potassium 4.4. BUN 28, creatinine 0.8. Glucose 202. ASSESSMENT AND PLAN: Ms. Michelle Myles is a 76-year-old lady with leukocytosis; hyperglycemia; status post extended-spectrum beta-lactamase, Klebsiella, urinary tract infection; status post treatment of influenza; history of sepsis due to left lower lobe health-care associated pneumonia; chronic obstructive pulmonary disease; history of transient ischemic attack; status post left eye cataract surgery; hypothyroidism; status post section; hysterectomy; tonsillectomy; hypertension; significant history of smoking. We will continue antibiotics. She is at risk of hospital acquired infection; getting physical therapy, improving, is able to do her activities of daily living now; urinary tract infection, extended-spectrum beta-lactamase organism, Klebsiella pneumoniae; chronic obstructive lung disease; may have sleep apnea syndrome. Now getting better for her activities of daily living. Length of time discussion done with the patient's family multiple times. Getting p.o. and inhaled bronchodilators. Continue physical therapy. We will follow up. Alison Powers MD ESTELA
--- NOTE | 2017-07-20 23:31 | PN ---
DATE: PULMONARY PROGRESS NOTE REFERRING PHYSICIAN: Alison Powers MD. SUBJECTIVE: Patient is participating in therapy. Night was unremarkable. Denying any headache. No rhinitis. Breathing is better. No dysuria. No leg pain or leg swelling. OBJECTIVE: GENERAL: In no acute distress. VITAL SIGNS: Temperature is 98, heart rate is 70, respiratory rate is 18, blood pressure 133/79, pulse ox 99% room air. HEENT: Moist mucous membranes. Crowded airway. NECK: Supple. No JVD. LUNGS: Have a fair airflow with rhonchi. HEART: S1 and S2. ABDOMEN: Soft, nontender, no organomegaly. EXTREMITIES: There is no edema. NEUROLOGIC: Awake, alert, follows simple command. MEDICATIONS: She is on hydralazine 10 mg q.6 hours p.r.n., Diovan 320 mg daily, Ecotrin 81 mg daily, insulin coverage, potassium 20 mEq three times a day, MiraLax 17 g daily, gabapentin 100 mg three times a day, Norvasc 5 mg daily, prednisone 5 mg daily, Protonix 40 mg daily, Synthroid 75 mcg daily, Toprol-XL 50 mg twice a day, Tylenol p.r.n., Xopenex inhaler q.6 hours p.r.n. LABORATORY DATA: Reviewed, noted blood sugar today is 279. IMPRESSION: Urinary tract infection with extended-spectrum beta-lactamase organism, Klebsiella pneumonia, chronic obstructive lung disease, hypothyroid, diabetes, hypertension, may have sleep apnea syndrome, activities of daily living dysfunction. PLAN: Pulmonary point of view, she is doing okay. Continue taper down steroids, may discontinue next day or so, inhaled bronchodilator, sleep apnea precaution, keep head at 45 degrees. Careful with sedation at night. Gastric prophylaxis. Patient is urged to stop smoking. Outpatient PFT upon discharge. Thank you and we will follow with you. Felipe Bergman MD
[2017-07-21] MEDS: Levothyroxine 75 MCG TAB PO SCH (05:42)
[2017-07-21] MEDS: Pantoprazole 40 mg EC Tab PO SCH (05:42)
[2017-07-21] MEDS: Insulin Reg-LOW-Coverage SC SCH (07:14)
[2017-07-21 07:55] LABS: MEAN CELL VOLUME 82.7 fl (80.0-105.0); MEAN CORPUSCULAR HEMOGLOBIN 27.2 pg (25.0-35.0); MEAN CORPUSCULAR HGB CONC 32.9 g/dl (31.0-37.0); MEAN PLATELET VOLUME 11.3 fl (7.0-11.0); RBC 5.15 10^6/uL (3.5-6.1); WHITE BLOOD COUNT 16.2 10^3/ul (4.5-11.0)
[2017-07-21] MEDS: Metoprolol Succinate 50 mg XL Tab PO SCH (08:20)
[2017-07-21] MEDS: Potassium Chloride 20 mEq ER Tab PO SCH (08:20)
[2017-07-21 09:14] LABS: ALB/GLOB RATIO 1.4 (1.1-1.8); ALBUMIN 3.8 g/dL (3.0-4.8); ALT/SGPT 19 U/L (7-56); AST/SGOT 16 U/L (14-36); BLOOD UREA NITROGEN 24 mg/dL (7-21); CALCIUM 9.7 mg/dL (8.4-10.5); GFR AFRICAN-AMERICAN > 60; GFR NON-AFRICAN AMERICAN > 60
[2017-07-21] MEDS: POLYETHYLENE GLYCOL 3350 17 GM/Dose PACKET PO SCH (10:46)
[2017-07-21 10:50] VITALS: BP 128/87
--- NOTE | 2017-07-22 01:32 | PN ---
DATE: PULMONARY PROGRESS NOTE REFERRING PHYSICIAN: Alison Powers MD SUBJECTIVE: The patient is sitting on the side of the bed. Night was unremarkable. No headache, no rhinitis. Doing well in therapy. No nausea. No vomiting. No diarrhea. No leg pain or leg swelling. Admit to have snoring at nighttime, daytime sleepy and tired. OBJECTIVE GENERAL: In no acute distress. VITAL SIGNS: Temp is 98, heart rate is 71, respiratory rate is 18, blood pressure 133/79, pulse ox 99% room air. HEENT: Moist mucous membrane. No ulcers or thrush noted. NECK: Supple. No JVD. LUNGS: Have a fair airflow, with rhonchi. HEART: S1 and S2. ABDOMEN: Soft, nontender. No organomegaly. EXTREMITIES: There is no edema. NEUROLOGIC: Awake and alert. Follows simple command. MEDICATIONS: Reviewed and noted. No new change in medication reported since yesterday. LABORATORY DATA: Shows hemoglobin 14.0, hematocrit 42.6, WBC 16.2, platelet is 282. Sodium 137, potassium 4.7, chloride 103, bicarbonate 21, BUN 24, creatinine 0.8, glucose 250, calcium is 9.7, AST 16, ALT 19, alk phos is 66. Albumin is 3.8. Microbiology, urine culture, there is no growth. IMPRESSION AND PLAN: Chronic obstructive lung disease, urinary tract infection with extended-spectrum beta-lactamase organism, hypothyroid, diabetes, hypertension, may have sleep apnea syndrome. Patient will be discharged home on bronchodilators. Outpatient recommended sleep study, also need attended sleep study. Has a history of snoring, daytime sleepy and tired. Patient is urged to stop smoking. Thank you and we will follow with you. Felipe Bergman MD
--- NOTE | 2017-07-22 06:50 | DS ---
Patient was discharged on 07/20/2017 with her two daughters and family. CHIEF COMPLAINT: Deconditioning, needs antibiotics, fatigue, and tiredness. HISTORY OF PRESENT ILLNESS: Ms. Michelle Myles is a 76-year-old female with past medical history of COPD, TIA, diabetes mellitus, came to the emergency room at [facility] on 07/09/2017 with altered mental status. She was septic. Actually she got her treatment as outpatient with her primary care physician with Z-[id number] and steroids, but failed outpatient treatment, came in [facility] with sepsis. We admitted her in the unit. Antibiotic given, improved, transferred to the medical floor, but she had to complete IV antibiotics. She was really deconditioned. We brought her in TCU. She completed IV antibiotics and got reconditioned and discharged back home on 07/21/2017. Medicines were given on the bedside. Discussion done with one of the daughters. PAST MEDICAL HISTORY: As above, hypertension, hypercholesterolemia, pneumonia, TIA, left eye cataract surgery, diabetic neuropathy, diabetes mellitus, GERD, COPD, constipation, hiatal hernia, gastroparesis, history of hysterectomy, thyroidectomy, tonsillectomy. FAMILY HISTORY: Father and mother noncontributory. HABITS: Currently smoking, no alcohol, no substance abuse. ALLERGIES: PATIENT IS ALLERGIC TO SULFA, TETANUS, AND TETRACYCLINE. REVIEW OF SYSTEMS: Patient was seen and examined at the bedside early in the morning, looking comfortable. No nausea, vomiting, or diarrhea. No hematuria or hematochezia. No swelling of the leg. No chest pain. No palpitation. No headache. No dizziness. Excited to go home. PHYSICAL EXAMINATION: VITAL SIGNS: Temperature 98.6, blood pressure 128/87, pulse 97, respiratory rate 18. HEENT: Head: Normocephalic, atraumatic. Eyes: PERRLA. Extraocular muscles intact. Conjunctivae clear. Nose patent. NECK: Supple. No carotid bruits. No JVD or thyromegaly. CHEST: Bilaterally symmetrical. HEART: S1, S2 positive. LUNGS: Clear to auscultation. ABDOMEN: Soft. Bowel sounds present. No organomegaly. EXTREMITIES: No edema, no cyanosis. NEUROLOGICAL: Patient is awake and alert. Moving all 4 extremities. No focal deficit. MEDICATIONS: Hydralazine, Diovan, Ecotrin, insulin, K-Dur, MiraLax, Neurontin, Norvasc, prednisone, Protonix, Synthroid, Toprol, Tylenol, Xopenex. LABORATORY DATA: White blood cells 16.2, hemoglobin 14.0, hematocrit 42.6, platelets 282. Sodium 137, potassium 4.7, BUN 24, creatinine 0.8, glucose 250. ASSESSMENT AND PLAN: Ms. Michelle Myles is a 76-year-old lady with leukocytosis improved, increased BUN, diabetes mellitus, proteinuria, glucosuria, came with urinary tract infection with extended-spectrum beta lactamase organisms, was in septic shock, Klebsiella pneumoniae, chronic obstructive lung disease, hypothyroidism, hypertension, sleep apnea syndrome, diabetes mellitus, was not able to do activities of daily living. We kept in transitional care unit, got physical therapy, improved. Got tapering dose of steroid. Discontinue the steroid. Sleep apnea precautions. Careful with sedation at night. History of smoking; urged to quit smoking. Need outpatient pulmonary function test. Medications provided at the bedside. We will follow up in my office and floriculturist's office. We will follow up. Alison Powers MD
== END 2017-07-21 13:24 | disposition home health service (06) | DRG 945 ==
LOC: TRCU 16:36
PROVIDERS: ADMIT Internal Medicine; ATTEND Internal Medicine
PROC: F07Z9FZ Gait Training/Functional Ambulation Treatment using Assistive, Adaptive, Supportive or Protective Equipment (ICD-10-PCS; principal; 2017-07-15)
PROC: F08Z4FZ Home Management Treatment using Assistive, Adaptive, Supportive or Protective Equipment (ICD-10-PCS; 2017-07-15)
DX: R53.1 Weakness (principal); N39.0 Urinary tract infection, site not specified; J44.1 Chronic obstructive pulmonary disease with (acute) exacerbation; E11.42 Type 2 diabetes mellitus with diabetic polyneuropathy; K31.84 Gastroparesis; E11.36 Type 2 diabetes mellitus with diabetic cataract; E11.65 Type 2 diabetes mellitus with hyperglycemia; I27.20 Pulmonary hypertension, unspecified; E11.43 Type 2 diabetes mellitus with diabetic autonomic (poly)neuropathy; K21.9 Gastro-esophageal reflux disease without esophagitis; I10 Essential (primary) hypertension; E78.00 Pure hypercholesterolemia, unspecified; K59.00 Constipation, unspecified; K44.9 Diaphragmatic hernia without obstruction or gangrene; F17.210 Nicotine dependence, cigarettes, uncomplicated; E03.9 Hypothyroidism, unspecified; G47.30 Sleep apnea, unspecified; Z90.710 Acquired absence of both cervix and uterus; Z86.73 Personal history of transient ischemic attack (TIA), and cerebral infarction without residual deficits

== ENCOUNTER 2017-08-07 13:37 | Observation (INO) | payer MEDICARE ==
[2017-08-07 13:51] VITALS: BMI 19.8
[2017-08-07 14:44] LABS: BASO # 0.03 K/mm3 (0.0-2.0); BASO % 0.4 % (0.0-3.0); EOS # 0.3 (0.0-0.7); EOS % 4.3 % (1.5-5.0); GRAN # 4.81 (1.4-6.5); HEMOGLOBIN 12.1 g/dL (12.0-16.0); LYMPH # 2.2 (1.2-3.4); LYMPH % 27.9 % (22.0-35.0); MEAN CORPUSCULAR HEMOGLOBIN 27.5 pg (25.0-35.0); MEAN CORPUSCULAR HGB CONC 33.5 g/dl (31.0-37.0); MEAN PLATELET VOLUME 12.2 fl (7.0-11.0); MONO # 0.4 (0.1-0.6); MONO % 5.4 % (1.0-6.0); RBC 4.4 10^6/uL (3.5-6.1); RED CELL DISTRIBUTION WIDTH 13.1 % (11.5-14.5); WHITE BLOOD COUNT 7.8 10^3/ul (4.5-11.0)
[2017-08-07 14:52] LABS: ALB/GLOB RATIO 1.3 (1.1-1.8); ALBUMIN 3.7 g/dL (3.0-4.8); ALT/SGPT 32 U/L (7-56); AST/SGOT 20 U/L (14-36); BLOOD UREA NITROGEN 14 mg/dL (7-21); CALCIUM 9.3 mg/dL (8.4-10.5); GFR AFRICAN-AMERICAN > 60; GFR NON-AFRICAN AMERICAN > 60
[2017-08-07 14:56] LABS: INR 0.95 (0.93-1.08); PARTIAL THROMBOPLASTIN TIME 29.2 Seconds (25.1-36.5); PROTHROMBIN TIME 10.8 SECONDS (9.4-12.5)
[2017-08-07 15:01] LABS: TROPONIN I < 0.01 ng/mL
--- NOTE | 2017-08-07 15:11 | CT ---
PROCEDURE: CT HEAD WITHOUT CONTRAST. HISTORY: headache COMPARISON: 07/09/2017 TECHNIQUE: Axial computed tomography images were obtained through the head/brain without intravenous contrast. Radiation dose: Total exam DLP = 877 mGy-cm. This CT exam was performed using one or more of the following dose reduction techniques: Automated exposure control, adjustment of the mA and/or kV according to patient size, and/or use of iterative reconstruction technique. FINDINGS: HEMORRHAGE: No intracranial hemorrhage. BRAIN: No mass effect or edema. Chronic lacunar infarct in the right periventricular white matter. Microvascular changes. No acute intracranial findings VENTRICLES: Unremarkable. No hydrocephalus. CALVARIUM: Unremarkable. PARANASAL SINUSES: Unremarkable as visualized. No significant inflammatory changes. MASTOID AIR CELLS: Unremarkable as visualized. No inflammatory changes. OTHER FINDINGS: None. IMPRESSION: No acute intracranial findings
[2017-08-07 15:12] LABS: URINE BILIRUBIN NEGATIVE (NEGATIVE); URINE BLOOD NEGATIVE (NEGATIVE); URINE GLUCOSE (UA) >=1000 mg/dL (NEGATIVE); URINE LEUKOCYTE ESTERASE NEGATIVE Leu/uL (NEGATIVE); URINE PROTEIN NEGATIVE mg/dL (<30 mg/dL); URINE UROBILINOGEN 0.2 E.U./dL (<1 E.U./dL)
[2017-08-07 15:13] LABS: URINE APPEARANCE CLEAR (CLEAR); URINE COLOR YELLOW (YELLOW)
[2017-08-07] MEDS ORDERED: HYDROmorphone 0.5 mg/0.5 ml ISec IVP PRN (16:32)
--- NOTE | 2017-08-07 16:47 | ED PDOC ---
Arrival/HPI - General Chief Complaint: Headache Time Seen by Provider: 08/07/17 14:05 Historian: Patient - History of Present Illness Narrative History of Present Illness (Text): 08/07/17 16:41 76yo female with PMHx of hypertension and COPD present with complaint of severe left sided occipital/temporal headache since yesterday. 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 States she took her antihypertensive earlier this morning and this morning. states she spoke with her PMD and was referred to the ED. She denies focal weakness, nausea, vomiting, visual changes, chest pain, SOB , diaphoresis, trauma, neck pain, fever, any other complaint. Past Medical History - Provider Review Nursing Documentation Reviewed: Yes - Infectious Disease Hx of Infectious Diseases: None - Tetanus Immunization Tetanus Immunization: Allergy to Tetanus Vaccine - Reproductive Menopause: Yes - Cardiac Hx Hypertension: Yes - Pulmonary Hx Chronic Obstructive Pulmonary Disease (COPD): Yes Hx Pneumonia: Yes - Neurological HX Cerebrovascular Accident: (TIA) - HEENT Hx HEENT Disorder: Yes Other/Comment: LEFT EYE CATARACT SURGERY 06/2015 - Renal Hx Renal Disorder: No - Endocrine/Metabolic Hx Diabetes Mellitus Type 2: Yes (Diabetic Neuropathy) - Hematological/Oncological Hx Blood Transfusions: No Hx Blood Transfusion Reaction: No - Integumentary Hx Dermatological Disorder: No - Musculoskeletal/Rheumatological Hx Falls: Yes - Gastrointestinal Hx Gastrointestinal Disorders: Yes (GERD,CONSTIPATION,HIATAL HERNIA, GASTROPARESIS, POOR APPETITE) - Genitourinary/Gynecological Hx Genitourinary Disorders: No (URGENCY,FREQUENCY) Hx Reproductive Disorders: No (H/O 4 C SECTIONS,HYSTERECTOMY) - Psychiatric Hx Emotional Abuse: No Hx Physical Abuse: No Hx Substance Use: No - Surgical History Hx Section: Yes (x4) Hx Hysterectomy: Yes Hx Musculoskeletal Surgery: Yes (Hand, Toes) Hx Thyroidectomy: Yes Hx Tonsillectomy: Yes - Anesthesia Hx Anesthesia: Yes Hx Anesthesia Reactions: No Hx Malignant Hyperthermia: No - Suicidal Assessment Feels Threatened In Home Enviroment: No Family/Social History - Physician Review Nursing Documentation Reviewed: Yes Family/Social History: Unknown Family HX Smoking Status: Current Some Days Smoker Hx Alcohol Use: No Hx Substance Use: No Allergies/Home Meds Allergies/Adverse Reactions: Allergies Sulfa (Sulfonamide Antibiotics) Allergy (Verified 08/07/17 13:51) ANAPHYLAXIS Tetanus Vaccines and Toxoid [Tetanus Vaccines & Toxoid] Allergy (Verified 13:51) RASH tetracycline Allergy (Verified 08/07/17 13:51) RASH Review of Systems - Physician Review All systems were reviewed & negative as marked: Yes - Review of Systems Constitutional: Normal Eyes: Normal ENT: Normal Respiratory: Normal Cardiovascular: Normal Gastrointestinal: Normal Genitourinary Female: Normal Musculoskeletal: Normal Skin: Normal Neurological: Headache. absent: Dizziness, Speech Changes Endocrine: Normal Hemo/Lymphatic: Normal Psychiatric: Normal Physical Exam Vital Signs Reviewed: Yes Vital Signs Temp Pulse Resp BP Pulse Ox 08/07/17 15:34 79 18 148/81 98 08/07/17 13:46 98 F 83 18 152/84 H 98 Temperature: Afebrile Blood Pressure: Normal Pulse: Regular Respiratory Rate: Normal Appearance: Positive for: Well-Appearing, Non-Toxic, Comfortable Pain Distress: None Mental Status: Positive for: Alert and Oriented X 3 Finger Stick Blood Glucose: 119 - Systems Exam Head: Present: Atraumatic, Normocephalic Pupils: Present: PERRL Extroacular Muscles: Present: EOMI Conjunctiva: Present: Normal Mouth: Present: Moist Mucous Membranes Neck: Present: Normal Range of Motion Respiratory/Chest: Present: Clear to Auscultation, Good Air Exchange. No: Respiratory Distress, Accessory Muscle Use Cardiovascular: Present: Regular Rate and Rhythm, Normal S1, S2. No: Murmurs Abdomen: Present: Normal Bowel Sounds. No: Tenderness, Distention, Peritoneal Signs Back: Present: Normal Inspection Upper Extremity: Present: Normal Inspection. No: Cyanosis, Edema Lower Extremity: Present: Normal Inspection. No: Edema Neurological: Present: GCS=15, CN II-XII Intact, Speech Normal, Motor Func Grossly Intact, Normal Sensory Function, Normal Cerebellar Funct, Memory Normal , Normal 2Pt Descrimination, Other (No focal neurological deficit) Skin: Present: Warm, Dry, Normal Color. No: Rashes Psychiatric: Present: Alert, Oriented x 3, Normal Insight, Normal Concentration Medical Decision Making ED Course and Treatment: 08/07/17 19:10 PT in Ed for stated history. She continued to complain of headache s/p medication in ED. Lab was unremarkable in ED Head CT - Negative Secondary to pt's age and continued Headache in ED. PT needs to be placed on OBS for possible MRI/MRA of head and carotids Case was DW Dr Powers. Pt was admitted. - Lab Interpretations Lab Results: 08/07/17 14:30 08/07/17 14:30 Lab Results 08/07/17 15:01: Urine Color Yellow, Urine Appearance Clear, Urine pH 6.0, Ur Specific [place] 1.020, Urine Protein Negative, Urine Glucose (UA) >=1000, Urine Ketones Negative, Urine Blood Negative, Urine Nitrate Negative, Urine Bilirubin Negative, Urine Urobilinogen 0.2, Ur Leukocyte Esterase Negative 08/07/17 14:30: Sodium 139, Potassium 3.6, Chloride 103, Carbon Dioxide 22, Anion Gap 17, BUN 14, Creatinine 0.6 L, Est GFR ( Amer) > 60, Est GFR ( Non-Af Amer) > 60, Random Glucose 265 H, Calcium 9.3, Magnesium 1.5 L, Total Bilirubin 0.3, AST 20, ALT 32, Alkaline Phosphatase 69, Lactate Dehydrogenase 466, Total Creatine Kinase 37, Troponin I < 0.01, Total Protein 6.6, Albumin 3.7 , Globulin 2.9, Albumin/Globulin Ratio 1.3 08/07/17 14:30: PT 10.8, INR 0.95, APTT 29.2 08/07/17 14:30: WBC 7.8 D, RBC 4.40, Hgb 12.1, Hct 36.1, MCV 82.0, MCH 27.5, MCHC 33.5, RDW 13.1, Plt Count 154, MPV 12.2 H, Gran % 62.0, Lymph % (Auto) 27.9 , Izard % (Auto) 5.4, Eos % (Auto) 4.3, Baso % (Auto) 0.4, Gran # 4.81, Lymph # ( Auto) 2.2, Izard # (Auto) 0.4, Eos # (Auto) 0.3, Baso # (Auto) 0.03 - RAD Interpretation Radiology Orders: 08/07/17 14:18 HEAD W/O CONTRAST [CT] Stat - Medication Orders Current Medication Orders: Acetaminophen (Tylenol 325mg Tab) 650 mg PO Q6H PRN PRN Reason: Fever >100.4 F Acetaminophen/Butalbital/Caffeine (Fioricet) 1 tab PO Q4H PRN PRN Reason: Headache Famotidine (Pepcid) 40 mg PO HS MATEO Gabapentin (Neurontin) 100 mg PO TID MATEO PRN Reason: Protocol Last Admin: 08/07/17 17:45 Dose: 100 mg Behavioural Document 08/07/17 17:45 MJO (Rec: 08/07/17 17:45 MJO [facility] [id number][place] Maintenance Maintenance Dose Yes Hydromorphone HCl (Dilaudid) 0.25 mg IVP Q6H PRN PRN Reason: Pain, Mild (1-3) Levothyroxine Sodium (Synthroid) 75 mcg PO DAILY MATEO Last Admin: 08/07/17 17:05 Dose: Valsartan (Diovan) 320 mg PO DAILY MATEO Last Admin: 08/07/17 17:04 Dose: Discontinued Medications Acetaminophen (Tylenol 325mg Tab) 650 mg PO STAT STA Stop: 08/07/17 14:20 Last Admin: 08/07/17 14:52 Dose: Not Given Non-Admin Reason: Patient Refused Acetaminophen (Tylenol 325mg Tab) 650 mg PO Q6H PRN PRN Reason: Headache Last Admin: 08/07/17 17:44 Dose: 650 mg MAR Pain/Vitals Document 08/07/17 17:44 MJO (Rec: 08/07/17 17:45 MJO [facility] [id number][place] Pain Reassessment Is This A Pain ReAssessment? No Sleep Is patient sleeping during reassessment? 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 Ulcer: No History Surgical Site Infection Following: None - Disposition Have Diagnosis and Disposition been Completed?: Yes Diagnosis: Headache, Hypertension Disposition: HOSPITALIZED Disposition Time: 16:00 Patient Plan: Admission Patient Problems: Current Active Problems Problem Status Onset Headache Acute Hypertension Acute Condition: FAIR
[2017-08-07] MEDS: Levothyroxine 75 MCG TAB PO SCH (17:05)
--- NOTE | 2017-08-07 18:15 | CON ---
DATE: 08/07/2017 NEUROLOGY CONSULTATION CHIEF COMPLAINT: Headache. HISTORY OF PRESENT ILLNESS: This is a 76-year-old woman with past medical history of COPD, diabetes, diabetic peripheral neuropathy, hypothyroidism, hypertension, history of TIA, cognitive impairment, history of sepsis secondary to extended-spectrum beta-lactamase in the urine and history of COPD exacerbations with the last MRI of the brain showed no acute intracranial abnormalities. There were chronic ischemic changes in the old right lacunar infarct in the periventricular white matter, who presented with headaches, diffuse, pressure type, mostly left sided occipitotemporal since yesterday and noticed to have a blood pressure of 200/120 at home, therefore came in to the hospital. Today, her blood pressure is 177/99, which is definitely higher for her. No focal weakness of the extremities. No pronator drifts seen. PAST MEDICAL HISTORY: COPD, hypertension, hypothyroidism, history of cognitive impairment, history of diabetic peripheral neuropathy, history of gastroparesis secondary to diabetes, history of hysterectomy, tonsillectomy, thyroidectomy, hypothyroidism. REVIEW OF SYSTEMS: Fourteen-point review of systems is negative except as per the HPI. ALLERGIES: ALLERGIC TO SULFA DRUGS, TETANUS TOXOID VACCINES AND TETRACYCLINE. MEDICATIONS: Reviewed by nurse reconciliation sheet. SOCIAL HISTORY: No illicit drug use, smoking or EtOH abuse. PHYSICAL EXAMINATION: VITAL SIGNS: Temperature 97.9, pulse rate of 80, blood pressure 177/99, respiratory rate of 18, oxygen saturation 100% by room air. GENERAL: The patient is sitting up in bed, in no acute distress. HEENT: She is atraumatic, normocephalic. PERRLA. Extraocular muscles intact. NECK: Supple. No JVD. No adenopathy noted. LUNGS: Clear to auscultation. No adventitious sounds. HEART: S1, S2. Normal rate and rhythm. No murmurs, rubs or gallops. ABDOMEN: Soft, nontender and nondistended. Bowel sounds are present. EXTREMITIES: No clubbing. No cyanosis. Peripheral pulses 2+ felt bilaterally. NEUROLOGIC: The patient is alert and oriented to person, place, month and year. Speech is fluent without any errors. Has slow thought process. Recall after 5 minutes is 2/3. Cranial nerves II through XII intact. Motor exam: Slight increased tone throughout. Moves all extremities equally. Sensory exam: Decreased light touch and pinprick up to the calves bilaterally. Decreased vibration of the toes. DTRs are 2+ throughout, 1 at both knees and ankles. Coordination: [id number] intact. No dysmetria noted. Gait is deferred for now. LABORATORY DATA: Sodium is 139, potassium is 3.3, chloride of 103, carbon dioxide 22, BUN of 14, creatinine 0.6, random glucose 265. ASSESSMENT AND PLAN: This is a 76-year-old woman with history of chronic obstructive pulmonary disease, hypothyroidism, history of diabetes, diabetic peripheral neuropathy, hypertension, history of transient ischemic attack, cognitive impairment, history of sepsis with extended-spectrum beta-lactamase in the urine, history of chronic obstructive pulmonary disease exacerbation, who presents with diffuse cluster headache, mostly on the left side, occipitotemporal and had an elevated systolic and diastolic blood pressures at home as well as currently on the floor. Her headache is likely secondary to tension type with hypertensive urgency component. We will recommend, 1. Fioricet 1 tablet p.o. q. 4 hours with acute onset of headache. 2. Continue her gabapentin 100 mg p.o. t.i.d. for neuropathic relief. Could consider to increase it to 200 b.i.d. 3. MRI of the brain to evaluate for anything acute in terms of causing her headaches. 4. Monitor her chronic obstructive pulmonary disease. 5. Keep blood pressure between 140 to 180 and diabetic diet and education. 6. Continue with current present medical management. Thank you for this consult. Adalid Lezama MD
[2017-08-07] MEDS: Apap-Butalbital-Caffeine 325-50-40mg Tab PO PRN (21:31)
[2017-08-08] MEDS ORDERED: Influenza Vaccine 60 mcg/0.5 mL SYR (4YR UP) IM ONE (00:13)
[2017-08-08] MEDS ORDERED: Pneumococcal 23-Valent Vaccine IM ONE (00:13)
--- NOTE | 2017-08-08 07:24 | CARD ---
APPROVED REPORT EKG Measurement Heart [id number] <Conclusion> Normal sinus rhythm Possible septal TN, old Q in lll Improved repolarization and shortened QTC c/w ECG 07/09/17
[2017-08-08 07:32] LABS: HEMOGLOBIN 12.2 g/dL (12.0-16.0); MEAN CELL VOLUME 81.1 fl (80.0-105.0); MEAN CORPUSCULAR HEMOGLOBIN 26.8 pg (25.0-35.0); MEAN CORPUSCULAR HGB CONC 33.1 g/dl (31.0-37.0); MEAN PLATELET VOLUME 11.4 fl (7.0-11.0); RBC 4.55 10^6/uL (3.5-6.1); WHITE BLOOD COUNT 8.2 10^3/ul (4.5-11.0)
[2017-08-08 07:52] LABS: BLOOD UREA NITROGEN 13 mg/dL (7-21); CALCIUM 9.2 mg/dL (8.4-10.5); GFR AFRICAN-AMERICAN > 60; GFR NON-AFRICAN AMERICAN > 60; HDL CHOLESTEROL 35 mg/dL (29-60); IRON 42 ug/dL (45-180)
[2017-08-08 08:02] LABS: LDL CHOLESTEROL 98 mg/dL (0-129)
[2017-08-08 08:09] LABS: % IRON SATURATION 13 % (20-55); TOTAL IRON BINDING CAPACITY 332 ug/dL (265-497)
--- NOTE | 2017-08-08 10:04 | HP ---
CHIEF COMPLAINT: Headache, high blood pressure. HISTORY OF PRESENT ILLNESS: Ms. Michelle Myles is a 76-year-old female with past medical history of hypertension and COPD, came to the Emergency Room with severe left-sided occipital temporal headache since yesterday. Noted blood pressure was 200/120 at home and patient states that she took her antihypertensive medication earlier and this morning, states that the patient's daughter, Lacey, called me very early in the morning that mother's blood pressure is 200/120 and I told her to take her to the Emergency Room because she was having intractable headache. Per family, gave blood pressure medicine, blood pressure came down; then, the patient's visiting nurse called me that blood pressure is still high, then I told her now take patient to the Emergency Room. Denies any focal weakness. No nausea, vomiting or diarrhea. No vision changes. No chest pain. No shortness of breath. No diaphoresis. No fever. No chills. No shortness of breath. PAST MEDICAL HISTORY: Hypertension, COPD, pneumonia, TIA, left eye cataract surgery, diabetes mellitus, diabetic neuropathy, GERD, constipation, hiatal hernia, gastroparesis, poor appetite, urgency, frequency, four sections, hysterectomy, hand and toe surgery, thyroidectomy , tonsillectomy. FAMILY HISTORY: Father and mother, noncontributory. HABITS: Currently smoking. Alcohol, no. Substance abuse, no. ALLERGIES: THE PATIENT IS ALLERGIC TO SULFA, TETANUS AND TETRACYCLINE. REVIEW OF SYSTEMS: The patient was seen and examined on the bedside, having her dinner. and echo tech were sitting on the bedside also. No nausea, vomiting or diarrhea. No hematuria, no hematochezia. Headache still persisted. No shortness of breath, no chest pain. No fever. No chills. PHYSICAL EXAMINATION VITAL SIGNS: Temperature 98, pulse 83, respiratory rate 18, blood pressure 115/84, pulse oximetry is 98. HEENT: Head: Normocephalic, atraumatic. Eyes: PERRLA. Extraocular muscles intact. Conjunctivae clear. Nose patent. Mucous membranes moist. NECK: Supple. No carotid bruit, no JVD or thyromegaly. CHEST: Bilaterally symmetrical. HEART: S1, S2 positive. LUNGS: Clear to auscultation. ABDOMEN: Soft. Bowel sounds present. No organomegaly. EXTREMITIES: No edema, no cyanosis. NEUROLOGIC: Patient is awake, alert. Moving all 4 extremities. No focal deficits. LABORATORY DATA: White blood cell is 7.8, hemoglobin 12.1, hematocrit 36.1, platelets 154,000. Sodium 139, potassium 3.6, BUN 14, creatinine 0.6. Glucose 265. ASSESSMENT AND PLAN: Ms. Michelle Myles is a 76-year-old lady with hyperglycemia, intractable headache, hypertension, history of chronic obstructive pulmonary disease, asthma, history of pneumonia recently, history of transient ischemic attack, left eye cataract surgery, diabetic neuropathy, gastroesophageal reflux disease, constipation, hiatal hernia and gastroparesis, poor appetite, history of urgency and frequency, history of four sections, thyroidectomy, tonsillectomy. CAT scan of the head reviewed by me; seen by the neurologist, Dr. Adalid Lezama. History of hypothyroidism, cognitive impairment, history of sepsis with extended-spectrum beta-lactamase in the urine. Her headache was mostly in the left side occipital temporal with elevated systolic and diastolic blood pressure at home as well as on the floor. Her headache is likely secondary to the tension type with hypertensive urgency component. Dr. Adalid Lezama recommended Fioricet. Continue gabapentin. MRI of the brain, evaluation of any other acute of causing her headache. Monitor labs. Continue current and present medications. GI and DVT prophylaxis. Discussion done with the patient's , echo tech and with the patient via herself. We will follow. Alison Powers MD MTDAntonina
[2017-08-08] MEDS: Levothyroxine 75 MCG TAB PO SCH (10:13)
[2017-08-08] MEDS: Metoprolol Succinate 50 mg XL Tab PO SCH ×2 (10:13→17:36)
[2017-08-08] MEDS ORDERED: Magnesium Sulfate 1 gm in D5W 1 GM/100 ML BAG IVPB ONE (11:06)
[2017-08-08 13:31] LABS: FOLATE 11.7 ng/mL
--- NOTE | 2017-08-08 14:27 | MRI ---
PROCEDURE: MRI BRAIN WITHOUT CONTRAST HISTORY: headache COMPARISON: MRI 07/09/2017 TECHNIQUE: Multiplanar, multisequence MR images of the brain were obtained without intravenous contrast enhancement. FINDINGS: HEMORRHAGE: None DWI: No evidence of an acute or early subacute infarction. BRAIN PARENCHYMA: No mass effect or edema. Chronic microvascular changes are seen in the periventricular white matter. VENTRICLES: Unremarkable. No hydrocephalus. CRANIUM: Unremarkable. ORBITS: Grossly unremarkable. PARANASAL SINUSES/MASTOIDS: Clear VASCULAR SYSTEM: Skull base flow voids intact. OTHER FINDINGS: None. IMPRESSION: Chronic microvascular changes. No acute intracranial findings
--- NOTE | 2017-08-08 16:59 | CP.PCM.PN ---
Subjective - Date & Time of Evaluation Date of Evaluation: 08/08/17 Time of Evaluation: 15:00 - Subjective Subjective: DATE: 08/08/2017 NEUROLOGY FOLLOW UP. CHIEF COMPLAINT: Headache. SUBJECTIVE: Patient seen, headache much better than yesterday. Diastolic BP is still elevated, needs bp meds adjusted by primary team. MRI brain showed no acute abnormality, PAST MEDICAL HISTORY: COPD, hypertension, hypothyroidism, history of cognitive impairment, history of diabetic peripheral neuropathy, history of gastroparesis secondary to diabetes, history of hysterectomy, tonsillectomy, thyroidectomy, hypothyroidism. REVIEW OF SYSTEMS: Fourteen-point review of systems is negative except as per the HPI. ALLERGIES: ALLERGIC TO SULFA DRUGS, TETANUS TOXOID VACCINES AND TETRACYCLINE. MEDICATIONS: Reviewed by nurse reconciliation sheet. SOCIAL HISTORY: No illicit drug use, smoking or EtOH abuse. PHYSICAL EXAMINATION: VITAL SIGNS: Reviewed. . GENERAL: The patient is sitting up in bed, in no acute distress. HEENT: She is atraumatic, normocephalic. PERRLA. Extraocular muscles intact. NECK: Supple. No JVD. No adenopathy noted. LUNGS: Clear to auscultation. No adventitious sounds. HEART: S1, S2. Normal rate and rhythm. No murmurs, rubs or gallops. ABDOMEN: Soft, nontender and nondistended. Bowel sounds are present. EXTREMITIES: No clubbing. No cyanosis. Peripheral pulses 2+ felt bilaterally. NEUROLOGIC: The patient is alert and oriented to person, place, month and year. Speech is fluent without any errors. Has slow thought process. Recall after 5 minutes is 2/3. Cranial nerves II through XII intact. Motor exam: Slight increased tone throughout. Moves all extremities equally. Sensory exam: Decreased light touch and pinprick up to the calves bilaterally. Decreased vibration of the toes. DTRs are 2+ throughout, 1 at both knees and ankles. Coordination: [id number] intact. No dysmetria noted. Gait is deferred for now. LABORATORY DATA: MRI brain showed no acute abnormality, ASSESSMENT AND PLAN: This is a 76-year-old woman with history of chronic obstructive pulmonary disease, hypothyroidism, history of diabetes, diabetic peripheral neuropathy, hypertension, history of transient ischemic attack, cognitive impairment, history of sepsis with extended-spectrum beta-lactamase in the urine, history of chronic obstructive pulmonary disease exacerbation, who presents with diffuse cluster headache, mostly on the left side, occipitotemporal and had an elevated systolic and diastolic blood pressures at home as well as currently on the floor. Her headache is likely secondary to tension type with hypertensive urgency component. We will recommend, 1. Fioricet 1 tablet p.o. q. 4 hours with acute onset of headache. 2. Continue her gabapentin 100 mg p.o. t.i.d. for neuropathic relief. Could consider to increase it to 200 b.i.d. 3. Will give i dose of IV toradol of 50 mg x 1 dose today. . 4. Monitor her chronic obstructive pulmonary disease. 5. Keep blood pressure between 130-140 mm hg systolic and diastolic 70-80, and diabetic diet and education. 6. Continue with current present medical management. Thank you Adalid Lezama MD Objective - Vital Signs/Intake and Output Vital Signs (last 24 hours): Temp Pulse Resp BP Pulse Ox 98 F 67 18 157/104 H 97 08/08/17 14:00 08/08/17 14:00 08/08/17 14:00 08/08/17 14:00 08/08/17 14:00 Intake and Output: 08/08/17 08/08/17 06:59 18:59 Intake Total 600 Balance 600 - Medications Medications: Current Medications Acetaminophen (Tylenol 325mg Tab) 650 mg PO Q6H PRN PRN Reason: Fever >100.4 F Acetaminophen/Butalbital/Caffeine (Fioricet) 1 tab PO Q4H PRN PRN Reason: Headache Last Admin: 08/07/17 21:31 Dose: 1 tab Famotidine (Pepcid) 40 mg PO HS MATEO Last Admin: 08/07/17 21:31 Dose: 40 mg Gabapentin (Neurontin) 100 mg PO TID MATEO PRN Reason: Protocol Last Admin: 08/08/17 14:02 Dose: Not Given Hydralazine HCl (Apresoline) 10 mg PO BID MATEO Hydromorphone HCl (Dilaudid) 0.25 mg IVP Q6H PRN PRN Reason: Pain, Mild (1-3) Levothyroxine Sodium (Synthroid) 75 mcg PO DAILY [facility] Last Admin: 08/08/17 10:13 Dose: 75 mcg Metoprolol Succinate (Toprol Xl) 50 mg PO BID [facility] Last Admin: 08/08/17 10:13 Dose: 50 mg Valsartan (Diovan) 320 mg PO DAILY [facility] Last Admin: 08/08/17 10:13 Dose: 320 mg - Labs Labs: 08/08/17 07:00 08/08/17 07:00 PT 10.8 SECONDS (9.4-12.5) 08/07/17 14:30 INR 0.95 (0.93-1.08) 08/07/17 14:30 APTT 29.2 Seconds (25.1-36.5) 08/07/17 14:30
[2017-08-08] MEDS: Apap-Butalbital-Caffeine 325-50-40mg Tab PO PRN (20:32)
[2017-08-08] MEDS: Magnesium Oxide 400 mg Tab UD PO SCH (23:08)
[2017-08-09 07:42] VITALS: RESP 18; TEMP 97.8
[2017-08-09 08:02] LABS: HEMOGLOBIN 12.6 g/dL (12.0-16.0); MEAN CELL VOLUME 80.5 fl (80.0-105.0); MEAN CORPUSCULAR HGB CONC 33.5 g/dl (31.0-37.0); MEAN PLATELET VOLUME 11.6 fl (7.0-11.0); RBC 4.67 10^6/uL (3.5-6.1); RED CELL DISTRIBUTION WIDTH 13.1 % (11.5-14.5); WHITE BLOOD COUNT 7.5 10^3/ul (4.5-11.0)
[2017-08-09 08:05] LABS: BLOOD UREA NITROGEN 14 mg/dL (7-21); CALCIUM 9.1 mg/dL (8.4-10.5); GFR AFRICAN-AMERICAN > 60; GFR NON-AFRICAN AMERICAN > 60
--- NOTE | 2017-08-09 08:47 | PN ---
DATE: 08/08/2017 SUBJECTIVE: Patient is a 76-year-old female. Patient is seen and examined on the bedside. Sitting on the chair, reading newspaper. was sitting on the chair also, reading newspaper. Headache is better. No nausea, vomiting, or diarrhea. No fever. No chills. No hematuria. No hematochezia. No shortness of breath. PHYSICAL EXAMINATION: VITAL SIGNS: Temperature 97.9, pulse 65, blood pressure 149/98, respiratory rate is 19. HEENT: Head normocephalic, atraumatic. Eyes: PERRLA. Extraocular muscles intact. Conjunctivae clear. Nose patent. Mucous membranes moist. NECK: Supple. No carotid bruit, JVD, or thyromegaly. CHEST: Bilaterally symmetrical. HEART: S1 and S2 positive. LUNGS: Clear to auscultation. ABDOMEN: Soft. Bowel sounds present. No organomegaly. EXTREMITIES: No edema. No cyanosis. NEUROLOGIC: Patient is awake and alert. Moving all 4 extremities. No focal deficit. MEDICATIONS: Hydralazine, Dilaudid, Diovan, Fioricet, Neurontin, Pepcid, Synthroid, Toprol, and Tylenol. LABORATORY DATA: White blood cells 8.2, hemoglobin 12.2, hematocrit 36.9, platelets 187. Sodium 143, potassium 3.8, BUN 13, creatinine 0.8, glucose 125, hemoglobin A1c 8.5, magnesium 1.5, iron 42, 13% saturation. ASSESSMENT AND PLAN: Ms. Lucas Martinez is a 76-year-old lady with uncontrolled diabetes mellitus, hemoglobin A1c is 8.5; hypomagnesemia; iron deficiency. Went for brain MRI, reviewed by me. CAT scan of the head was reviewed by me. Seen by Dr. Adalid Lezama. Patient has history of chronic obstructive pulmonary disease, hypertension, hypothyroidism, history of cognitive impairment, diabetic peripheral neuropathy, history of gastroparesis secondary to diabetes mellitus, history of hysterectomy, tonsillectomy, thyroidectomy, hypothyroidism, rule out patient has cluster headache, may be patient has tension headache. Neurologist suggested Fioricet q. 4 hour with acute onset of headaches. Continue gabapentin. Suggested Toradol 50 mg one dose. Monitoring blood pressure. Gastrointestinal and deep venous thrombosis prophylaxes. Repeat labs. Discussion done with the patient and patient's family. We will follow. Alison Powers MD ESTELA
[2017-08-09] MEDS: Metoprolol Succinate 50 mg XL Tab PO SCH (09:46)
[2017-08-09] MEDS: Levothyroxine 75 MCG TAB PO SCH (09:46)
[2017-08-09] MEDS: Magnesium Oxide 400 mg Tab UD PO SCH (09:46)
[2017-08-09 14:31] VITALS: BP 143/84; PULSE 64; O2SAT 96
--- NOTE | 2017-08-10 23:43 | DS ---
CHIEF COMPLAINTS: Headache, high blood pressure. HISTORY OF PRESENT ILLNESS: Ms. Michelle Myles is a 76-year-old female with past medical history of hypertension, COPD, came to the emergency room with severe left-sided occipital temporal headache since Sunday. Noted blood pressure was 200/120 at home. The patient states that she took her antihypertensive medications earlier that day. The patient's daughter, Lacey, called me early in the morning about mother's high blood pressure, then she gave her another medication as well as homemaker called me that the patient's blood pressure was high and she had headache. I told her to bring the patient to the hospital, they brought. We did CAT scan of the head, then we did brain MRI. Seen by neurologist, Dr. Adalid Lezama. and data capture clerk were on the bedside. Daughter, Lacey, was on the phone also. Discussion done. All questions answered. They decided to take her home. Prescription of medications given. Meds on the bedside. Follow up with neurologist and primary care physician. PAST MEDICAL HISTORY: Hypertension, COPD, pneumonia, TIA, left eye cataract surgery, diabetes mellitus, diabetic neuropathy, GERD, constipation, hiatal hernia, gastroparesis, poor appetite, urgency, frequency, 4 sections, hysterectomy, had thyroidectomy, tonsillectomy. FAMILY HISTORY: Father and mother, noncontributory. HABITS: Currently smoking. No alcohol. No substance abuse. ALLERGIES: THE PATIENT IS ALLERGIC TO SULFA, TETANUS, AND TETRACYCLINE. REVIEW OF SYSTEMS: The patient was seen and examined on the bedside. Headache is better. Blood pressure is better. No fever. No nausea or vomiting. No hematuria or hematochezia. No swelling of the legs. PHYSICAL EXAMINATION: VITAL SIGNS: Temperature 97.8, pulse 64, blood pressure 143/83, respiratory rate 18. HEENT: Head: Normocephalic, atraumatic. Eyes: PERRLA. Extraocular muscles intact. Conjunctivae clear. Nose: Patent. NECK: Supple. No carotid bruit. No JVD or thyromegaly. CHEST: Bilaterally symmetrical. HEART: S1 and S2 positive. LUNGS: Clear to auscultation. ABDOMEN: Soft. Bowel sounds positive. No organomegaly. EXTREMITIES: No edema. No cyanosis. NEUROLOGICAL: The patient is awake and alert. Moving all 4 extremities. No focal deficits. LABORATORY DATA: White blood cells 7.5, hemoglobin 12.6, hematocrit 37.6, platelets 209. Sodium 142, potassium 4.0, carbon dioxide 26, BUN 14, creatinine 0.8, glucose 122, magnesium 1.5, iron 42. ASSESSMENT AND PLAN: Ms. Michelle Myles is a 76-year-old female with hyperglycemia, uncontrolled diabetes mellitus, hemoglobin A1c is 8.5, hypomagnesemia, iron deficiency. Came with intractable headache, accelerated hypertension. CAT scan and MRI done, reviewed by me. Seen by Dr. Lezama. The patient has history of chronic obstructive pulmonary disease, hypertension, hypothyroidism, history of cognitive impairment, diabetic peripheral neuropathy, history of gastroparesis secondary to diabetes mellitus, history of hysterectomy, tonsillectomy, thyroidectomy, rule out cluster headache, may be tension headache. Neurology suggested Fioricet. Continue gabapentin. Suggested Toradol 1 dose. Monitoring blood pressure, is within normal limit now. Discussion done with the patient, the patient's , data capture clerk, and the patient's daughter nurse practitioner who wrote the prescription medications, medicine at bedside. We will follow up. Alison Powers MD
== END 2017-08-09 15:28 | disposition home or self-care (01) ==
LOC: ED 13:37 → ERH 15:13 → 5RSO 16:53
PROVIDERS: ADMIT Internal Medicine; ATTEND Internal Medicine
DX: R51 Headache (principal); J44.9 Chronic obstructive pulmonary disease, unspecified; I10 Essential (primary) hypertension; E11.43 Type 2 diabetes mellitus with diabetic autonomic (poly)neuropathy; K31.84 Gastroparesis; E11.65 Type 2 diabetes mellitus with hyperglycemia; E11.42 Type 2 diabetes mellitus with diabetic polyneuropathy; K21.9 Gastro-esophageal reflux disease without esophagitis; K44.9 Diaphragmatic hernia without obstruction or gangrene; E83.42 Hypomagnesemia; E89.0 Postprocedural hypothyroidism; F17.210 Nicotine dependence, cigarettes, uncomplicated; Z87.01 Personal history of pneumonia (recurrent); Z90.710 Acquired absence of both cervix and uterus; Z86.73 Personal history of transient ischemic attack (TIA), and cerebral infarction without residual deficits; Z88.2 Allergy status to sulfonamides
CPT/HCPCS: 36415; 70450; 70551; 80048; 80053; 80061; 81003; 82550; 82607; 82746; 82948; 83036; 83540; 83550; 83615; 83735; 84443; 84484; 85025; 85027; 85610; 85730; 93005; 99285; G0378; J1885; J3475

== ENCOUNTER 2018-01-09 14:31 | Inpatient (IN) | payer MEDICARE, OTHER ==
[2018-01-09 15:15] VITALS: BMI 21.9
--- NOTE | 2018-01-09 16:09 | ED PDOC ---
Arrival/HPI - General Historian: Patient, Family <Jenny Owusu - Last Filed: 01/10/18 02:53> <Chencho Saunders - Last Filed: 01/13/18 18:25> - General Chief Complaint: Cough, Cold, Congestion Time Seen by Provider: 01/09/18 14:57 - History of Present Illness Narrative History of Present Illness (Text): 01/09/18 16:06 77-year-old female presents today with a 3 week history of dry cough, anterior chest pain bilaterally generalized weakness muscle cramping throughout the entire body abdominal bloating urinary frequency and dysuria. Patient denies fevers or chills. Patient denies shortness of breath or pain with deep inspiration. Patient denies numbness weakness or tingling in the extremities. Patient states she has cramping sensation along the anterior aspect of the chest and in the toes. Patient denies calf pain. No sick contacts. Patient states cough is dry and nonproductive. She is also complaining of a sore throat. Patient with a history of sepsis in the past and patients family is concerned for sepsis again. (Jenny Owusu) Past Medical History - Provider Review Nursing Documentation Reviewed: Yes - Travel History Have you recently traveled outside [place] w/in the past 3 mons?: No - Infectious Disease Hx of Infectious Diseases: None - Tetanus Immunization Tetanus Immunization: Allergy to Tetanus Vaccine - Cardiac Hx Cardiac Disorders: Yes Hx Hypertension: Yes - Pulmonary Hx Respiratory Disorders: Yes Hx Chronic Obstructive Pulmonary Disease (COPD): Yes Hx Pneumonia: Yes - Neurological Hx Neurological Disorder: Yes HX Cerebrovascular Accident: (TIA) Hx Transient Ischemic Attacks (TIA): Yes - HEENT Hx HEENT Disorder: Yes Hx Cataracts: Yes Other/Comment: LEFT EYE CATARACT SURGERY 06/2015 - Renal Hx Renal Disorder: No - Endocrine/Metabolic Hx Endocrine Disorders: Yes Hx Diabetes Mellitus Type 2: Yes (Diabetic Neuropathy) - Hematological/Oncological Hx Blood Disorders: No - Integumentary Hx Dermatological Disorder: No - Musculoskeletal/Rheumatological Hx Musculoskeletal Disorders: Yes Hx Falls: Yes Hx Unsteady Gait: Yes (CANE) - Gastrointestinal Hx Gastrointestinal Disorders: Yes (GERD,CONSTIPATION,HIATAL HERNIA, GASTROPARESIS, POOR APPETITE) - Genitourinary/Gynecological Hx Genitourinary Disorders: Yes (URGENCY,FREQUENCY) Other/Comment: ESBL IN THE URINE - Psychiatric Hx Emotional Abuse: No Hx Physical Abuse: No Hx Substance Use: No - Surgical History Hx Hysterectomy: Yes Hx Musculoskeletal Surgery: Yes (Hand, Toes) - Anesthesia Hx Anesthesia: Yes Hx Anesthesia Reactions: No Hx Malignant Hyperthermia: No - Suicidal Assessment Feels Threatened In Home Enviroment: No <Jenny Owusu - Last Filed: 01/10/18 02:53> Family/Social History - Physician Review Nursing Documentation Reviewed: Yes Family/Social History: Unknown Family HX Smoking Status: Former Smoker Hx Alcohol Use: No Hx Substance Use: No <Jenny Owusu - Last Filed: 01/10/18 02:53> Allergies/Home Meds <Jenny Owusu - Last Filed: 01/10/18 02:53> <Chencho Saunders - Last Filed: 01/13/18 18:25> Allergies/Adverse Reactions: Allergies Sulfa (Sulfonamide Antibiotics) Allergy (Verified 01/09/18 15:08) ANAPHYLAXIS Tetanus Vaccines and Toxoid [Tetanus Vaccines & Toxoid] Allergy (Verified 15:08) RASH tetracycline Allergy (Verified 01/09/18 15:08) RASH Home Medications: Home Meds Medication Instructions Recorded Confirmed Acetaminophen/Butalbital/Caf 1 tab PO Q8 PRN 01/09/18 01/09/18 [Fioricet] Cholecalciferol [Vitamin D 1000 IU] 50,000 iu PO QWK 01/09/18 01/09/18 Cyanocobalamin [Vitamin B12] 1,000 mcg PO DAILY 01/09/18 01/12/18 Esomeprazole Magnesium [Nexium] 40 mg PO DAILY 01/09/18 01/09/18 Ferrous Sulfate [Feosol] 325 mg PO DAILY 01/09/18 01/12/18 Gabapentin [Neurontin] 300 mg PO DAILY 01/09/18 01/12/18 GlipiZIDE [Glucotrol] 10 mg PO DAILY PRN 01/09/18 01/12/18 Latanoprost 0.005% Opht [Xalatan 1 drop OU HS 01/09/18 01/12/18 Opht] Losartan Potassium 50 mg PO DAILY 01/09/18 01/12/18 Metformin HCl [Glucophage] 1,000 mg PO BID 01/09/18 01/12/18 hydrALAZINE [Apresoline] 25 mg PO Q6 PRN 01/09/18 01/09/18 Review of Systems - Review of Systems Constitutional: Fatigue. absent: Fevers Respiratory: Cough. absent: SOB, Wheezing Cardiovascular: Chest Pain. absent: Palpitations Gastrointestinal: Abdominal Pain. absent: Constipation, Diarrhea, Nausea, Vomiting Genitourinary Female: Dysuria, Frequency. absent: Hematuria Musculoskeletal: Arthralgias. absent: Back Pain, Neck Pain Skin: absent: Rash, Pruritis Neurological: Dizziness. absent: Headache Psychiatric: absent: Anxiety, Depression, Suicidal Ideation <Jenny Owusu - Last Filed: 01/10/18 02:53> Physical Exam Vital Signs Reviewed: Yes Temperature: Afebrile Blood Pressure: Hypertensive Pulse: Regular Respiratory Rate: Normal Appearance: Positive for: Well-Appearing, Non-Toxic, Comfortable Pain Distress: None Mental Status: Positive for: Alert and Oriented X 3 - Systems Exam Head: Present: Atraumatic Pupils: Present: PERRL Extroacular Muscles: Present: EOMI Mouth: Present: Moist Mucous Membranes Neck: Present: Normal Range of Motion Cardiovascular: Present: Regular Rate and Rhythm. No: Tachycardic Abdomen: Present: Tenderness, Normal Bowel Sounds. No: Rebound, Guarding Back: Present: Normal Inspection. No: Midline Tenderness, Paraspinal Tenderness Upper Extremity: Present: Normal ROM Lower Extremity: Present: Normal ROM. No: CALF TENDERNESS Neurological: Present: GCS=15, Speech Normal Skin: Present: Warm, Dry, Normal Color. No: Rashes Psychiatric: Present: Alert, Oriented x 3 <Jenny Owusu - Last Filed: 01/10/18 02:53> Vital Signs Temp Pulse Resp BP Pulse Ox 01/09/18 21:10 176/101 H 01/09/18 20:53 97.7 F 73 18 176/109 H 99 01/09/18 18:22 69 18 162/86 H 96 01/09/18 15:08 97.6 F 72 18 160/99 H 96 01/09/18 14:32 97.6 F 72 18 155/103 H 96 Medical Decision Making <Jenny Owusu - Last Filed: 01/10/18 02:53> <Chencho Saunders - Last Filed: 01/13/18 18:25> ED Course and Treatment: 01/09/18 16:10 77yr old female with generalized weakness, cough, dizziness, abdominal pain and urinary symptoms. cbc wnl cmp wnl bnp: wnl trop: wnl ekg; sinus rhythma with sinus arrhythmia with 1st degree av block. no st elevations, normal axis. cxr; ? RML infiltrate abdomen/pelvis ct: Accession No. : [id number] FINDINGS: LOWER THORAX: UnremarkableMild pulmonary congestion is noted. No evidence of pleural effusion. The heart is mildly enlarged. . LIVER: Diffuse low-attenuation of the liver is again noted suggestive of hepatic steatosis. The liver is mildly enlarged. GALLBLADDER AND BILE DUCTS: The gallbladder is mildly distended. No CT evidence of acute cholecystitis. PANCREAS: Unremarkable. No gross lesion or ductal dilatation. SPLEEN: Unremarkable. ADRENALS: Unremarkable. No mass. KIDNEYS AND URETERS: Unremarkable. No hydronephrosis. No solid mass. VASCULATURE: Unremarkable. No aortic aneurysm. BOWEL: Unremarkable. No obstruction. No gross mural thickening. APPENDIX: Unremarkable. Normal appendix. PERITONEUM: Unremarkable. No free fluid. No free air. LYMPH NODES: Unremarkable. No enlarged lymph nodes. BLADDER: Unremarkable. REPRODUCTIVE: Is status post hysterectomy BONES: Moderate to severe degenerative changes at the lumbar spine associated with levoscoliosis. OTHER FINDINGS: None. IMPRESSION: No evidence of nephrolithiasis or hydronephrosis. No definite evidence of acute pathology in the abdomen and pelvis. Lack of contrast agents limits full evaluation of the abdomen and pelvis viscera. head ct; FINDINGS: HEMORRHAGE: No intracranial hemorrhage. BRAIN: There are mild chronic microangiopathic changes. There is an old lacunar infarction in the right anterior hirsch radiata. There is no mass, mass effect or abnormal extra-axial fluid collection. There is no territorial infarction. The midline sagittal structures are normal. VENTRICLES: There is mild age-related global parenchymal volume loss and proportionate enlargement of the ventricles and cortical sulci. There is a cavum septum pellucidum CALVARIUM: Unremarkable. PARANASAL SINUSES: Predominantly clear. MASTOID AIR CELLS: Predominantly clear. OTHER FINDINGS: None. IMPRESSION: No acute intracranial abnormality. No other significant interval change. vanco and zosyn started IV for pneumonia; pt with recent hospitalization. 01/09/18 18:[address] juarez; will admit to tele for dizziness, chest pain, pneumonia. impression; pneumonia, dizziness, chest pain, UTI admit to tele (Jenny Owusu) - Lab Interpretations Microbiology Results: Microbiology Results 01/09/18 16:22 Blood Blood Culture - Preliminary NO GROWTH AFTER 4 DAYS 01/09/18 15:50 Blood Blood Culture - Preliminary NO GROWTH AFTER 4 DAYS 01/09/18 16:22 Urine Urine Culture - Final Escherichia Coli Lab Results: 01/09/18 16:22 01/09/18 16:22 Lab Results 01/09/18 16:22: WBC 10.4 D, RBC 5.19, Hgb 14.6 D, Hct 41.1, MCV 79.2 L, MCH 28.1, MCHC 35.5, RDW 13.3, Plt Count 192, MPV 11.5 H, Gran % 54.4, Lymph % (Auto ) 35.8 H, Evangeline % (Auto) 5.8, Eos % (Auto) 3.5, Baso % (Auto) 0.5, Gran # 5.67, Lymph # (Auto) 3.7 H, Evangeline # (Auto) 0.6, Eos # (Auto) 0.4, Baso # (Auto) 0.05 01/09/18 16:22: Sodium 137, Potassium 4.6, Chloride 97 L, Carbon Dioxide 22, Anion Gap 22 H, BUN 18, Creatinine 0.9, Est GFR ( Amer) > 60, Est GFR ( Non-Af Amer) > 60, Random Glucose 146 H, Calcium 9.9, Magnesium 1.4 L, Total Bilirubin 0.5, AST 36 D, ALT 50, Alkaline Phosphatase 83, Lactate Dehydrogenase 563, Total Creatine Kinase 121, Troponin I < 0.01, NT-Pro-B Natriuret Pep 320, Total Protein 7.8, Albumin 4.6, Globulin 3.2, Albumin/ Globulin Ratio 1.4 01/09/18 16:22: Urine Color Yellow, Urine Appearance Clear, Urine pH 6.0, Ur Specific Wilder 1.025, Urine Protein Trace H, Urine Glucose (UA) Negative, Urine Ketones Negative, Urine Blood Negative, Urine Nitrate Negative, Urine Bilirubin Negative, Urine Urobilinogen 0.2, Ur Leukocyte Esterase Trace H, Urine RBC Negative, Urine WBC 2 - 5, Ur Epithelial Cells 4 - 5, Urine Bacteria Mod - RAD Interpretation Radiology Orders: 01/09/18 15:31 CHEST TWO VIEWS (PA/LAT) [RAD] Stat 01/09/18 15:32 HEAD W/O CONTRAST [CT] Stat 01/09/18 16:46 ABD & PELVIS W/O PO OR IV CONT [CT] Stat - Medication Orders Current Medication Orders: Discontinued Medications Acetaminophen/Butalbital/Caffeine (Fioricet) 1 tab PO Q8 PRN PRN Reason: Headache Last Admin: 01/09/18 22:54 Dose: 1 tab MAR Pain Assessment Document 01/09/18 22:54 LGA (Rec: 01/09/18 22:54 LGA [id number]) Pain Reassessment Is this a pain reassessment? Yes Sleep Is patient sleeping during reassessment? No Presence of Pain Presence of Pain Yes Pain Scale Used Pain Scale Used Numeric Location Pain Location Body Cotton Expert Description Description Constant Pain Behavior Restlessness Aggravating Factors Changing Position Alleviating Factors/Management Medication Techniques Alleviating Factors Medication Albuterol/Ipratropium (Duoneb 3 Mg/0.5 Mg (3 Ml) Ud) 3 ml IH [id number] [facility] Last Admin: 01/12/18 19:43 Dose: Aspirin (Aspirin) 325 mg PO STAT STA Stop: 01/09/18 18:30 Last Admin: 01/09/18 18:45 Dose: 325 mg Aspirin (Ecotrin) 81 mg PO DAILY [facility] Last Admin: 01/12/18 09:22 Dose: 81 mg Cefpodoxime Proxetil (Vantin) 200 mg PO Q12 [facility] PRN Reason: Protocol Stop: 01/19/18 10:01 Last Admin: 01/12/18 17:38 Dose: 200 mg Cyanocobalamin (Vitamin B12 1000 Mcg Tab) 1,000 mcg PO DAILY [facility] Last Admin: 01/12/18 09:23 Dose: 1,000 mcg Ergocalciferol (Drisdol 50,000 Intl Units Cap) 1 cap PO [facility] Fenofibrate (Tricor) 145 mg PO DAILY [facility] Last Admin: 01/12/18 09:21 Dose: 145 mg Ferrous Sulfate (Feosol) 324 mg PO DAILY [facility] Last Admin: 01/12/18 09:22 Dose: 324 mg Gabapentin (Neurontin) 300 mg PO DAILY [facility] PRN Reason: Protocol Last Admin: 01/12/18 09:21 Dose: 300 mg Behavioural Document 01/12/18 09:21 (Rec: 01/12/18 09:21 [id number]) Maintenance Maintenance Dose Yes Re-Assess: Reassess Psych Meds Document 01/12/18 10:21 (Rec: 01/12/18 10:26 [id number] Reassess Psych Med Effective Glipizide (Glucotrol) 10 mg PO BRK [facility] Last Admin: 01/12/18 08:41 Dose: 10 mg Hydralazine HCl (Apresoline) 10 mg PO STAT STA Stop: 01/09/18 21:02 Last Admin: 01/09/18 21:10 Dose: 10 mg MAR Pulse and Blood Pressure Document 01/09/18 21:10 HI (Rec: 01/09/18 21:13 [id number]) Blood Pressure Blood Pressure (100/60-150/90) 176/101 Vancomycin HCl (Vancomycin 1gm) 1 gm in 250 mls @ 167 mls/hr IVPB STAT STA PRN Reason: Protocol Stop: 01/09/18 19:49 Last Admin: 01/09/18 19:33 Dose: 167 mls/hr eMAR Start Stop Document 01/09/18 19:33 HI (Rec: 01/09/18 19:33 [email or web address]) Intravenous Solution Start Date 01/09/18 Start Time 19:33 Piperacillin Sod/Tazobactam Sod (Zosyn 3.375 In Ns 100ml) 100 mls @ 200 mls/hr IVPB STAT STA PRN Reason: Protocol Stop: 01/09/18 18:49 Last Admin: 01/09/18 18:40 Dose: 200 mls/hr eMAR Start Stop Document 01/09/18 18:40 HI (Rec: 01/09/18 18:44 [email or web address]) Intravenous Solution Start Date 01/09/18 Start Time 18:44 Piperacillin Sod/Tazobactam Sod (Zosyn 2.25 Gm In 0.9% 100 Ml) 2.25 gm in 100 mls @ 100 mls/hr IVPB Q6 [facility] PRN Reason: Protocol Stop: 01/10/18 06:59 Last Admin: 01/10/18 06:10 Dose: 100 mls/hr eMAR Start Stop Document 01/10/18 06:10 LGA (Rec: 01/10/18 06:10 LGA [id number]) Intravenous Solution Start Date 01/10/18 Start Time 06:10 End Date 01/10/18 End time 07:10 Total Infusion Time 60 Meropenem (Merrem Iv 1 Gm Premix) 50 mls @ 100 mls/hr IVPB Q12 [facility] PRN Reason: Protocol Stop: 01/19/18 14:01 Last Admin: 01/11/18 21:25 Dose: 100 mls/hr Vancomycin HCl (Vancomycin 1gm) 1 gm in 250 mls @ 167 mls/hr IVPB Q12H [facility] PRN Reason: Protocol Stop: 01/19/18 10:01 Last Admin: 01/11/18 11:10 Dose: 167 mls/hr eMAR Start Stop Document 01/11/18 11:10 MF (Rec: 01/11/18 11:11 [id number]) Intravenous Solution Start Date 01/11/18 Start Time 11:11 Insulin Human Regular (Humulin R Low) 0 units SC ACHS [facility] PRN Reason: Protocol Last Admin: 01/12/18 17:09 Dose: Not Given Non-Admin Reason: Blood Sugar Parameter MAR Blood Glucose Document 01/12/18 17:09 (Rec: 01/12/18 17:09 [id number]) Blood Glucose Finger Stick Blood Glucose (70-120) 112 Latanoprost (Xalatan Opht) 0 ml OU HS [facility] Last Admin: 01/11/18 21:25 Dose: 2.5 ml Levothyroxine Sodium (Synthroid) 75 mcg PO 0600 [facility] Last Admin: 01/12/18 06:14 Dose: 75 mcg Losartan Potassium (Cozaar) 50 mg PO DAILY [facility] Last Admin: 01/12/18 09:22 Dose: 50 mg Magnesium Oxide (Mag-Ox) 400 mg PO BID [facility] Last Admin: 01/12/18 17:39 Dose: 400 mg Metformin HCl (Glucophage) 1,000 mg PO BID [facility] Last Admin: 01/12/18 17:38 Dose: 1,000 mg Metoprolol Succinate (Toprol Xl) 50 mg PO BID [facility] Last Admin: 01/12/18 17:38 Dose: 50 mg Pantoprazole Sodium (Protonix Ec Tab) 40 mg PO 0600 [facility] Last Admin: 01/12/18 06:14 Dose: 40 mg - PA / WOOD TYPE FINISHER / Resident Statement / has reviewed & agrees with the documentation as recorded. / has examined the patient and agrees with the treatment plan. <Chencho Saunders - Last Filed: 01/13/18 18:25> Disposition/Present on Arrival - Present on Arrival Any Indicators Present on Arrival: No History of DVT/PE: No History of Uncontrolled Diabetes: No Urinary Catheter: No History of Decub. Ulcer: No History Surgical Site Infection Following: None - Disposition Have Diagnosis and Disposition been Completed?: Yes Disposition Time: 18:29 Patient Plan: Admission <Jenny Owusu - Last Filed: 01/10/18 02:53> <Chencho Saunders - Last Filed: 01/13/18 18:25> - Disposition Diagnosis: Pneumonia, Dizziness, Chest pain Disposition: HOSPITALIZED Condition: FAIR
[2018-01-09 16:42] LABS: URINE BILIRUBIN NEGATIVE (NEGATIVE); URINE BLOOD NEGATIVE (NEGATIVE); URINE GLUCOSE (UA) NEGATIVE (NEGATIVE); URINE LEUKOCYTE ESTERASE TRACE Leu/uL (NEGATIVE); URINE PROTEIN TRACE mg/dL (<30 mg/dL); URINE UROBILINOGEN 0.2 E.U./dL (<1 E.U./dL)
[2018-01-09 16:47] LABS: BASO # 0.05 K/mm3 (0.0-2.0); BASO % 0.5 % (0.0-3.0); EOS # 0.4 (0.0-0.7); EOS % 3.5 % (1.5-5.0); GRAN # 5.67 (1.4-6.5); GRAN % 54.4 % (50.0-68.0); HEMOGLOBIN 14.6 g/dL (12.0-16.0); LYMPH # 3.7 (1.2-3.4); LYMPH % 35.8 % (22.0-35.0); MEAN CELL VOLUME 79.2 fl (80.0-105.0); MEAN CORPUSCULAR HEMOGLOBIN 28.1 pg (25.0-35.0); MEAN CORPUSCULAR HGB CONC 35.5 g/dl (31.0-37.0); MEAN PLATELET VOLUME 11.5 fl (7.0-11.0); MONO # 0.6 (0.1-0.6); MONO % 5.8 % (1.0-6.0); RBC 5.19 10^6/uL (3.5-6.1); RED CELL DISTRIBUTION WIDTH 13.3 % (11.5-14.5); WHITE BLOOD COUNT 10.4 10^3/ul (4.5-11.0)
[2018-01-09 16:48] LABS: ALB/GLOB RATIO 1.4 (1.1-1.8); ALBUMIN 4.6 g/dL (3.0-4.8); ALT/SGPT 50 U/L (7-56); AST/SGOT 36 U/L (14-36); BLOOD UREA NITROGEN 18 mg/dL (7-21); CALCIUM 9.9 mg/dL (8.4-10.5); GFR AFRICAN-AMERICAN > 60; GFR NON-AFRICAN AMERICAN > 60
[2018-01-09 16:50] LABS: URINE APPEARANCE CLEAR (CLEAR); URINE COLOR YELLOW (YELLOW)
[2018-01-09 16:57] LABS: URINE BACTERIA MOD (NEG); URINE RBC NEGATIVE /hpf (0-2)
[2018-01-09 17:00] LABS: B-TYPE NATRIURETIC PEPTIDE 320 pg/mL (0-450); TROPONIN I < 0.01 ng/mL
--- NOTE | 2018-01-09 17:41 | RAD ---
HISTORY: COMPARISON: 07/09/2017. TECHNIQUE: Chest PA and lateral FINDINGS: LINES AND TUBES: None. LUNG AND PLEURA: The lungs are well inflated and clear. No pleural effusion or pneumothorax. HEART AND MEDIASTINUM: The heart is not enlarged. Atherosclerotic aortic arch calcifications are present. The hilar and mediastinal contours are within normal limits. SKELETAL STRUCTURES: The bony structures are within normal limits for the patient's age. VISUALIZED UPPER ABDOMEN: Normal. OTHER FINDINGS: None. IMPRESSION: No active pulmonary disease.
--- NOTE | 2018-01-09 18:01 | CT ---
Date of service: 01/09/2018 PROCEDURE: CT HEAD WITHOUT CONTRAST. HISTORY: dizziness COMPARISON: 08/07/2009 TECHNIQUE: Axial computed tomography images were obtained through the head/brain without intravenous contrast. Radiation dose: Total exam DLP = 801.59 mGy-cm. This CT exam was performed using one or more of the following dose reduction techniques: Automated exposure control, adjustment of the mA and/or kV according to patient size, and/or use of iterative reconstruction technique. FINDINGS: HEMORRHAGE: No intracranial hemorrhage. BRAIN: There are mild chronic microangiopathic changes. There is an old lacunar infarction in the right anterior hirsch radiata. There is no mass, mass effect or abnormal extra-axial fluid collection. There is no territorial infarction. The midline sagittal structures are normal. VENTRICLES: There is mild age-related global parenchymal volume loss and proportionate enlargement of the ventricles and cortical sulci. There is a cavum septum pellucidum CALVARIUM: Unremarkable. PARANASAL SINUSES: Predominantly clear. MASTOID AIR CELLS: Predominantly clear. OTHER FINDINGS: None. IMPRESSION: No acute intracranial abnormality. No other significant interval change.
--- NOTE | 2018-01-09 18:09 | CT ---
Date of service: 01/09/2018 PROCEDURE: CT Abdomen and Pelvis without intravenous contrast HISTORY: ABDOMINAL PAIN COMPARISON: Comparison is made with the previous study dated 02/15/2017 TECHNIQUE: Axial and reformatted coronal and sagittal CT images of the abdomen and pelvis were obtained without IV or oral contrast administration.. Contrast dose: 0 Radiation dose: Total exam DLP = 484.39 mGy-cm. This CT exam was performed using one or more of the following dose reduction techniques: Automated exposure control, adjustment of the mA and/or kV according to patient size, and/or use of iterative reconstruction technique. FINDINGS: LOWER THORAX: UnremarkableMild pulmonary congestion is noted. No evidence of pleural effusion. The heart is mildly enlarged. . LIVER: Diffuse low-attenuation of the liver is again noted suggestive of hepatic steatosis. The liver is mildly enlarged. GALLBLADDER AND BILE DUCTS: The gallbladder is mildly distended. No CT evidence of acute cholecystitis. PANCREAS: Unremarkable. No gross lesion or ductal dilatation. SPLEEN: Unremarkable. ADRENALS: Unremarkable. No mass. KIDNEYS AND URETERS: Unremarkable. No hydronephrosis. No solid mass. VASCULATURE: Unremarkable. No aortic aneurysm. BOWEL: Unremarkable. No obstruction. No gross mural thickening. APPENDIX: Unremarkable. Normal appendix. PERITONEUM: Unremarkable. No free fluid. No free air. LYMPH NODES: Unremarkable. No enlarged lymph nodes. BLADDER: Unremarkable. REPRODUCTIVE: Is status post hysterectomy BONES: Moderate to severe degenerative changes at the lumbar spine associated with levoscoliosis. OTHER FINDINGS: None. IMPRESSION: No evidence of nephrolithiasis or hydronephrosis. No definite evidence of acute pathology in the abdomen and pelvis. Lack of contrast agents limits full evaluation of the abdomen and pelvis viscera.
[2018-01-09] MEDS ORDERED: Vancomycin 1gm in NS 250ml 1 GM/250 ML BAG IVPB STA (18:20)
[2018-01-09] MEDS ORDERED: Piperacillin/Tazobact 3.375 gm 100 ML IVPB STA (18:20)
--- NOTE | 2018-01-09 18:48 | CARD ---
APPROVED REPORT Date of service: 01/09/2018 EKG Measurement Heart [id number] <Conclusion> Sinus rhythm with sinus arrhythmia with 1st degree AV block Otherwise normal ECG
[2018-01-09] MEDS ORDERED: Apap-Butalbital-Caffeine 325-50-40mg Tab PO PRN (22:21)
[2018-01-09] MEDS: Magnesium Oxide 400 mg Tab UD PO SCH (22:56)
[2018-01-10] MEDS: Piperacillin/Tazobact 2.25gm 2.25 GM/100 ML BAG IVPB SCH ×3 (02:26→06:10)
[2018-01-10] MEDS: Albuterol-Ipratrop 3 mg / 0.5 (3 ml) UD IH SCH ×4 (02:43→19:37)
[2018-01-10] MEDS: Pantoprazole 40 mg EC Tab PO SCH (06:09)
[2018-01-10] MEDS: Levothyroxine 75 MCG TAB PO SCH (06:09)
[2018-01-10 06:54] LABS: HEMOGLOBIN 13.3 g/dL (12.0-16.0); MEAN CELL VOLUME 78.9 fl (80.0-105.0); MEAN CORPUSCULAR HEMOGLOBIN 27.2 pg (25.0-35.0); MEAN CORPUSCULAR HGB CONC 34.5 g/dl (31.0-37.0); MEAN PLATELET VOLUME 11.8 fl (7.0-11.0); RBC 4.89 10^6/uL (3.5-6.1); RED CELL DISTRIBUTION WIDTH 13.1 % (11.5-14.5); WHITE BLOOD COUNT 9.8 10^3/ul (4.5-11.0)
[2018-01-10 07:01] LABS: BLOOD UREA NITROGEN 15 mg/dL (7-21); GFR AFRICAN-AMERICAN > 60; GFR NON-AFRICAN AMERICAN > 60; HDL CHOLESTEROL 27 mg/dL (29-60)
[2018-01-10 07:02] LABS: IRON 96 ug/dL (45-180)
[2018-01-10 07:12] LABS: % IRON SATURATION 25 % (20-55); LDL CHOLESTEROL 74 mg/dL (0-129); TOTAL IRON BINDING CAPACITY 381 ug/dL (265-497)
[2018-01-10] MEDS: Insulin Reg-LOW-Coverage SC SCH ×4 (08:40→22:00)
--- NOTE | 2018-01-10 09:15 | HP ---
01/09/18 Copied To: Alison Powers MD Attending MD: Alison Powers MD CHIEF COMPLAINT: Cough, cold, congestion. HISTORY OF PRESENT ILLNESS: Ms. Michelle Myles is a 77-year-old female came to [facility] Emergency Room with and daughter with a 3 weeks history of dry cough, anterior chest pain bilaterally, generalized weakness, muscle cramping toward the entire body, abdominal bloating, urinary frequency, and dysuria. She denies fever or chills. Patient denies shortness of breath or pain with deep inspiration. No hematuria. No hematochezia. No tingling sensation. But according to patient, she is having cramping sensation along the anterior aspect of the chest and in the toes. Denies calf tenderness. No sick contact, but recently patient went for vacations in [place]. History of sepsis in the past. PAST MEDICAL HISTORY: Hypertension; COPD; pneumonia; TIA; cataract; diabetes mellitus type 2; history of fall; unsteady gait, walking with cane; history of GERD; constipation; hiatal hernia; gastroparesis; poor appetite; urgency; frequency; ESBL in the urine in the past; hysterectomy. FAMILY HISTORY: Father and mother, noncontributory. HABITS: Former smoker. No drug. No ethanol. ALLERGIES: PATIENT IS ALLERGIC TO SULFA, TETANUS, AND TETRACYCLINE. HOME MEDICATIONS: Vitamin D, vitamin B12, Nexium, Feosol, Neurontin, Glucotrol, losartan, Glucophage. REVIEW OF SYSTEMS: Patient was seen and examined on the bedside in the emergency room. Daughter and were sitting on the bedside also. This time, no fever. Patient is coughing with shortness of breath and wheezing. No chest pain. No palpitation. Has abdominal pain, but no constipation, diarrhea, nausea, or vomiting. Has dysuria, frequency, but no hematuria. Has arthralgia, but absent neck pain and back pain. Has absent rashes and pruritus. Has dizziness and frontal headache. No anxiety, depression, suicidal ideation. PHYSICAL EXAMINATION: VITAL SIGNS: Temperature 97.6, pulse 72, respiratory rate 18, blood pressure 160/99. HEENT: Head: Normocephalic, atraumatic. Eyes: PERRLA. Extraocular muscles intact. Conjunctivae clear. Nose patent. Mucous membrane moist. NECK: Supple. No carotid bruit, JVD, or thyromegaly. CHEST: Bilaterally symmetrical. HEART: S1 and S2 positive. LUNGS: Clear to auscultation. ABDOMEN: Soft. Bowel sounds present. No organomegaly. EXTREMITIES: No edema. No cyanosis. NEUROLOGIC: Patient is awake and alert. Moving all 4 extremities. No focal deficit. LABORATORY DATA: White blood cells 10.4, hemoglobin 14.6, hematocrit 41.1, platelets 192. Sodium 137, potassium 4.6, BUN 18, creatinine 0.9, glucose 146. ASSESSMENT AND PLAN: Ms. Michelle Myles is a 77-year-old lady with leukocytosis, hypochloremia, diabetes mellitus, came with coughing, urinary symptoms. Chest x-ray showed pneumonia, dizziness, chest pain. History of multiple medical problems in the past; history of hypertension; chronic obstructive pulmonary disease; history of heavy smoking, but now quit; transient ischemic attack; left eye cataract surgery; diabetes mellitus type 2; fall, using cane; hysterectomy. We admitted the patient, gave antibiotics. Hydralazine given because of high blood pressure. Vancomycin and Zosyn given. Pulmonary and ID consults called. Repeat labs. Discussion done with the family and all questions answered. Alison Powers MD MTDAntonina
[2018-01-10] MEDS: Magnesium Oxide 400 mg Tab UD PO SCH ×2 (09:42→17:18)
[2018-01-10] MEDS: Metoprolol Succinate 50 mg XL Tab PO SCH ×2 (09:42→17:18)
[2018-01-10] MEDS: Vancomycin 1gm in NS 250ml 1 GM/250 ML BAG IVPB SCH ×2 (10:30→22:30)
[2018-01-10 12:53] LABS: FOLATE > 20.0 ng/mL
[2018-01-10] MEDS: Meropenem IV 1 gm in NS 50 ML IVPB SCH ×2 (13:34→22:28)
--- NOTE | 2018-01-10 14:21 | CON ---
Copied To: Narayan Perez MD Attending MD: Narayan Perez MD DATE: 01/10/2018 LOCATION: The patient is seen earlier today an 261, bed 1. CHIEF COMPLAINT: Cough x3 weeks. HISTORY OF PRESENT ILLNESS: A 77-year-old Afghan female with a history of diabetes, peripheral neuropathy and gastroesophageal reflux disease and TIA, glaucoma, chronic obstructive lung disease, healthcare-associated pneumonia, hypothyroidism, history of ESBL Klebsiella urinary tract infection in August, history of hospitalization at that time, recently a dental disease and was given antibiotics in November, who is allergic to sulfa and tetracycline, who was admitted with the diagnoses of dizziness, chest pain, cough and urinary frequency. Review of systems reveals there has been no fevers, no chills, no nausea, no vomiting, no chest pain at this time and there is frequency, but no dysuria. REVIEW OF SYSTEMS: Twelve-point review of systems performed. PAST MEDICAL HISTORY: Significant for diabetes mellitus, peripheral neuropathy, GERD and TIA, glaucoma, chronic obstructive lung disease, HCAP, hypothyroidism. PAST SURGICAL HISTORY: Significant for x4, hysterectomy, thyroidectomy, tonsillectomy. ALLERGIES: THE PATIENT IS ALLERGIC TO SULFA, SHE DEVELOPS A RASH; TETRACYCLINE, SHE DEVELOPS A RASH. MEDICATIONS AT HOME: Reveals the patient to be on glipizide and losartan, hydralazine, metoprolol. PHYSICAL EXAMINATION: GENERAL: On exam, the patient is in bed, in no acute distress. VITAL SIGNS: Temperature of 98, blood pressure is 150/80, respiratory rate of 20, heart rate of 91. HEENT: Examination of HEENT is unremarkable. NECK: Supple. LUNGS: Have decreased breath sounds. HEART: Normal S1, S2. ABDOMEN: Soft, nontender. LABORATORY DATA: Laboratory examination reveals white count of 9.8, hemoglobin of 14, platelets of 192. Chemistries reveals the patient has a BUN of 15, creatinine of 0.9, hemoglobin A1c is 7.8. The patient's troponin is normal. The LFTs are normal. Urinalysis is 2-5 wbc's. Microbiology is pending. The patient had a CAT scan of the abdomen and pelvis, which was unremarkable. CAT scan of the head, which was unremarkable and a chest x-ray is reported to have no active pulmonary disease and EKG shows first-degree AV block with a QTc of 432. ASSESSMENT AND PLAN: A 77-year-old female, Afghan, who has abdominal cramping, has cough for several weeks and has frequency. #1 is abdominal cramps and frequency. Must rule out urinary tract infection and cough, must rule out healthcare-associated pneumonia. We will treat the patient with vancomycin and meropenem. Pending panculture; blood, urine and sputum culture and methicillin-resistant Staphylococcus aureus screen and Bordetella and procalcitonin. We will make further recommendations upon availability of initial results. Narayan Perez MD
--- NOTE | 2018-01-10 15:08 | CT ---
Date of service: 01/10/2018 PROCEDURE: CT Chest without contrast HISTORY: hcap COMPARISON: None available. TECHNIQUE: Contiguous axial images were obtained through the chest without intravenous contrast enhancement. Sagittal and coronal reconstructions were performed. Radiation dose (DLP): 169 mGy-cm. This CT exam was performed using one or more of the following dose reduction techniques: Automated exposure control, adjustment of the mA and/or kV according to patient size, and/or use of iterative reconstruction technique. FINDINGS: LUNGS: Clear lungs. Visualized airway clear. There are no pulmonary nodules or infiltrates. MEDIASTINUM: Unremarkable thoracic aorta. No aneurysm. Mild cardiomegaly. Partial calcification of the coronary artery. Main pulmonary artery unremarkable. No vascular congestion. No lymphadenopathy. PLEURA: No pleural fluid. No pneumothorax. BONES: No fracture. No destructive lesion. UPPER ABDOMEN: Grossly unremarkable. OTHER FINDINGS: None. IMPRESSION: Unremarkable non-contrast enhanced CT of the chest.
[2018-01-10] MEDS: Latanoprost 2.5 ml Opht Soln OU SCH (22:29)
--- NOTE | 2018-01-11 01:21 | CON ---
Copied To: Felipe Bergman MD Attending MD: Felipe Bergman MD DATE: 01/10/2018 PULMONARY CONSULTATION REFERRING PHYSICIAN: Dr. Powers REASON FOR CONSULTATION: Chronic obstructive lung disease, suspected sleep apnea syndrome. HISTORY OF PRESENT ILLNESS: This is a 77-year-old female known to me from previous admission with history of chronic obstructive lung disease, hypertension, history of pneumonia, diabetes, history of falls in the past, GERD, hiatal hernia, diabetes related gastroparesis, recurrent UTI, comes in because of cough and shortness of breath. No hemoptysis or emesis. No hematuria, no diarrhea reported. FAMILY HISTORY: No significant cardiopulmonary disease reported. SOCIAL HISTORY: Recently stopped smoking. ALLERGIES: SULFA, TETANUS SHOTS, AND TETRACYCLINE. MEDICATIONS: She is on Cozaar 50 mg daily, vitamin D 50,000 Units weekly, DuoNeb every 6 hours [id number], Ecotrin 81 mg daily, ferrous sulfate 324 mg daily, Fioricet 1 tablet every 8 hours p.r.n., metformin 1000 mg twice a day, glipizide 10 mg daily, insulin coverage, mag oxide 400 mg twice a day, meropenem 1 g every 12 hours, gabapentin 300 mg daily, Protonix 40 mg daily, Synthroid 75 mcg daily, Toprol XL 50 mg twice a day, TriCor 145 mg daily, vancomycin 1 g every 12 hours, vitamin B12 1000 mcg daily. REVIEW OF SYSTEMS: No headache, no rhinitis. Has a cough, clear sputum. No nausea, no vomiting, no diarrhea. No leg pain or leg swelling. PHYSICAL EXAMINATION: GENERAL: No acute distress. VITAL SIGNS: Temperature is 98, heart rate is 89, respiratory rate is 18, blood pressure 140/77, pulse ox 97% on room air. HEENT: Moist mucous membrane. Crowded airway. NECK: Supple. No JVD. LUNGS: Have scattered rhonchi, prolonged expiratory phase. HEART: S1 and S2. ABDOMEN: Soft, nontender. No organomegaly. EXTREMITIES: No edema. NEUROLOGIC: Awake and alert, follows simple command. LABORATORY DATA: Shows hemoglobin 13.3, hematocrit 38.6, WBC 9.8, platelet is 198. Blood sugar is 217. Iron is 96. Sodium 138, potassium 2.8, chloride 99, bicarbonate 24, BUN 15, creatinine 0.9, glucose 216, calcium is 9, triglycerides 423, vitamin B12 734, folate more than 20, procalcitonin less than 0.05, TSH 2.95. Microbiology, blood culture has been negative. CT of the chest done, shows no infiltrate or effusion. Also has a CT of the abdomen and pelvis done, which shows no evidence of nephrolithiasis, hydronephrosis. This is a noncontrast CT. Also has a CAT scan of the head done, which shows no acute intracranial abnormality. IMPRESSION AND PLAN: Chronic obstructive lung disease, suspected sleep apnea syndrome, hypertension, diabetes, gastroparesis, gastroesophageal reflux disease, history of recurrent urinary tract infection. Pulmonary point of view, doing okay. Spoke to the patient's at bedside. All the questions answered. Continue inhaled bronchodilator, gastric prophylaxis, deep venous thrombosis prophylaxis. On antibiotics as per Infectious Diseases. Fall precaution. Thank you and we will follow with you. Felipe Bergman MD
[2018-01-11] MEDS: Albuterol-Ipratrop 3 mg / 0.5 (3 ml) UD IH SCH ×4 (02:33→19:30)
--- NOTE | 2018-01-11 04:13 | PN ---
Copied To: Alison Powers MD Attending MD: Alison Powers MD DATE: 01/10/2018 SUBJECTIVE: The patient is a 77-year-old female. Patient is seen and examined at the bedside. and friend was sitting on the bedside also. Still coughing. No headache. No dizziness. No fever. No chills. Getting shortness of breath with coughing. No hematuria. No hematochezia. PHYSICAL EXAMINATION: VITAL SIGNS: Temperature 98, pulse 80, blood pressure 150/80, respiratory rate 18. HEENT: Head: Normocephalic, atraumatic. Eyes: PERRLA. Extraocular muscles intact. Conjunctivae clear. Nose patent. Mucous membrane moist. NECK: Supple. No carotid bruit, JVD or thyromegaly. CHEST: Bilaterally symmetrical. HEART: S1 and S2 positive. LUNGS: Clear to auscultation. ABDOMEN: Soft. Bowel sounds present. No organomegaly. EXTREMITIES: No edema. No cyanosis. NEUROLOGIC: Patient is awake and alert. Moving all 4 extremities. No focal deficit. MEDICATIONS: Cozaar, vitamin D, DuoNeb, Ecotrin, ferrous sulfate, Fioricet, Glucophage, glipizide, insulin, magnesium oxide, Neurontin, Merrem, Protonix, Synthroid, metoprolol, vitamin B12, vancomycin, Toprol. LABORATORY DATA: White blood cell 9.8, hemoglobin 13.3, hematocrit 38.6, platelets 198. Sodium 138, potassium 3.8, BUN 15, creatinine 0.9, glucose 216, hemoglobin A1c is 7.8, triglyceride 423. ASSESSMENT AND PLAN: Ms. Michelle Myles is a 77-year-old lady with hypertriglyceridemia, uncontrolled diabetes mellitus, hemoglobin A1c 7.8, proteinuria, urinary tract infection, came with abdominal cramping and coughing for the several weeks and has frequency, healthcare-associated pneumonia. Patient is getting antibiotics with vancomycin, meropenem as per Dr. Perez. Pending cultures, blood, urine and sputum. We will adjust antibiotics. Methicillin-resistant Staphylococcus aureus screening is done and Bordetella and procalcitonin. Infectious Disease and Pulmonary is on the case. CAT scan of the chest, abdomen and pelvis done. is unremarkable, noncontrast and had CT of the chest. Reviewed the CAT scan of abdomen and pelvis, no evidence of nephrolithiasis, hydronephrosis. No definite evidence of acute pathology in the abdomen and pelvis. Repeat labs. Getting DuoNeb. We will follow up. Alison Powers MD ESTELA
[2018-01-11] MEDS: Pantoprazole 40 mg EC Tab PO SCH (05:46)
[2018-01-11] MEDS: Levothyroxine 75 MCG TAB PO SCH (05:46)
[2018-01-11] MEDS: Insulin Reg-LOW-Coverage SC SCH ×4 (08:59→22:00)
[2018-01-11] MEDS: Metoprolol Succinate 50 mg XL Tab PO SCH ×2 (10:05→17:30)
[2018-01-11] MEDS: Magnesium Oxide 400 mg Tab UD PO SCH ×2 (10:05→17:30)
[2018-01-11] MEDS: Meropenem IV 1 gm in NS 50 ML IVPB SCH ×2 (10:06→21:25)
[2018-01-11] MEDS: Vancomycin 1gm in NS 250ml 1 GM/250 ML BAG IVPB SCH (11:10)
--- NOTE | 2018-01-11 13:25 | CP.PCM.PN ---
Subjective - Date & Time of Evaluation Date of Evaluation: 01/11/18 Time of Evaluation: 11:00 - Subjective Subjective: Comfortable in bed, no SOB currently, still with urinary frequency but a little better, no fevers. Objective - Vital Signs/Intake and Output Vital Signs (last 24 hours): Temp Pulse Resp BP Pulse Ox 98.5 F 87 20 132/83 98 01/11/18 06:00 01/11/18 10:05 01/11/18 06:00 01/11/18 10:05 01/11/18 06:00 Intake and Output: 01/11/18 01/11/18 06:59 18:59 Intake Total 240 Balance 240 - Medications Medications: Current Medications Acetaminophen/Butalbital/Caffeine (Fioricet) 1 tab PO Q8 PRN PRN Reason: Headache Last Admin: 01/09/18 22:54 Dose: 1 tab Albuterol/Ipratropium (Duoneb 3 Mg/0.5 Mg (3 Ml) Ud) 3 ml IH [id number] [facility] Last Admin: 01/11/18 08:12 Dose: 3 ml Aspirin (Ecotrin) 81 mg PO DAILY [facility] Last Admin: 01/11/18 10:05 Dose: 81 mg Cyanocobalamin (Vitamin B12 1000 Mcg Tab) 1,000 mcg PO DAILY [facility] Last Admin: 01/11/18 10:05 Dose: 1,000 mcg Ergocalciferol (Drisdol 50,000 Intl Units Cap) 1 cap PO We [facility] Fenofibrate (Tricor) 145 mg PO DAILY [facility] Last Admin: 01/11/18 10:05 Dose: 145 mg Ferrous Sulfate (Feosol) 324 mg PO DAILY [facility] Last Admin: 01/11/18 10:06 Dose: 324 mg Gabapentin (Neurontin) 300 mg PO DAILY [facility] PRN Reason: Protocol Last Admin: 01/11/18 10:05 Dose: 300 mg Glipizide (Glucotrol) 10 mg PO BRK [facility] Last Admin: 01/11/18 08:59 Dose: 10 mg Meropenem (Merrem Iv 1 Gm Premix) 50 mls @ 100 mls/hr IVPB Q12 [facility] PRN Reason: Protocol Stop: 01/19/18 14:01 Last Admin: 01/11/18 10:06 Dose: 100 mls/hr Vancomycin HCl (Vancomycin 1gm) 1 gm in 250 mls @ 167 mls/hr IVPB Q12H [facility] PRN Reason: Protocol Stop: 01/19/18 10:01 Last Admin: 01/10/18 22:30 Dose: 167 mls/hr Insulin Human Regular (Humulin R Low) 0 units SC ACHS [facility] PRN Reason: Protocol Last Admin: 01/11/18 08:59 Dose: 1 unit Latanoprost (Xalatan Opht) 0 ml OU HS [facility] Last Admin: 01/10/18 22:29 Dose: 2.5 ml Levothyroxine Sodium (Synthroid) 75 mcg PO 0600 [facility] Last Admin: 01/11/18 05:46 Dose: 75 mcg Losartan Potassium (Cozaar) 50 mg PO DAILY [facility] Last Admin: 01/11/18 10:05 Dose: 50 mg Magnesium Oxide (Mag-Ox) 400 mg PO BID [facility] Last Admin: 01/11/18 10:05 Dose: 400 mg Metformin HCl (Glucophage) 1,000 mg PO BID [facility] Last Admin: 01/11/18 10:05 Dose: 1,000 mg Metoprolol Succinate (Toprol Xl) 50 mg PO BID [facility] Last Admin: 01/11/18 10:05 Dose: 50 mg Pantoprazole Sodium (Protonix Ec Tab) 40 mg PO 0600 [facility] Last Admin: 01/11/18 05:46 Dose: 40 mg - Labs Labs: 01/10/18 06:00 01/10/18 06:00 - Constitutional Appears: Chronically Ill - Head Exam Head Exam: NORMAL INSPECTION - ENT Exam ENT Exam: Mucous Membranes Moist - Neck Exam Neck Exam: absent: Meningismus - Respiratory Exam Respiratory Exam: Decreased Breath Sounds - Cardiovascular Exam Cardiovascular Exam: +S1, +S2 - GI/Abdominal Exam GI & Abdominal Exam: Soft. absent: Tenderness Assessment and Plan - Assessment and Plan (Free Text) Plan: Assessment urinary tract infection with gram negative bacilli in the urine; no evidence of pneumonia on CT chest history of ESBL Klebsiella UTI S/P treatment of Influenza history of sepsis due to left lower lobe healthcare-associated pneumonia COPD history of TIA S/P left eye cataract surgery DM hypothyroidism S/P S/P hysterectomy S/P tonsillectomy HTN significant smoking history Plan will continue Merrem pending identification and sensitivities of the gram negative bacilli in the urine will monitor clinically
--- NOTE | 2018-01-11 17:45 | PN ---
Copied To: Felipe Bergman MD Attending MD: Felipe Bergman MD DATE: 01/11/2018 PULMONARY PROGRESS NOTE REFERRING PHYSICIAN: Alison Powers MD SUBJECTIVE: The patient is sitting at the side of the bed, having dinner. Family is at bedside. Night was unremarkable. Feels little better. Decreased cough. No shortness breath. No chest pain. No nausea. No vomiting. No diarrhea. No leg pain or leg swelling. OBJECTIVE: GENERAL: In no acute distress. VITAL SIGNS: Temperature is 98, heart rate 75, respiratory rate is 20, blood pressure 134/80, pulse ox 98% on room air. HEENT: Moist mucous membrane. Crowded airway. NECK: Supple. No JVD. LUNGS: Have a fair airflow with rhonchi. HEART: S1 and S2. ABDOMEN: Soft, nontender. No organomegaly. EXTREMITIES: No edema. NEUROLOGICAL: Awake and alert. Follows simple command. MEDICATIONS: She is on Cozaar 50 mg daily, vitamin D 50,000 units weekly, DuoNeb every 6 hours, Ecotrin 81 mg daily, ferrous sulfate 324 mg daily, Fioricet 1 tablet every 8 hours p.r.n. for headache, metformin 1000 mg twice a day, glipizide 10 mg daily, insulin coverage, mag oxide 400 mg twice a day, meropenem 1 g IV every 12 hours, gabapentin 300 mg daily, Protonix 40 mg daily, Synthroid 75 mcg daily, Toprol-XL 50 mg twice a day, TriCor 145 mg daily, vitamin B12 1000 mcg daily, has eye drops. LABORATORY DATA: Reviewed. Blood sugar this morning is 97. Microbiology: Urine culture has Gram-negative rods. Blood culture, there is no growth. IMPRESSION AND PLAN: Chronic obstructive lung disease, urinary tract infection with Gram-negative rods, suspected sleep apnea syndrome, hypertension, diabetes, gastroparesis, gastroesophageal reflux disease. Pulmonary point of view, doing okay. Continue bronchodilator. Keep head at 45 degrees. Sleep apnea precaution. Avoid sedation. Gastric prophylaxis. Spoke to the patient's and family at bedside. All the questions answered. Fall precaution. Thank you and we will follow with you. Felipe Bergman MD : 01/11/2018 17:17:40
[2018-01-11] MEDS: Latanoprost 2.5 ml Opht Soln OU SCH (21:25)
--- NOTE | 2018-01-12 00:37 | PN ---
Copied To: Alison Powers MD Attending MD: Alison Powers MD DATE: 01/11/2018 SUBJECTIVE: The patient is 77 years old female. The patient is seen and examined at the bedside. , daughter and friends were sitting on the bedside also. Cough is better. Shortness of breath is better. Night was unremarkable. Feels abdominal pain has gone. No chest pain. No nausea, vomiting. No diarrhea. No swelling of the legs. PHYSICAL EXAMINATION: VITAL SIGNS: Temperature 98, heart rate 75, respiratory rate 20, blood pressure 130/80, pulse oximetry 98% on room air. HEENT: Head: Normocephalic, atraumatic. Eyes: PERRLA. Extraocular muscles intact. Conjunctivae clear. Nose patent. Mucous membrane moist. NECK: Supple. No carotid bruit, JVD or thyromegaly. CHEST: Bilaterally symmetrical. HEART: S1 and S2 positive. LUNGS: Clear to auscultation. ABDOMEN: Soft. Bowel sounds present. No organomegaly. EXTREMITIES: No edema. No cyanosis. NEUROLOGIC: Patient is awake and alert. Follows simple commands. MEDICATIONS: Cozaar, vitamin D, DuoNeb, Ecotrin, ferrous sulfate, Fioricet, glipizide, insulin, magnesium oxide, gabapentin, Protonix, Synthroid, Toprol, TriCor, vitamin B12, eye drops. LABORATORY DATA: Blood sugar 97. We do not have recent lab today, but I reviewed old labs. ASSESSMENT AND PLAN: Ms. Michelle Myles is 77 years old lady with history of multiple medical problems. Has chronic obstructive lung disease, history of heavy smoking, urinary tract infection with gram-negative rods, suspected sleep apnea syndrome, hypertension, diabetes mellitus, gastroparesis, gastroesophageal reflux disease, continue bronchodilators, rule out bronchitis, sleep apnea syndrome, avoid sedation and gastric prophylaxis. Spoke to the length of time with the patient's and daughter and other family members. All questions answered. Gastrointestinal and deep venous thrombosis prophylaxis. Repeat labs. We will follow up. Alison Powers MD
[2018-01-12] MEDS: Albuterol-Ipratrop 3 mg / 0.5 (3 ml) UD IH SCH ×4 (02:13→19:43)
[2018-01-12] MEDS: Levothyroxine 75 MCG TAB PO SCH (06:14)
[2018-01-12] MEDS: Pantoprazole 40 mg EC Tab PO SCH (06:14)
[2018-01-12 07:23] LABS: BLOOD UREA NITROGEN 14 mg/dL (7-21); CALCIUM 9.1 mg/dL (8.4-10.5); GFR AFRICAN-AMERICAN > 60; GFR NON-AFRICAN AMERICAN > 60
[2018-01-12 07:24] LABS: HEMOGLOBIN 12.8 g/dL (12.0-16.0); MEAN CELL VOLUME 81.4 fl (80.0-105.0); MEAN CORPUSCULAR HEMOGLOBIN 27.7 pg (25.0-35.0); MEAN PLATELET VOLUME 11.5 fl (7.0-11.0); RBC 4.62 10^6/uL (3.5-6.1); RED CELL DISTRIBUTION WIDTH 13.5 % (11.5-14.5); WHITE BLOOD COUNT 11.1 10^3/ul (4.5-11.0)
[2018-01-12] MEDS: Insulin Reg-LOW-Coverage SC SCH ×3 (08:26→17:09)
[2018-01-12] MEDS: Metoprolol Succinate 50 mg XL Tab PO SCH ×2 (09:21→17:38)
[2018-01-12] MEDS: Meropenem IV 1 gm in NS 50 ML IVPB SCH (09:21)
[2018-01-12] MEDS: Magnesium Oxide 400 mg Tab UD PO SCH ×2 (09:22→17:39)
[2018-01-12] MEDS: Cefpodoxime (Vantin) 200 mg Tab PO SCH ×2 (09:37→17:38)
[2018-01-12 12:07] VITALS: RESP 18; TEMP 98
--- NOTE | 2018-01-12 13:42 | PN ---
Copied To: Narayan Perez MD Attending MD: Narayan Perez MD DATE: 01/12/2018 SUBJECTIVE: The patient is seen earlier today in room 261, bed 2. The patient states that she is weak. She has intermittent cough. Her abdominal cramps have resolved. PHYSICAL EXAMINATION: VITAL SIGNS: Temperature is 98, blood pressure is 150/70, respiratory rate of 16. HEENT: Unremarkable. NECK: Supple. LUNGS: Have decreased breath sounds. HEART: Normal S1, S2. ABDOMEN: Soft, nontender. LABORATORY EXAMINATION: Reveals a white count of 11,100, hemoglobin of 12, platelets of 226, BUN of 14, creatinine of 0.8 and procalcitonin is less than 0.015. Urinalysis is noted. Microbiology reveals E. Coli in the urine. The blood cultures have no growth. The E. Coli in the urine is pansensitive. Review of orders reveals the patient to be on meropenem BECAUSE OF AN ALLERGY TO TETRACYCLINE AND SULFA. ASSESSMENT AND PLAN: A 77-year-old female with Escherichia coli urinary tract infection and no evidence of pneumonia on CAT scan of the chest. The patient has a history of extended-spectrum beta-lactamase Klebsiella urinary tract infection and treatment for influenza in the past, history of sepsis due to left lower lobe healthcare-associated pneumonia, history of transient ischemic attack, diabetes and hypothyroidism, on meropenem with sensitive Escherichia coli and SHE IS ALLERGIC TO SULFA AND TETRACYCLINE. Maybe able to switch to p.o. cefpodoxime, p.o. Vantin since it is pansensitive, also sensitive to quinolones. May use p.o. Cipro upon discharge, with a QTc of 432, this is an option. We will change to Vantin 200 mg p.o. b.i.d. for 7 days. Narayan Perez MD
[2018-01-12 18:47] VITALS: BP 144/94; O2SAT 97
[2018-01-12 19:36] VITALS: PULSE 76
--- NOTE | 2018-01-12 20:38 | PN ---
Copied To: Felipe Bergman MD Attending MD: Felipe Bergman MD DATE: 01/12/2018 PULMONARY PROGRESS NOTE REFERRING PHYSICIAN: Alison Powers MD SUBJECTIVE: Sitting side of the bed, being discharged home. Night was unremarkable. Cough and breathing better. No nausea, no vomiting, no diarrhea. No leg pain or leg swelling. OBJECTIVE: GENERAL: In no acute distress. VITAL SIGNS: Temperature is 98, heart rate 76, respiratory rate is 18, blood pressure 144/94, pulse ox 97% on room air. HEENT: Moist mucous membranes. No ulcer or thrush noted. NECK: Supple. No JVD. LUNGS: Fair airflow with rhonchi. HEART: S1 and S2. ABDOMEN: Soft, nontender. No organomegaly. EXTREMITIES: No edema. NEUROLOGIC: Awake, alert, and follows simple command. MEDICATIONS: She is on Cozaar 50 mg daily, DuoNeb every 6 hours, Ecotrin 81 mg daily, ferrous sulfate 324 mg daily, Fioricet p.r.n. basis, metformin 1000 mg twice a day, glipizide 10 mg daily, insulin coverage, mag oxide, gabapentin 300 mg daily, Protonix 40 mg daily, Synthroid 75 mcg daily, Toprol XL 50 mg twice a day, Tricor 145 mg daily, Vantin 200 mg twice a, mcg daily. LABORATORY DATA: Shows hemoglobin 12.8, hematocrit 37.6, WBC 11.1, and platelets 226. Sodium 141, potassium 4.5, chloride 101, bicarbonate 27. BUN is 14, creatinine 0.8. Glucose 132. Calcium is 9.1. Microbiology, blood culture negative and urine culture has E. coli. IMPRESSION AND PLAN: Chronic obstructive lung disease, urinary tract infection, suspected sleep apnea syndrome, hypertension, diabetes, gastroparesis, gastroesophageal reflux disease. May continue p.r.n. bronchodilator, antibiotics as per Infectious Diseases. Fall precaution. Outpatient followup with Dr. Powers. Recommended sleep study upon discharge as outpatient. Thank you and we will follow with you. Felipe Bergman MD [facility] # [id number]
--- NOTE | 2018-01-13 00:27 | DS ---
Copied To: Alison Powers MD Attending MD: Alison Powers MD CHIEF COMPLAINTS: Cough, cold, congestion. HISTORY OF PRESENT ILLNESS: Ms. Michelle Myles, 77-year-old lady, came to [facility] with her and daughter with a 3-week history of cough, , generalized weakness, muscle cramps towards the entire body, abdominal bloating, urinary frequency, dysuria. She denies fever or chills. The patient denies shortness of breath or pain with deep breathing. No hematuria. No hematochezia. No fever. No chills. Denies cough, tenderness. We admitted the patient. Did CAT scan of abdomen and pelvis, CAT scan of the head, CAT scan of the chest. Seen by Dr. Bergman, Dr. Perez. Dr. Perez today changed the patient's IV antibiotics to p.o. Then, we discharged the patient with p.o. antibiotics. Follow up with primary care physician, Infectious Disease and pen maker. PAST MEDICAL HISTORY: Hypertension, COPD, pneumonia, TIA, cataract surgery, diabetes mellitus type 2, history of fall, unsteady gait, walking with cane, history of GERD, constipation, hiatal hernia, gastroparesis, poor appetite, urgency, frequency, ESBL in the urine and in the past hysterectomy. FAMILY HISTORY: Father and mother, noncontributory. HABITS: Former smoker. No drugs. No ethanol. ALLERGIES: THE PATIENT IS ALLERGIC WITH SULFA, TETANUS AND TETRACYCLINE. HOME MEDICATIONS: Reviewed by me. REVIEW OF SYSTEMS: The patient was seen and examined at the bedside. Daughter was sitting on the bedside also. No nausea, vomiting, diarrhea. No hematuria or hematochezia. No swelling of the legs. No chest pain. No palpitation. Abdominal pain is better. Headache is better. Cough is better. No fever. No chills. PHYSICAL EXAMINATION: VITAL SIGNS: Temperature 98, heart rate 73, respiratory rate 18, blood pressure 144/94, pulse oximetry 97% on room air. HEENT: Head normocephalic, atraumatic. Eyes PERRLA. Extraocular muscles are intact. Conjunctivae clear. Nose patent. Mucous membrane moist. NECK: Supple. No carotid bruit. No JVD or thyromegaly. LUNGS: Fair flow with rhonchi. HEART: S1 and S2 positive. ABDOMEN: Soft. No organomegaly. EXTREMITIES: No edema. No cyanosis. NEUROLOGICAL: The patient is awake and alert. Follows simple commands. MEDICATIONS: Cozaar, DuoNeb, ferrous sulfate, Fioricet, metformin, glipizide, insulin coverage, gabapentin, Protonix, Synthroid, Toprol, Tricor, Vantin. LABORATORY DATA: Hemoglobin 12.8, hematocrit 37.6, white blood cells 11.1, platelets 226. Sodium 141, potassium 4.5, BUN 14, creatinine 0.8, glucose 132. ASSESSMENT AND PLAN: Ms. Michelle Myles, 77-year-old female with multiple medical problems, chronic obstructive lung disease, history of heavy smoking, urinary tract infection, suspected sleep apnea syndrome, hypertension, diabetes mellitus, gastroparesis, gastroesophageal reflux disease, rule out postnasal drip, having dry cough. We will continue p.r.n. bronchodilators. Antibiotics as per Infectious Disease. We changed her IV to p.o. antibiotics. The patient sent home with Vantin, p.o. antibiotics, fall precautions. Follow up in my office. We will readjust medications. Out of bed, physical therapy. We will follow up. Alison Powers MD
[2018-01-16] MEDS ORDERED: Ergocalciferol 50,000 Intl Units Cap PO SCH (10:00)
== END 2018-01-12 19:45 | disposition home or self-care (01) | DRG 190 ==
LOC: ED 14:31 → ERH 18:30 → 2RNO 21:43
PROVIDERS: ADMIT Internal Medicine; ATTEND Internal Medicine
DX: J44.0 Chronic obstructive pulmonary disease with (acute) lower respiratory infection (principal); J18.9 Pneumonia, unspecified organism; N39.0 Urinary tract infection, site not specified; E11.42 Type 2 diabetes mellitus with diabetic polyneuropathy; E11.43 Type 2 diabetes mellitus with diabetic autonomic (poly)neuropathy; E11.65 Type 2 diabetes mellitus with hyperglycemia; E78.1 Pure hyperglyceridemia; E87.8 Other disorders of electrolyte and fluid balance, not elsewhere classified; E89.0 Postprocedural hypothyroidism; H40.9 Unspecified glaucoma; I10 Essential (primary) hypertension; K31.84 Gastroparesis; K21.9 Gastro-esophageal reflux disease without esophagitis; Y95 Nosocomial condition; Z86.19 Personal history of other infectious and parasitic diseases; Z86.73 Personal history of transient ischemic attack (TIA), and cerebral infarction without residual deficits; Z87.01 Personal history of pneumonia (recurrent); Z87.440 Personal history of urinary (tract) infections; Z87.891 Personal history of nicotine dependence; Z88.1 Allergy status to other antibiotic agents; Z88.2 Allergy status to sulfonamides; Z88.7 Allergy status to serum and vaccine; Z90.710 Acquired absence of both cervix and uterus; Z91.81 History of falling; B96.20 Unspecified Escherichia coli [E. coli] as the cause of diseases classified elsewhere; G47.30 Sleep apnea, unspecified

== ENCOUNTER 2018-06-13 09:31 | Outpatient (CLI) | payer MEDICARE | END 2018-06-13 09:32 | disposition home or self-care (01) | LOC: LAB 09:31 ==

== ENCOUNTER 2018-06-21 10:03 | Outpatient (CLI) | payer MEDICARE | END 2018-06-21 10:04 | disposition home or self-care (01) | LOC: RAD 10:03 ==

== ENCOUNTER 2018-08-31 08:56 | Outpatient (CLI) | payer MEDICARE | END 2018-08-31 08:57 | disposition home or self-care (01) | LOC: RAD 08:56 ==